=== PATIENT | male | born 1975 | race African-American/Black ===

== ENCOUNTER 2017-09-09 05:53 | Emergency (ER) | payer OTHER | END 2017-09-09 06:45 | disposition home or self-care (01) | LOC: ERS 05:53 | DX: J11.1 Influenza due to unidentified influenza virus with other respiratory manifestations (principal); E11.9 Type 2 diabetes mellitus without complications; I11.0 Hypertensive heart disease with heart failure; I50.9 Heart failure, unspecified; J45.909 Unspecified asthma, uncomplicated; E66.9 Obesity, unspecified; E78.5 Hyperlipidemia, unspecified; J44.9 Chronic obstructive pulmonary disease, unspecified; F17.200 Nicotine dependence, unspecified, uncomplicated; Z79.84 Long term (current) use of oral hypoglycemic drugs; Z79.899 Other long term (current) drug therapy | CPT/HCPCS: 99284 ==

== ENCOUNTER 2017-12-18 06:33 | Inpatient (IN) | payer OTHER ==
[2017-12-18 07:10] LABS: pH, Arterial 7.34 (7.35-7.45)
[2017-12-18 07:11] LABS: Actual Bicarbonate (HCO3a) 28.9 mEq/L (22-26); CO2 Tension 54.6 mmHg (35.0-45.0); Hemoglobin (Hb) 14.7 g/dL (14.0-18.0); O2 Tension (PaO2) 84.6 mmHg (80.0-100.0)
[2017-12-18 07:12] LABS: Analyzer IN Cardio ER; Calcium, Ionized 1.3 mmol/L (1.12-1.30); Puncture Site LRA
[2017-12-18 07:14] LABS: #Eosinphils 0.1 thou/uL (0.0-0.7); #Lymphocytes 1.7 thou/uL (1.20-3.40); #Monocytes 0.5 thou/uL (0.11-0.59); #Neutrophils 5.1 thou/uL (1.40-6.50); %Basophils 0.5 % (0.0-1.0); %Eosinophils 0.8 % (0.0-10.0); %Lymphocytes 22.8 % (21.0-51.0); %Monocytes 7.1 % (0.0-10.0); %Neutrophils 68.9 % (42.0-75.0); Mean Corpuscular HGB CONC 32.9 g/dL (32.0-36.0); Mean Corpuscular Hemoglobin 28.2 pg (27.0-31.0); Mean Corpuscular Volume 85.5 fl (80.0-94.0); Mean Platelet Volume 7.3 fL (7.4-10.4); Platelet Count 279 thou/uL (130-400); RBC Distribution Width 13.2 % (11.5-14.5); Red Blood Cell (RBC) Count 5.33 mill/uL (4.70-6.10); White Blood Cell (WBC) Count 7.4 thou/uL (4.8-10.8)
[2017-12-18 07:28] LABS: Albumin 3.8 g/dL (3.5-5.0); Calcium 9.2 mg/dL (7.8-10.44); Chloride 103 mmol/L (98-107); Globulin 3.8 g/dL (2.4-3.5); Glucose 118 mg/dL (70-105); Potassium 4.5 mmol/L (3.5-5.1); Protein, Total 7.6 g/dL (6.0-8.3); Sodium 138 mmol/L (136-145)
[2017-12-18 07:29] LABS: Anion Gap 11 mmol/L (10-20); Bilirubin, Total 0.8 mg/dL (0.2-1.2); Carbon Dioxide 29 mmol/L (22-29)
[2017-12-18 07:30] LABS: Alkaline Phosphatase 64 U/L (40-150)
[2017-12-18 07:31] LABS: Calc. Creatinine Clearance 0 mL/min (70-130); Estimated GFR-MDRD Greater than 90
[2017-12-18 07:32] LABS: BUN (Urea Nitrogen) 14 mg/dL (8.9-20.6)
[2017-12-18 07:33] LABS: ALT (SGPT) 28 U/L (8-55); AST (SGOT) 29 U/L (5-34); PTT 30.8 SEC (22.9-36.1); Prothrombin Time 13.1 SEC (12.0-14.7)
[2017-12-18 07:38] LABS: CKMB 4.2 ng/mL (0-6.6); Troponin I 0.044 ng/mL (< 0.028)
[2017-12-18 07:41] LABS: Acetaminophen Less than 6.0 mcg/mL (10.0-30.0); Alcohol Less than 10 mg/dL (Less than 10); CK (CPK) 304 U/L (30-200); Lipase 12 U/L (8-78); Salicylate Less than 8.0 mg/dL (15.0-30.0)
[2017-12-18] MEDS ORDERED: Furosemide 100 MG/10 ML VIAL ONE (07:56)
--- NOTE | 2017-12-18 07:59 | RAD ---
PORTABLE CHEST: DATE: 12/18/17. PROVIDED CLINICAL HISTORY: Shortness of breath. FINDINGS: Comparison is made with the study dated 09/07/17. Evaluation is limited by patient body habitus. Car diac silhouette appears enlarged. The left subclavian cardiac pacing device is redemonstrated. Patc hy airspace disease is present throughout the right lung. The left lung appears grossly clear. Ther e is no pleural fluid or pneumothorax evident. IMPRESSION: Right-sided airspace disease compatible with pneumonia in the appropriate clinical context. Followup is recommended after treatment to document resolution. POS: EVAN
[2017-12-18 08:51] LABS: Amphetamine Detected (NotDetected); Barbiturates Screen Not Detected (NotDetected); Benzodiazepine Screen Not Detected (NotDetected); Cocaine Metabolite Screen Not Detected (NotDetected); Medtox Control Line Valid? VALID (VALID); Medtox Reader # READER 4; Methadone Not Detected (NotDetected); Methamphetamine Detected (NotDetected); Opiate Screen Not Detected (NotDetected); Oxycodone Screen Not Detected (NotDetected); Phencyclidine (PCP) Not Detected (NotDetected); THC/Cannabinoid Screen Detected (NotDetected); Tricyclic Screen Not Detected (NotDetected)
[2017-12-18] MEDS ORDERED: Naloxone HCl 2 mg/2 ml Syringe ONE (09:16)
[2017-12-18] MEDS ORDERED: Azithromycin 500 MG VIAL ONE (09:27)
[2017-12-18 09:59] LABS: Bilirubin Negative (Negative); Blood, Urine Negative (Negative); Clarity CLEAR (Clear); Glucose, Urine (Dipstick) Negative (Negative); Leukocyte Negative (Negative); Nitrite Negative (Negative); Protein, Urine (Dipstick) Negative (Neg-Trace); Specific Gravity, Urine 1.019 (1.002-1.036); pH, Urine 5.5 (5.0-9.0)
[2017-12-18] MEDS ORDERED: Albuterol Sulfate 2.5 mg/3 ml Neb ONE (11:34)
[2017-12-18 13:42] LABS: Troponin I 0.036 ng/mL (< 0.028)
[2017-12-18] MEDS ORDERED: cefTRIAXone\\ROCEPHIN 1 GM in Sodium Chloride 0.9% 100 ML IVPB SCH (14:00)
[2017-12-18] MEDS ORDERED: Azithromycin 500 MG in Sodium Chloride 0.9% 250 ML 250 ML IVPB SCH (14:00)
[2017-12-18] MEDS ORDERED: Labetalol HCl 100 MG/20 ML VIAL SLOW IVP PRN (14:06)
--- NOTE | 2017-12-18 14:06 | PDOC.EVN ---
Event Note - Event Note Event Note: H&P dictated #[id number]
[2017-12-18] MEDS ORDERED: HumaLOG 300 UNITS/3 ML VIAL SC PRN (14:12)
[2017-12-18] MEDS ORDERED: Dextrose 5% in Water 1,000 ML IV PRN (14:12)
[2017-12-18] MEDS ORDERED: Dextrose 50% Abboject 50 ML SYRINGE SLOW IVP PRN (14:12)
[2017-12-18 14:39] VITALS: BMI 39.6
[2017-12-18 15:18] LABS: Hemoglobin A1c 5.8 % (4.0-6.0)
[2017-12-18] MEDS ORDERED: predniSONE 20 MG TAB PO SCH (17:00)
[2017-12-18 19:00] LABS: Troponin I 0.035 ng/mL (< 0.028)
[2017-12-18] MEDS ORDERED: Carvedilol 25 MG TAB PO SCH (21:00)
[2017-12-18] MEDS: Amoxicillin/Potassium Clav 875 MG TAB PO SCH (21:35)
[2017-12-18] MEDS: Lisinopril 20 MG TAB PO SCH (21:36)
[2017-12-19 04:59] LABS: Hemoglobin 14.4 g/dL (14.0-18.0); Lymphocytes 14 % (21-51); MDiff Complete? YES; Mean Corpuscular Hemoglobin 28.3 pg (27.0-31.0); Mean Corpuscular Volume 85.8 fl (80.0-94.0); Mean Platelet Volume 8.2 fL (7.4-10.4); Monocytes 5 % (0-10); Neutrophil 81 % (42-75); Platelet Count 295 thou/uL (130-400); RBC Distribution Width 13.2 % (11.5-14.5); Red Blood Cell (RBC) Count 5.08 mill/uL (4.70-6.10); White Blood Cell (WBC) Count 13.8 thou/uL (4.8-10.8)
[2017-12-19 05:06] LABS: Troponin I 0.044 ng/mL (< 0.028)
[2017-12-19 05:22] LABS: Anion Gap 13 mmol/L (10-20); BUN (Urea Nitrogen) 17 mg/dL (8.9-20.6); Calc. Creatinine Clearance 206 mL/min (70-130); Calcium 9.6 mg/dL (7.8-10.44); Carbon Dioxide 28 mmol/L (22-29); Chloride 99 mmol/L (98-107); Estimated GFR-MDRD Greater than 90; Glucose 136 mg/dL (70-105); Potassium 3.9 mmol/L (3.5-5.1); Sodium 136 mmol/L (136-145)
[2017-12-19] MEDS ORDERED: Furosemide 40 MG TAB PO SCH (07:30)
[2017-12-19] MEDS: Lisinopril 20 MG TAB PO SCH ×2 (08:27→21:13)
[2017-12-19] MEDS: Allopurinol 100 MG TAB PO SCH (08:28)
[2017-12-19] MEDS: predniSONE 20 MG TAB PO SCH (08:28)
[2017-12-19] MEDS: hydrALAZINE 25 MG TAB PO SCH (08:30)
[2017-12-19] MEDS: Amoxicillin/Potassium Clav 875 MG TAB PO SCH ×2 (08:31→21:13)
[2017-12-19] MEDS ORDERED: Furosemide 40 MG/4 ML VIAL SLOW IVP SCH (08:45)
[2017-12-19] MEDS ORDERED: Potassium Chloride 20 MEQ TAB PO SCH (08:45)
[2017-12-19] MEDS: Enoxaparin Sodium 40 MG/0.4 ML SYRINGE SC SCH (09:18)
[2017-12-19] MEDS: Spironolactone 25 MG TAB PO SCH (09:19)
--- NOTE | 2017-12-19 09:53 | CON ---
DATE OF CONSULTATION: 12/19/2017. REASON FOR CONSULTATION: Congestive heart failure, systolic, acute on chronic. PRIMARY TECHNICAL MGR: Dr. Carlos Pascual. HISTORY OF PRESENT ILLNESS: Mr. Schmidt is a 42-year-old gentleman. He came to the emergency room c [facility] of increasing difficulty breathing and has a history of a nonischemic cardiomyopathy. He was placed on BiPAP, continues to be short of breath. PAST MEDICAL HISTORY: He has a history of presenting with congestive heart failure in 2011. Cardiac catheterization revealed normal coronary arteries. In view of the left ventricular dysfunction, he underwent single chamber defibrillator implantation. He has not seen a mental tester for several year s. He presented to the emergency room last night with increasing difficulty breathing. MEDICATIONS: At home included, 1. Glipizide. 2. Hydralazine. 3. Carvedilol 12.5 mg twice a day. 4. Lisinopril 40 mg a day. 5. Furosemide 40 mg twice a day. 6. Allopurinol. PAST MEDICAL HISTORY: 1. Idiopathic dilated cardiomyopathy. 2. Some reactive airway disease. 3. He is on medicines for diabetes. REVIEW OF SYSTEMS: Constitutional: No significant weight gain or loss. Vision: No changes. Heari ng: No changes. Pulmonary: Positive for shortness of breath. Cardiac: Positive for shortness of breath, no chest pain. Gastrointestinal: No nausea, vomiting, diarrhea. Skin: No rashes. Neurolo gic: No unilateral weakness or numbness. Psychiatric: No unusual depression or anxiety. Hematolog ic: No unusual bruising. Genitourinary: No burning with urination. SOCIAL HISTORY: Positive for marijuana, positive for tobacco, no alcohol. ALLERGIES: None known. Yesterday, blood pressure on arrival was 150/104. PHYSICAL EXAMINATION: GENERAL: He is a pleasant gentleman. He is resting comfortably, in no distress. HEENT: Eyes, sclerae nonicteric. Mouth, mucous membranes moist. VITAL SIGNS: Blood pressure 120/79, pulse 96, it is regular. NECK: Neck veins are normal. Carotid normal upstrokes. LUNGS: There is diffuse expiratory wheezing. CARDIOVASCULAR: Normal S1, normal S2. I do not hear a murmur, rub or gallop. ABDOMEN: Obese, nontender, no hepatosplenomegaly. EXTREMITIES: Warm, dry, no clubbing or cyanosis. There is mild edema. Peripheral pulses are presen t. PERTINENT LABORATORY DATA AND IMAGING: BNP 1679. Chest x-ray shows cardiomegaly with pulmonary vasc ular congestion and heart failure. Troponin 0.044. Potassium 3.9, BUN 17, creatinine 0.9. EKG show s sinus rhythm, nonspecific ST and T-wave changes. ASSESSMENT: 1. Idiopathic dilated cardiomyopathy. 2. Congestive heart failure, systolic, acute on chronic. 3. Previous defibrillator implantation. PLAN: 1. Continue diuretic. He did receive 1 dose of intravenous Lasix last night. We will need to marija nue intravenous diuretics. 2. Add spironolactone. 3. Resume carvedilol. We will reduce dose until he is compensated. Further care dictated by hospit al course. We will ask the [employer] rep to interrogate the device.
[2017-12-19] MEDS: Furosemide 40 MG/4 ML VIAL SLOW IVP SCH (14:03)
[2017-12-19] MEDS ORDERED: Diabetic Tussin 200 MG/10 ML UDCUP PO PRN (14:51)
[2017-12-19] MEDS ORDERED: Cepastat Lozenges 1 LOZ PO PRN (14:51)
--- NOTE | 2017-12-19 14:51 | PRG ---
DATE OF SERVICE: 12/19/2017 SERVICE: Pulmonary Medicine. INTERVAL HISTORY: The patient is doing great from a respiratory standpoint. He denies any chest rhea n or shortness of breath. He is on a BiPAP break this morning. He is on room air. He slept very we ll last night. No specific complaints of fevers, chills, nausea, vomiting or diarrhea. Otherwise, chava bruner seems to have returned to his usual state of health. PHYSICAL EXAMINATION: VITAL SIGNS: Afebrile, pulse 96, blood pressure 120/79, respirations 20, saturation 97% on room air. GENERAL: The patient is awake, alert, no apparent distress. LUNGS: Decent air entry bilaterally. Dependent crackles are minimal. That being said, there is sammy e minimal prolongation of expiratory phase, rhonchi and wheezing present. HEART: Normal rate, regular. ABDOMEN: Soft, nontender, nondistended. Bowel sounds are positive. MUSCULOSKELETAL: No cyanosis or clubbing. Trace pitting in the bilateral lower extremities. NEUROLOGIC: Grossly nonfocal. LABORATORY DATA: WBC 13.8, hemoglobin 43.6, platelets 295,000. Basic metabolic profile is unremarka ble. Troponin 0.044. Urinalysis is unremarkable. Urine drug screen is positive for multiple substa nces. Blood cultures and urine culture are unremarkable. ASSESSMENT: 1. Acute hypoxic and hypercapnic respiratory failure, resolved. 2. Acute on chronic systolic heart failure. 3. Asthma with acute exacerbation. PLAN: We will continue our steroids, antibiotics, and nebulized medication. We will diurese the pat ient until he returns to euvolemia. From my perspective, he is stable for transition out of the hosp ital to the telemetry unit. The patient needs a followup [facility] to look into setting up a polysomnogram. I have asked the patient to make certain thi s occurs as he did arrive, significant benefit from this device and continue use that may prevent add itional injury to the heart in the future. He has been counseled to stay away from any type of signi ficant illicit stimulants. He is stable for transition to the telemetry unit. Pulmonary will contin ue to follow for the time being.
[2017-12-19] MEDS ORDERED: guaiFENesin ER 600 MG TAB PO SCH (15:00)
[2017-12-19] MEDS: Carvedilol 6.25 MG TAB PO SCH (16:03)
[2017-12-19] MEDS: guaiFENesin ER 600 MG TAB PO SCH (21:13)
--- NOTE | 2017-12-19 22:33 | PDOC.PN ---
- Subjective Encounter Start Date: 12/19/17 Encounter Start Time: 14:00 Patient seen and examined for CHF/possible pneumonia. SOB improving. No new complaints. No overnight events - Objective MAR Reviewed: Yes Vital Signs & Weight: Vital Signs (12 hours) Temp Pulse Resp BP BP Pulse Ox 12/19/17 21:13 113/72 12/19/17 20:00 97.9 F 101 H 18 113/72 90 L 12/19/17 16:03 123/84 12/19/17 16:00 98.4 F 88 18 123/84 94 L 12/19/17 13:05 101 H 18 95 12/19/17 10:53 98.8 F 107 H 20 129/71 97 Weight Weight 297 lb 11.2 oz I&O: 12/18/17 12/19/17 12/20/17 06:59 06:59 06:59 Intake Total 1010 1220 Output Total 900 4400 Balance 110 -3180 Result Diagrams: 12/19/17 03:21 12/20/17 04:20 Additional Labs: Accuchecks 12/19/17 12/19/17 12/19/17 21:14 15:53 10:30 POC Glucose 128 H 136 H 147 H 12/19/17 05:32 POC Glucose 166 H EKG Reviewed by me: Yes (Tele SR) Phys Exam - Physical Examination Constitutional: NAD Neck: supple JVD + Respiratory: wheezing present Bibasilar rales/rhonchi, Symmetrical Cardiovascular: RRR, no rub Gastrointestinal: soft, non-tender, no distention, positive bowel sounds Musculoskeletal: pulses present, edema present Neurological: non-focal, normal sensation, moves all 4 limbs Psychiatric: normal affect, A&O x 3 Dx/Plan - Plan continue antibiotics, respiratory therapy, DVT proph w/lovenox, DVT proph w/SCDs IMPRESSION: 1. Acute hypoxic resp failure due to Acute on chronic systolic heart failure exacerbation 2. Suspected CA Pneumonia ?Pneumococcal 3. Polysubstance abuse 4. Obesity BMI 38.9 5. HTN / DM2 PLAN: * Cont diuresis * Cont steroids/Atbx * Counselled on drug cessation * Transfer to Tele * cont sliding scale Review of Systems - Review of Systems Respiratory: negative: Cough, Dry, Shortness of Breath, Hemoptysis, SOB with Excertion, Pleuritic Pain, Sputum, Wheezing Cardiovascular: negative: chest pain, palpitations, orthopnea, paroxysmal nocturnal dyspnea, edema, light headedness, other - Medications/Allergies Allergies/Adverse Reactions: Allergies Allergy/AdvReac Type Severity Reaction Status Date / Time No Known Drug Allergies Allergy Verified 12/18/17 14:36 Medications: Current Medications Albuterol/Ipratropium (Duoneb) 3 ml NEB [id number] [facility] Last Admin: 12/19/17 13:05 Dose: 3 ml Albuterol/Ipratropium (Duoneb) 3 ml NEB [id number] PRN PRN Reason: SOB &/or Wheezing Allopurinol (Zyloprim) 100 mg PO DAILY [facility] Last Admin: 12/19/17 08:28 Dose: 100 mg Amoxicillin/Clavulanate Potassium (Augmentin) 875 mg PO Q12HR [facility] Stop: 12/23/17 21:01 Last Admin: 12/19/17 21:13 Dose: 875 mg Carvedilol (Coreg) 6.25 mg PO BID-[facility] Last Admin: 12/19/17 16:03 Dose: 6.25 mg Dextrose/Water (Dextrose 50%) 25 gm SLOW IVP PRN PRN PRN Reason: Hypoglycemia Enoxaparin Sodium (Lovenox) 40 mg SC 0900 [facility] Last Admin: 12/19/17 09:18 Dose: 40 mg Furosemide (Lasix) 40 mg SLOW IVP 0600,1400 [facility] Last Admin: 12/19/17 14:03 Dose: 40 mg Glucagon (Glucagon) 1 mg IM PRN PRN PRN Reason: Hypoglycemia Guaifenesin (Robitussin Sf) 200 mg PO Q4H PRN PRN Reason: Cough Guaifenesin (Mucinex) 600 mg PO Q12HR [facility] Last Admin: 12/19/17 21:13 Dose: 600 mg Hydralazine HCl (Apresoline) 25 mg PO DAILY [facility] Last Admin: 12/19/17 08:30 Dose: Not Given Dextrose/Water (D5w) 1,000 mls @ 0 mls/hr IV .Q0M PRN; As Directed PRN Reason: Hypoglycemia Labetalol HCl (Normodyne) 10 mg SLOW IVP Q4H PRN PRN Reason: Sbp Greater Than 170mmHg Lisinopril (Zestril) 20 mg PO BID [facility] Last Admin: 12/19/17 21:13 Dose: Not Given Prednisone (Prednisone) 40 mg PO QAM-[facility] Stop: 12/22/17 08:01 Last Admin: 12/19/17 08:28 Dose: 40 mg Sodium Chloride (Flush - Normal Saline) 10 ml IVF Q12HR [facility] Last Admin: 12/19/17 21:14 Dose: 10 ml Sodium Chloride (Flush - Normal Saline) 10 ml IVF PRN PRN PRN Reason: Saline Flush Last Admin: 12/19/17 14:03 Dose: 10 ml Spironolactone (Aldactone) 25 mg PO QA-[facility] Last Admin: 12/19/17 09:19 Dose: 25 mg Throat Lozenges (Cepastat Lozenges) 1 kandice PO Q2H PRN PRN Reason: Sore Throat
[2017-12-20 05:04] LABS: Anion Gap 11 mmol/L (10-20); BUN (Urea Nitrogen) 24 mg/dL (8.9-20.6); Calc. Creatinine Clearance 184 mL/min (70-130); Calcium 9.4 mg/dL (7.8-10.44); Carbon Dioxide 31 mmol/L (22-29); Chloride 99 mmol/L (98-107); Estimated GFR-MDRD Greater than 90; Glucose 92 mg/dL (70-105); Magnesium 2.1 mg/dL (1.6-2.6); Potassium 4.4 mmol/L (3.5-5.1); Sodium 137 mmol/L (136-145)
[2017-12-20] MEDS: Furosemide 40 MG/4 ML VIAL SLOW IVP SCH (05:08)
--- NOTE | 2017-12-20 05:16 | CON ---
DATE OF CONSULTATION: 12/18/2017 SERVICE: Pulmonary Medicine. REASON FOR CONSULT: IMCU patient. HISTORY OF PRESENT ILLNESS: The patient is a 42-year-old male with past medical history significant for asthma and polysubstance drug abuse. He was in his usual state of health when he was brought to the emergency department because of respiratory distress. He was a touch hypoxemic. He was put on some oxygen. He became more somnolent en route to the Emergency Department and was subsequently ____. He was placed on BiPAP. He is currently somnolent. With stimulation, he will wake up and act like he is sleeping and stretching. That being said, he is preferring not to interact with me at this time. He specifically denies any shortness of breath or chest discomfort currently. PAST MEDICAL HISTORY: 1. Asthma. 2. Chronic systolic heart failure with an ejection fraction of 15%. 3. Type 2 diabetes mellitus. 4. Morbid obesity. 5. Dyslipidemia. 6. Hypertension. PAST SURGICAL HISTORY: 1. Pacemaker placement in 2013. 2. Cardiac catheterization. SOCIAL HISTORY: He uses multiple substances including marijuana. He smokes tobacco on a daily basis. He has a 48-mltu-lpcs history of smoking but quit over 10 years ago. He denies any excessive alcohol use. He has no exposure to chemicals, dust, asbestos, or tuberculosis. ALLERGIES: No known drug allergies. MEDICATIONS: List of his inpatient medications were reviewed. No specific updates were made at this time. REVIEW OF SYSTEMS: General, head, ears, eyes, nose, throat, cardiovascular, respiratory, GI, , musculoskeletal, neurologic, and skin is negative except as mentioned in the HPI. PHYSICAL EXAMINATION: VITAL SIGNS: Afebrile, pulse 109, blood pressure 139/95, respirations 26, saturation 94% on BiPAP at 14/5 with 21% FiO2. GENERAL: Patient is awake, alert, in no apparent distress. LUNGS: Decent air entry. There is not much prolonged expiratory phase. Dependent crackles are minimal. HEART: Normal rate. Tachycardic. Regular. ABDOMEN: Soft, nontender, nondistended. Bowel sounds are positive. MUSCULOSKELETAL: No cyanosis or clubbing. There is no pitting or tenting throughout. GENITOURINARY: Prince catheter in place. NEUROLOGIC: Grossly nonfocal. LABORATORY DATA: WBC 7.4. CBC is otherwise unremarkable. INR 1.0. A pH 7.34 , pCO2 54, PO2 84. Basic metabolic profile and liver function studies are essentially unremarkable. BNP 1600, which is well below his baseline. Troponin is down trending to 0.036. Lactate 1.3, hemoglobin A1c 5.8. Urinalysis is unremarkable. Urine drug screen is positive for methamphetamine, amphetamine, and cannabinoids. IMAGING: Chest x-ray demonstrates a parenchymal infiltrate in the right lung. Heart is enlarged. Defibrillator is in place. Pulmonary vascular congestion is otherwise identified. ASSESSMENT: 1. Chronic hypercapnic respiratory failure. 2. Acute hypoxic respiratory failure. 3. Community-acquired pneumonia, possible. 4. Acute on chronic systolic heart failure. 5. Mitral regurgitant regurgitation, moderate in 2015. 6. Asthma without acute exacerbation. 7. Metabolic encephalopathy. PLAN: I will diurese the patient to euvolemia. We will continue to watch for signs of sepsis, currently none exist. I will deescalate prednisone to 40 mg on a daily basis and limit him to five-day course. I will start him on Augmentin 875 p.o. twice daily for the next 5 days, treating the community- acquired pneumonia. The chest x-ray could be consistent with preferential pulmonary edema on the right side, particularly in light of his mitral regurgitation. He will be on and off of noninvasive ventilation over the next 24 hours. Hopefully, by tomorrow morning, some of these substances will be out of his system and he will be more alert for us. 70 minutes have been devoted to this patient in various activities. I personally reviewed all imaging studies and laboratory data noted within this document. For fifty percent of this time, I was interacting with the patient at the bedside or coordinating care with the care team. For the remainder of the time I was immediately available to the patient in the hospital unit. SHAMIR
--- NOTE | 2017-12-20 07:24 | HP ---
DATE OF ADMISSION: 12/18/2017 ADMITTING DIAGNOSES: Shortness of breath and chest discomfort. HISTORY OF PRESENT ILLNESS: This is a 42-year-old male who states that he woke up this morning with severe significant shortness of breath and decided to present to the ER. States that he has positive medical history of COPD, congestive heart failure, diabetes mellitus, as well as hypertension and obesity. The patient states that he has had several episodes of COPD before and usually presents this way. The patient states that he was also out with some friends last night and did take some illicit drugs. The patient's urine drug screen, of note was positive for amphetamines as well as positive for methamphetamines and amphetamines and cannabinoids. The patient currently is on a BiPAP states he feels better than prior to coming in. Denies any other complaints or issues. No nausea vomiting, diarrhea, constipation, chest pain, fevers or chills but does admit to shortness of breath. The patient seen and examined in the ER and all questions answered. ALLERGIES: No known drug allergies. MEDICATIONS: See MAR. PAST MEDICAL HISTORY: Positive for diabetes mellitus, hypertension, COPD, obesity congestive heart failure, diastolic and systolic. FAMILY HISTORY: Positive for hypertension, diabetes, and renal failure on both sides of the family. SOCIAL HISTORY: The patient states that he does not smoke currently quit a few months ago; however, smoked more than 30 years for a pack-a-day of smoking. Does partake in illicit drug use as noted by his urine drug screen. Social drinker. REVIEW OF SYSTEMS: All systems reviewed, pertinent positives in HPI otherwise negative. PHYSICAL EXAMINATION: VITAL SIGNS: Blood pressure is 141/89, temperature is 98, respiratory rate of 18, and pulse of 98. GENERAL: The patient appears in mild respiratory distress, lying in bed in the ER. Physical appearance is that of a very morbidly obese individual. HEENT: Pupils equal, round, react to light and accommodation. BiPAP mask in place. Oral cavity appears little bit dry from the BiPAP. Nontender, mobile, supple thyroid. No lymphadenopathy in cervical chains noted. PULMONARY: Clear to auscultation bilaterally. Increased AP diameter. Significant chest fat noted. Mild respiratory distress. CARDIOVASCULAR: Distant heart sounds. Regular rate and rhythm. S1 and S2. No murmurs, rubs, or gallops appreciated. ABDOMEN: Positive bowel sounds. Soft, nontender, rotund. EXTREMITIES: 2+ peripheral pulses. Trace edema in bilateral lower extremities. LABORATORY DATA: CBC is within normal limits. ABG shows pH of 7.34, pCO2 of 55 , pO2 of 85 on room air. Basic metabolic panel is normal except for creatine kinase is 304. Troponins 2 sets first 1.044 and the other one 0.036. Urine drug screen again positive for amphetamines, methamphetamines, and cannabinoids and urinalysis negative for any indication of UTI. Chest x-ray shows right- sided airspace disease compatible with pneumonia. ASSESSMENT: 1. Recreational drug use. 2. Chronic obstructive pulmonary disease exacerbation. 3. Obesity. 4. Hypertension. 5. Diabetes mellitus type 2. 6. Diastolic/systolic congestive heart failure decompensation. 7. Questionable pneumonia. PLAN: At this point in time, we admit the patient to IMCU. Consult Pulmonary as patient states he would like to see a washhouse hand, he sees a washhouse hand as outpatient. Start the patient on Solu-Medrol. Hold all blood pressure medications at this point in time as interactions are concerned. Target blood pressure 121/40. GI and DVT prophylaxis. We will hold off on antibiotics at this point in time as the patient has no signs or symptoms of infection nor a high white count or fevers. We will admit the patient for COPD exacerbation likely due to illicit drug use. The patient states he wishes to remain a FULL CODE. Case and plan discussed with the patient at length. He understands and agrees with this plan. SHAMIR
[2017-12-20] MEDS: Lisinopril 20 MG TAB PO SCH (09:30)
[2017-12-20] MEDS: Allopurinol 100 MG TAB PO SCH (09:30)
[2017-12-20] MEDS: Spironolactone 25 MG TAB PO SCH (09:30)
[2017-12-20] MEDS: guaiFENesin ER 600 MG TAB PO SCH (09:30)
[2017-12-20] MEDS: Carvedilol 6.25 MG TAB PO SCH (09:30)
[2017-12-20] MEDS: Amoxicillin/Potassium Clav 875 MG TAB PO SCH (09:31)
[2017-12-20] MEDS: hydrALAZINE 25 MG TAB PO SCH (09:31)
[2017-12-20] MEDS: predniSONE 20 MG TAB PO SCH (09:31)
[2017-12-20] MEDS: Enoxaparin Sodium 40 MG/0.4 ML SYRINGE SC SCH (09:31)
--- NOTE | 2017-12-20 09:56 | PRG ---
DATE OF SERVICE: 12/20/2017 SERVICE: Pulmonary Medicine INTERVAL HISTORY: The patient is doing fine from a cardiovascular and respiratory standpoint. He de nies any current chest pain, nausea, vomiting, fevers or chills. He did not use his BiPAP last night because it was taken out of his room. PHYSICAL EXAMINATION: VITAL SIGNS: Afebrile, pulse 100, blood pressure 132/93, respirations 12, saturation 92% on room air . GENERAL: The patient is awake, alert, in no apparent distress. LUNGS: Decent air entry without prolonged expiratory phase, wheezing, rhonchi or crackles. HEART: Normal rate, regular. ABDOMEN: Soft, nontender, nondistended. Bowel sounds are positive. MUSCULOSKELETAL: No cyanosis or clubbing. There is no pitting in the bilateral lower extremities. NEUROLOGIC: Grossly nonfocal. LABORATORY DATA: Basic metabolic profile and magnesium are unremarkable. Bicarbonate has bumped sli ghtly to 31. Creatinine 1.0 and gently up trending. ASSESSMENT: 1. Acute hypoxic and hypercapnic respiratory failure, resolved. 2. Acute on chronic systolic heart failure. 3. Asthma with acute exacerbation. 4. Obstructive sleep apnea, suspected. PLAN: The patient is stable for transition out of the hospital, or transition to the telemetry from a purely respiratory perspective. Pulmonary Critical Care will continue to follow along if he remain s in this location, but when he goes to the floor I will sign off. A Prince catheter will be removed today. He needs to follow up with his primary care physician to get set up with a polysomnogram in t outpatient setting. I have recommended to him that he set that appointment up.
[2017-12-20 11:10] VITALS: BP 113/75; TEMP 97
[2017-12-21] MEDS ORDERED: Furosemide 40 MG/4 ML VIAL SLOW IVP SCH (09:00)
--- NOTE | 2017-12-21 10:26 | DIS ---
DATE OF DISCHARGE: 12/20/2017 Patient left against medical advice. BRIEF HOSPITAL COURSE: Patient is a 42-year-old male with chronic systolic heart failure; hypertensi on; diabetes mellitus, type 2; and polysubstance abuse, who presented to the emergency room on 2017 with shortness of breath and chest discomfort. His workup in the emergency room was consistent with elevated BNP of 1679 with indeterminate troponins. Urine drug screen was positive for amphetami chelle, methamphetamines, and cannabinoid. Please refer to the history and physical for further details . The patient was admitted to the intermediate care unit with a diagnosis of acute hypoxic respiratory failure. He showed good improvement with diuretics. The patient [facility] Echocardiogram was repeated that showed ejection fraction 15%-20%. His weight on the day of discharge was 295 pounds compared to 300 pounds on admission. The patient left against medica l advice on 12/20/2017 without notifying the nurses. FINAL DIAGNOSES: 1. Acute hypoxic respiratory failure secondary to acute on chronic systolic heart failure exacerbati on. 2. Suspected community-acquired pneumonia, questionable pneumococcal. 3. Polysubstance abuse. 4. Obesity with a BMI 38.9. 5. Hypertension. 6. Diabetes mellitus, type 2.
== END 2017-12-20 11:49 | disposition left against medical advice (07) | DRG 190 ==
LOC: ERS 06:33 → IMCU/EMU 14:11
PROVIDERS: ADMIT Internal Medicine; ATTEND Internal Medicine
DX: J44.1 Chronic obstructive pulmonary disease with (acute) exacerbation (principal); J13 Pneumonia due to Streptococcus pneumoniae; J96.21 Acute and chronic respiratory failure with hypoxia; I50.23 Acute on chronic systolic (congestive) heart failure; G93.41 Metabolic encephalopathy; I11.0 Hypertensive heart disease with heart failure; E11.9 Type 2 diabetes mellitus without complications; Z87.891 Personal history of nicotine dependence; Z68.38 Body mass index [BMI] 38.0-38.9, adult; F19.10 Other psychoactive substance abuse, uncomplicated; J44.0 Chronic obstructive pulmonary disease with (acute) lower respiratory infection; Z95.0 Presence of cardiac pacemaker; E66.01 Morbid (severe) obesity due to excess calories; Z79.84 Long term (current) use of oral hypoglycemic drugs
CPT/HCPCS: 36415; 36416; 51702; 71045; 80048; 80053; 80306; 80307; 81003; 82553; 82805; 83036; 83605; 83690; 83735; 83880; 84484; 85007; 85025; 85027; 85610; 85730; 87040; 87086; 93005; 93306; 94640; 94644; 94660; 96365; 96375; 99406; J0456; J0696; J1940; J2310; J2920; J7611; J7620

== ENCOUNTER 2018-04-03 01:25 | Inpatient (IN) | payer OTHER ==
[2018-04-03] MEDS ORDERED: cefTRIAXone\\ROCEPHIN 1 GM VIAL ONE (01:54)
[2018-04-03] MEDS ORDERED: Azithromycin 250 MG TAB ONE (01:54)
[2018-04-03 02:01] LABS: #Eosinphils 0.1 thou/uL (0.0-0.7); #Lymphocytes 0.9 thou/uL (1.20-3.40); #Monocytes 0.4 thou/uL (0.11-0.59); #Neutrophils 4.5 thou/uL (1.40-6.50); %Basophils 0.1 % (0.0-1.0); %Eosinophils 1.5 % (0.0-10.0); %Lymphocytes 15.6 % (21.0-51.0); %Monocytes 6.7 % (0.0-10.0); Hemoglobin 13.3 g/dL (14.0-18.0); Mean Corpuscular HGB CONC 32.7 g/dL (32.0-36.0); Mean Corpuscular Hemoglobin 27.9 pg (27.0-31.0); Mean Corpuscular Volume 85.5 fL (78.0-98.0); Mean Platelet Volume 7.5 fL (7.4-10.4); Platelet Count 256 thou/uL (130-400); RBC Distribution Width 13.5 % (11.5-14.5); Red Blood Cell (RBC) Count 4.77 mill/uL (4.70-6.10); White Blood Cell (WBC) Count 5.9 thou/uL (4.8-10.8)
[2018-04-03] MEDS ORDERED: Dexamethasone 10 MG/ML VIAL SLOW IVP SCH (02:15)
[2018-04-03 02:17] LABS: ALT (SGPT) 31 U/L (8-55); AST (SGOT) 19 U/L (5-34); Albumin 3.6 g/dL (3.5-5.0); Alkaline Phosphatase 57 U/L (40-150); Anion Gap 14 mmol/L (10-20); BUN (Urea Nitrogen) 15 mg/dL (8.9-20.6); Bilirubin, Total 0.9 mg/dL (0.2-1.2); Calc. Creatinine Clearance 0 mL/min (70-130); Calcium 8.9 mg/dL (7.8-10.44); Carbon Dioxide 22 mmol/L (22-29); Chloride 103 mmol/L (98-107); Estimated GFR-MDRD 84; Globulin 3.1 g/dL (2.4-3.5); Glucose 141 mg/dL (70-105); Potassium 3.9 mmol/L (3.5-5.1); Protein, Total 6.7 g/dL (6.0-8.3); Sodium 135 mmol/L (136-145)
[2018-04-03 02:34] LABS: CKMB 1.6 ng/mL (0-6.6); Troponin I 0.018 ng/mL (< 0.028)
[2018-04-03] MEDS ORDERED: Furosemide 20 MG/2 ML VIAL ONE (03:45)
[2018-04-03 04:00] LABS: Bilirubin Negative (Negative); Blood, Urine Negative (Negative); Clarity CLEAR (Clear); Glucose, Urine (Dipstick) Negative (Negative); Leukocyte Negative (Negative); Nitrite Negative (Negative); Protein, Urine (Dipstick) 30 mg/dL (Neg-Trace); Specific Gravity, Urine 1.029 (1.002-1.036)
[2018-04-03 04:02] LABS: Bacteria/HPF None Seen HPF (None Seen); Hyaline Casts/LPF 0-3 HYALINE CAST LPF (0-3 Hyaline); RBC/HPF 0-3 HPF (0-3); Squamous Epithelial None Seen HPF (0-3); WBC/HPF 0-3 HPF (0-3)
[2018-04-03] MEDS ORDERED: Ondansetron HCl/PF 4 MG/2 ML Vial IVP PRN ×2 (05:23→07:15)
[2018-04-03] MEDS ORDERED: Acetaminophen 325 MG TAB PO PRN ×2 (05:23→07:15)
[2018-04-03] MEDS ORDERED: Ondansetron ODT 4 MG TAB SL PRN (05:23)
[2018-04-03] MEDS ORDERED: Mag-Al 1200 mg/1200 mg/30 ML UDCUP PO PRN (07:15)
[2018-04-03] MEDS ORDERED: Chloraseptic Spray 180 ml Bottle PO PRN (07:15)
[2018-04-03] MEDS ORDERED: Loperamide HCl 2 MG CAP PO PRN (07:15)
[2018-04-03] MEDS ORDERED: Ondansetron ODT 4 MG TAB PO PRN (07:15)
[2018-04-03] MEDS ORDERED: Milk Of Magnesia 30 ML UDCUP PO PRN (07:15)
[2018-04-03] MEDS ORDERED: hydrALAZINE 20 MG/ML VIAL SLOW IVP PRN (07:15)
[2018-04-03] MEDS ORDERED: Artificial Tears 18 DROP/0.9 ML EA EYE PRN (07:15)
[2018-04-03] MEDS ORDERED: Senokot 8.6 MG TAB PO PRN (07:15)
[2018-04-03] MEDS ORDERED: Eucerin (Mineral Oil/Petrolatum,White) 30 gm Jar TOP PRN (07:15)
[2018-04-03] MEDS ORDERED: Sodium Chloride 0.65% Nasal 44 ML BOT EA NARE PRN (07:15)
[2018-04-03] MEDS ORDERED: Nitroglycerin 0.4 MG TAB (25 Tab Bottle) SL PRN (07:15)
[2018-04-03] MEDS ORDERED: Loratadine 10 MG TAB PO PRN (07:15)
[2018-04-03] MEDS ORDERED: Diabetic Tussin 200 MG/10 ML UDCUP PO PRN (07:15)
--- NOTE | 2018-04-03 07:47 | CT ---
PRELIMINARY REPORT/[facility]/EMERGENTY AFTER-HOURS PROCEDURE CT Angiography Chest With Intravenous Contrast CLINICAL HISTORY: 43 years old, male; Signs and symptoms; Dyspnea and shortness of breath; Patient HX: Er 3; M42 presen ts to ed by ems for SOB. Pt reports he has been SOB and had chest pain for the past couple of days. E ms reports pt did not feel feverish at home and pt is unsure if he has had a fever or not. Pt is unsure if his legs are swollen. Pt reports it has been "awhile" since he has been hospitalized for fluid retention or copd. Hx- afib, pacemaker, chf, hbp, copd, asthma. ; Additional info: *iv leak af ter first 30 ml of injection, once janet was fixed additional 80ml of contrast was used to complete exa m TECHNIQUE: Axial computed tomographic angiography images of the chest with intravenous contrast using pulmonary embolism protocol. MIP reconstructed images were created and reviewed. COMPARISON: No relevant prior studies available. FINDINGS: Pulmonary arteries: No acute findings. No evidence of pulmonary embolism. Aorta: No acute findings. No thoracic aortic aneurysm or dissection. Lungs: Bilateral, lower lobe predominant, groundglass airspace opacities, septal and peribronchial th ickening. Patchy linear atelectasis. Few scattered punctate nonspecific nodules. Pleural space: No acute findings. No significant effusion. No pneumothorax. Heart: Marked cardiomegaly. Left subclavian ICD. No pericardial effusion. Bones/joints: No acute fracture. No dislocation. Soft tissues: No acute findings. Lymph nodes: Bilateral hilar and mediastinal adenopathy. IMPRESSION: No evidence of pulmonary embolism. Marked cardiomegaly. Bilateral groundglass opacities and septal thickening could relate to pulmonary edema; infection/inflammation not completely excluded. Bilateral hilar and mediastinal adenopathy could be reactive and can be followed. Thank you for allowing us to participate in the care of your patient. Dictated and Authenticated by: Mark Donovan MD 04/03/2018 3:59 AM Central Time ([place] & [place]) FINAL REPORT CT PULMONARY ANGIOGRAM WITH IV CONTRAST AND 3D POSTPROCESSING: I agree with the preliminary report given by Dr. Donovan of [employer]. POS: [facility]
--- NOTE | 2018-04-03 08:25 | RAD ---
RADIOGRAPH CHEST 1 VIEW: Date: 04/03/2018 Time: 12:50 a.m. HISTORY: A 43-year-old male with chest pain. COMPARISON: 12/18/2017 FINDINGS: Cardiomegaly. A single lead left subclavian AICD. Pulmonary venous engorgement. Diffusely increase d interstitial markings throughout the right lung, with confluence into mild early air space densitie s at the right lower lung zone. These changes in the right lung have improved, compared to 8. No pneumothorax. IMPRESSION: 1. Cardiomegaly. 2. Pulmonary venous congestion is suggestive of at least mild congestive heart failure. 3. Interstitial densities throughout most of the right lung, plus early alveolar density at the righ t lower lung zone. Uncertain etiology. BANDAR [] POS: [facility]
[2018-04-03] MEDS: Potassium Chloride 20 MEQ TAB PO SCH ×2 (09:27→18:23)
[2018-04-03] MEDS: Metolazone 5 MG TAB PO SCH (09:27)
[2018-04-03] MEDS: Spironolactone 25 MG TAB PO SCH (09:27)
[2018-04-03] MEDS: Enoxaparin Sodium 40 MG/0.4 ML SYRINGE SC SCH (09:28)
[2018-04-03] MEDS: Carvedilol 3.125 MG TAB PO SCH ×2 (09:28→21:33)
[2018-04-03] MEDS: Famotidine 20 MG TAB PO SCH ×2 (09:28→21:33)
[2018-04-03] MEDS: Lisinopril 5 MG TAB PO SCH (09:28)
[2018-04-03] MEDS ORDERED: ISOVUE-370 76%-LOCM 1 ML ONE (10:44)
--- NOTE | 2018-04-03 12:11 | HP ---
PRIMARY CARE PHYSICIAN: Dr. Tucker Koehler. REASON FOR ADMISSION: Acute on chronic systolic and diastolic congestive heart failure exacerbation, chronic obstructive pulmonary disease exacerbation. HISTORY OF PRESENT ILLNESS: A 43-year-old -[place] male who has underlying history of systol ic and diastolic heart failure. His EF is 15%-20% based on most recent echocardiography. He also josé s ongoing tobacco abuse disorder. He presented to emergency room with increasing shortness of breath for last 2 days. He was also having vague chest discomfort. He was having cough productive of scan t amount of sputum. He was not feeling better with his own medication. Last night, condition was mo re severe. He was in respiratory distress. He was tachycardic. He was having fever and chills and that is why he decided to come to the emergency room today. In the emergency room, this patient had CT angiography which showed bilateral ground glass opacities with septal thickening, which was suspec esdras for pulmonary edema, bilateral hilar and mediastinal lymphadenopathy and cardiomegaly. His chest x-ray showed pulmonary vascular congestion. Routine blood test was unremarkable, but his BNP was si gnificantly elevated. The patient also has increasing bilateral lower extremity pitting edema. Last night, the patient was admitted to telemetry floor for both COPD and CHF exacerbation. Initially, h e was wheezing all over his lung field, but after respiratory therapy, he had some improvement. PAST MEDICAL HISTORY: Diabetes mellitus, chronic systolic and diastolic heart failure, asthma/COPD, cardiomyopathy, obesity, hypertension, and dyslipidemia. PAST SURGICAL HISTORY: Pacemaker/defibrillator placement in 2014. Cardiac catheterization in 2014. PAST PSYCHIATRIC HISTORY: Reviewed and negative. SOCIAL HISTORY: Patient abuses marijuana. He smokes 1 pack lasting for 1 week. He drinks alcohol o ccasionally. He denies any other illicit drug abuse. FAMILY HISTORY: No strong family history of premature coronary artery disease, stroke or cancer. Di abetes, hypertension runs among several family members. REVIEW OF SYSTEMS: The following complete review of systems was negative, unless otherwise mentioned in the HPI or below: Constitutional: Weight loss or gain, ability to conduct usual activities. Skin: Rash, itching. Eyes: Double vision, pain. ENT/Mouth: Nose bleeding, neck stiffness, pain, tenderness. Cardiovascular: Palpitations, dyspnea on exertion, orthopnea. Respiratory: Shortness of breath, wheezing, cough, hemoptysis, fever or night sweats. Gastrointestinal: Poor appetite, abdominal pain, heartburn, nausea, vomiting, constipation, or diarr hea. Genitourinary: Urgency, frequency, dysuria, nocturia. Musculoskeletal: Pain, swelling. Neurologic/Psychiatric: Anxiety, depression. Allergy/Immunologic: Skin rash, bleeding tendency. Please see my HPI for pertinent positive and negative. All other review of systems reviewed and nega tive except as mentioned in the HPI. ALLERGIES: No known drug allergy. CURRENT HOME MEDICATIONS: The patient did not bring his home medication, but based on our hospital r ecord, the patient is on following medications: Proventil inhaler 1 puff q.6 hourly p.r.n., Lasix 40 mg p.o. b.i.d., lisinopril 40 mg p.o. daily, potassium chloride 80 mEq p.o. daily, Coreg 12.5 mg p.o . b.i.d. EMERGENCY ROOM COURSE: Patient is given Decadron 10 mg, Rocephin 1 gram, azithromycin 500 mg, Lasix 20 mg, DuoNeb 1 time. PHYSICAL EXAMINATION: VITAL SIGNS: On arrival, blood pressure 142/100, pulse 107, respiratory rate 34, temperature 101.5 r ectally, saturation 94% on 2 liter oxygen, weight 145.2 kilograms. GENERAL: Patient is currently alert, awake, febrile, tachycardic, hypertensive, no obvious acute dis tress. HEENT: Head: Normocephalic, atraumatic. Eyes: Pupils round, reactive to light. Extraocular muscl e intact. ENT: Oropharynx within normal limits. Moist mucous membranes. No oral lesion, no pharyn geal erythema, no exudate. NECK: Supple, no JVD, no thyromegaly, no carotid bruit. LUNGS: Bilateral wheezing heard, bibasilar rales noted. Air entry reduced. CARDIAC: S1, S2 regular, tachycardia, no murmur elicited, no gallop, no rub. ABDOMEN: Obesity present. Bowel sounds present, nontender, nondistended. No organomegaly, no mass, no suprapubic tenderness. BACK: Unremarkable, no CVA tenderness. EXTREMITIES: Upper extremity, passive movement of all joints are normal. Lower extremity, bilateral lower extremity edema noted. Good distal pulsation, no calf tenderness. SKIN: No skin rash. HEMATOLOGICAL: No lymphadenopathy. PSYCHIATRIC: Normal affect. NEUROLOGIC: Nonfocal examination. He moves all 4 limbs. His speech is normal. SIGNIFICANT LABORATORY DATA AND IMAGING: EKG showing atrial tachycardia, nonspecific ST-T changes, l eft ventricular hypertrophy. Chest x-ray showing cardiomegaly, pulmonary vascular congestion, inters titial density throughout the right lung. CT angiography showing cardiomegaly, bilateral ground glas s opacities with septal thickening, bilateral hilar and mediastinal lymphadenopathy. Echocardiograph y most recently done in November showed EF 15%-20%. CBC: WBC 5.9, hemoglobin 13.3, platelet 256,000. D-dimer 1.10. BMP: Sodium 135, potassium 3.9, chloride 103, carbon dioxide 22, anion gap 14, BUN 15 , creatinine 1.15, glucose 141, calcium 8.9. Lactic acid 1.3. LFT: AST is 19, ALT 31, alkaline fili sphatase 57, albumin 3.6, CK-MB 1.6, troponin I 0.018. BNP 3549.5. Urinalysis unremarkable. ASSESSMENT AND PLAN: 1. Acute on chronic systolic and diastolic congestive heart failure with stage C. The patient will require Lasix 40 mg IV b.i.d. We will start Coreg 3.125 mg p.o. b.i.d., lisinopril 5 mg p.o. daily, Aldactone 12.5 mg p.o. daily. Fluid restriction 1200 mL per day. We will monitor daily labs includi ng BMP, magnesium and monitor electrolytes accordingly. We will monitor daily input/output chart. W e will monitor daily weight. Heart failure education is given. The patient has significantly elevat ed BNP, edema and pulmonary vascular congestion on x-ray as well as basal rales on examination, all s upportive of a congestive heart failure exacerbation. His EF is 15%-20% and he already has AICD in p lace. 2. Chronic obstructive pulmonary disease exacerbation. This patient has history of underlying chron ic obstructive pulmonary disease/asthma. He has bilateral wheezing. He has ongoing tobacco abuse di sorder. He has underlying fever and cough with bronchitis. The patient will be given antibiotic the rapy with Rocephin 1 gram q.24 hours and Levaquin 500 mg IV daily, DuoNeb therapy q.6 hourly on an as needed basis. Smoking cessation counseling given. We will also give him Solu-Medrol 20 mg IV q.8 h ourly. 3. Tobacco abuse disorder. Smoking cessation counseling given. We will offer nicotine patch if nee ded. 4. Hypertension. Currently, we are giving him low dose of Coreg as well as lisinopril and then we w ill titrate up based on his hemodynamics. Currently, we are giving him diuretics, which he needs mor e and then once blood pressure is going up, then we will increase those medication as per his home do lurdes. 5. Deep venous thrombosis prophylaxis. Lovenox 40 mg subcu daily. 6. Gastrointestinal prophylaxis. Pepcid 20 mg p.o. b.i.d. 7. Code status: The patient is FULL CODE. Patient does not have any surrogate decision maker. Disposition plan based on clinical course. We are expecting patient's stay in hospital more than 2 m idnights based on his level of presentation.
[2018-04-03] MEDS: Furosemide 40 MG/4 ML VIAL SLOW IVP SCH (14:58)
[2018-04-03] MEDS: Zolpidem Tartrate 5 MG TAB PO PRN (21:38)
[2018-04-04] MEDS: cefTRIAXone\\ROCEPHIN 1 GM in Sodium Chloride 0.9% 100 ML IVPB SCH (00:44)
[2018-04-04 05:09] LABS: #Lymphocytes 0.7 thou/uL (1.20-3.40); #Neutrophils 10.4 thou/uL (1.40-6.50); %Basophils 0.1 % (0.0-1.0); %Eosinophils 0.1 % (0.0-10.0); %Lymphocytes 5.9 % (21.0-51.0); %Monocytes 7.9 % (0.0-10.0); Hemoglobin 13.1 g/dL (14.0-18.0); Mean Corpuscular HGB CONC 33.9 g/dL (32.0-36.0); Mean Corpuscular Hemoglobin 28.8 pg (27.0-31.0); Mean Corpuscular Volume 84.8 fL (78.0-98.0); Mean Platelet Volume 7.3 fL (7.4-10.4); Platelet Count 259 thou/uL (130-400); RBC Distribution Width 13.3 % (11.5-14.5); Red Blood Cell (RBC) Count 4.54 mill/uL (4.70-6.10)
[2018-04-04 05:22] LABS: Anion Gap 11 mmol/L (10-20); BUN (Urea Nitrogen) 22 mg/dL (8.9-20.6); Calc. Creatinine Clearance 0 mL/min (70-130); Calcium 9.3 mg/dL (7.8-10.44); Carbon Dioxide 30 mmol/L (22-29); Chloride 97 mmol/L (98-107); Estimated GFR-MDRD 87; Glucose 173 mg/dL (70-105); Potassium 4.3 mmol/L (3.5-5.1); Sodium 134 mmol/L (136-145); Uric Acid 11.8 mg/dL (3.5-7.2)
[2018-04-04] MEDS: Furosemide 40 MG/4 ML VIAL SLOW IVP SCH ×2 (06:03→13:55)
[2018-04-04] MEDS: Spironolactone 25 MG TAB PO SCH (08:48)
[2018-04-04] MEDS: Potassium Chloride 20 MEQ TAB PO SCH ×2 (08:48→18:07)
[2018-04-04] MEDS: Allopurinol 100 MG TAB PO SCH (08:49)
[2018-04-04] MEDS: Enoxaparin Sodium 40 MG/0.4 ML SYRINGE SC SCH (08:49)
[2018-04-04] MEDS: Famotidine 20 MG TAB PO SCH ×2 (08:49→20:56)
[2018-04-04] MEDS: Carvedilol 3.125 MG TAB PO SCH ×2 (08:49→20:56)
[2018-04-04] MEDS: Metolazone 5 MG TAB PO SCH (08:49)
[2018-04-04] MEDS: Lisinopril 5 MG TAB PO SCH (08:49)
[2018-04-04] MEDS ORDERED: Prevnar 13-Val Conj/PF 0.5 ML SYRINGE IM ONE (09:00)
--- NOTE | 2018-04-04 10:42 | PDOC.PN ---
- Subjective Encounter Start Date: 04/04/18 Encounter Start Time: 08:30 -: old records requested/rev Patient seen and examined. No overnight events pt feels dyspnea still after walking, still requires oxygen edema is better - Objective Resuscitation Status: Resuscitation Status FULL:Full Resuscitation MAR Reviewed: Yes Vital Signs & Weight: Vital Signs (12 hours) Temp Pulse Resp BP Pulse Ox 04/04/18 08:49 89 04/04/18 08:15 98 F 89 16 95 04/04/18 08:10 98.0 F 89 16 145/93 H 95 04/04/18 07:46 82 16 93 L 04/03/18 23:15 91 20 Weight Weight 299 lb 6.4 oz I&O: 04/03/18 04/04/18 04/05/18 06:59 06:59 06:59 Intake Total 1715 Output Total 5175 Balance -3460 Result Diagrams: 04/04/18 04:30 04/04/18 04:30 EKG Reviewed by me: Yes (nsr) Phys Exam - Physical Examination Constitutional: NAD HEENT: PERRLA, moist MMs, sclera anicteric Neck: no JVD, supple Respiratory: no wheezing, no rhonchi few basal rales Cardiovascular: RRR, no significant murmur, no rub Gastrointestinal: soft, non-tender, no distention, positive bowel sounds Musculoskeletal: pulses present, edema present edema reduced Neurological: non-focal, normal sensation, moves all 4 limbs Psychiatric: normal affect, A&O x 3 Skin: no rash, normal turgor Dx/Plan (1) Acute 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 heart failure Code(s): I50.43 - ACUTE ON CHRONIC COMBINED SYSTOLIC AND DIASTOLIC HRT FAIL Status: Acute (2) Chronic obstructive asthma with exacerbation Code(s): J44.1 - CHRONIC OBSTRUCTIVE PULMONARY DISEASE W (ACUTE) EXACERBATION; J45.901 - UNSPECIFIED ASTHMA WITH (ACUTE) EXACERBATION Status: Acute (3) Hyperuricemia Code(s): E79.0 - HYPERURICEMIA W/O SIGNS OF INFLAM ARTHRIT AND TOPHACEOUS DIS Status: Acute (4) AICD (automatic cardioverter/defibrillator) present Code(s): Z95.810 - PRESENCE OF AUTOMATIC (IMPLANTABLE) CARDIAC DEFIBRILLATOR Status: Chronic (5) Hypertension Code(s): I10 - ESSENTIAL (PRIMARY) HYPERTENSION Status: Chronic (6) Nonischemic cardiomyopathy Code(s): I42.9 - CARDIOMYOPATHY, UNSPECIFIED Status: Chronic (7) Tobacco abuse Code(s): Z72.0 - TOBACCO USE Status: Chronic (8) Hepatitis C Code(s): B19.20 - UNSPECIFIED VIRAL HEPATITIS C WITHOUT HEPATIC COMA Status: Chronic - Plan cont current plan of care, continue antibiotics, respiratory therapy * pt requesting cardiology consult for pre-operative clearance for his elective surgery for hip * continue lasix and current medical therapy as below for CHF * continue respiratory therapy with empiric antibiotics for copd * will repeat chest xray tomorrow * today will check his oxygen level after walking on room air * medication reviewed as below * symptomatic treatment. * start allopurinol for hyperuricemia Review of Systems - Review of Systems Eyes: negative: Pain, Vision Change, Conjunctivae Inflammation, Eyelid Inflammation, Redness, Other ENT: negative: Ear Pain, Ear Discharge, Nose Pain, Nose Discharge, Nose Congestion, Mouth Pain, Mouth Swelling, Throat Pain, Throat Swelling, Other Respiratory: Shortness of Breath, SOB with Excertion. negative: Cough, Dry, Hemoptysis, Pleuritic Pain, Sputum, Wheezing Cardiovascular: negative: chest pain, palpitations, orthopnea, paroxysmal nocturnal dyspnea, edema, light headedness, other Gastrointestinal: negative: Nausea, Vomiting, Abdominal Pain, Diarrhea, Constipation, Melena, Hematochezia, Other Genitourinary: negative: Dysuria, Frequency, Incontinence, Hematuria, Retention , Other Musculoskeletal: negative: Neck Pain, Shoulder Pain, Arm Pain, Back Pain, Hand Pain, Leg Pain, Foot Pain, Other Skin: negative: Rash, Lesions, Rene, Bruising, Other - Medications/Allergies Allergies/Adverse Reactions: Allergies Allergy/AdvReac Type Severity Reaction Status Date / Time No Known Drug Allergies Allergy Verified 12/18/17 14:36 Medications: Current Medications Acetaminophen (Tylenol) 650 mg PO Q4H PRN PRN Reason: Headache/Fever or Pain Hydrocodone Bitart/Acetaminophen (Victor 5/325) 1 tab PO Q4H PRN PRN Reason: Moderate Pain (4-6) Al Hydroxide/Mg Hydroxide (Maalox) 30 ml PO Q6H PRN PRN Reason: Heartburn or Indigestion Albuterol/Ipratropium (Duoneb) 3 ml NEB [id number] [facility] Last Admin: 04/04/18 07:46 Dose: 3 ml Allopurinol (Zyloprim) 100 mg PO DAILY [facility] Last Admin: 04/04/18 08:49 Dose: 100 mg Artificial Tears (Tears Naturale) 0 drop EA EYE PRN PRN PRN Reason: Dry Eyes Aspirin (Aspirin Chewable) 81 mg PO DAILY [facility] Last Admin: 04/04/18 08:49 Dose: 81 mg Carvedilol (Coreg) 3.125 mg PO BID [facility] Last Admin: 04/04/18 08:49 Dose: 3.125 mg Enoxaparin Sodium (Lovenox) 40 mg SC 0900 [facility] Last Admin: 04/04/18 08:49 Dose: 40 mg Famotidine (Pepcid) 20 mg PO BID [facility] Last Admin: 04/04/18 08:49 Dose: 20 mg Furosemide (Lasix) 40 mg SLOW IVP 0600,1400 [facility] Last Admin: 04/04/18 06:03 Dose: 40 mg Guaifenesin (Robitussin Sf) 200 mg PO Q4H PRN PRN Reason: Cough Hydralazine HCl (Apresoline) 10 mg SLOW IVP Q4H PRN PRN Reason: Systolic BP > 180 Ceftriaxone Sodium 1 gm/ (Sodium Chloride) 100 mls @ 200 mls/hr IVPB 0100 [facility] Last Admin: 04/04/18 00:44 Dose: 100 mls Levofloxacin 500 mg/ Device 100 mls @ 100 mls/hr IVPB 1300 [facility] Last Admin: 04/03/18 14:57 Dose: 100 mls Lisinopril (Zestril) 5 mg PO DAILY [facility] Last Admin: 04/04/18 08:49 Dose: 5 mg Loperamide HCl (Imodium) 2 mg PO PRN PRN PRN Reason: Diarrhea/Loose Stools Loratadine (Claritin) 10 mg PO DAILYPRN PRN PRN Reason: Sinus Symptoms Magnesium Hydroxide (Milk Of Magnesium) 30 ml PO DAILYPRN PRN PRN Reason: Constipation Methylprednisolone Sodium Succinate (Solu-Medrol) 20 mg IVP Q8HR [facility] Last Admin: 04/04/18 06:03 Dose: 20 mg Metolazone (Zaroxolyn) 5 mg PO 0830 [facility] Last Admin: 04/04/18 08:49 Dose: 5 mg Mineral Oil/White Petrolatum (Eucerin Cream) 0 gm TOP BIDPRN PRN PRN Reason: Dry Skin Nitroglycerin (Nitrostat) 0.4 mg SL Q5MIN PRN PRN Reason: Chest Pain Ondansetron HCl (Zofran Odt) 4 mg PO Q6H PRN PRN Reason: Nausea/Vomiting Ondansetron HCl (Zofran) 4 mg IVP Q6H PRN PRN Reason: Nausea/Vomiting Phenol (Chloraseptic [place] 180 Ml Bot) 0 ml PO PRN PRN PRN Reason: Sore Throat Potassium Chloride (K-Dur) 20 meq PO BID-[facility] Last Admin: 04/04/18 08:48 Dose: 20 meq Senna (Senokot) 2 tab PO HSPRN PRN PRN Reason: Constipation Sodium Chloride ([place] Nasal [place] 0.65%) 0 ml EA NARE QIDPRN PRN PRN Reason: Nasal Congestion Sodium Chloride (Flush - Normal Saline) 10 ml IVF Q12HR [facility] Last Admin: 04/03/18 21:35 Dose: 10 ml Sodium Chloride (Flush - Normal Saline) 10 ml IVF PRN PRN PRN Reason: Saline Flush Spironolactone (Aldactone) 12.5 mg PO [facility] Last Admin: 04/04/18 08:48 Dose: 12.5 mg Zolpidem Tartrate (Ambien) 5 mg PO HSPRN PRN PRN Reason: Insomnia Last Admin: 04/03/18 21:38 Dose: 5 mg
[2018-04-04 10:45] LABS: Amphetamine Not Detected (NotDetected); Barbiturates Screen Not Detected (NotDetected); Benzodiazepine Screen Not Detected (NotDetected); Cocaine Metabolite Screen Not Detected (NotDetected); Medtox Control Line Valid? VALID (VALID); Medtox Reader # READER 1; Methadone Not Detected (NotDetected); Methamphetamine Not Detected (NotDetected); Opiate Screen Detected (NotDetected); Oxycodone Screen Not Detected (NotDetected); Phencyclidine (PCP) Not Detected (NotDetected); THC/Cannabinoid Screen Detected (NotDetected); Tricyclic Screen Not Detected (NotDetected)
--- NOTE | 2018-04-04 14:36 | CON ---
DATE OF CONSULTATION: 04/04/2018 REASON FOR CONSULTATION: Acute on chronic systolic heart failure. HISTORY OF PRESENT ILLNESS: Mr. Schmidt is a 44-year-old gentleman who is a patient of Dr. Carlos garcia. He has a history of nonischemic cardiomyopathy. His LVEF on most recent echo was estimated at 20%. He does have an ICD placed. He states he has had PND in addition to lower extremity edema. No significant weight changes present . He also is having hip pain and is in need of preop clearance for surgery. PAST MEDICAL HISTORY: Diabetes mellitus, hypertension, hyperlipidemia, asthma, systolic heart failur e, status post ICD placement. SOCIAL HISTORY: Positive tobacco, positive marijuana use. Occasional alcohol use. FAMILY HISTORY: Negative for CAD. REVIEW OF SYSTEMS: Ten-point review of systems were reviewed and as above, otherwise negative. PHYSICAL EXAMINATION: GENERAL: Patient is a pleasant male who is in no acute distress. The patient appears his stated age . VITAL SIGNS: Blood pressure 155/87, pulse 92, temperature 97.5. NEUROLOGIC: The patient is alert and oriented times 3 with no focal neurologic deficits. HEENT: Sclerae without icterus. Mouth has moist mucous membranes with normal pallor. NECK: No JVD. Carotid upstroke brisk. No bruits bilaterally. LUNGS: Crackles noted bilaterally. BACK: No scoliosis or kyphosis. CARDIAC: Regular rate and rhythm with normal S1 and S2. No S3 or S4 noted. No significant rubs, mu rmurs, thrills, or gallops noted throughout the precordium. PMI is not displaced. There is no janis ternal heave. ABDOMEN: Soft, nontender, nondistended. No peritoneal signs present. No hepatosplenomegaly. No ab normal striae. EXTREMITIES: 2+ femoral and 2+ dorsalis pedis pulses. 1+ pitting edema. SKIN: No gross abnormalities. PERTINENT LABORATORY DATA: Hemoglobin 13.1, BNP of 3549, creatinine 1.12. IMPRESSION: 1. Acute on chronic systolic heart failure. 2. Tobacco abuse. 3. ICD placement. RECOMMENDATIONS: Continue Coreg at 3.125 mg 1 p.o. b.i.d. in addition to IV Lasix at 40 mg b.i.d. H e has also needed ALEKSANDR inhibitor therapy. May consider increasing ALEKSANDR inhibitor therapy and/or increa sing carvedilol. At this point, he appears volume overloaded. Further recommendations per Dr. Chris Pascual in a.m.
[2018-04-04] MEDS: HYDROcodone/Acetaminophen 5/325 mg Tablet PO PRN (20:55)
[2018-04-04] MEDS: Zolpidem Tartrate 5 MG TAB PO PRN (20:55)
[2018-04-05] MEDS: cefTRIAXone\\ROCEPHIN 1 GM in Sodium Chloride 0.9% 100 ML IVPB SCH (00:20)
[2018-04-05] MEDS: Furosemide 40 MG/4 ML VIAL SLOW IVP SCH ×2 (05:21→13:03)
[2018-04-05 05:42] LABS: Anion Gap 13 mmol/L (10-20); BUN (Urea Nitrogen) 23 mg/dL (8.9-20.6); Calc. Creatinine Clearance 165 mL/min (70-130); Calcium 9.6 mg/dL (7.8-10.44); Carbon Dioxide 29 mmol/L (22-29); Chloride 95 mmol/L (98-107); Estimated GFR-MDRD 87; Glucose 123 mg/dL (70-105); Potassium 4.4 mmol/L (3.5-5.1); Sodium 133 mmol/L (136-145)
[2018-04-05] MEDS: Potassium Chloride 20 MEQ TAB PO SCH ×2 (08:44→16:41)
[2018-04-05] MEDS: Carvedilol 3.125 MG TAB PO SCH (08:44)
[2018-04-05] MEDS: Famotidine 20 MG TAB PO SCH ×2 (08:44→21:00)
[2018-04-05] MEDS: Allopurinol 100 MG TAB PO SCH (08:44)
[2018-04-05] MEDS: Spironolactone 25 MG TAB PO SCH (08:44)
[2018-04-05] MEDS: Metolazone 5 MG TAB PO SCH (08:45)
[2018-04-05] MEDS: Lisinopril 5 MG TAB PO SCH (08:45)
[2018-04-05] MEDS: Enoxaparin Sodium 40 MG/0.4 ML SYRINGE SC SCH (08:46)
[2018-04-05] MEDS ORDERED: Carvedilol 3.125 MG TAB PO SCH (09:15)
--- NOTE | 2018-04-05 10:23 | RAD ---
FRONTAL AND LATERAL IMAGING OF THE CHEST: 04/05/2018 HISTORY: Congestive heart failure. COMPARISON: 09/07/2017 FINDINGS: There is a single lead AICD inserted via a left subclavian approach. The cardiac silhouette is prominent. There is no pneumothorax. There is mild increased linear inter stitial density in the perihilar regions in both lung bases, nonspecific. No lobar consolidation or alveolar edema. IMPRESSION: Mild perihilar and bibasilar interstitial prominence, age indeterminate. This could be chronic in na ture. Mild interstitial edema cannot be excluded. There is no lobar consolidation or alveolar edema noted. POS: [facility]
--- NOTE | 2018-04-05 10:23 | DIS ---
DATE OF ADMISSION: 04/03/2018 DATE OF DISCHARGE: 04/05/2018 PRIMARY CARE PHYSICIAN: Dr. Rodo Ceballos. DISCHARGE DISPOSITION: Home. PRIMARY DISCHARGE DIAGNOSES: Acute on chronic combined systolic and diastolic heart failure, stage C ; chronic obstructive pulmonary disease exacerbation; hyperuricemia. SECONDARY DISCHARGE DIAGNOSES: Chronic hepatitis C, tobacco abuse disorder, nonischemic cardiomyopat hy, hypertension, AICD in place, chronic obstructive pulmonary disease, chronic systolic and diastoli c heart failure. PRIMARY PROCEDURE AND OPERATION: None. RADIOLOGICAL INVESTIGATION: Chest x-ray showed pulmonary edema type of picture. CT angiography show ed also pulmonary edema type of picture, no PE. Repeat chest x-ray showed significant improvement in his pulmonary edema. SIGNIFICANT LABORATORY DATA: WBC 12.0, hemoglobin 13.1, platelet 259. D-dimer 1.10. Sodium 133, po tassium 4.4, BUN 23, creatinine 1.12, calcium 9.6, uric acid 11.8. BNP 3549. LFT normal. Cardiac e nzymes negative. Urinalysis normal. Urine drug screen positive for cannabinoids. Blood culture neg ative. Urine culture negative. DISCHARGE MEDICATIONS: [place] 5 one tablet q.6 hourly p.r.n., Proventil HFA 1 puff q.6 hourly p.r.n., Lasix 40 mg p.o. b.i.d., lisinopril 40 mg p.o. daily, potassium chloride 20 mEq p.o. daily, Coreg 12 .5 mg p.o. b.i.d., Levaquin 500 mg p.o. daily for 5 days, prednisone 20 mg p.o. daily for 5 days, Ald actone 25 mg p.o. daily, Ambien 10 mg p.o. at bedtime p.r.n. CONTRAINDICATIONS: None. CODE STATUS: FULL CODE. INPATIENT CONSULTANTS: Cardiology team. TEST RESULTS PENDING ON DISCHARGE: None. ALLERGIES: No known drug allergy. DISCHARGE PLAN: Post hospital, the patient is instructed to follow up with Cardiology, Dr. Tucker nguyen as well as Heart Failure Clinic. HOSPITAL COURSE: A 43-year-old male who was admitted by me on 04/03/2018. Please see my HPI for fur ther details. On admission, the patient presented with a complaint of increasing shortness of breath . He was also having cough. He was also having low grade fever. His chest x-ray predominantly cons istent with pulmonary vascular congestion. CT angiography showed ground glass opacity with septal th ickening. Patient was admitted to the telemetry floor. During this admission, he was having both systolic and diastolic congestive heart failure exacerbation as well as COPD with asthma exacerbation. Both condi tion was treated while in hospital with empiric antibiotic therapy with Rocephin, Levaquin, DuoNeb, a nd Solu-Medrol as well as with IV Lasix. Within next 24-48 hours, the patient's condition significan tly improved. Initially, he was requiring oxygen, but subsequently by the time of discharge, he was no longer requiring oxygen. We repeated chest x-ray, which also showed improvement. We provided cou nseling to avoid smoking. We provided the patient education about heart failure, fluid restriction a nd salt restriction. The patient will follow up with the primary care physician in [facility] [place] as well as Cardiology. While in hospital, the patient requested cardiology evaluation because he is planned for hip surgery with Dr. Mckeon after outpatient basis and that is why we consulted Card iologhieu for preoperative evaluation. During this admission, we continued his home medication. We are continuing similar home medication upon discharge, we only adding Aldactone daily, Levaquin and pred nisone also given for 5 days. Patient was requiring Ambien for his insomnia that was also prescribed . PHYSICAL EXAMINATION: The patient is seen and examined at bedside today. VITAL SIGNS: Currently, temperature 98.4, pulse 81, respiratory rate 16, saturation 95% on room air, blood pressure 146/91, weight 288 pounds. GENERAL: The patient is currently alert, awake, no obvious acute distress. HEAD: Normocephalic, atraumatic. EYES: Pupils round, reactive to light. Extraocular muscle intact. ENT: Oropharynx within normal limits. Moist mucous membranes. No oral lesion, no pharyngeal erythe ma, no exudate. NECK: Supple, no JVD, no thyromegaly, no carotid bruit. LUNGS: Clear to auscultation without any rhonchi or rales. CARDIAC: S1, S2 appears regular without any murmur. ABDOMEN: Soft and benign. Obesity present. EXTREMITIES: No edema. NEUROLOGIC: Nonfocal examination. All new medication prescription given. We will consider discharge if Cardiology clears him for disch arge.
--- NOTE | 2018-04-05 10:55 | PDOC.PN ---
- Subjective Encounter Start Date: 04/05/18 Encounter Start Time: 07:30 Patient seen and examined. No new complaints. No overnight events - Objective Resuscitation Status: Resuscitation Status FULL:Full Resuscitation MAR Reviewed: Yes Vital Signs & Weight: Vital Signs (12 hours) Temp Pulse Resp BP BP Pulse Ox 04/05/18 10:01 146/91 H 04/05/18 08:45 81 144/100 H 04/05/18 08:33 98.4 F 81 16 144/100 H 95 04/05/18 06:46 90 14 04/05/18 03:32 97.5 F L 87 20 130/90 94 L 04/05/18 02:45 92 L 04/05/18 00:08 86 18 92 L Weight Weight 288 lb 8 oz I&O: 04/04/18 04/05/18 04/06/18 06:59 06:59 06:59 Intake Total 1715 1570 Output Total 5175 3500 Balance -3460 -1930 Result Diagrams: 04/04/18 04:30 04/05/18 05:07 Radiology Reviewed by me: Yes (chest xray) EKG Reviewed by me: Yes Phys Exam - Physical Examination Constitutional: NAD HEENT: PERRLA, moist MMs, sclera anicteric Neck: no JVD, supple Respiratory: no wheezing, no rales, no rhonchi Cardiovascular: RRR, no significant murmur, no rub Gastrointestinal: soft, non-tender, no distention, positive bowel sounds Musculoskeletal: no edema, pulses present Neurological: non-focal, normal sensation, moves all 4 limbs Lymphatic: no nodes Psychiatric: normal affect, A&O x 3 Skin: no rash, normal turgor Dx/Plan (1) Acute 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 heart failure Code(s): I50.43 - ACUTE ON CHRONIC COMBINED SYSTOLIC AND DIASTOLIC HRT FAIL Status: Acute (2) Chronic obstructive asthma with exacerbation Code(s): J44.1 - CHRONIC OBSTRUCTIVE PULMONARY DISEASE W (ACUTE) EXACERBATION; J45.901 - UNSPECIFIED ASTHMA WITH (ACUTE) EXACERBATION Status: Acute (3) Hyperuricemia Code(s): E79.0 - HYPERURICEMIA W/O SIGNS OF INFLAM ARTHRIT AND TOPHACEOUS DIS Status: Acute (4) AICD (automatic cardioverter/defibrillator) present Code(s): Z95.810 - PRESENCE OF AUTOMATIC (IMPLANTABLE) CARDIAC DEFIBRILLATOR Status: Chronic (5) Hypertension Code(s): I10 - ESSENTIAL (PRIMARY) HYPERTENSION Status: Chronic (6) Nonischemic cardiomyopathy Code(s): I42.9 - CARDIOMYOPATHY, UNSPECIFIED Status: Chronic (7) Tobacco abuse Code(s): Z72.0 - TOBACCO USE Status: Chronic (8) Hepatitis C Code(s): B19.20 - UNSPECIFIED VIRAL HEPATITIS C WITHOUT HEPATIC COMA Status: Chronic - Plan cont current plan of care, continue antibiotics, respiratory therapy * medication reviewed as below * symptomatic treatment * if cardiology ok, will consider discharge. Review of Systems - Review of Systems ENT: negative: Ear Pain, Ear Discharge, Nose Pain, Nose Discharge, Nose Congestion, Mouth Pain, Mouth Swelling, Throat Pain, Throat Swelling, Other Respiratory: negative: Cough, Dry, Shortness of Breath, Hemoptysis, SOB with Excertion, Pleuritic Pain, Sputum, Wheezing Cardiovascular: negative: chest pain, palpitations, orthopnea, paroxysmal nocturnal dyspnea, edema, light headedness, other Gastrointestinal: negative: Nausea, Vomiting, Abdominal Pain, Diarrhea, Constipation, Melena, Hematochezia, Other Genitourinary: negative: Dysuria, Frequency, Incontinence, Hematuria, Retention , Other Musculoskeletal: negative: Neck Pain, Shoulder Pain, Arm Pain, Back Pain, Hand Pain, Leg Pain, Foot Pain, Other - Medications/Allergies Allergies/Adverse Reactions: Allergies Allergy/AdvReac Type Severity Reaction Status Date / Time No Known Drug Allergies Allergy Verified 12/18/17 14:36 Medications: Current Medications Acetaminophen (Tylenol) 650 mg PO Q4H PRN PRN Reason: Headache/Fever or Pain Hydrocodone Bitart/Acetaminophen ([place] 5/325) 1 tab PO Q4H PRN PRN Reason: Moderate Pain (4-6) Last Admin: 04/04/18 20:55 Dose: 1 tab Al Hydroxide/Mg Hydroxide (Maalox) 30 ml PO Q6H PRN PRN Reason: Heartburn or Indigestion Albuterol/Ipratropium (Duoneb) 3 ml NEB [id number] TRE[facility] Last Admin: 04/05/18 06:46 Dose: 3 ml Allopurinol (Zyloprim) 100 mg PO DAILY [facility] Last Admin: 04/05/18 08:44 Dose: 100 mg Artificial Tears (Tears Naturale) 0 drop EA EYE PRN PRN PRN Reason: Dry Eyes Aspirin (Aspirin Chewable) 81 mg PO DAILY [facility] Last Admin: 04/05/18 08:44 Dose: 81 mg Carvedilol (Coreg) 6.25 mg PO TID [facility] Carvedilol (Coreg) 3.125 mg PO NOW [facility] Stop: 04/05/18 11:00 Last Admin: 04/05/18 10:02 Dose: 3.125 mg Enoxaparin Sodium (Lovenox) 40 mg SC 0900 [facility] Last Admin: 04/05/18 08:46 Dose: 40 mg Famotidine (Pepcid) 20 mg PO BID [facility] Last Admin: 04/05/18 08:44 Dose: 20 mg Furosemide (Lasix) 40 mg SLOW IVP 0600,1400 [facility] Last Admin: 04/05/18 05:21 Dose: 40 mg Guaifenesin (Robitussin Sf) 200 mg PO Q4H PRN PRN Reason: Cough Hydralazine HCl (Apresoline) 10 mg SLOW IVP Q4H PRN PRN Reason: Systolic BP > 180 Ceftriaxone Sodium 1 gm/ (Sodium Chloride) 100 mls @ 200 mls/hr IVPB 0100 [facility] Last Admin: 04/05/18 00:20 Dose: 100 mls Levofloxacin 500 mg/ Device 100 mls @ 100 mls/hr IVPB 1300 [facility] Last Admin: 04/04/18 13:55 Dose: 100 mls Lisinopril (Zestril) 10 mg PO BID [facility] Loperamide HCl (Imodium) 2 mg PO PRN PRN PRN Reason: Diarrhea/Loose Stools Loratadine (Claritin) 10 mg PO DAILYPRN PRN PRN Reason: Sinus Symptoms Magnesium Hydroxide (Milk Of Magnesium) 30 ml PO DAILYPRN PRN PRN Reason: Constipation Methylprednisolone Sodium Succinate (Solu-Medrol) 20 mg IVP Q8HR [facility] Last Admin: 04/05/18 05:19 Dose: 20 mg Metolazone (Zaroxolyn) 5 mg PO 0830 [facility] Last Admin: 04/05/18 08:45 Dose: 5 mg Mineral Oil/White Petrolatum (Eucerin Cream) 0 gm TOP BIDPRN PRN PRN Reason: Dry Skin Nitroglycerin (Nitrostat) 0.4 mg SL Q5MIN PRN PRN Reason: Chest Pain Ondansetron HCl (Zofran Odt) 4 mg PO Q6H PRN PRN Reason: Nausea/Vomiting Ondansetron HCl (Zofran) 4 mg IVP Q6H PRN PRN Reason: Nausea/Vomiting Phenol (Chloraseptic [place] 180 Ml Bot) 0 ml PO PRN PRN PRN Reason: Sore Throat Potassium Chloride (K-Dur) 20 meq PO BID-[facility] Last Admin: 04/05/18 08:44 Dose: 20 meq Senna (Senokot) 2 tab PO HSPRN PRN PRN Reason: Constipation Sodium Chloride ([place] Nasal [place] 0.65%) 0 ml EA NARE QIDPRN PRN PRN Reason: Nasal Congestion Sodium Chloride (Flush - Normal Saline) 10 ml IVF Q12HR [facility] Last Admin: 04/05/18 08:46 Dose: 10 ml Sodium Chloride (Flush - Normal Saline) 10 ml IVF PRN PRN PRN Reason: Saline Flush Spironolactone (Aldactone) 12.5 mg PO [facility] Last Admin: 04/05/18 08:44 Dose: 12.5 mg Zolpidem Tartrate (Ambien) 5 mg PO HSPRN PRN PRN Reason: Insomnia Last Admin: 04/04/18 20:55 Dose: 5 mg
[2018-04-05] MEDS: Carvedilol 6.25 MG TAB PO SCH ×2 (16:41→21:00)
[2018-04-05] MEDS: HYDROcodone/Acetaminophen 5/325 mg Tablet PO PRN (16:41)
[2018-04-05] MEDS: Zolpidem Tartrate 5 MG TAB PO PRN (20:59)
[2018-04-05] MEDS: Lisinopril 10 MG TAB PO SCH (20:59)
[2018-04-06] MEDS: cefTRIAXone\\ROCEPHIN 1 GM in Sodium Chloride 0.9% 100 ML IVPB SCH (01:14)
[2018-04-06 05:36] LABS: Anion Gap 14 mmol/L (10-20); BUN (Urea Nitrogen) 28 mg/dL (8.9-20.6); Calc. Creatinine Clearance 134 mL/min (70-130); Carbon Dioxide 31 mmol/L (22-29); Cardiac Risk 5.1 (Less than 4.5); Chloride 92 mmol/L (98-107); Cholesterol 219 mg/dl (< 200 Desired); Estimated GFR-MDRD 71; Glucose 156 mg/dL (70-105); HDL Cholesterol 43 mg/dL (>60 Neg Risk); LDL Cholesterol, Calculated 162 mg/dL; Potassium 4.3 mmol/L (3.5-5.1); Sodium 133 mmol/L (136-145); Triglycerides 72 mg/dL (Less than 150)
[2018-04-06] MEDS: Furosemide 40 MG/4 ML VIAL SLOW IVP SCH (06:00)
[2018-04-06 06:05] VITALS: BMI 35.8
[2018-04-06] MEDS ORDERED: predniSONE 20 MG TAB PO SCH (08:00)
[2018-04-06] MEDS: HYDROcodone/Acetaminophen 5/325 mg Tablet PO PRN ×2 (08:16→12:16)
[2018-04-06] MEDS: Metolazone 5 MG TAB PO SCH (08:17)
[2018-04-06] MEDS: Potassium Chloride 20 MEQ TAB PO SCH (08:17)
[2018-04-06] MEDS: Spironolactone 25 MG TAB PO SCH (08:17)
[2018-04-06] MEDS: Furosemide 40 MG TAB PO SCH ×2 (08:18→12:17)
[2018-04-06] MEDS: Allopurinol 100 MG TAB PO SCH (08:18)
[2018-04-06] MEDS: Lisinopril 10 MG TAB PO SCH (08:18)
[2018-04-06] MEDS: Famotidine 20 MG TAB PO SCH (08:19)
[2018-04-06] MEDS: Carvedilol 6.25 MG TAB PO SCH (08:19)
[2018-04-06] MEDS: Enoxaparin Sodium 40 MG/0.4 ML SYRINGE SC SCH (08:20)
[2018-04-06 10:06] VITALS: TEMP 97.5
--- NOTE | 2018-04-06 10:20 | PDOC.PN ---
- Subjective Encounter Start Date: 04/06/18 Encounter Start Time: 09:50 Patient seen and examined. No new complaints. No overnight events - Objective Resuscitation Status: Resuscitation Status FULL:Full Resuscitation MAR Reviewed: Yes Vital Signs & Weight: Vital Signs (12 hours) Temp Pulse Resp BP BP Pulse Ox 04/06/18 08:19 143/115 H 04/06/18 08:18 143/115 H 04/06/18 08:10 97.5 F L 86 16 143/115 H 93 L 04/06/18 07:00 87 16 95 04/06/18 04:00 97.7 F 69 20 138/87 92 L 04/05/18 23:46 80 16 92 L Weight Weight 279 lb I&O: 04/05/18 04/06/18 04/07/18 06:59 06:59 06:59 Intake Total 1570 1075 240 Output Total 3500 4160 Balance -1930 -3085 240 Result Diagrams: 04/04/18 04:30 04/06/18 04:57 EKG Reviewed by me: Yes Phys Exam - Physical Examination Constitutional: NAD HEENT: PERRLA, moist MMs, sclera anicteric Neck: no JVD, supple Respiratory: no wheezing, no rales, no rhonchi Cardiovascular: RRR, no significant murmur, no rub Gastrointestinal: soft, non-tender, no distention, positive bowel sounds Musculoskeletal: no edema, pulses present Neurological: non-focal, normal sensation, moves all 4 limbs Psychiatric: normal affect, A&O x 3 Skin: no rash, normal turgor Dx/Plan (1) Acute 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 heart failure Code(s): I50.43 - ACUTE ON CHRONIC COMBINED SYSTOLIC AND DIASTOLIC HRT FAIL Status: Acute (2) Chronic obstructive asthma with exacerbation Code(s): J44.1 - CHRONIC OBSTRUCTIVE PULMONARY DISEASE W (ACUTE) EXACERBATION; J45.901 - UNSPECIFIED ASTHMA WITH (ACUTE) EXACERBATION Status: Acute (3) Hyperuricemia Code(s): E79.0 - HYPERURICEMIA W/O SIGNS OF INFLAM ARTHRIT AND TOPHACEOUS DIS Status: Acute (4) AICD (automatic cardioverter/defibrillator) present Code(s): Z95.810 - PRESENCE OF AUTOMATIC (IMPLANTABLE) CARDIAC DEFIBRILLATOR Status: Chronic (5) Hypertension Code(s): I10 - ESSENTIAL (PRIMARY) HYPERTENSION Status: Chronic (6) Nonischemic cardiomyopathy Code(s): I42.9 - CARDIOMYOPATHY, UNSPECIFIED Status: Chronic (7) Tobacco abuse Code(s): Z72.0 - TOBACCO USE Status: Chronic (8) Hepatitis C Code(s): B19.20 - UNSPECIFIED VIRAL HEPATITIS C WITHOUT HEPATIC COMA Status: Chronic - Plan cont current plan of care, continue antibiotics, respiratory therapy * change po levaquin * change steroid to po prednisone * resume coreg and lisinopril as per home dose * medication reviewed as below * symptomatic treatment * stable for discharge later today when cardiology ok, * cardiology planning to check his aicd battery today. Review of Systems - Review of Systems Eyes: negative: Pain, Vision Change, Conjunctivae Inflammation, Eyelid Inflammation, Redness, Other ENT: negative: Ear Pain, Ear Discharge, Nose Pain, Nose Discharge, Nose Congestion, Mouth Pain, Mouth Swelling, Throat Pain, Throat Swelling, Other Respiratory: negative: Cough, Dry, Shortness of Breath, Hemoptysis, SOB with Excertion, Pleuritic Pain, Sputum, Wheezing Cardiovascular: negative: chest pain, palpitations, orthopnea, paroxysmal nocturnal dyspnea, edema, light headedness, other Gastrointestinal: negative: Nausea, Vomiting, Abdominal Pain, Diarrhea, Constipation, Melena, Hematochezia, Other Genitourinary: negative: Dysuria, Frequency, Incontinence, Hematuria, Retention , Other Musculoskeletal: negative: Neck Pain, Shoulder Pain, Arm Pain, Back Pain, Hand Pain, Leg Pain, Foot Pain, Other Skin: negative: Rash, Lesions, Rene, Bruising, Other - Medications/Allergies Allergies/Adverse Reactions: Allergies Allergy/AdvReac Type Severity Reaction Status Date / Time No Known Drug Allergies Allergy Verified 12/18/17 14:36 Medications: Current Medications Acetaminophen (Tylenol) 650 mg PO Q4H PRN PRN Reason: Headache/Fever or Pain Hydrocodone Bitart/Acetaminophen ([place] 5/325) 1 tab PO Q4H PRN PRN Reason: Moderate Pain (4-6) Last Admin: 04/06/18 08:16 Dose: 1 tab Al Hydroxide/Mg Hydroxide (Maalox) 30 ml PO Q6H PRN PRN Reason: Heartburn or Indigestion Albuterol/Ipratropium (Duoneb) 3 ml NEB [id number] Last Admin: 04/06/18 07:00 Dose: 3 ml Allopurinol (Zyloprim) 100 mg PO DAILY [facility] Last Admin: 04/06/18 08:18 Dose: 100 mg Artificial Tears (Tears Naturale) 0 drop EA EYE PRN PRN PRN Reason: Dry Eyes Aspirin (Aspirin Chewable) 81 mg PO DAILY [facility] Last Admin: 04/06/18 08:19 Dose: 81 mg Atorvastatin Calcium (Lipitor) 10 mg PO HS [facility] Carvedilol (Coreg) 6.25 mg PO TID [facility] Last Admin: 04/06/18 08:19 Dose: 6.25 mg Enoxaparin Sodium (Lovenox) 40 mg SC 0900 [facility] Last Admin: 04/06/18 08:20 Dose: 40 mg Famotidine (Pepcid) 20 mg PO BID [facility] Last Admin: 04/06/18 08:19 Dose: 20 mg Furosemide (Lasix) 40 mg PO 0900,1400 [facility] Last Admin: 04/06/18 08:18 Dose: Not Given Guaifenesin (Robitussin Sf) 200 mg PO Q4H PRN PRN Reason: Cough Hydralazine HCl (Apresoline) 10 mg SLOW IVP Q4H PRN PRN Reason: Systolic BP > 180 Levofloxacin (Levaquin) 500 mg PO 0900 [facility] Last Admin: 04/06/18 08:18 Dose: 500 mg Lisinopril (Zestril) 10 mg PO BID [facility] Last Admin: 04/06/18 08:18 Dose: 10 mg Loperamide HCl (Imodium) 2 mg PO PRN PRN PRN Reason: Diarrhea/Loose Stools Loratadine (Claritin) 10 mg PO DAILYPRN PRN PRN Reason: Sinus Symptoms Magnesium Hydroxide (Milk Of Magnesium) 30 ml PO DAILYPRN PRN PRN Reason: Constipation Metolazone (Zaroxolyn) 5 mg PO 0830 [facility] Last Admin: 04/06/18 08:17 Dose: 5 mg Mineral Oil/White Petrolatum (Eucerin Cream) 0 gm TOP BIDPRN PRN PRN Reason: Dry Skin Nitroglycerin (Nitrostat) 0.4 mg SL Q5MIN PRN PRN Reason: Chest Pain Ondansetron HCl (Zofran Odt) 4 mg PO Q6H PRN PRN Reason: Nausea/Vomiting Ondansetron HCl (Zofran) 4 mg IVP Q6H PRN PRN Reason: Nausea/Vomiting Phenol (Chloraseptic [place] 180 Ml Bot) 0 ml PO PRN PRN PRN Reason: Sore Throat Potassium Chloride (K-Dur) 20 meq PO BID-[facility] Last Admin: 04/06/18 08:17 Dose: 20 meq Prednisone (Prednisone) 20 mg PO [facility] Last Admin: 04/06/18 08:18 Dose: 20 mg Senna (Senokot) 2 tab PO HSPRN PRN PRN Reason: Constipation Sodium Chloride ([place] Nasal [place] 0.65%) 0 ml EA NARE QIDPRN PRN PRN Reason: Nasal Congestion Sodium Chloride (Flush - Normal Saline) 10 ml IVF Q12HR [facility] Last Admin: 04/06/18 08:20 Dose: 10 ml Sodium Chloride (Flush - Normal Saline) 10 ml IVF PRN PRN PRN Reason: Saline Flush Spironolactone (Aldactone) 12.5 mg PO [facility] Last Admin: 04/06/18 08:17 Dose: 12.5 mg Zolpidem Tartrate (Ambien) 5 mg PO HSPRN PRN PRN Reason: Insomnia Last Admin: 04/05/18 20:59 Dose: 5 mg
--- NOTE | 2018-04-06 11:46 | DIS ---
This patient was planned for discharge yesterday, but he had episode of nonsustained ventricular tach ycardia and Dr. Pascual recommended his AICD battery needs to be checked and that is why he stayed i n the hospital. Today, AICD battery needs to be checked and after what the patient will be discharge d home. He will resume all his previous discharge summary medication. Dr. Pascual also cleared him for hip surgery once he is completely euvolemic. At this point, patient is clinically euvolemic fro m heart failure point of few. His BNP is also reduced from 3549.5 to 2041.2. The patient is current ly asymptomatic and from medical perspective, he is stable for discharge later on today once Cardiolo gy cleared him. The patient is seen and examined at bedside today. Please see my progress note from today and for mo re detailed discharge summary from yesterday.
[2018-04-06 13:00] VITALS: BP 129/92
[2018-04-06] MEDS ORDERED: Atorvastatin Calcium 10 MG TAB PO SCH (21:00)
--- NOTE | 2018-04-08 13:26 | EKG ---
Test Reason : SOB Blood Pressure : / mmHG Vent. Rate : 107 BPM Atrial Rate : 107 BPM P-R Int : 136 ms QRS Dur : 112 ms QT Int : 358 ms P-R-T Axes : 063 -29 130 degrees QTc Int : 477 ms Sinus tachycardia Possible Left atrial enlargement Left ventricular hypertrophy Abnormal ECG Lateral ST depression Confirmed by BRINDA KING M.D. ([id number]), senior editor JASON MARSHALL ([id number]) on 04/08/2018 1:26:04 PM Referred By: Confirmed By:BRINDA KING M.D.
== END 2018-04-06 13:28 | disposition home or self-care (01) | DRG 190 ==
LOC: ERS 01:25 → 2NO 05:26
PROVIDERS: ADMIT Internal Medicine; ATTEND Internal Medicine
DX: J44.1 Chronic obstructive pulmonary disease with (acute) exacerbation (principal); I50.43 Acute on chronic combined systolic (congestive) and diastolic (congestive) heart failure; I42.9 Cardiomyopathy, unspecified; I11.0 Hypertensive heart disease with heart failure; E66.9 Obesity, unspecified; Z68.35 Body mass index [BMI] 35.0-35.9, adult; B19.20 Unspecified viral hepatitis C without hepatic coma; E78.5 Hyperlipidemia, unspecified; Z95.810 Presence of automatic (implantable) cardiac defibrillator
CPT/HCPCS: 36415; 71045; 71046; 71275; 80048; 80053; 80061; 80306; 81003; 81015; 82553; 83605; 83735; 83880; 84484; 84550; 85025; 85379; 87040; 87086; 93005; 93798; 94640; 96374; 96375; A4216; J0696; J1100; J1650; J1940; J1956; J2920; J7050; J7506; J7620

== ENCOUNTER 2018-07-20 15:15 | Inpatient (IN) | payer OTHER ==
[2018-08-01] MEDS ORDERED: Midazolam HCl 2 mg/2 ml Vial ONE ×3 (06:17→13:04)
[2018-08-01] MEDS ORDERED: Fentanyl 100 MCG/2 ML VIAL ONE ×4 (06:17→12:22)
[2018-08-01] MEDS ORDERED: Tranexamic Acid 1,000 MG/10 ML VIAL ONE ×2 (06:35→11:55)
[2018-08-01] MEDS ORDERED: Sodium Chloride 0.9% 100 ML ONE (06:35)
[2018-08-01] MEDS ORDERED: CEFAZOLIN 2 GM/50 ML BAG ONE (06:35)
[2018-08-01] MEDS ORDERED: KETAMINE 100 MG/ML (5ML VIAL) ONE (07:27)
[2018-08-01] MEDS ORDERED: Bupivacaine/Epinephrine 0.25% 30 ML VIAL ONE (07:44)
[2018-08-01] MEDS ORDERED: Promethazine HCl 25 MG SUPP PR PRN (08:00)
[2018-08-01] MEDS ORDERED: diphenhydrAMINE 25 MG CAP PO PRN (08:00)
[2018-08-01] MEDS ORDERED: Ondansetron PF 4 MG/2 ML Vial IVP PRN (08:00)
[2018-08-01] MEDS ORDERED: HYDROcodone/Acetaminophen 5/325 mg Tablet PO PRN ×2 (08:00)
[2018-08-01] MEDS ORDERED: Promethazine HCl 25 MG/ML VIAL IM PRN (08:00)
[2018-08-01] MEDS ORDERED: traMADol HCl 50 MG TAB PO PRN ×2 (08:00)
[2018-08-01] MEDS ORDERED: Naloxone HCl 0.4 mg/ml Vial IVP PRN (08:00)
[2018-08-01] MEDS ORDERED: diphenhydrAMINE 50 MG/ML VIAL IVP PRN (08:00)
[2018-08-01] MEDS ORDERED: Hydrocerin (Eucerin) Cream 120 gm Jar TOP PRN (08:00)
[2018-08-01] MEDS ORDERED: Bupivacaine 0.25% 10 ML VIAL EPIDURAL PRN (08:00)
[2018-08-01] MEDS ORDERED: fentaNYL Citrate/PF 1,250 MCG, Bupivacaine 25 ML in Sodium Chloride 0.9% 250 ML 200 ML EPIDURAL SCH (08:00)
[2018-08-01] MEDS ORDERED: Zolpidem Tartrate 5 MG TAB PO PRN (08:00)
[2018-08-01] MEDS ORDERED: diphenhydrAMINE 50 MG/ML VIAL IM PRN (08:00)
[2018-08-01] MEDS ORDERED: Naloxone HCl 0.4 mg/ml Vial IV PRN (08:00)
[2018-08-01] MEDS ORDERED: Fentanyl/Bupivacaine 100 ML EPIDURAL SCH (08:15)
[2018-08-01] MEDS ORDERED: PHENYLEPHRINE-NS 100 MCG/ML 10 ML SYRINGE ONE ×2 (08:46→17:11)
[2018-08-01] MEDS ORDERED: DOBUTamine 500 mg/250 ml 250 ML ONE (09:04)
[2018-08-01] MEDS ORDERED: SUGAMMADEX SODIUM 200 MG/2 ML VIAL ONE (10:11)
[2018-08-01] MEDS ORDERED: Tranexamic Acid 1,000 MG in Sodium Chloride 0.9% 100 ML IVPB SCH (10:30)
[2018-08-01] MEDS ORDERED: Furosemide 40 MG/4 ML VIAL ONE ×2 (10:31→16:17)
[2018-08-01 10:57] LABS: Actual Bicarbonate (HCO3a) 28.6 mEq/L (22-28); Base Excess (BEa) 0.5 mEq/L (-2.0 to +3.0); Calcium, Ionized 1.23 mmol/L (1.12-1.30); Hemoglobin (Hb) 15.5 g/dL (14.0-18.0); O2 Tension (PaO2) 63.4 mmHg (80.0-100.0); Potassium - ABG Lab 4.79 mmol/L (3.70-5.30); pH, Arterial 7.29 (7.35-7.45)
[2018-08-01 11:05] LABS: ALV-art Gradient 574.225 (0-20); CO2 Tension 60.3 mmHg (35.0-45.0); Puncture Site L.B.
[2018-08-01] MEDS ORDERED: Tranexamic Acid 1,000 MG/10 ML VIAL IVP SCH (11:15)
--- NOTE | 2018-08-01 11:46 | RAD ---
SINGLE VIEW OF THE CHEST: Comparison: 07-27-18 History: Status post anesthesia with poor oxygen saturation. FINDINGS: Single view of the chest shows an enlarged but stable cardiomediastinal silhouette. The pacemaker is unchanged in position. The patient has a left upper extremity central venous catheter with its tip in the superior vena cava. Multifocal airspace opacities project over the right thorax. No significant infiltrates are seen on the left. IMPRESSION: Multiple right sided infiltrates. This could represent aspiration or pneumonia. POS: [facility]
--- NOTE | 2018-08-01 12:02 | RAD ---
RADIOGRAPH LEFT HIP TWO VIEWS: History: 43-year-old male status post left hip surgery. FINDINGS: Metallic acetabular cup is in place, articulating with femoral head and neck prosthesis which reaches the junction between the proximal and middle thirds of the femoral diaphysis. IMPRESSION: Status post total left hip replacement arthroplasty. POS: [facility]
[2018-08-01 12:20] LABS: Actual Bicarbonate (HCO3a) 32.3 mEq/L (22-28); Base Excess (BEa) 2.4 mEq/L (-2.0 to +3.0); Calcium, Ionized 1.18 mmol/L (1.12-1.30); Carboxyhemoglobin (COHb) 1.4 gm% (0.0-3.0); Hemoglobin (Hb) 15.1 g/dL (14.0-18.0); O2 Tension (PaO2) 86.8 mmHg (80.0-100.0); Potassium - ABG Lab 4.59 mmol/L (3.70-5.30)
[2018-08-01] MEDS ORDERED: Morphine 4 MG/ML VIAL ONE (12:27)
[2018-08-01] MEDS ORDERED: Succinylcholine Chloride 20 MG/ML 10 ml SYRINGE FS ONE ×2 (12:31→17:11)
[2018-08-01] MEDS ORDERED: Propofol 500 MG/50 ML VIAL ONE (12:44)
[2018-08-01] MEDS ORDERED: Propofol 1,000 MG/100 ML VIAL IV ONE ×2 (13:15→16:26)
[2018-08-01 13:39] LABS: CO2 Tension 75.8 mmHg (35.0-45.0); pH, Arterial 7.25 (7.35-7.45)
[2018-08-01 13:40] LABS: Puncture Site L.B.
--- NOTE | 2018-08-01 14:01 | RAD ---
RADIOGRAPH CHEST 1 VIEW: Date: 08/01/18 Time: 1303 hours HISTORY: 43-year-old male in respiratory failure. COMPARISON: 08/01/18 at 1029 hours. FINDINGS: Endotracheal tube has been placed into the mid trachea, with distal tip approximately 2.5 cm superior to the meg. Single lead left subclavian AICD is again noted. Cardiomegaly again noted. Diffuse, s evere alveolar opacities throughout almost the entire right lung has worsened, especially at the righ t apex. Interval development of new milder interstitial densities throughout much of the left upper l obe, including perihilar region. This is a supine image which would be insensitive for pneumothorax d etection. IMPRESSION: 1. Status post intubation. 2. Severe diffuse consolidation throughout almost the entire right lung, is now slightly worse. 3. Interval development of new left parahilar pulmonary interstitial densities, probably pulmonary e marifer. ABNDAR [] POS: [facility]
[2018-08-01] MEDS: Ketorolac Tromethamine 30 MG/ML VIAL IVP SCH ×3 (14:57→23:34)
[2018-08-01 14:59] LABS: ALV-art Gradient 584.025 (0-20); Actual Bicarbonate (HCO3a) 26.7 mEq/L (22-28); Base Excess (BEa) 1.2 mEq/L (-2.0 to +3.0); CO2 Tension 45.5 mmHg (35.0-45.0); Calcium, Ionized 1.16 mmol/L (1.12-1.30); Carboxyhemoglobin (COHb) 1.3 gm% (0.0-3.0); Hemoglobin (Hb) 14.5 g/dL (14.0-18.0); O2 Tension (PaO2) 72.1 mmHg (80.0-100.0); Potassium - ABG Lab 4.56 mmol/L (3.70-5.30); Puncture Site RRA; pH, Arterial 7.39 (7.35-7.45)
[2018-08-01] MEDS ORDERED: DISCONTINUE PREVIOUS NARCOTIC PAIN MEDICATIONS AND BENZODIAZEPINES FS SCH (16:32)
[2018-08-01] MEDS ORDERED: Propofol BOLUS 1,000 MG/100 ML VIAL IV PRN (16:32)
[2018-08-01] MEDS ORDERED: Morphine 2 MG/ML SYRINGE SLOW IVP PRN (16:32)
[2018-08-01] MEDS ORDERED: Fentanyl BOLUS 250 ML IVPB PRN (16:32)
[2018-08-01] MEDS ORDERED: Glycopyrrolate 0.2 MG/ML 5 ML SYRINGE ONE (17:11)
[2018-08-01] MEDS ORDERED: Ondansetron PF 4 MG/2 ML Vial ONE (17:11)
[2018-08-01] MEDS ORDERED: ePHEDrine/0.9% NaCl/PF SYRINGE 50 mg/10 ml ONE (17:11)
[2018-08-01] MEDS ORDERED: Dexamethasone 20 MG/5 ML VIAL ONE (17:11)
[2018-08-01] MEDS ORDERED: Calcium Chloride 1 GM/10 ML Abboject SYRINGE ONE (17:11)
[2018-08-01] MEDS: Lorazepam 2 MG/ML VIAL SLOW IVP PRN ×3 (17:24→22:43)
[2018-08-01 18:54] LABS: #Basophils 0.1 thou/uL (0.0-0.2); #Lymphocytes 0.7 thou/uL (1.20-3.40); #Monocytes 0.4 thou/uL (0.11-0.59); %Basophils 0.4 % (0.0-1.0); %Eosinophils 0.1 % (0.0-10.0); %Lymphocytes 5.6 % (21.0-51.0); %Monocytes 3.2 % (0.0-10.0); %Neutrophils 90.7 % (42.0-75.0); Hemoglobin 14.4 g/dL (14.0-18.0); Mean Corpuscular HGB CONC 32.6 g/dL (32.0-36.0); Mean Corpuscular Hemoglobin 27.7 pg (27.0-31.0); Mean Corpuscular Volume 84.8 fL (78.0-98.0); Mean Platelet Volume 8.1 fL (7.4-10.4); Platelet Count 233 thou/uL (130-400); Red Blood Cell (RBC) Count 5.22 mill/uL (4.70-6.10); White Blood Cell (WBC) Count 12.1 thou/uL (4.8-10.8)
[2018-08-01 19:15] LABS: Anion Gap 13 mmol/L (10-20); BUN (Urea Nitrogen) 18 mg/dL (8.9-20.6); Calc. Creatinine Clearance 181 mL/min (70-130); Calcium 9.1 mg/dL (7.8-10.44); Carbon Dioxide 22 mmol/L (22-29); Chloride 105 mmol/L (98-107); Estimated GFR-MDRD 86; Glucose 142 mg/dL (70-105); Potassium 4.4 mmol/L (3.5-5.1); Sodium 136 mmol/L (136-145)
[2018-08-01 19:37] LABS: CKMB 4.1 ng/mL (0-6.6)
[2018-08-01] MEDS: Famotidine/PF 20 mg/2ml Vial SLOW IVP SCH (20:51)
[2018-08-01] MEDS: cefTRIAXone\\ROCEPHIN 2 GM in Sodium Chloride 0.9% 100 ML IVPB SCH (20:55)
[2018-08-01] MEDS: Propofol 1,000 MG/100 ML VIAL IV PRN (20:56)
--- NOTE | 2018-08-01 22:09 | CON ---
DATE OF CONSULTATION: 08/01/2018 HISTORY OF PRESENT ILLNESS: Mr. Schmidt is a 43-year-old male, who underwent a total elective hip replacement. He was in postop respiratory distress. Subsequently he was reintubated. I was consulted for critical care and ventilator management. PAST MEDICAL HISTORY: 1. Remarkable for cardiomyopathy, I believe he is followed by Dr. Nascimento. 2. History of diabetes. 3. History of hypertension. 4. History of asthma. 5. History of ICD placement in the past. SOCIAL HISTORY: He has a history of smoking cigarettes and marijuana. Drinks occasionally. FAMILY HISTORY: Positive for vascular disease in early age. REVIEW OF SYSTEMS: A 10-point review of systems unobtainable as he is intubated. PHYSICAL EXAMINATION: VITAL SIGNS: Respiratory rate is per mechanical ventilation. Blood pressure 115/85, heart rate is 92, oximetry is 100%. HEENT: Pupils are reactive. Sclerae anicteric. NECK: Supple. LUNGS: Show rhonchi bilaterally, mostly in the right. HEART: Regular rhythm. S1, S2 normal. ABDOMEN: Soft and nontender. EXTREMITIES: Without clubbing, cyanosis or edema. LABORATORY DATA: White count 12.1, hemoglobin 14.4, platelets 233. Sodium 136, potassium 4.4, chloride 105, bicarb 22, BUN 18, creatinine 1.13. PH 7.39, pCO2 of 45, PO2 of 72. IMPRESSION AND PLAN: Respiratory failure. He was operated right side down and has a right-sided infiltrate on the chest radiograph. I would wonder if this is any asymmetric pulmonary edema. He will remain intubated and we will repeat the radiograph in the morning. I doubt he had an aspiration event, but we will go ahead and cover with antibiotics for now. Critical care time, 30 minutes. Job ID: [id number] MTDD
[2018-08-01] MEDS ORDERED: Dextrose 50% Abboject 50 ML SYRINGE SLOW IVP PRN (23:52)
[2018-08-01] MEDS ORDERED: Dextrose 5% in Water 1,000 ML IV PRN (23:52)
[2018-08-01] MEDS ORDERED: HumaLOG 300 UNITS/3 ML VIAL SC PRN (23:52)
[2018-08-02] MEDS: Lorazepam 2 MG/ML VIAL SLOW IVP PRN ×5 (01:15→21:49)
[2018-08-02] MEDS: Propofol 1,000 MG/100 ML VIAL IV PRN ×4 (01:49→23:32)
[2018-08-02 02:54] LABS: Anion Gap 13 mmol/L (10-20); BUN (Urea Nitrogen) 24 mg/dL (8.9-20.6); Calc. Creatinine Clearance 165 mL/min (70-130); Carbon Dioxide 26 mmol/L (22-29); Chloride 103 mmol/L (98-107); Estimated GFR-MDRD 77; Glucose 144 mg/dL (70-105); Potassium 4.3 mmol/L (3.5-5.1); Sodium 138 mmol/L (136-145)
[2018-08-02 03:52] LABS: Band 3 % (5-11); Hemoglobin 13.9 g/dL (14.0-18.0); Lymphocytes 6 % (21-51); MDiff Complete? YES; Mean Corpuscular HGB CONC 33.5 g/dL (32.0-36.0); Mean Corpuscular Hemoglobin 28.1 pg (27.0-31.0); Mean Corpuscular Volume 83.8 fL (78.0-98.0); Mean Platelet Volume 8.5 fL (7.4-10.4); Monocytes 4 % (0-10); Neutrophil 87 % (42-75); Platelet Count 231 thou/uL (130-400); Red Blood Cell (RBC) Count 4.94 mill/uL (4.70-6.10); White Blood Cell (WBC) Count 11.4 thou/uL (4.8-10.8)
--- NOTE | 2018-08-02 04:37 | HP ---
CONSULTING PHYSICIAN: Álvaro Mckeon MD HISTORY: This patient is a 43-year-old male with a significant history of cardiomyopathy and congestive heart failure, as well as diabetes and a history of recreational drug use. The patient presented to the hospital for elective hip replacement. The patient successfully underwent this surgery after he was cleared as an outpatient by Cardiology for the procedure. He was extubated postoperatively; however, he had persistent respiratory failure and required re-intubation. He is now transferred to the ICU for further evaluation. Cardiology and Pulmonary Critical Care have also been consulted. The patient is still intubated and unable to give any additional history. PAST MEDICAL HISTORY: Based on prior records, the patient's past medical history includes diabetes, chronic systolic and diastolic congestive heart failure with an ejection fraction of about 15%. He has COPD, cardiomyopathy, obesity, hypertension, and dyslipidemia. PAST SURGICAL HISTORY: Pacemaker defibrillator placement in 2013. SOCIAL HISTORY: History of recreational drug use and cigarette smoking. Occasional alcohol use. FAMILY HISTORY: Notable for hypertension and diabetes. REVIEW OF SYSTEMS: Unobtainable due to patient's intubated and sedated status. ALLERGIES: NONE. HOME MEDICATIONS: 1. Nexium 40 mg daily. 2. Prednisone 20 mg daily. 3. Potassium 20 mEq daily. 4. Hydrocodone 5/325 one p.o. t.i.d. 5. Albuterol HFA two puffs p.r.n. 6. Ambien 10 mg at bedtime. 7. Lisinopril one p.o. daily. 8. Atorvastatin one at bedtime. 9. Lasix one p.o. b.i.d. 10. Allopurinol 300 daily. 11. Coreg 25 b.i.d. 12. Symbicort one puff daily. PHYSICAL EXAMINATION: VITAL SIGNS: Temperature is 99.1, pulse is 76, respirations 20, BP is 114/91. GENERAL APPEARANCE: Age-appropriate male. He is intubated and sedated. He appears to be in no distress. HEENT: Pupils are mid point, sluggish, but responsive. HEART: Regular without murmurs. LUNGS: Diffuse rhonchi throughout. ABDOMEN: Soft, nontender, and nondistended. Positive bowel sounds. No masses. No organomegaly. EXTREMITIES: Left hip bandage in place. No significant edema. CURRENT LABS: ABG, most recent pH 7.39, pCO2 of 45.5, pO2 of 72.1. Chest x-ray: Diffuse consolidation throughout the entire right lung and left perihilar pulmonary interstitial densities, likely pulmonary edema. IMPRESSION AND PLAN: 1. Acute respiratory failure following surgery. The patient has significant right-sided infiltrate, which could represent pneumonia or dependent pulmonary edema. The patient was given an additional dose of Lasix. Apparently, he received one in the PACU as well. He has been covered with antibiotics with possibility of pneumonia or aspiration. Will likely need a followup echocardiogram. 2. History of diabetes mellitus. Will start sliding scale insulin and Accu-Cheks. 3. History of chronic systolic and diastolic heart failure as above. Cardiology consulted. The patient was given an additional dose of diuresis. 4. Hypertension. Will resume his usual home medications as tolerated once he is extubated. 5. Hyperlipidemia. Continue home medications once extubated. Job ID: [id number]
[2018-08-02] MEDS: Ketorolac Tromethamine 30 MG/ML VIAL IVP SCH ×4 (05:49→23:32)
[2018-08-02 07:16] LABS: Actual Bicarbonate (HCO3a) 24.8 mEq/L (22-28); Base Excess (BEa) 0.3 mEq/L (-2.0 to +3.0); CO2 Tension 39.4 mmHg (35.0-45.0); Calcium, Ionized 1.13 mmol/L (1.12-1.30); Carboxyhemoglobin (COHb) 1.1 gm% (0.0-3.0); Hemoglobin (Hb) 13.6 g/dL (14.0-18.0); Potassium - ABG Lab 4.09 mmol/L (3.70-5.30); pH, Arterial 7.42 (7.35-7.45)
[2018-08-02 07:17] LABS: O2 Tension (PaO2) 59.4 mmHg (80.0-100.0); Puncture Site LRA
[2018-08-02] MEDS: fentaNYL Citrate/PF 2,000 MCG in Sodium Chloride 0.9% 60 ML IV SCH ×2 (09:11→21:18)
--- NOTE | 2018-08-02 09:15 | RAD ---
FRONTAL RADIOGRAPH CHEST PORTABLE: Date: 08-02-18 Comparison: 04-03-18, 08-01-18 History: Ventilated patient. FINDINGS: Endotracheal tube, nasogastric tube, left sided AICD all in stable position. There is interstitial an d alveolar opacity within the medial aspect of the right lung, with significant interval improvement in diffuse right pulmonary parenchymal airspace disease when compared to 08-01-18. Cardiac silhouette is prominent. There is increased density in the left base which could represent left basilar volume loss, infiltrate, pleural fluid or attenuation from cardiac prominence. IMPRESSION: Interval improvement in right lung aeration. POS: [facility]
[2018-08-02] MEDS: Famotidine/PF 20 mg/2ml Vial SLOW IVP SCH ×2 (09:20→21:47)
--- NOTE | 2018-08-02 10:33 | OP ---
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 PROCEDURE PERFORMED: Left total hip arthroplasty. LINE OPERATOR: Vasiliy Ca PA-C. ANESTHESIOLOGIST: Dr. Paez. ANESTHESIA: The patient received a general endotracheal intubation with an epidural. TRACY: 200 mL. FLUIDS GIVEN: The patient received no blood products. ESTIMATED BLOOD LOSS: 250 mL. IMPLANTS: Ad hemispherical 54 mm Tritanium cluster shell, a Trident X3 10-degree 36 mm poly, and a Biolox ceramic 40 delta 36+0 mm head, Accolade TMFZ size 3.5. ANTIBIOTICS: Ancef 2 g, vancomycin 2 g, TXA 1 g. COMPLICATIONS: None. HISTORY OF PRESENT ILLNESS: Mr. Schmidt is a 43-year-old male with a presentation of left hip pain. The patient has a history of smoking. The patient has a history of COPD, congestive heart failure, multiple medical problems, and dysplastic left hip. I discussed with the patient the risks and benefits of left total hip arthroplasty that include pain, scar, bleeding, infection, damage to vital structures, decreased range of motion and strength, continued pain despite surgical intervention, footdrop, loss of life or limb, blood clot. I discussed the risks given his cardiac history and difficulty with positioning with his obesity. He understood these risks and benefits. The patient elected to proceed. DESCRIPTION OF PROCEDURE: Time-out was performed designating the patient's left lower extremity as the operative site, based on site, consent, and markings. After time-out, the patient was placed, was intubated, and had his Tracy placed at his final preop. The patient was placed into the Innomed positioners. Upon placement of the abdominal positioner, the patient was desaturating. He could not keep his tidal volumes up past 300 because of the abdominal wall pressing his lungs; therefore , we had to switch beds. Given the patient's size, it took time. We positioned him back onto a beanbag, which we positioned and did not have same tidal volume issues. His blood pressures and heart rate were maintained by Anesthesia throughout the case. After placing in the lateral position, I performed a time-out. The patient's lateral incision made to the skin and down to the IT bands, split the IT bands, came up the gluteusmedius and minimus, took down the gluteus medius and minimus, exposing capsule, T'd the capsule, excised, exposed the head. Dislocated the head _ covering the ligament of the femoral head. We cut the head off. It was retroverted posteriorly, which made neck angle slightly different. After exposing the acetabulum, I removed the acetabulum and labrum. We placed retractors anteriorly and posteriorly removing the osteophytes inferiorly. We then placed and started to sequentially reaming up from a 44 up to a 53. We felt we had overall good position. We had ensured that the patient was retroverted. In situ, reason of this reaming we felt we had stable construct, 54 mm hemispherical cluster shell. A titanium shell was placed in position and had good overall stability. We used the osteotome to knock the osteophytes anteriorly and a little bit posteriorly to ensure he did not have any impingement of the hip. We then placed the poly into position to help with posterior dislocation. After we moved back to the femur, we did a femoral cut. We broached up and went to trial and finally went with a size 3.5, which we felt had good reduction and no instability and did not dislocate. The patient had overall good alignment on the table as well as good overall positioning. Like the alignment, the patient had near equal lengths. We then took final 3.5 and placed the ceramic head and given the patient's age. We reduced into position, we washed and closed the gluteus minimus with #2 Vicryl. We then closed the IT band with #2 Vicryl and then #2 quill vicryp simple stitches in the fat to close in layers O-to 2.- O and skin with glue. The patient will be weightbearing as tolerated. The patient will be monitored postop and I will determine the patient's disposition based on how he does in the PACU. Job ID: [id number] [facility]
[2018-08-02 12:25] VITALS: BMI 43.7
--- NOTE | 2018-08-02 16:05 | CON ---
DATE OF CONSULTATION: HISTORY OF PRESENT ILLNESS: The patient is an unfortunate 43-year-old gentleman , who presented with acute respiratory failure. The patient has a long history of cardiomyopathy. In August 2003, he presented with congestive heart failure. He underwent a cardiac catheterization and found to have a severely decreased left ventricular systolic function with normal coronary arteries. The patient has subsequently been on medical therapy. He has been admitted on several occasions with congestive heart failure. He also had placement of an automatic implantable cardioverter-defibrillator. The patient underwent hip surgery. He developed increasing dyspnea and had to be emergently intubated. The patient was intubated and sedated. He is not able to give a coherent history. PAST MEDICAL HISTORY: 1. Cardiomyopathy. 2. Hypertension. 3. Diabetes mellitus. 4. Asthma. PAST SURGICAL HISTORY: SOCIAL HISTORY: He has a past history of tobacco abuse. FAMILY HISTORY: Not obtainable. REVIEW OF SYSTEMS: Not obtainable. PHYSICAL EXAMINATION: GENERAL: Obese gentleman, who is sedated. VITAL SIGNS: Blood pressure 114/91. NECK: Full. LUNGS: Crackles throughout the right lung field. HEART: Regular rate and rhythm. Normal S1 and S2. No murmurs. ABDOMEN: Distended. EXTREMITIES: Showed trace edema. LABORATORY DATA: Laboratory results are pending. EKG revealed normal sinus rhythm, left ventricular hypertrophy, ST-T-wave abnormalities suggestive of ischemia. IMPRESSION: 1. Congestive heart failure, asymmetric, pulmonary edema. 2. History of severe cardiomyopathy. 3. Status post hip surgery. 4. History of automatic implantable cardioverter-defibrillator placement. This gentleman presents with asymmetric pulmonary edema. He also has marked ST- T-wave changes on his electrocardiogram. At this time, the patient is intubated and sedated. We will obtain cardiac enzymes. We will treat the patient with IV Lasix. We will check an echocardiogram to make sure he did not develop acute mitral regurgitation as the cause of asymmetric pulmonary edema. The patient's prognosis is guarded. We will follow this patient with you through his hospitalization. Critical care note time 1 hour. Job ID: [id number] MTDD
--- NOTE | 2018-08-02 17:57 | PRG ---
DATE OF SERVICE: 08/02/2018 SUBJECTIVE: Brayan wakes up. He is sedated for ventilations. OBJECTIVE: VITAL SIGNS: Heart rates in the 80s, respiratory rate is 15, blood pressure is 89/51, oximetry is 100%. LUNGS: Remarkable for mild rhonchi on the right with wheezes. HEART: Regular rhythm. ABDOMEN: Soft, nontender. EXTREMITIES: Warm. LABORATORY DATA: White count 11.4, hemoglobin 13.9, platelets 231. Sodium 138, potassium 4.3, chloride 103, bicarb 26, BUN 24, creatinine 1.24. IMPRESSION: ?asymmetric pulmonary edema. Chest radiograph still shows an alveolar infiltrate on the right. He may have alveolar hemorrhage into the right lung and that may have been a large factors. He was also slow to wake up after his surgery. We may be able to consider spontaneous breathing trial so far since his lung compliance is actually not bad. Blood gas today shows a pH of 7.2, pCO2 39, pO2 of 59. We will re-evaluate him in the morning. Hopefully in 24 to 48 hours, we will have him extubated. Critical care time, 30 minutes. Job ID: [id number] MTDD
[2018-08-02] MEDS: Enoxaparin Sodium 40 MG/0.4 ML SYRINGE SC SCH (21:47)
[2018-08-02] MEDS: cefTRIAXone\\ROCEPHIN 2 GM in Sodium Chloride 0.9% 100 ML IVPB SCH (21:47)
--- NOTE | 2018-08-02 23:07 | PDOC.PN ---
- Subjective Encounter Start Date: 08/02/18 Encounter Start Time: 13:30 -: non-verbal Patient seen and examined for med mngt. On Vent. No overnight events - Objective MAR Reviewed: Yes Vital Signs & Weight: Vital Signs (12 hours) Temp Pulse Resp BP Pulse Ox 08/02/18 19:10 100 17 100 08/02/18 18:00 15 18 16:00 15 08/02/18 15:00 98.5 F 08/02/18 14:19 107 H 130/79 08/02/18 14:00 15 08/02/18 13:00 98.9 F 08/02/18 12:25 91 96/53 L 08/02/18 12:24 90 15 98 08/02/18 12:00 15 Weight Admit Weight 331 lb Weight 331 lb 9.204 oz Most Recent Monitor Data Heart Rate from ECG 85 NIBP 87/52 NIBP BP-Mean 63 Respiration from ECG 15 SpO2 100 I&O: 08/01/18 08/02/18 08/03/18 06:59 06:59 06:59 Intake Total 445.1 326.2 Output Total 1685 520 Balance -1239.9 -193.8 Result Diagrams: 08/02/18 02:08 08/02/18 02:08 Additional Labs: Accuchecks 08/02/18 08/02/18 08/02/18 21:59 18:23 13:36 POC Glucose 85 95 100 08/02/18 08/02/18 05:47 00:23 POC Glucose 135 H 132 H Radiology Reviewed by me: Yes (CXR - ? Right basilar infiltrate) EKG Reviewed by me: Yes (Tele SR) Phys Exam - Physical Examination Constitutional: NAD (on Vent) Respiratory: no wheezing, no rhonchi few rales at bases Cardiovascular: RRR, no rub Gastrointestinal: soft, positive bowel sounds Dx/Plan - Plan DVT proph w/lovenox, DVT proph w/SCDs 1. Acute hypoxic/hypercapneic resp failure due to Acute on chronic systolic heart failure exacerbation. ACC stage C 2. DM2 3. Morbid obesity BMI 43.7 4. Elevated troponin due to demand ischemia 5. HTN PLAN: * Cont Nebs/Atbx * Cont current meds as below * Cont supportive care * cont sliding scale Review of Systems - Review of Systems Other: Cannot obtain due to current mentation. - Medications/Allergies Allergies/Adverse Reactions: Allergies Allergy/AdvReac Type Severity Reaction Status Date / Time No Known Drug Allergies Allergy Verified 07/27/18 11:46 Medications: Current Medications Albuterol/Ipratropium (Duoneb) 3 ml NEB [id number] [facility] Last Admin: 08/02/18 19:10 Dose: 3 ml Dextrose/Water (Dextrose 50%) 25 gm SLOW IVP PRN PRN PRN Reason: Hypoglycemia Diphenhydramine HCl (Benadryl) 25 mg PO Q3H PRN PRN Reason: Itching Diphenhydramine HCl (Benadryl) 25 mg IM Q3H PRN PRN Reason: Itching Diphenhydramine HCl (Benadryl) 25 mg IVP Q3H PRN PRN Reason: Itching Emollient Cream (Hydrocerin Cream) 0 gm TOP PRN PRN PRN Reason: Itching Enoxaparin Sodium (Lovenox) 40 mg SC 2100 [facility] Last Admin: 08/02/18 21:47 Dose: 40 mg Famotidine (Pepcid) 20 mg SLOW IVP BID [facility] Last Admin: 08/02/18 21:47 Dose: 20 mg Glucagon (Glucagon) 1 mg IM PRN PRN PRN Reason: Hypoglycemia Fentanyl Citrate (Fentanyl/Bupivacaine) 100 mls @ 1 mls/hr EPIDURAL INF [facility] Last Admin: 08/02/18 01:43 Dose: 100 mls Fentanyl Citrate 2,000 mcg/ (Sodium Chloride) 100 mls @ 0 mls/hr IV INF [facility]; Protocol Stop: 08/31/18 16:32 Last Admin: 08/02/18 21:18 Dose: 100 mls Fentanyl Citrate (Fentanyl Bolus) 250 mls @ 0 mls/hr IVPB PRN PRN PRN Reason: Breakthrough pain/agitation Stop: 08/31/18 16:32 Ceftriaxone Sodium 2 gm/ (Sodium Chloride) 100 mls @ 200 mls/hr IVPB Q24HR [facility] Last Admin: 08/02/18 21:47 Dose: 100 mls Dextrose/Water (D5w) 1,000 mls @ 0 mls/hr IV .Q0M PRN PRN Reason: Hypoglycemia Insulin Human Lispro (Humalog) 0 units SC .MILD SLIDING SCALE PRN PRN Reason: Mild Correctional Scale Ketorolac Tromethamine (Toradol) 30 mg IVP Q6HR [facility] Stop: 08/03/18 06:01 Last Admin: 08/02/18 17:38 Dose: 30 mg Lorazepam (Ativan) 2 mg SLOW IVP Q1H PRN PRN Reason: Breakthrough agitation Stop: 08/31/18 16:32 Last Admin: 08/02/18 21:49 Dose: 2 mg Miscellaneous Information (Communication Order-Pharmacy) 1 each FS ASDIR [facility] Morphine Sulfate (Morphine) 2 mg SLOW IVP Q1H PRN PRN Reason: BREAKTHROUGH PAIN/Agitation Stop: 08/31/18 16:32 Naloxone HCl (Narcan) 0.2 mg IV Q5MIN PRN PRN Reason: RR <=8 OR OBTUNDED/UNAROUSABLE Naloxone HCl (Narcan) 0.1 mg IVP Q15MIN PRN PRN Reason: URINARY RETENTION Ondansetron HCl (Zofran) 4 mg IVP Q6H PRN PRN Reason: Nausea/Vomiting Promethazine HCl (Phenergan) 12.5 mg IM Q4H PRN PRN Reason: Nausea Promethazine HCl (Phenergan Suppository) 25 mg ID Q4H PRN PRN Reason: Nausea/Vomiting Propofol (Diprivan) 1,000 mg IV INF PRN; Protocol PRN Reason: TO ACHIEVE GOAL RASS Stop: 08/31/18 16:32 Last Admin: 08/02/18 14:30 Dose: 1,000 mg Propofol (Diprivan Bolus) 20 mg IV Q5MIN PRN PRN Reason: BREAKTHROUGH AGITATION Stop: 08/31/18 16:32 Sodium Chloride (Flush - Normal Saline) 10 ml IVF Q12HR [facility] Last Admin: 08/02/18 21:48 Dose: 10 ml Sodium Chloride (Flush - Normal Saline) 10 ml IVF PRN PRN PRN Reason: Saline Flush Zolpidem Tartrate (Ambien) 5 mg PO HSPRN PRN PRN Reason: Insomnia
[2018-08-03] MEDS: Lorazepam 2 MG/ML VIAL SLOW IVP PRN (02:22)
[2018-08-03 06:14] LABS: Anion Gap 13 mmol/L (10-20); BUN (Urea Nitrogen) 42 mg/dL (8.9-20.6); Calc. Creatinine Clearance 128 mL/min (70-130); Calcium 8.9 mg/dL (7.8-10.44); Carbon Dioxide 27 mmol/L (22-29); Chloride 102 mmol/L (98-107); Estimated GFR-MDRD 58; Glucose 75 mg/dL (70-105); Magnesium 1.8 mg/dL (1.6-2.6); Potassium 4.1 mmol/L (3.5-5.1); Sodium 138 mmol/L (136-145)
[2018-08-03 06:17] LABS: Hemoglobin 12.8 g/dL (14.0-18.0); Hypochromia SLIGHT = 6-15 cells (100X) (0-5/hpf); Lymphocytes 22 % (21-51); MDiff Complete? YES; Mean Corpuscular HGB CONC 33.2 g/dL (32.0-36.0); Mean Corpuscular Hemoglobin 27.9 pg (27.0-31.0); Mean Corpuscular Volume 84.3 fL (78.0-98.0); Mean Platelet Volume 9.1 fL (7.4-10.4); Monocytes 1 % (0-10); Neutrophil 77 % (42-75); PLT Morphology Comment Appears Adequate; Platelet Count 199 thou/uL (130-400); RBC Distribution Width 14.1 % (11.5-14.5); Red Blood Cell (RBC) Count 4.58 mill/uL (4.70-6.10); White Blood Cell (WBC) Count 11.5 thou/uL (4.8-10.8)
[2018-08-03] MEDS: Ketorolac Tromethamine 30 MG/ML VIAL IVP SCH (06:56)
--- NOTE | 2018-08-03 09:19 | RAD ---
PORTABLE UPRIGHT FRONTAL CHEST RADIOGRAPH: DATE: 08/03/2018. COMPARISON: 08/02/2018. HISTORY: Ventilated patient. FINDINGS: Stable endotracheal tube, nasogastric tube, and transvenous pacing device. Prominence of the cardiac silhouette noted. Aeration in the left base and right hemithorax has improved. No lobar consolidat ion or alveolar edema. IMPRESSION: Lines and tubes as detailed above. POS: EVAN
[2018-08-03] MEDS: Famotidine/PF 20 mg/2ml Vial SLOW IVP SCH (09:50)
[2018-08-03] MEDS ORDERED: Carvedilol 25 MG TAB PO SCH (11:30)
--- NOTE | 2018-08-03 12:35 | PRG ---
DATE OF SERVICE: 08/03/2018 SUBJECTIVE: Mendoza Schmidt was awake and alert. He is moving all extremities. OBJECTIVE: VITAL SIGNS: Heart rate 110, respiratory rate 30, oximetry is 97%, and blood pressure 142/79. LUNGS: Clear. HEART: Regular rhythm. S1 and S2 normal. ABDOMEN: Soft and nontender. EXTREMITIES: No clubbing, cyanosis, or edema. LABORATORY DATA: White counts 11.5, hemoglobin 12.8, and platelets 199. Sodium 138, potassium 4.1, chloride 102, bicarb 27, BUN 42, and creatinine 1.6. Chest radiographs improved dramatically. IMPRESSION: 1. Asymmetric pulmonary edema given the rapid improvement. I doubt this is alveolar hemorrhage given that his radiographs almost normalized in the last 24 hours. 2. Underlying cardiomyopathy. 3. Mild bump in his creatinine secondary to his negative fluid balance. Probably at this point, his Lasix should not be continued. 4. I felt he is a candidate for extubation. This has been done successfully. 5. The sedation protocol will be discontinued. 6. Will remain in the Critical Care Unit for another day and then hopefully be transferred to the Surgical, Orthopedic Floor or to the Telemetry Floor depending with the ventilation worker and orthopedic surgeon's desire. 7. Will stop his IV antibiotics since it is clear that he does not have pneumonia. Critical care time, 30 minutes. Job ID: [id number] MTDD
--- NOTE | 2018-08-03 16:10 | PDOC.PN ---
- Subjective Encounter Start Date: 08/03/18 Encounter Start Time: 13:00 Patient seen and examined for med mgnt. Extubated. No new complaints. No overnight events - Objective MAR Reviewed: Yes Vital Signs & Weight: Vital Signs (12 hours) Pulse Pulse Pulse Resp BP BP BP 08/03/18 15:10 115 H 115 H 164/120 H 172/114 H 08/03/18 12:20 114 H 21 H 08/03/18 10:04 110 H 30 H 08/03/18 06:39 96 143/56 H 08/03/18 06:36 93 15 08/03/18 06:00 15 Pulse Ox 08/03/18 15:10 08/03/18 12:20 99 08/03/18 10:04 97 08/03/18 06:39 08/03/18 06:36 99 08/03/18 06:00 Weight Admit Weight 331 lb Weight 331 lb 9.204 oz Most Recent Monitor Data Heart Rate from ECG 92 NIBP 142/79 NIBP BP-Mean 100 Respiration from ECG 15 SpO2 99 I&O: 08/02/18 08/03/18 08/04/18 06:59 06:59 06:59 Intake Total 445.1 716.2 120.6 Output Total 1685 1250 140 Balance -1239.9 -533.8 -19.4 Result Diagrams: 08/03/18 03:56 08/03/18 03:56 Additional Labs: Accuchecks 08/02/18 08/02/18 21:59 18:23 POC Glucose 85 95 EKG Reviewed by me: Yes (Tele SR) Phys Exam - Physical Examination Constitutional: NAD Respiratory: no wheezing, no rhonchi Cardiovascular: RRR, no rub Gastrointestinal: soft, non-tender, positive bowel sounds Neurological: moves all 4 limbs Dx/Plan - Plan DVT proph w/lovenox, DVT proph w/SCDs 1. Acute hypoxic/hypercapneic resp failure due to Acute on chronic systolic heart failure exacerbation/Pulm Edema. ACC stage C - extubated 2. DM2 - on sliding scale 3. Morbid obesity BMI 43.7 4. Elevated troponin due to demand ischemia 5. HTN PLAN: Cont Coreg Atbx dced Cont current meds as below AM labs Review of Systems - Review of Systems Respiratory: negative: Cough, Dry, Shortness of Breath, Hemoptysis, SOB with Excertion, Pleuritic Pain, Sputum, Wheezing Cardiovascular: negative: chest pain, palpitations, orthopnea, paroxysmal nocturnal dyspnea, edema, light headedness, other - Medications/Allergies Allergies/Adverse Reactions: Allergies Allergy/AdvReac Type Severity Reaction Status Date / Time No Known Drug Allergies Allergy Verified 07/27/18 11:46 Medications: Current Medications Albuterol/Ipratropium (Duoneb) 3 ml NEB [id number] [facility] Last Admin: 08/03/18 12:20 Dose: 3 ml Carvedilol (Coreg) 12.5 mg PO BID-WM [facility] Dextrose/Water (Dextrose 50%) 25 gm SLOW IVP PRN PRN PRN Reason: Hypoglycemia Diphenhydramine HCl (Benadryl) 25 mg PO Q3H PRN PRN Reason: Itching Diphenhydramine HCl (Benadryl) 25 mg IM Q3H PRN PRN Reason: Itching Diphenhydramine HCl (Benadryl) 25 mg IVP Q3H PRN PRN Reason: Itching Emollient Cream (Hydrocerin Cream) 0 gm TOP PRN PRN PRN Reason: Itching Enoxaparin Sodium (Lovenox) 40 mg SC 2100 [facility] Last Admin: 08/02/18 21:47 Dose: 40 mg Famotidine (Pepcid) 20 mg SLOW IVP BID [facility] Last Admin: 08/03/18 09:50 Dose: 20 mg Glucagon (Glucagon) 1 mg IM PRN PRN PRN Reason: Hypoglycemia Fentanyl Citrate (Fentanyl/Bupivacaine) 100 mls @ 1 mls/hr EPIDURAL INF [facility] Last Admin: 08/02/18 01:43 Dose: 100 mls Fentanyl Citrate 2,000 mcg/ (Sodium Chloride) 100 mls @ 0 mls/hr IV INF [facility]; Protocol Stop: 08/31/18 16:32 Last Admin: 08/02/18 21:18 Dose: 100 mls Dextrose/Water (D5w) 1,000 mls @ 0 mls/hr IV .Q0M PRN PRN Reason: Hypoglycemia Insulin Human Lispro (Humalog) 0 units SC .MILD SLIDING SCALE PRN PRN Reason: Mild Correctional Scale Miscellaneous Information (Communication Order-Pharmacy) 1 each FS ASDIR [facility] Morphine Sulfate (Morphine) 2 mg SLOW IVP Q1H PRN PRN Reason: BREAKTHROUGH PAIN/Agitation Stop: 08/31/18 16:32 Naloxone HCl (Narcan) 0.2 mg IV Q5MIN PRN PRN Reason: RR <=8 OR OBTUNDED/UNAROUSABLE Naloxone HCl (Narcan) 0.1 mg IVP Q15MIN PRN PRN Reason: URINARY RETENTION Ondansetron HCl (Zofran) 4 mg IVP Q6H PRN PRN Reason: Nausea/Vomiting Promethazine HCl (Phenergan) 12.5 mg IM Q4H PRN PRN Reason: Nausea Promethazine HCl (Phenergan Suppository) 25 mg ID Q4H PRN PRN Reason: Nausea/Vomiting Propofol (Diprivan) 1,000 mg IV INF PRN; Protocol PRN Reason: TO ACHIEVE GOAL RASS Stop: 08/31/18 16:32 Last Admin: 08/02/18 23:32 Dose: 1,000 mg Sodium Chloride (Flush - Normal Saline) 10 ml IVF Q12HR [facility] Last Admin: 08/03/18 09:50 Dose: 10 ml Sodium Chloride (Flush - Normal Saline) 10 ml IVF PRN PRN PRN Reason: Saline Flush Zolpidem Tartrate (Ambien) 5 mg PO HSPRN PRN PRN Reason: Insomnia
[2018-08-03] MEDS ORDERED: Carvedilol 6.25 MG TAB PO SCH (17:00)
[2018-08-03] MEDS ORDERED: HYDROcodone/Acetaminophen 10/325 mg Tablet PO PRN (18:08)
[2018-08-03] MEDS: HYDROcodone/Acetaminophen 10/325 mg Tablet PO PRN ×2 (18:30→21:45)
[2018-08-03] MEDS: Enoxaparin Sodium 40 MG/0.4 ML SYRINGE SC SCH (20:42)
[2018-08-03] MEDS: Famotidine 20 MG TAB PO SCH (20:43)
[2018-08-03] MEDS ORDERED: Lisinopril 20 MG TAB PO SCH (21:00)
[2018-08-04 04:14] LABS: Band 2 % (5-11); Hemoglobin 13.8 g/dL (14.0-18.0); Lymphocytes 27 % (21-51); MDiff Complete? YES; Mean Corpuscular HGB CONC 32.8 g/dL (32.0-36.0); Mean Corpuscular Hemoglobin 27.6 pg (27.0-31.0); Mean Corpuscular Volume 84.1 fL (78.0-98.0); Mean Platelet Volume 8.9 fL (7.4-10.4); Monocytes 12 % (0-10); Neutrophil 58 % (42-75); PLT Morphology Comment Appears Adequate; Platelet Count 177 thou/uL (130-400); RBC Distribution Width 13.6 % (11.5-14.5); White Blood Cell (WBC) Count 12.9 thou/uL (4.8-10.8)
[2018-08-04 04:23] LABS: Anion Gap 11 mmol/L (10-20); BUN (Urea Nitrogen) 24 mg/dL (8.9-20.6); Calc. Creatinine Clearance 199 mL/min (70-130); Carbon Dioxide 28 mmol/L (22-29); Chloride 103 mmol/L (98-107); Estimated GFR-MDRD Greater than 90; Glucose 77 mg/dL (70-105); Potassium 4.1 mmol/L (3.5-5.1); Sodium 138 mmol/L (136-145)
[2018-08-04] MEDS: HYDROcodone/Acetaminophen 10/325 mg Tablet PO PRN ×4 (05:56→20:49)
--- NOTE | 2018-08-04 08:14 | RAD ---
PORTABLE CHEST: Date: 08-04-18 Provided Clinical History: None. Comparison: 08-03-18 FINDINGS: Interval extubation and removal of enteric catheter. Cardiac pacing device is again demonstrated. Car diac silhouette is again noted to be in enlarged. Prominence of the pulmonary vasculature and pulmona ry interstitium are noted. No focal consolidation, pleural fluid or pneumothorax apparent. IMPRESSION: Cardiomegaly and findings suggesting congestive failure. POS: OFF
[2018-08-04] MEDS: Famotidine 20 MG TAB PO SCH ×2 (09:57→20:49)
[2018-08-04] MEDS: Carvedilol 25 MG TAB PO SCH ×2 (09:57→16:40)
[2018-08-04] MEDS: Lisinopril 20 MG TAB PO SCH (09:57)
[2018-08-04] MEDS: Furosemide 40 MG TAB PO SCH ×2 (09:57→16:04)
--- NOTE | 2018-08-04 12:59 | PDOC.PN ---
- Subjective Encounter Start Date: 08/04/18 Encounter Start Time: 08:30 Patient seen and examined for med mngt. No new complaints. No overnight events - Objective MAR Reviewed: Yes Vital Signs & Weight: Vital Signs (12 hours) Temp Pulse Resp BP Pulse Ox 08/04/18 09:57 144/121 H 08/04/18 06:28 94 L 08/04/18 06:27 109 H 24 H 93 L 08/04/18 04:00 98.6 F Weight Admit Weight 331 lb Weight 331 lb 9.204 oz Most Recent Monitor Data Heart Rate from ECG 113 NIBP 159/100 NIBP BP-Mean 119 Respiration from ECG 28 SpO2 94 I&O: 08/03/18 08/04/18 08/05/18 06:59 06:59 06:59 Intake Total 716.2 1466.4 Output Total 1250 2705 Balance -533.8 -1238.6 Result Diagrams: 08/04/18 03:28 08/04/18 03:28 Additional Labs: Accuchecks 08/04/18 08/03/18 08/03/18 11:42 20:52 17:03 POC Glucose 118 H 91 69 L EKG Reviewed by me: Yes (Tele SR) Phys Exam - Physical Examination Constitutional: NAD Respiratory: no wheezing, no rhonchi few rales at bases Cardiovascular: RRR, no rub Gastrointestinal: soft, non-tender, positive bowel sounds Musculoskeletal: no edema Neurological: moves all 4 limbs Dx/Plan - Plan DVT proph w/lovenox, DVT proph w/SCDs 1. Acute hypoxic/hypercapneic resp failure due to Acute on chronic systolic heart failure exacerbation/Pulm Edema. ACC stage C - extubated 08/03 2. DM2 - on sliding scale 3. Morbid obesity BMI 43.7 4. Elevated troponin due to demand ischemia 5. HTN 6. HLD PLAN: Cont Coreg/Lisinopril and PO Lasix Cont current meds as below AM labs Cont Nebs Cont Statins Review of Systems - Review of Systems Respiratory: negative: Cough, Dry, Shortness of Breath, Hemoptysis, SOB with Excertion, Pleuritic Pain, Sputum, Wheezing Cardiovascular: negative: chest pain, palpitations, orthopnea, paroxysmal nocturnal dyspnea, edema, light headedness, other - Medications/Allergies Allergies/Adverse Reactions: Allergies Allergy/AdvReac Type Severity Reaction Status Date / Time No Known Drug Allergies Allergy Verified 07/27/18 11:46 Medications: Current Medications Hydrocodone Bitart/Acetaminophen ([place] 10/325) 1 tab PO Q4H PRN PRN Reason: PAIN 4-6 Hydrocodone Bitart/Acetaminophen ([place] 10/325) 2 tab PO Q4H PRN PRN Reason: PAIN 7-10 Last Admin: 08/04/18 09:58 Dose: 2 tab Albuterol/Ipratropium (Duoneb) 3 ml NEB [id number] [facility] Last Admin: 08/04/18 06:27 Dose: 3 ml Atorvastatin Calcium (Lipitor) 40 mg PO HS [facility] Carvedilol (Coreg) 25 mg PO BID-WM [facility] Last Admin: 08/04/18 09:57 Dose: 25 mg Dextrose/Water (Dextrose 50%) 25 gm SLOW IVP PRN PRN PRN Reason: Hypoglycemia Diphenhydramine HCl (Benadryl) 25 mg PO Q3H PRN PRN Reason: Itching Diphenhydramine HCl (Benadryl) 25 mg IM Q3H PRN PRN Reason: Itching Diphenhydramine HCl (Benadryl) 25 mg IVP Q3H PRN PRN Reason: Itching Emollient Cream (Hydrocerin Cream) 0 gm TOP PRN PRN PRN Reason: Itching Enoxaparin Sodium (Lovenox) 40 mg SC 2100 [facility] Last Admin: 08/03/18 20:42 Dose: 40 mg Famotidine (Pepcid) 20 mg PO BID [facility] Last Admin: 08/04/18 09:57 Dose: 20 mg Furosemide (Lasix) 40 mg PO 0900,1400 [facility] Last Admin: 08/04/18 09:57 Dose: 40 mg Glucagon (Glucagon) 1 mg IM PRN PRN PRN Reason: Hypoglycemia Fentanyl Citrate (Fentanyl/Bupivacaine) 100 mls @ 1 mls/hr EPIDURAL INF [facility] Last Admin: 08/02/18 01:43 Dose: 100 mls Dextrose/Water (D5w) 1,000 mls @ 0 mls/hr IV .Q0M PRN PRN Reason: Hypoglycemia Insulin Human Lispro (Humalog) 0 units SC .MILD SLIDING SCALE PRN PRN Reason: Mild Correctional Scale Lisinopril (Zestril) 40 mg PO DAILY [facility] Last Admin: 08/04/18 09:57 Dose: 40 mg Miscellaneous Information (Communication Order-Pharmacy) 1 each FS ASDIR [facility] Morphine Sulfate (Morphine) 2 mg SLOW IVP Q1H PRN PRN Reason: BREAKTHROUGH PAIN/Agitation Stop: 08/31/18 16:32 Naloxone HCl (Narcan) 0.2 mg IV Q5MIN PRN PRN Reason: RR <=8 OR OBTUNDED/UNAROUSABLE Naloxone HCl (Narcan) 0.1 mg IVP Q15MIN PRN PRN Reason: URINARY RETENTION Ondansetron HCl (Zofran) 4 mg IVP Q6H PRN PRN Reason: Nausea/Vomiting Promethazine HCl (Phenergan) 12.5 mg IM Q4H PRN PRN Reason: Nausea Promethazine HCl (Phenergan Suppository) 25 mg ND Q4H PRN PRN Reason: Nausea/Vomiting Propofol (Diprivan) 1,000 mg IV INF PRN; Protocol PRN Reason: TO ACHIEVE GOAL RASS Stop: 08/31/18 16:32 Last Admin: 08/02/18 23:32 Dose: 1,000 mg Sodium Chloride (Flush - Normal Saline) 10 ml IVF Q12HR [facility] Last Admin: 08/04/18 09:59 Dose: 10 ml Sodium Chloride (Flush - Normal Saline) 10 ml IVF PRN PRN PRN Reason: Saline Flush Zolpidem Tartrate (Ambien) 5 mg PO HSPRN PRN PRN Reason: Insomnia
[2018-08-04] MEDS: Atorvastatin Calcium 40 MG TAB PO SCH (20:49)
[2018-08-04] MEDS: Enoxaparin Sodium 40 MG/0.4 ML SYRINGE SC SCH (20:50)
[2018-08-05 05:14] LABS: Anion Gap 10 mmol/L (10-20); BUN (Urea Nitrogen) 14 mg/dL (8.9-20.6); Calc. Creatinine Clearance 244 mL/min (70-130); Calcium 8.8 mg/dL (7.8-10.44); Carbon Dioxide 30 mmol/L (22-29); Chloride 99 mmol/L (98-107); Estimated GFR-MDRD Greater than 90; Glucose 140 mg/dL (70-105); Potassium 3.7 mmol/L (3.5-5.1); Sodium 135 mmol/L (136-145)
[2018-08-05 05:30] LABS: Band 4 % (5-11); Eosinophils 1 % (0-10); Hemoglobin 14.2 g/dL (14.0-18.0); Lymphocytes 15 % (21-51); MDiff Complete? YES; Mean Corpuscular HGB CONC 33.1 g/dL (32.0-36.0); Mean Corpuscular Hemoglobin 27.7 pg (27.0-31.0); Mean Corpuscular Volume 83.5 fL (78.0-98.0); Mean Platelet Volume 8.7 fL (7.4-10.4); Monocytes 11 % (0-10); Neutrophil 69 % (42-75); PLT Morphology Comment Appears Adequate; Platelet Count 185 thou/uL (130-400); RBC Distribution Width 13.5 % (11.5-14.5); RBC Morphology Normal; Red Blood Cell (RBC) Count 5.13 mill/uL (4.70-6.10); White Blood Cell (WBC) Count 12.3 thou/uL (4.8-10.8)
[2018-08-05] MEDS: HYDROcodone/Acetaminophen 10/325 mg Tablet PO PRN ×3 (07:08→22:10)
[2018-08-05] MEDS: Carvedilol 25 MG TAB PO SCH ×2 (07:58→16:22)
[2018-08-05] MEDS: Famotidine 20 MG TAB PO SCH ×2 (08:03→22:05)
[2018-08-05] MEDS: Furosemide 40 MG TAB PO SCH ×2 (08:03→13:19)
[2018-08-05] MEDS: Lisinopril 20 MG TAB PO SCH (08:03)
[2018-08-05] MEDS ORDERED: Diabetic Tussin 200 MG/10 ML UDCUP PO PRN (08:23)
[2018-08-05] MEDS: guaiFENesin ER 600 MG TAB PO SCH ×2 (09:26→22:05)
--- NOTE | 2018-08-05 12:45 | PDOC.PN ---
- Subjective Encounter Start Date: 08/05/18 Encounter Start Time: 08:45 Patient seen and examined for med mngt. No new CP or SOB. No new complaints. No overnight events - Objective MAR Reviewed: Yes Vital Signs & Weight: Vital Signs (12 hours) Temp Pulse Pulse Pulse Resp BP BP 08/05/18 11:18 98 136/72 08/05/18 08:50 103 H 90 127/88 124/76 08/05/18 08:39 08/05/18 08:36 92 12 08/05/18 07:35 08/05/18 04:00 97.4 F L 92 18 BP Pulse Ox Pulse Ox Pulse Ox 08/05/18 11:18 99 08/05/18 08:50 96 96 08/05/18 08:39 95 08/05/18 08:36 08/05/18 07:35 95 08/05/18 04:00 121/87 95 Weight Admit Weight 331 lb Weight 321 lb 9.6 oz Most Recent Monitor Data Heart Rate from ECG 101 NIBP 142/107 NIBP BP-Mean 118 Respiration from ECG 14 SpO2 90 I&O: 08/04/18 08/05/18 08/06/18 06:59 06:59 06:59 Intake Total 1466.4 1147 720 Output Total 2705 2300 1250 Balance -1238.6 -1153 -530 Result Diagrams: 08/05/18 04:22 08/05/18 04:22 Additional Labs: Accuchecks 08/05/18 08/05/18 08/04/18 11:35 05:57 20:36 POC Glucose 133 H 186 H 110 08/04/18 16:33 POC Glucose 169 H Radiology Reviewed by me: Yes (CXR 08/04 - CHF) EKG Reviewed by me: Yes (Tele SR) Phys Exam - Physical Examination Constitutional: NAD Respiratory: no wheezing, no rhonchi Cardiovascular: RRR, no rub Gastrointestinal: soft, non-tender, positive bowel sounds Musculoskeletal: edema present Neurological: moves all 4 limbs Dx/Plan - Plan DVT proph w/lovenox, DVT proph w/SCDs 1. Acute hypoxic/hypercapneic resp failure due to Acute on chronic systolic heart failure exacerbation/Pulm Edema. ACC stage C - extubated 08/03 2. DM2 3. Morbid obesity BMI 43.7 4. Elevated troponin due to demand ischemia 5. HTN 6. HLD PLAN: DC [place] Cont Coreg/Lisinopril Cont oral Lasix Cont other meds as below AM labs Cont sliding scale Review of Systems - Review of Systems Respiratory: negative: Cough, Dry, Shortness of Breath, Hemoptysis, SOB with Excertion, Pleuritic Pain, Sputum, Wheezing Cardiovascular: negative: chest pain, palpitations, orthopnea, paroxysmal nocturnal dyspnea, edema, light headedness, other - Medications/Allergies Allergies/Adverse Reactions: Allergies Allergy/AdvReac Type Severity Reaction Status Date / Time No Known Drug Allergies Allergy Verified 07/27/18 11:46 Medications: Current Medications Hydrocodone Bitart/Acetaminophen ([place] 10/325) 1 tab PO Q4H PRN PRN Reason: PAIN 4-6 Hydrocodone Bitart/Acetaminophen ([place] 10/325) 2 tab PO Q4H PRN PRN Reason: PAIN 7-10 Last Admin: 08/05/18 07:08 Dose: 2 tab Albuterol/Ipratropium (Duoneb) 3 ml NEB [id number] [facility] Last Admin: 08/05/18 08:36 Dose: 3 ml Atorvastatin Calcium (Lipitor) 40 mg PO HS [facility] Last Admin: 08/04/18 20:49 Dose: 40 mg Carvedilol (Coreg) 25 mg PO BID-WM [facility] Last Admin: 08/05/18 07:58 Dose: 25 mg Dextrose/Water (Dextrose 50%) 25 gm SLOW IVP PRN PRN PRN Reason: Hypoglycemia Diphenhydramine HCl (Benadryl) 25 mg PO Q3H PRN PRN Reason: Itching Diphenhydramine HCl (Benadryl) 25 mg IM Q3H PRN PRN Reason: Itching Diphenhydramine HCl (Benadryl) 25 mg IVP Q3H PRN PRN Reason: Itching Emollient Cream (Hydrocerin Cream) 0 gm TOP PRN PRN PRN Reason: Itching Enoxaparin Sodium (Lovenox) 40 mg SC 2100 [facility] Last Admin: 08/04/18 20:50 Dose: 40 mg Famotidine (Pepcid) 20 mg PO BID [facility] Last Admin: 08/05/18 08:03 Dose: 20 mg Furosemide (Lasix) 40 mg PO 0900,1400 [facility] Last Admin: 08/05/18 08:03 Dose: 40 mg Glucagon (Glucagon) 1 mg IM PRN PRN PRN Reason: Hypoglycemia Guaifenesin (Mucinex) 600 mg PO Q12HR [facility] Last Admin: 08/05/18 09:26 Dose: Not Given Guaifenesin (Robitussin Sf) 200 mg PO Q4H PRN PRN Reason: Cough Last Admin: 08/05/18 09:24 Dose: 200 mg Fentanyl Citrate (Fentanyl/Bupivacaine) 100 mls @ 1 mls/hr EPIDURAL INF [facility] Last Admin: 08/02/18 01:43 Dose: 100 mls Dextrose/Water (D5w) 1,000 mls @ 0 mls/hr IV .Q0M PRN PRN Reason: Hypoglycemia Insulin Human Lispro (Humalog) 0 units SC .MILD SLIDING SCALE PRN PRN Reason: Mild Correctional Scale Last Admin: 08/04/18 16:39 Dose: 2 unit Lisinopril (Zestril) 40 mg PO DAILY [facility] Last Admin: 08/05/18 08:03 Dose: 40 mg Miscellaneous Information (Communication Order-Pharmacy) 1 each FS ASDIR [facility] Naloxone HCl (Narcan) 0.2 mg IV Q5MIN PRN PRN Reason: RR <=8 OR OBTUNDED/UNAROUSABLE Naloxone HCl (Narcan) 0.1 mg IVP Q15MIN PRN PRN Reason: URINARY RETENTION Ondansetron HCl (Zofran) 4 mg IVP Q6H PRN PRN Reason: Nausea/Vomiting Promethazine HCl (Phenergan) 12.5 mg IM Q4H PRN PRN Reason: Nausea Promethazine HCl (Phenergan Suppository) 25 mg [place] Q4H PRN PRN Reason: Nausea/Vomiting Sodium Chloride (Flush - Normal Saline) 10 ml IVF Q12HR [facility] Last Admin: 08/05/18 08:04 Dose: 10 ml Sodium Chloride (Flush - Normal Saline) 10 ml IVF PRN PRN PRN Reason: Saline Flush Zolpidem Tartrate (Ambien) 5 mg PO HSPRN PRN PRN Reason: Insomnia
--- NOTE | 2018-08-05 17:15 | PRG ---
DATE OF SERVICE: 08/05/2018 SUBJECTIVE: Mr. Schmidt refused to have conversation today. When I inquired as to how he was feeling, he would not break eye contact with the television and I repeated his name. He looked at me and said "whatever man." At that point, I elected to exit the room because he was not interested in participating in his own care. OBJECTIVE: VITAL SIGNS: His heart rate is 87, respiratory rate is 18, oximetry is 95% on 2 L, blood pressure 127/88. He was not examined. IMPRESSION: 1. Congestive heart failure, clinically stable. 2. Recent surgery requiring postop mechanical ventilation with stable post extubation. He is having no respiratory distress. No stridor. No hoarseness. We will sign off. Job ID: [id number]
[2018-08-05] MEDS: Atorvastatin Calcium 40 MG TAB PO SCH (22:05)
[2018-08-05] MEDS: Enoxaparin Sodium 40 MG/0.4 ML SYRINGE SC SCH (22:05)
[2018-08-06] MEDS: Calcium Carbonate 500 MG ChewTAB PO PRN ×3 (00:48→06:50)
[2018-08-06] MEDS ORDERED: Nitroglycerin 2% Ointment 1 INCH/1 GM Packet TOP SCH (05:00)
[2018-08-06] MEDS ORDERED: Aspirin 325 mg Enteric Coated Tablet PO SCH (05:15)
[2018-08-06 05:41] LABS: Anion Gap 10 mmol/L (10-20); BUN (Urea Nitrogen) 13 mg/dL (8.9-20.6); Calc. Creatinine Clearance 218 mL/min (70-130); Calcium 8.9 mg/dL (7.8-10.44); Carbon Dioxide 31 mmol/L (22-29); Chloride 96 mmol/L (98-107); Estimated GFR-MDRD Greater than 90; Glucose 114 mg/dL (70-105); Potassium 3.7 mmol/L (3.5-5.1); Sodium 133 mmol/L (136-145)
[2018-08-06 06:19] LABS: Eosinophils 2 % (0-10); Hemoglobin 13.6 g/dL (14.0-18.0); Lymphocytes 23 % (21-51); MDiff Complete? YES; Mean Corpuscular HGB CONC 32.6 g/dL (32.0-36.0); Mean Corpuscular Hemoglobin 27.6 pg (27.0-31.0); Mean Corpuscular Volume 84.7 fL (78.0-98.0); Mean Platelet Volume 8.8 fL (7.4-10.4); Monocytes 11 % (0-10); Neutrophil 62 % (42-75); PLT Morphology Comment Appears Adequate; Platelet Count 203 thou/uL (130-400); RBC Distribution Width 13.5 % (11.5-14.5); RBC Morphology Normal; Reactive Lymphocytes 1 % (0-10); Red Blood Cell (RBC) Count 4.93 mill/uL (4.70-6.10); White Blood Cell (WBC) Count 12.3 thou/uL (4.8-10.8)
[2018-08-06] MEDS: Lisinopril 20 MG TAB PO SCH (09:00)
[2018-08-06] MEDS: Famotidine 20 MG TAB PO SCH ×2 (09:00→20:14)
[2018-08-06] MEDS: Furosemide 40 MG TAB PO SCH ×2 (09:00→14:39)
[2018-08-06] MEDS: Carvedilol 25 MG TAB PO SCH ×2 (09:01→16:27)
[2018-08-06] MEDS: guaiFENesin ER 600 MG TAB PO SCH ×2 (09:01→20:16)
[2018-08-06] MEDS: HYDROcodone/Acetaminophen 10/325 mg Tablet PO PRN ×2 (09:05→20:15)
[2018-08-06] MEDS ORDERED: Cyclobenzaprine 10 MG TAB PO SCH (09:30)
[2018-08-06] MEDS ORDERED: Polyethylene Glycol 3350 17 GM Packet PO SCH (09:30)
--- NOTE | 2018-08-06 10:18 | PDOC.PN ---
- Subjective Encounter Start Date: 08/06/18 Encounter Start Time: 06:45 Patient seen and examined for med mngt. Reproducible left lower chest discomfort - no nausea/vomiting/diaphoresis or palpitations. No new complaints. No overnight events - Objective MAR Reviewed: Yes Vital Signs & Weight: Vital Signs (12 hours) Temp Pulse Resp BP Pulse Ox 08/06/18 08:45 95 08/06/18 07:30 97.8 F 92 16 116/55 L 95 08/06/18 07:20 92 L 08/06/18 07:15 92 16 08/06/18 04:00 98.0 F 87 18 111/64 94 L 08/06/18 02:12 95 08/06/18 00:00 93 L Weight Admit Weight 331 lb Weight 312 lb Most Recent Monitor Data Heart Rate from ECG 101 NIBP 142/107 NIBP BP-Mean 118 Respiration from ECG 14 SpO2 90 I&O: 08/05/18 08/06/18 08/07/18 06:59 06:59 06:59 Intake Total 1147 2480 Output Total 2300 1750 Balance -1153 730 Result Diagrams: 08/06/18 04:55 08/06/18 04:55 Additional Labs: Accuchecks 08/06/18 08/05/18 08/05/18 05:50 20:41 17:08 POC Glucose 109 131 H 153 H 08/05/18 11:35 POC Glucose 133 H EKG Reviewed by me: Yes (Tele SR) Phys Exam - Physical Examination Constitutional: NAD Respiratory: no wheezing, no rhonchi Cardiovascular: RRR, no rub reproducible tenderness over left lower ant chest Gastrointestinal: soft, non-tender, positive bowel sounds Neurological: moves all 4 limbs Dx/Plan - Plan DVT proph w/lovenox, DVT proph w/SCDs 1. Acute hypoxic/hypercapneic resp failure due to Acute on chronic systolic heart failure exacerbation/Pulm Edema. ACC stage C - extubated 08/03 2. Atypical reprodicible CP 3. DM2 - on sliding scale 4. Elevated troponin due to demand ischemia 5. HTN 6. HLD 7. Morbid obesity BMI 43.7 PLAN: One dose of Flexeril Try Maalox Cont Coreg/Lisinopril/Lasix Cont other meds as below AM labs Review of Systems - Review of Systems Respiratory: negative: Cough, Dry, Shortness of Breath, Hemoptysis, SOB with Excertion, Pleuritic Pain, Sputum, Wheezing Gastrointestinal: negative: Nausea, Vomiting, Abdominal Pain, Diarrhea, Constipation, Melena, Hematochezia, Other - Medications/Allergies Allergies/Adverse Reactions: Allergies Allergy/AdvReac Type Severity Reaction Status Date / Time No Known Drug Allergies Allergy Verified 07/27/18 11:46 Medications: Current Medications Hydrocodone Bitart/Acetaminophen ([place] 10/325) 1 tab PO Q4H PRN PRN Reason: PAIN 4-6 Hydrocodone Bitart/Acetaminophen ([place] 10/325) 2 tab PO Q4H PRN PRN Reason: PAIN 7-10 Last Admin: 08/06/18 09:05 Dose: 2 tab Albuterol/Ipratropium (Duoneb) 3 ml NEB [id number] [facility] Last Admin: 08/06/18 07:15 Dose: 3 ml Atorvastatin Calcium (Lipitor) 40 mg PO HS [facility] Last Admin: 08/05/18 22:05 Dose: 40 mg Calcium Carbonate (Tums) 1,000 mg PO Q4H PRN PRN Reason: Heartburn or Indigestion Last Admin: 08/06/18 06:50 Dose: 1,000 mg Carvedilol (Coreg) 25 mg PO BID-WM [facility] Last Admin: 08/06/18 09:01 Dose: 25 mg Cyclobenzaprine HCl (Flexeril) 5 mg PO ONE [facility] Stop: 08/08/18 09:31 Dextrose/Water (Dextrose 50%) 25 gm SLOW IVP PRN PRN PRN Reason: Hypoglycemia Diphenhydramine HCl (Benadryl) 25 mg PO Q3H PRN PRN Reason: Itching Diphenhydramine HCl (Benadryl) 25 mg IM Q3H PRN PRN Reason: Itching Diphenhydramine HCl (Benadryl) 25 mg IVP Q3H PRN PRN Reason: Itching Emollient Cream (Hydrocerin Cream) 0 gm TOP PRN PRN PRN Reason: Itching Enoxaparin Sodium (Lovenox) 40 mg SC 2100 [facility] Last Admin: 08/05/18 22:05 Dose: 40 mg Famotidine (Pepcid) 20 mg PO BID [facility] Last Admin: 08/06/18 09:00 Dose: 20 mg Furosemide (Lasix) 40 mg PO 0900,1400 [facility] Last Admin: 08/06/18 09:00 Dose: 40 mg Glucagon (Glucagon) 1 mg IM PRN PRN PRN Reason: Hypoglycemia Guaifenesin (Mucinex) 600 mg PO Q12HR [facility] Last Admin: 08/06/18 09:01 Dose: 600 mg Guaifenesin (Robitussin Sf) 200 mg PO Q4H PRN PRN Reason: Cough Last Admin: 08/05/18 09:24 Dose: 200 mg Fentanyl Citrate (Fentanyl/Bupivacaine) 100 mls @ 1 mls/hr EPIDURAL INF [facility] Last Admin: 08/02/18 01:43 Dose: 100 mls Dextrose/Water (D5w) 1,000 mls @ 0 mls/hr IV .Q0M PRN PRN Reason: Hypoglycemia Insulin Human Lispro (Humalog) 0 units SC .MILD SLIDING SCALE PRN PRN Reason: Mild Correctional Scale Last Admin: 08/04/18 16:39 Dose: 2 unit Lisinopril (Zestril) 40 mg PO DAILY [facility] Last Admin: 08/06/18 09:00 Dose: 40 mg Miscellaneous Information (Communication Order-Pharmacy) 1 each FS ASDIR [facility] Naloxone HCl (Narcan) 0.2 mg IV Q5MIN PRN PRN Reason: RR <=8 OR OBTUNDED/UNAROUSABLE Naloxone HCl (Narcan) 0.1 mg IVP Q15MIN PRN PRN Reason: URINARY RETENTION Nitroglycerin (Nitro-Bid 2% Ointment) 0.5 inch TOP NOW [facility] Stop: 08/06/18 17:00 Last Admin: 08/06/18 05:20 Dose: 0.5 inch Ondansetron HCl (Zofran) 4 mg IVP Q6H PRN PRN Reason: Nausea/Vomiting Polyethylene Glycol (Miralax) 17 gm PO DAILY [facility] Polyethylene Glycol (Miralax) 17 gm PO ONE [facility] Stop: 08/06/18 12:00 Promethazine HCl (Phenergan) 12.5 mg IM Q4H PRN PRN Reason: Nausea Promethazine HCl (Phenergan Suppository) 25 mg [place] Q4H PRN PRN Reason: Nausea/Vomiting Sodium Chloride (Flush - Normal Saline) 10 ml IVF Q12HR [facility] Last Admin: 08/06/18 09:01 Dose: 10 ml Sodium Chloride (Flush - Normal Saline) 10 ml IVF PRN PRN PRN Reason: Saline Flush Zolpidem Tartrate (Ambien) 5 mg PO HSPRN PRN PRN Reason: Insomnia
[2018-08-06] MEDS: Polyethylene Glycol 3350 17 GM Packet PO SCH (10:35)
[2018-08-06] MEDS: Enoxaparin Sodium 40 MG/0.4 ML SYRINGE SC SCH (20:14)
[2018-08-06] MEDS: Atorvastatin Calcium 40 MG TAB PO SCH (20:14)
[2018-08-07 06:40] LABS: Anion Gap 11 mmol/L (10-20); BUN (Urea Nitrogen) 18 mg/dL (8.9-20.6); Calc. Creatinine Clearance 187 mL/min (70-130); Calcium 9.2 mg/dL (7.8-10.44); Carbon Dioxide 32 mmol/L (22-29); Chloride 96 mmol/L (98-107); Estimated GFR-MDRD Greater than 90; Glucose 107 mg/dL (70-105); Magnesium 1.7 mg/dL (1.6-2.6); Potassium 3.9 mmol/L (3.5-5.1); Sodium 135 mmol/L (136-145)
[2018-08-07 06:49] LABS: Band 1 % (5-11); Eosinophils 1 % (0-10); Hemoglobin 12.8 g/dL (14.0-18.0); Hypochromia SLIGHT = 6-15 cells (100X) (0-5/hpf); Lymphocytes 12 % (21-51); MDiff Complete? YES; Mean Corpuscular HGB CONC 32.9 g/dL (32.0-36.0); Mean Corpuscular Hemoglobin 27.9 pg (27.0-31.0); Mean Corpuscular Volume 84.7 fL (78.0-98.0); Mean Platelet Volume 8.8 fL (7.4-10.4); Monocytes 5 % (0-10); Neutrophil 81 % (42-75); PLT Morphology Comment Appears Adequate; Platelet Count 221 thou/uL (130-400); RBC Distribution Width 13.3 % (11.5-14.5); White Blood Cell (WBC) Count 9.4 thou/uL (4.8-10.8)
[2018-08-07] MEDS: Furosemide 40 MG TAB PO SCH ×2 (08:47→14:43)
[2018-08-07] MEDS: guaiFENesin ER 600 MG TAB PO SCH ×2 (08:47→20:10)
[2018-08-07] MEDS: HYDROcodone/Acetaminophen 10/325 mg Tablet PO PRN ×4 (08:47→23:32)
[2018-08-07] MEDS: Lisinopril 20 MG TAB PO SCH (08:47)
[2018-08-07] MEDS: Famotidine 20 MG TAB PO SCH ×2 (08:47→20:10)
[2018-08-07] MEDS: Polyethylene Glycol 3350 17 GM Packet PO SCH (08:48)
[2018-08-07] MEDS: Carvedilol 25 MG TAB PO SCH ×2 (08:48→17:33)
[2018-08-07] MEDS ORDERED: Nitroglycerin 2% Ointment 1 INCH/1 GM Packet TOP SCH (09:00)
[2018-08-07] MEDS: Ketorolac Tromethamine 30 MG/ML VIAL IVP SCH ×3 (11:16→23:29)
[2018-08-07] MEDS: Enoxaparin Sodium 40 MG/0.4 ML SYRINGE SC SCH (20:10)
[2018-08-07] MEDS: Atorvastatin Calcium 40 MG TAB PO SCH (20:10)
--- NOTE | 2018-08-07 21:29 | PDOC.PN ---
- Subjective Encounter Start Date: 08/07/18 Encounter Start Time: 09:00 Patient seen and examined for medical mgnt. No new complaints. No overnight events. Refusing tele monitors - Objective Vital Signs & Weight: Vital Signs (12 hours) Temp Pulse Resp BP BP BP Pulse Ox 08/07/18 20:00 98.2 F 90 12 96/65 86 L 08/07/18 18:10 81 16 93 L 08/07/18 15:34 97.4 F L 87 18 112/72 93 L 08/07/18 13:30 85 16 91 L 08/07/18 11:40 97 08/07/18 11:36 97.8 F 87 18 92/65 91 L 08/07/18 11:21 97.9 F 84 16 100/54 L 93 L Weight Admit Weight 331 lb Weight 312 lb Most Recent Monitor Data Heart Rate from ECG 101 NIBP 142/107 NIBP BP-Mean 118 Respiration from ECG 14 SpO2 90 I&O: 08/06/18 08/07/18 08/08/18 06:59 06:59 06:59 Intake Total 2480 510 Output Total 1750 Balance 730 510 Result Diagrams: 08/07/18 05:26 08/07/18 05:26 Additional Labs: Accuchecks 08/07/18 08/07/18 08/07/18 19:35 15:38 11:08 POC Glucose 126 H 107 131 H 08/07/18 05:30 POC Glucose 117 H Phys Exam - Physical Examination Constitutional: NAD Respiratory: no wheezing, no rhonchi Cardiovascular: RRR, no rub Gastrointestinal: soft, non-tender, positive bowel sounds Musculoskeletal: no edema Dx/Plan - Plan DVT proph w/lovenox, DVT proph w/SCDs 1. Acute hypoxic/hypercapneic resp failure due to Acute on chronic systolic heart failure exacerbation/Pulm Edema. ACC stage C - extubated 08/03 2. Atypical reprodicible CP - improved 3. DM2 - on sliding scale 4. Elevated troponin due to demand ischemia 5. HTN 6. HLD 7. Morbid obesity BMI 43.7 PLAN: Cont Coreg/Lisinopril/Lasix Cont other meds as below AM labs Review of Systems - Review of Systems Cardiovascular: negative: chest pain, palpitations, orthopnea, paroxysmal nocturnal dyspnea, edema, light headedness, other Gastrointestinal: negative: Nausea, Vomiting, Abdominal Pain, Diarrhea, Constipation, Melena, Hematochezia, Other - Medications/Allergies Allergies/Adverse Reactions: Allergies Allergy/AdvReac Type Severity Reaction Status Date / Time No Known Drug Allergies Allergy Verified 07/27/18 11:46 Medications: Current Medications Hydrocodone Bitart/Acetaminophen ([place] 10/325) 1 tab PO Q4H PRN PRN Reason: PAIN 4-6 Hydrocodone Bitart/Acetaminophen ([place] 10/325) 2 tab PO Q4H PRN PRN Reason: PAIN 7-10 Last Admin: 08/07/18 17:40 Dose: 2 tab Albuterol/Ipratropium (Duoneb) 3 ml NEB [id number] [facility] Last Admin: 08/07/18 18:10 Dose: 3 ml Allopurinol (Zyloprim) 300 mg PO DAILY [facility] Atorvastatin Calcium (Lipitor) 40 mg PO HS [facility] Last Admin: 08/07/18 20:10 Dose: 40 mg Calcium Carbonate (Tums) 1,000 mg PO Q4H PRN PRN Reason: Heartburn or Indigestion Last Admin: 08/06/18 06:50 Dose: 1,000 mg Carvedilol (Coreg) 25 mg PO BID-[facility] Last Admin: 08/07/18 17:33 Dose: 25 mg Cyclobenzaprine HCl (Flexeril) 5 mg PO ONE [facility] Stop: 08/08/18 09:31 Last Admin: 08/06/18 11:23 Dose: 5 mg Dextrose/Water (Dextrose 50%) 25 gm SLOW IVP PRN PRN PRN Reason: Hypoglycemia Diphenhydramine HCl (Benadryl) 25 mg PO Q3H PRN PRN Reason: Itching Diphenhydramine HCl (Benadryl) 25 mg IM Q3H PRN PRN Reason: Itching Diphenhydramine HCl (Benadryl) 25 mg IVP Q3H PRN PRN Reason: Itching Emollient Cream (Hydrocerin Cream) 0 gm TOP PRN PRN PRN Reason: Itching Enoxaparin Sodium (Lovenox) 40 mg SC 2100 [facility] Last Admin: 08/07/18 20:10 Dose: 40 mg Famotidine (Pepcid) 20 mg PO BID [facility] Last Admin: 08/07/18 20:10 Dose: 20 mg Furosemide (Lasix) 40 mg PO 0900,1400 [facility] Last Admin: 08/07/18 14:43 Dose: 40 mg Glucagon (Glucagon) 1 mg IM PRN PRN PRN Reason: Hypoglycemia Guaifenesin (Mucinex) 600 mg PO Q12HR [facility] Last Admin: 08/07/18 20:10 Dose: 600 mg Guaifenesin (Robitussin Sf) 200 mg PO Q4H PRN PRN Reason: Cough Last Admin: 08/05/18 09:24 Dose: 200 mg Fentanyl Citrate (Fentanyl/Bupivacaine) 100 mls @ 1 mls/hr EPIDURAL INF ON [facility] Last Admin: 08/02/18 01:43 Dose: 100 mls Dextrose/Water (D5w) 1,000 mls @ 0 mls/hr IV .Q0M PRN PRN Reason: Hypoglycemia Insulin Human Lispro (Humalog) 0 units SC .MILD SLIDING SCALE PRN PRN Reason: Mild Correctional Scale Last Admin: 08/04/18 16:39 Dose: 2 unit Ketorolac Tromethamine (Toradol) 15 mg IVP Q6HR [facility] Stop: 08/12/18 12:01 Last Admin: 08/07/18 17:32 Dose: 15 mg Lisinopril (Zestril) 40 mg PO DAILY [facility] Last Admin: 08/07/18 08:47 Dose: 40 mg Miscellaneous Information (Communication Order-Pharmacy) 1 each FS ASDIR ON [facility] Naloxone HCl (Narcan) 0.2 mg IV Q5MIN PRN PRN Reason: RR <=8 OR OBTUNDED/UNAROUSABLE Naloxone HCl (Narcan) 0.1 mg IVP Q15MIN PRN PRN Reason: URINARY RETENTION Ondansetron HCl (Zofran) 4 mg IVP Q6H PRN PRN Reason: Nausea/Vomiting Polyethylene Glycol (Miralax) 17 gm PO DAILY [facility] Last Admin: 08/07/18 08:48 Dose: 17 gm Potassium Chloride (K-Dur) 20 meq PO QAM-[facility] Promethazine HCl (Phenergan) 12.5 mg IM Q4H PRN PRN Reason: Nausea Promethazine HCl (Phenergan Suppository) 25 mg [place] Q4H PRN PRN Reason: Nausea/Vomiting Sodium Chloride (Flush - Normal Saline) 10 ml IVF Q12HR [facility] Last Admin: 08/07/18 20:12 Dose: 10 ml Sodium Chloride (Flush - Normal Saline) 10 ml IVF PRN PRN PRN Reason: Saline Flush Zolpidem Tartrate (Ambien) 5 mg PO HSPRN PRN PRN Reason: Insomnia
[2018-08-08] MEDS: HYDROcodone/Acetaminophen 10/325 mg Tablet PO PRN (05:25)
[2018-08-08] MEDS: Ketorolac Tromethamine 30 MG/ML VIAL IVP SCH ×2 (05:26→12:55)
[2018-08-08 06:42] LABS: Mean Corpuscular HGB CONC 32.9 g/dL (32.0-36.0); Mean Corpuscular Hemoglobin 27.8 pg (27.0-31.0); Mean Corpuscular Volume 84.3 fL (78.0-98.0); Mean Platelet Volume 8.3 fL (7.4-10.4); Platelet Count 212 thou/uL (130-400); RBC Distribution Width 13.1 % (11.5-14.5); Red Blood Cell (RBC) Count 4.33 mill/uL (4.70-6.10); White Blood Cell (WBC) Count 6.3 thou/uL (4.8-10.8)
[2018-08-08 06:47] LABS: Eosinophils 1 % (0-10); Lymphocytes 37 % (21-51); MDiff Complete? YES; Monocytes 18 % (0-10); Neutrophil 43 % (42-75); PLT Morphology Comment Appears Adequate
[2018-08-08 06:54] LABS: Anion Gap 10 mmol/L (10-20); BUN (Urea Nitrogen) 21 mg/dL (8.9-20.6); Calc. Creatinine Clearance 189 mL/min (70-130); Calcium 9.1 mg/dL (7.8-10.44); Carbon Dioxide 34 mmol/L (22-29); Chloride 98 mmol/L (98-107); Estimated GFR-MDRD Greater than 90; Glucose 93 mg/dL (70-105); Potassium 3.9 mmol/L (3.5-5.1); Sodium 138 mmol/L (136-145)
[2018-08-08] MEDS ORDERED: Potassium Chloride 20 MEQ TAB PO SCH (08:00)
[2018-08-08] MEDS: Famotidine 20 MG TAB PO SCH (08:38)
[2018-08-08] MEDS: guaiFENesin ER 600 MG TAB PO SCH (08:38)
[2018-08-08] MEDS: Furosemide 40 MG TAB PO SCH ×2 (08:38→12:55)
[2018-08-08] MEDS: Carvedilol 25 MG TAB PO SCH (08:39)
[2018-08-08] MEDS: Lisinopril 20 MG TAB PO SCH (08:40)
[2018-08-08] MEDS: Polyethylene Glycol 3350 17 GM Packet PO SCH (08:40)
[2018-08-08] MEDS ORDERED: Allopurinol 300 MG TAB PO SCH (09:00)
[2018-08-08 12:13] VITALS: TEMP 98
[2018-08-08 12:14] VITALS: BP 92/63
== END 2018-08-08 16:50 | DRG 469 ==
LOC: SJJU 08-01 05:47 → CCU 08-01 12:59 → EDSTATUS 08-01 15:15 → 2NO 08-04 20:30 → SURG A 08-07 11:29
PROVIDERS: ADMIT Orthopaedic Surgery; ATTEND Orthopaedic Surgery
PROC: 0SRB02Z Replacement of Left Hip Joint with Metal on Polyethylene Synthetic Substitute, Open Approach (ICD-10-PCS; principal; 2018-08-01)
DX: M16.12 Unilateral primary osteoarthritis, left hip (principal); J96.02 Acute respiratory failure with hypercapnia; J96.01 Acute respiratory failure with hypoxia; I50.43 Acute on chronic combined systolic (congestive) and diastolic (congestive) heart failure; I42.9 Cardiomyopathy, unspecified; Z68.41 Body mass index [BMI] 40.0-44.9, adult; I24.8 Other forms of acute ischemic heart disease; M87.052 Idiopathic aseptic necrosis of left femur; E66.01 Morbid (severe) obesity due to excess calories; E11.9 Type 2 diabetes mellitus without complications; J44.9 Chronic obstructive pulmonary disease, unspecified; E78.5 Hyperlipidemia, unspecified; F17.210 Nicotine dependence, cigarettes, uncomplicated; Z95.810 Presence of automatic (implantable) cardiac defibrillator; Z82.49 Family history of ischemic heart disease and other diseases of the circulatory system; Z83.3 Family history of diabetes mellitus
CPT/HCPCS: 36415; 36416; 71045; 80048; 82553; 82805; 83735; 84484; 85007; 85025; 85027; 93005; 93010; 93306; 94002; 94003; 94640; 94660; 94760; 96374; G8978-GP-CL; G8979-GP-CI; G8987-GO-CK; G8988-GO-CI; J0696; J1100; J1200; J1250; J1650; J1885; J1940; J2060; J2250; J2270; J2405; J2704; J3010; J3370; J3490; J7050; J7620; S0028

== ENCOUNTER 2018-07-27 12:16 | Outpatient (CLI) | payer OTHER ==
[2018-07-27 10:57] LABS: Prothrombin Time 12.9 SEC (12.0-14.7)
[2018-07-27 11:01] LABS: Hemoglobin 15.9 g/dL (14.0-18.0); Mean Corpuscular HGB CONC 32.3 g/dL (32.0-36.0); Mean Corpuscular Hemoglobin 26.9 pg (27.0-31.0); Mean Corpuscular Volume 83.2 fL (78.0-98.0); Mean Platelet Volume 8.1 fL (7.4-10.4); Platelet Count 285 thou/uL (130-400); RBC Distribution Width 13.7 % (11.5-14.5); Red Blood Cell (RBC) Count 5.93 mill/uL (4.70-6.10); White Blood Cell (WBC) Count 7.7 thou/uL (4.8-10.8)
[2018-07-27 11:05] LABS: Anion Gap 12 mmol/L (10-20); BUN (Urea Nitrogen) 15 mg/dL (8.9-20.6); Bilirubin Negative (Negative); Blood, Urine Negative (Negative); Calc. Creatinine Clearance 0 mL/min (70-130); Calcium 9.6 mg/dL (7.8-10.44); Carbon Dioxide 29 mmol/L (22-29); Chloride 103 mmol/L (98-107); Clarity CLEAR (Clear); Estimated GFR-MDRD 71; Glucose 111 mg/dL (70-105); Glucose, Urine (Dipstick) Negative (Negative); Leukocyte Negative (Negative); Nitrite Negative (Negative); Potassium 3.9 mmol/L (3.5-5.1); Protein, Urine (Dipstick) Negative (Neg-Trace); Sodium 140 mmol/L (136-145); Specific Gravity, Urine 1.007 (1.002-1.036)
[2018-07-27 11:07] LABS: Bacteria/HPF None Seen HPF (None Seen); Hyaline Casts/LPF 0-3 HYALINE CAST LPF (0-3 Hyaline); RBC/HPF 0-3 HPF (0-3); Squamous Epithelial None Seen HPF (0-3); WBC/HPF None Seen HPF (0-3)
--- NOTE | 2018-07-27 14:12 | RAD ---
2 VIEWS CHEST: Date: 07/27/18 PROVIDED CLINICAL HISTORY: Preop. FINDINGS: Comparison made with the study dated 04/05/18. The cardiac silhouette is unchanged in appearance. Left subclavian cardiac pacing device is redemonst rated in similar position. Prominence of the pulmonary vasculature is again seen. Linear parenchymal opacity at the right lung base persists, likely reflecting scarring. No definite air space disease, p leural fluid, or pneumothorax. IMPRESSION: Cardiomegaly and prominence of the pulmonary vasculature. POS: [facility]
--- NOTE | 2018-07-28 18:50 | EKG ---
Test Reason : [id number] Blood Pressure : / mmHG Vent. Rate : 083 BPM Atrial Rate : 083 BPM P-R Int : 140 ms QRS Dur : 114 ms QT Int : 404 ms P-R-T Axes : 062 -14 266 degrees QTc Int : 474 ms Normal sinus rhythm Biatrial enlargement Left ventricular hypertrophy Prolonged QT Abnormal ECG Confirmed by Mirna DAVIES ([id number]) on 07/28/2018 6:50:29 PM Referred By: LEELA Confirmed By:Mirna DAVIES
== END 2018-07-27 12:17 | disposition home or self-care (01) ==
LOC: LABBT 12:16
PROVIDERS: ATTEND Orthopaedic Surgery
DX: Z01.818 Encounter for other preprocedural examination (principal); M87.052 Idiopathic aseptic necrosis of left femur
CPT/HCPCS: 71046; 80048; 81001; 85027; 85610; 87081; 93005; 93010

== ENCOUNTER 2018-12-12 12:09 | Inpatient (IN) | payer OTHER ==
[2018-12-12 13:01] LABS: #Basophils 0.1 thou/uL (0.0-0.2); #Eosinphils 0.1 thou/uL (0.0-0.7); #Lymphocytes 1.6 thou/uL (1.20-3.40); #Monocytes 0.5 thou/uL (0.11-0.59); #Neutrophils 4.7 thou/uL (1.40-6.50); %Eosinophils 1.8 % (0.0-10.0); %Lymphocytes 22.9 % (21.0-51.0); %Monocytes 6.6 % (0.0-10.0); %Neutrophils 67.8 % (42.0-75.0); Hemoglobin 13.9 g/dL (14.0-18.0); Mean Corpuscular HGB CONC 31.3 g/dL (32.0-36.0); Mean Corpuscular Hemoglobin 26.1 pg (27.0-31.0); Mean Corpuscular Volume 83.3 fL (78.0-98.0); Mean Platelet Volume 8.3 fL (7.4-10.4); Platelet Count 273 thou/uL (130-400); RBC Distribution Width 14.3 % (11.5-14.5); Red Blood Cell (RBC) Count 5.34 mill/uL (4.70-6.10); White Blood Cell (WBC) Count 6.9 thou/uL (4.8-10.8)
[2018-12-12 13:26] LABS: ALT (SGPT) 25 U/L (8-55); AST (SGOT) 21 U/L (5-34); Albumin 3.5 g/dL (3.5-5.0); Alkaline Phosphatase 65 U/L (40-150); Anion Gap 13 mmol/L (10-20); BUN (Urea Nitrogen) 25 mg/dL (8.9-20.6); Bilirubin, Total 0.8 mg/dL (0.2-1.2); Calc. Creatinine Clearance 0 mL/min (70-130); Calcium 8.9 mg/dL (7.8-10.44); Carbon Dioxide 27 mmol/L (22-29); Chloride 102 mmol/L (98-107); Estimated GFR-MDRD 64; Glucose 128 mg/dL (70-105); Protein, Total 6.5 g/dL (6.0-8.3); Sodium 138 mmol/L (136-145)
[2018-12-12] MEDS ORDERED: Furosemide 100 MG/10 ML VIAL ONE (13:26)
[2018-12-12] MEDS ORDERED: Furosemide 40 MG/4 ML VIAL ONE (13:27)
--- NOTE | 2018-12-12 13:38 | RAD ---
PORTABLE CHEST 1 VIEW: Date: 12/12/18 Time: 1258 hours HISTORY: Dyspnea. FINDINGS/IMPRESSION: Comparison made with exam of 08/04/18. Left-sided cardiac pacing device is again seen. The heart is enlarged. No lobar consolidation, pneumo thoraces, [place] pulmonary edema, or large effusions are seen. There is mild pulmonary vascular conges tion. POS: T[facility]
[2018-12-12 13:46] LABS: CKMB 2.5 ng/mL (0-6.6)
[2018-12-12 16:23] VITALS: BMI 44.4
[2018-12-12 17:14] LABS: Troponin I 0.034 ng/mL (< 0.028)
[2018-12-12] MEDS ORDERED: Insulin Regular 300 UNITS/3 ML VIAL SC PRN ×2 (18:49)
[2018-12-12] MEDS ORDERED: Dextrose 5% in Water 1,000 ML IV PRN (18:49)
[2018-12-12] MEDS ORDERED: Dextrose 50% Abboject 50 ML SYRINGE SLOW IVP PRN (18:49)
[2018-12-12 20:10] LABS: Troponin I 0.018 ng/mL (< 0.028)
[2018-12-12] MEDS ORDERED: Carvedilol 25 MG TAB PO SCH (21:45)
[2018-12-12] MEDS ORDERED: Furosemide 40 MG TAB PO SCH (21:45)
[2018-12-12] MEDS ORDERED: Aspirin 81 mg Enteric Coated Tablet PO SCH (21:45)
--- NOTE | 2018-12-12 23:41 | HP ---
CHIEF COMPLAINT: Shortness of breath and chest tightness. HISTORY OF PRESENT ILLNESS: Mr. Schmidt is a pleasant 43-year-old man with a history of CHF, who states he has had increasing shortness of breath since Tuesday and has noted tightness across his chest. He notices symptoms are worse when he is lying flat. He reports having similar symptoms in the past, when he has been admitted for exacerbation of CHF. The patient denies having any chest pain at present. Denies having any productive cough or hemoptysis. He does report cough and feels like his chest is congested, but unable to bring any sputum up. He is otherwise in his usual state of health and without complaints. He underwent an echo in 07/2018 that showed a severely increased left ventricle size with overall left ventricular function severely depressed and an EF of 15% to 20%. He had a moderately enlarged right ventricle and moderately dilated left atrium. He was noted to have severe mitral regurgitation and moderate aortic regurgitation with [id number] tricuspid regurgitation as well as sclerosis of the aortic valve. The patient have a previous AICD placement. REVIEW OF SYSTEMS: All other review of systems apart from those mentioned above in HPI are negative. PAST MEDICAL HISTORY: 1. Cardiomyopathy. 2. CHF, EF 15% to 20%. 3. Asthma. 4. Obesity. 5. Hyperlipidemia. 6. Hypertension. 7. COPD. 8. Anxiety. PAST SURGICAL HISTORY: 1. Previous AICD placement in 12/2013. 2. Cardiac catheterization in 01/2014. 3. Left hip replacement. SOCIAL HISTORY: The patient lives with family. He is fully independent. He currently smokes cigarettes occasionally. Denies any alcohol consumption. He does use marijuana occasionally. ALLERGIES: NO KNOWN DRUG ALLERGIES. CURRENT MEDICATIONS: 1. Furosemide. 2. Carvedilol. 3. Atorvastatin. 4. Aspirin. 5. Allopurinol. 6. Albuterol sulfate. 7. Hydrocodone. 8. Esomeprazole. 9. Zolpidem tartrate. 10. Symbicort. 11. Potassium chloride. 12. Lisinopril. 13. Hydrocodone. PHYSICAL EXAMINATION: GENERAL: The patient appears well developed and obese, in no acute distress. VITAL SIGNS: Temperature 97.5, pulse 90, respirations 12, O2 saturation 93% on room air, and blood pressure 124/85. HEENT: Normocephalic and atraumatic. Pupils are equal, round, and reactive to light. Sclerae without icterus. Oropharynx is clear. NECK: Supple without lymphadenopathy. LUNGS: Notable for vesicular breath sounds. No wheezes. Coughing exacerbated with deep inspiration. No chest wall pain or tenderness. CARDIAC: Regular rate and rhythm. ABDOMEN: Soft, obese, no marked bowel sounds present. No guarding or rigidity. EXTREMITIES: Without lower limb edema. NEUROLOGIC: Alert and oriented x3. SKIN: Without rash or jaundice. LABORATORY DATA: White blood count 6.9, hemoglobin 13.5, hematocrit 44.5, and platelets 273. Sodium 138, potassium 4.0, chloride 102, carbon dioxide 27, anion gap 13, BUN 25, creatinine 1.47, GFR 64, glucose 128, calcium 8.9, total bilirubin 0.8, AST 21, ALT 25, alkaline phosphatase 65, CK-MB 2.5, troponin 0.035, 0.018, BNP 3456.8. Serum total protein 6.5. IMAGING DATA: Chest x-ray, left-sided cardiac pacing device seen. Heart is enlarged. No lumbar consolidation, pneumothoraces, [place] pulmonary edema, or large effusion seen. There is mild pulmonary congestion. IMPRESSION AND PLAN: Mr. Schmidt is a 43-year-old man, being admitted for management of the followin. Acute on chronic congestive heart failure exacerbation. The patient has been admitted with similar symptoms in the past. He is due for 40 mg of Lasix with pain medications. He is not taking this at home. We will give a one time dose now and continue with 40 mg twice daily. The patient with no evidence of pneumonia or other abnormalities or pleural effusion on his chest x-ray. BNP elevated at 3456.8. He is being admitted to telemetry observation. 2. Hypertension. We will resume home medications and monitor blood pressure. 3. Acute kidney injury. Last GFR in 07/2018 was greater than 90 and today it is 64. We will give gentle IV hydration. 4. Diabetes mellitus. We will initiate insulin sliding scale and monitor glucose. 5. Gastrointestinal prophylaxis. 6. Deep venous thrombosis prophylaxis. 7. Full code status. His surrogate decision maker is his mother Vesta Schmidt. The patient's case was discussed with Dr. Paredes, who agrees with plan of care as described above. Job ID: [id number]
--- NOTE | 2018-12-13 07:59 | CT ---
CT ANGIOGRAM OF CHEST: DATE: 12/13/2018. COMPARISON: 04/03/2018. HISTORY: Possible pulmonary embolism, shortness of breath, and elevated D-dimer. TECHNIQUE: Axial CT imaging is obtained t 2.5 mm intervals from the thoracic inlet through the upper abdomen wit h IV contrast using a CT angiogram protocol. Coronal and sagittal 3D reformatted imaging obtained. FINDINGS: Transvenous pacing device present, incompletely assessed on this exam. The heart appears enlarged. Limited assessment of the upper abdomen appears unremarkable. There is a small hiatal hernia present . No pleural, pericardial, or mediastinal fluid is present. No pneumothorax is seen on either side. There is mild bilateral lower lobe ground-glass opacity. No evidence for acute pulmonary arterial em bolism. There is mild stable bilateral hilar lymphadenopathy and mild subcarinal adenopathy, stable as well. No acute osseous abnormality. IMPRESSION: The heart appears enlarged and there is bilateral lower lobe ground-glass opacity. Findings are susp icious for pulmonary edema. No evidence for acute pulmonary arterial embolism. POS: DANIELA
[2018-12-13] MEDS ORDERED: Furosemide 40 MG TAB PO SCH ×2 (08:00→09:00)
[2018-12-13] MEDS: Allopurinol 300 MG TAB PO SCH (09:42)
[2018-12-13] MEDS: Atorvastatin Calcium 40 MG TAB PO SCH (09:43)
[2018-12-13] MEDS: Lisinopril 20 MG TAB PO SCH (09:43)
[2018-12-13] MEDS: Carvedilol 25 MG TAB PO SCH ×2 (09:44→20:13)
[2018-12-13] MEDS: Aspirin 81 mg Enteric Coated Tablet PO SCH ×2 (09:44→20:12)
[2018-12-13] MEDS ORDERED: ISOVUE-370 76%-LOCM 1 ML ONE (10:52)
[2018-12-13 12:23] LABS: Anion Gap 12 mmol/L (10-20); BUN (Urea Nitrogen) 22 mg/dL (8.9-20.6); Calc. Creatinine Clearance 178 mL/min (70-130); Calcium 8.8 mg/dL (7.8-10.44); Carbon Dioxide 30 mmol/L (22-29); Chloride 98 mmol/L (98-107); Estimated GFR-MDRD 85; Glucose 190 mg/dL (70-105); Potassium 3.8 mmol/L (3.5-5.1); Sodium 136 mmol/L (136-145)
[2018-12-13] MEDS: Furosemide 40 MG/4 ML VIAL SLOW IVP SCH (13:46)
--- NOTE | 2018-12-13 16:17 | PDOC.PN ---
- Subjective Encounter Start Date: 12/13/18 Encounter Start Time: 16:15 Subjective: feels better but still feels has "fluid on me" -: compliant w meds -: multiple junctional rythms & PVC and SVT noted(non sustained) - Objective MAR Reviewed: Yes Vital Signs & Weight: Vital Signs (12 hours) Temp Pulse Resp BP BP Pulse Ox 12/13/18 15:09 97.4 F L 79 22 H 111/59 L 93 L 12/13/18 13:56 74 16 88 L 12/13/18 12:00 97.6 F 77 18 114/68 93 L 12/13/18 10:35 86 16 87 L 12/13/18 09:43 126/81 12/13/18 07:35 97.5 F L 66 16 131/74 99 12/13/18 06:56 81 18 90 L 12/13/18 04:39 97.9 F 82 20 126/81 94 L Weight Weight 332 lb I&O: 12/12/18 12/13/18 12/14/18 06:59 06:59 06:59 Intake Total 720 Output Total 800 Balance -80 Result Diagrams: 12/12/18 12:39 12/13/18 11:48 Additional Labs: Accuchecks 12/13/18 12/13/18 12/12/18 10:38 04:38 20:47 POC Glucose 191 H 153 H 201 H 12/12/18 17:08 POC Glucose 226 H Laboratory Tests 12/12/18 12/12/18 12/12/18 12:39 12:39 16:39 Troponin I 0.035 H 0.034 H B-Natriuretic Peptide 3456.8 H 12/12/18 12/13/18 19:35 11:48 Troponin I 0.018 B-Natriuretic Peptide 2946.3 H Phys Exam - Physical Examination Constitutional: NAD HEENT: PERRLA, moist MMs, sclera anicteric, oral pharynx no lesions Neck: no nodes, no JVD, supple, full ROM Respiratory: no wheezing, no rales, no rhonchi, clear to auscultation bilateral Cardiovascular: RRR, no significant murmur, no rub Gastrointestinal: soft, non-tender, no distention, positive bowel sounds Musculoskeletal: pulses present, edema present (mild in ankles) Neurological: non-focal, normal sensation, moves all 4 limbs Psychiatric: normal affect, A&O x 3 Skin: no rash, normal turgor, cap refill <2 seconds Dx/Plan (1) Acute 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 heart failure Code(s): I50.43 - ACUTE ON CHRONIC COMBINED SYSTOLIC AND DIASTOLIC HRT FAIL Status: Acute Comment: Cont IV diuresis. Not optimized (2) NSVT (nonsustained ventricular tachycardia) Code(s): I47.2 - VENTRICULAR TACHYCARDIA Status: Acute Comment: AICD interrogated and shows multiple runs MECHANIC CHIEF as wel. will get EP consult (3) AICD (automatic cardioverter/defibrillator) present Code(s): Z95.810 - PRESENCE OF AUTOMATIC (IMPLANTABLE) CARDIAC DEFIBRILLATOR Status: Chronic (4) Hepatitis C Code(s): B19.20 - UNSPECIFIED VIRAL HEPATITIS C WITHOUT HEPATIC COMA Status: Chronic (5) Hypertension Code(s): I10 - ESSENTIAL (PRIMARY) HYPERTENSION Status: Chronic (6) Nonischemic cardiomyopathy Code(s): I42.9 - CARDIOMYOPATHY, UNSPECIFIED Status: Chronic Comment: cont ASA, statin,BB,ALEKSANDR-I,Nitrates. Decompensated for now w Ac CHF. cont IV Diuresis (7) Tobacco abuse Code(s): Z72.0 - TOBACCO USE Status: Chronic - Plan DVT proph w/SCDs not stable fo rDC w continued need for IV diuresis -: EP consulted for SVT. -: high risk of decompensation & from arrythmia if Dced home today -: wi;ll keep & monitor -: am labs * . Review of Systems - Review of Systems Constitutional: malaise. negative: fever, chills, sweats, weakness, other Respiratory: SOB with Excertion Cardiovascular: edema. negative: chest pain, palpitations, orthopnea, paroxysmal nocturnal dyspnea, light headedness, other Gastrointestinal: negative: Nausea, Vomiting, Abdominal Pain, Diarrhea, Constipation, Melena, Hematochezia, Other Genitourinary: negative: Dysuria, Frequency, Incontinence, Hematuria, Retention , Other Musculoskeletal: negative: Neck Pain, Shoulder Pain, Arm Pain, Back Pain, Hand Pain, Leg Pain, Foot Pain, Other Skin: negative: Rash, Lesions, Rene, Bruising, Other Neurological: negative: Weakness, Numbness, Incoordination, Change in Speech, Confusion, Seizures, Other - Medications/Allergies Allergies/Adverse Reactions: Allergies Allergy/AdvReac Type Severity Reaction Status Date / Time No Known Drug Allergies Allergy Verified 07/27/18 11:46 Medications: Current Medications Albuterol/Ipratropium (Duoneb) 3 ml NEB [id number] [facility] Last Admin: 12/13/18 13:56 Dose: 3 ml Allopurinol (Zyloprim) 300 mg PO DAILY [facility] Last Admin: 12/13/18 09:42 Dose: 300 mg Aspirin (Ecotrin) 81 mg PO BID [facility] Last Admin: 12/13/18 09:44 Dose: 81 mg Atorvastatin Calcium (Lipitor) 40 mg PO DAILY [facility] Last Admin: 12/13/18 09:43 Dose: 40 mg Carvedilol (Coreg) 25 mg PO BID [facility] Last Admin: 12/13/18 09:44 Dose: 25 mg Dextrose/Water (Dextrose 50%) 25 gm SLOW IVP PRN PRN PRN Reason: Hypoglycemia Furosemide (Lasix) 40 mg SLOW IVP 0600,1400 [facility] Last Admin: 12/13/18 13:46 Dose: 40 mg Glucagon (Glucagon) 1 mg IM PRN PRN PRN Reason: Hypoglycemia Dextrose/Water (D5w) 1,000 mls @ 0 mls/hr IV .Q0M PRN PRN Reason: Hypoglycemia Insulin Human Regular (Humulin R) 0 units SC .MILD SLIDING SCALE PRN PRN Reason: Mild Correctional Scale Insulin Human Regular (Humulin R) 0 units SC .BEDTIME SLIDING SC PRN PRN Reason: Bedtime Correctional Scale Lisinopril (Zestril) 40 mg PO DAILY [facility] Last Admin: 12/13/18 09:43 Dose: 40 mg Pantoprazole Sodium (Protonix) 40 mg PO DAILY [facility] Last Admin: 12/13/18 09:44 Dose: 40 mg Sodium Chloride (Flush - Normal Saline) 10 ml IVF Q12HR [facility] Sodium Chloride (Flush - Normal Saline) 10 ml IVF PRN PRN PRN Reason: Saline Flush Last Admin: 12/13/18 13:51 Dose: 10 ml Zolpidem Tartrate (Ambien) 10 mg PO HS [facility]
[2018-12-13] MEDS: Zolpidem Tartrate 5 MG TAB PO SCH (20:13)
--- NOTE | 2018-12-13 23:15 | CON ---
DATE OF CONSULTATION: 12/13/2018 HISTORY OF PRESENT ILLNESS: I am seeing Mr. Schmidt at our [facility] telemetry floor as an electrophysiology parts consultant regarding his ICD use and heart failure exacerbation. His problems are; 1. Acute on chronic systolic congestive heart failure. a. History of severely reduced LVEF of 10% to 15% chronically. b. Left heart catheterization on September 06, 2013 shows normal coronary arteries. c. Echo from 08/04/2018 reveals LVEF of 15% to 20%. 2. Status post single-chamber ICD implant on 01/04/2014 with a Medtronic device 5A. Adequate device function noted. 3. Nonsustained atrial and ventricular arrhythmias. No recent ICD shocks documented. 4. Left bundle branch block. 5. History of COPD and asthma. 6. History of hypertension and hyperlipidemia. 7. History of morbid obesity. 8. Anxiety. ALLERGIES: NONE NOTED. MEDICATIONS: At home included; 1. Lisinopril 40 mg daily. 2. Furosemide 40 mg twice a day. 3. Albuterol inhalers. 4. Potassium chloride. 5. Lipitor. 6. Allopurinol. 7. Carvedilol 25 mg twice a day. 8. Symbicort. 9. Esomeprazole. 10. Zolpidem. 11. Hydrocodone. 12. Aspirin. SUBJECTIVE: Mr. Schmidt is here with worsening dyspnea. He felt abdominal bloating and exertional and resting shortness of breath. He had some degree of orthopnea, requiring him to sit up. He had similar symptoms in the past and that he had subsequent negative CHF exacerbation admissions. No chest pains. No palpitation. Does not pass out. No stroke-like symptoms. No neurological deficits. No fever, chills, or cough. No burning urination. Rest of 12-point systems otherwise unremarkable. PAST MEDICAL HISTORY: As above. The patient has a history of moderately enlarged right ventricle, moderately dilated left atrium, severe mitral regurgitation, moderate aortic regurgitation noted in the past, [id number] tricuspid regurgitation as well. The patient had a left hip replacement 6 months ago. He had some difficulty with anesthesia at that time. SOCIAL HISTORY: The patient denies smoking, EtOH, or drug abuse, but he does smoke cigarettes on occasion. Denies drug use. FAMILY HISTORY: Not contributory. OBJECTIVE DATA: VITAL SIGNS: Blood pressure is 111/59, heart 79, respirations 22, temperature 97.4 degrees Fahrenheit. GENERAL: Alert and oriented, morbidly obese man, in no apparent distress. NECK: Supple. Jugular veins not distended. CHEST: Coarse with some wheezing. HEART: Heart sounds are regular rate and rhythm. Distant heart sounds are noted. I could not hear a murmur or gallop. ABDOMEN: Benign. Bowel sounds positive. Patient's abdomen noted with obesity. No hepatosplenomegaly. EXTREMITIES: 2+ lower extremity edema. NEUROLOGIC: The patient is nonfocal. MUSCULOSKELETAL: No joint swelling or deformity. SKIN: Without rash. DATABASE: EKGs reviewed revealing left bundle branch block pattern. EKG, sinus rhythm. QRS duration is 125 to 130 milliseconds. Estimated QTc is 491 milliseconds. The telemetry strips do reveal occasional nonsustained wide-complex tachyarrhythmias. Interrogation of the ICD reveals a single-chamber Medtronic Secura VR ICD, but longevity is adequate. No treated ventricular tachyarrhythmia, but nonsustained wide-complex short runs are seen by the assistant community director. OptiVol measurements are indicating fluid overload. LABORATORY DATA: White cell count is 6.9, hemoglobin 13.9, platelet count is 273. Sodium 136, potassium 3.8, BUN is 22, creatinine 1.15. The AST and ALT are 21 and 25. The troponin I is 0.035 and 0.034. The BNP is 3456. ASSESSMENT AND PLAN: 1. Mr. Schmidt is a pleasant 43-year-old gentleman with prior history of morbid obesity, nonischemic dilated cardiomyopathy with severely reduced LVEF despite of adequate medical therapy. He also has worsening left bundle pattern EKG, which likely represents significant LV dyssynchrony. We discussed the concept of this as well as potential benefits of resynchronization device upgrade. I detailed the pros and cons, infection, bleeding, pneumothorax, tamponade, device malfunction recall, lead dislodgement were all discussed. He understands and willing to proceed after medical stabilization. For now, continue diuresis. 2. Nonsustained ventricular arrhythmias. For now, monitor, likely improve with heart failure stabilization. Continue medical management for this, beta rita and ALEKSANDR inhibitor therapy. Device implant will be hopefully scheduled by Tuesday at latest next week depending on clinical progress. Job ID: [id number]
[2018-12-14 05:20] LABS: Anion Gap 10 mmol/L (10-20); BUN (Urea Nitrogen) 24 mg/dL (8.9-20.6); Calc. Creatinine Clearance 157 mL/min (70-130); Calcium 8.6 mg/dL (7.8-10.44); Carbon Dioxide 32 mmol/L (22-29); Chloride 99 mmol/L (98-107); Estimated GFR-MDRD 72; Glucose 129 mg/dL (70-105); Potassium 3.7 mmol/L (3.5-5.1); Sodium 137 mmol/L (136-145)
[2018-12-14] MEDS ORDERED: Albuterol Sulfate 2.5 mg/3 ml Neb NEB PRN (06:40)
[2018-12-14] MEDS ORDERED: Benzonatate 100 MG CAP PO PRN (06:40)
[2018-12-14] MEDS: Furosemide 40 MG/4 ML VIAL SLOW IVP SCH ×2 (06:41→14:53)
[2018-12-14] MEDS: Carvedilol 25 MG TAB PO SCH ×3 (08:28→20:58)
[2018-12-14] MEDS: Aspirin 81 mg Enteric Coated Tablet PO SCH ×2 (08:28→20:58)
[2018-12-14] MEDS: Lisinopril 20 MG TAB PO SCH (08:28)
[2018-12-14] MEDS: Allopurinol 300 MG TAB PO SCH (08:28)
[2018-12-14] MEDS: Atorvastatin Calcium 40 MG TAB PO SCH (08:28)
[2018-12-14] MEDS ORDERED: Metolazone 5 MG TAB PO SCH ×2 (10:00→11:30)
--- NOTE | 2018-12-14 10:57 | PDOC.CTH ---
Cardiology Progress Note - Subjective EP PROGRESS NOTE: 12/14/18 Seen as follow up for ICD management. Continues to feel + SOB and mild orthopnea this AM. Otherwise he is feeling well. - Objective Vital Signs Temp Pulse Resp BP BP Pulse Ox 12/14/18 10:32 115/68 12/14/18 08:28 126/81 12/14/18 07:18 97.7 F 72 24 H 102/69 93 L 12/14/18 06:35 83 16 12/14/18 03:53 98.7 F 70 20 100/67 92 L Weight 336 lb 4.8 oz 12/13/18 12/14/18 12/15/18 06:59 06:59 06:59 Intake Total 720 804 Output Total 800 550 Balance -80 254 - Physical Examination General/Neuro: alert & oriented x3, NAD Neck: carotid US brisk, no JVD present Lungs: CTA, unlabored respirations Heart: PMI normal, RRR Abdomen: NT/ND, soft - Telemetry Telemetry Rhythm: SR LBBB - Labs Result Diagrams: 12/12/18 12:39 12/14/18 04:32 Troponin/CKMB CK-MB (CK-2) 2.5 ng/mL (0-6.6) 12/12/18 12:39 Troponin I 0.018 ng/mL (< 0.028) 12/12/18 19:35 - Assessment/Plan 1. A/C systolic CHF - better compensated but requires further diureses. 2. S-ICD, in situ 3. NSVT 4. Left bundle branch block 5. Morbid obesity Plans in place for upgrade to BiV ICD tomorrow (with anesthesia) if better compensated from HF perspective. Extensive crackles and BL wheezing remain today. he may require general anesthesia. Will re-evaluate in AM to see if he is ready for procedure.
--- NOTE | 2018-12-14 14:26 | PDOC.PN ---
- Subjective Encounter Start Date: 12/14/18 Encounter Start Time: 14:24 Subjective: feels btter but still some SOB ,specially w exertion - Objective MAR Reviewed: Yes Vital Signs & Weight: Vital Signs (12 hours) Temp Pulse Resp BP BP Pulse Ox 12/14/18 14:22 80 20 12/14/18 11:17 74 16 12/14/18 10:37 97.7 F 82 20 115/68 91 L 12/14/18 10:32 115/68 12/14/18 08:28 126/81 12/14/18 07:18 97.7 F 72 24 H 102/69 93 L 12/14/18 06:35 83 16 12/14/18 03:53 98.7 F 70 20 100/67 92 L Weight Weight 336 lb 4.8 oz I&O: 12/13/18 12/14/18 12/15/18 06:59 06:59 06:59 Intake Total 720 804 Output Total 800 550 Balance -80 254 Result Diagrams: 12/12/18 12:39 12/14/18 04:32 Additional Labs: Accuchecks 12/14/18 12/13/18 12/13/18 10:42 20:45 16:40 POC Glucose 164 H 151 H 106 Selected Entries 12/12/18 12/13/18 12/14/18 15:40 06:41 03:51 Weight 327 lb 7 oz 332 lb 336 lb 4.8 oz Laboratory Tests 12/12/18 12/12/18 12/13/18 12:39 12:39 11:48 Creatinine 1.47 H 1.15 B-Natriuretic Peptide 3456.8 H 12/13/18 12/14/18 12/14/18 11:48 04:32 04:32 Creatinine 1.32 H B-Natriuretic Peptide 2946.3 H 1465.7 H Phys Exam - Physical Examination Constitutional: NAD HEENT: PERRLA, moist MMs, sclera anicteric, oral pharynx no lesions Neck: no nodes, no JVD, supple, full ROM Respiratory: no rales, no rhonchi, wheezing present, clear to auscultation bilateral Cardiovascular: RRR, no significant murmur Gastrointestinal: soft, non-tender, no distention, positive bowel sounds Musculoskeletal: no edema, pulses present Neurological: non-focal, normal sensation, moves all 4 limbs Psychiatric: normal affect, A&O x 3 Skin: no rash Dx/Plan (1) Acute 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 heart failure Code(s): I50.43 - ACUTE ON CHRONIC COMBINED SYSTOLIC AND DIASTOLIC HRT FAIL Status: Acute Comment: Cont IV diuresis. Not optimized will give 1 dose zaroxolyn (2) NSVT (nonsustained ventricular tachycardia) Code(s): I47.2 - VENTRICULAR TACHYCARDIA Status: Acute Comment: AICD interrogated and shows multiple runs STRATEGY SPECIALIST as wel. Plans for AICD upgrade to BiV tomorrow (3) AICD (automatic cardioverter/defibrillator) present Code(s): Z95.810 - PRESENCE OF AUTOMATIC (IMPLANTABLE) CARDIAC DEFIBRILLATOR Status: Chronic (4) Hepatitis C Code(s): B19.20 - UNSPECIFIED VIRAL HEPATITIS C WITHOUT HEPATIC COMA Status: Chronic (5) Hypertension Code(s): I10 - ESSENTIAL (PRIMARY) HYPERTENSION Status: Chronic (6) Nonischemic cardiomyopathy Code(s): I42.9 - CARDIOMYOPATHY, UNSPECIFIED Status: Chronic Comment: cont ASA, statin,BB,ALEKSANDR-I,Nitrates. Decompensated for now w Ac CHF. cont IV Diuresis (7) Tobacco abuse Code(s): Z72.0 - TOBACCO USE Status: Chronic - Plan PT/OT, respiratory therapy, incentive spirometry, out of bed/ambulate, DVT proph w/SCDs cont diuresis.monitor I/Os. Daily weights -: AICD upgrade tomorrow -: cont nebs for wheezing -: am labs * . Review of Systems - Review of Systems Constitutional: negative: fever, chills, sweats, weakness, malaise, other ENT: negative: Ear Pain, Ear Discharge, Nose Pain, Nose Discharge, Nose Congestion, Mouth Pain, Mouth Swelling, Throat Pain, Throat Swelling, Other Respiratory: SOB with Excertion. negative: Cough, Dry, Shortness of Breath, Hemoptysis, Pleuritic Pain, Sputum, Wheezing Cardiovascular: negative: chest pain, palpitations, orthopnea, paroxysmal nocturnal dyspnea, edema, light headedness, other Gastrointestinal: negative: Nausea, Vomiting, Abdominal Pain, Diarrhea, Constipation, Melena, Hematochezia, Other Genitourinary: negative: Dysuria, Frequency, Incontinence, Hematuria, Retention , Other Musculoskeletal: negative: Neck Pain, Shoulder Pain, Arm Pain, Back Pain, Hand Pain, Leg Pain, Foot Pain, Other Neurological: negative: Weakness, Numbness, Incoordination, Change in Speech, Confusion, Seizures, Other - Medications/Allergies Allergies/Adverse Reactions: Allergies Allergy/AdvReac Type Severity Reaction Status Date / Time No Known Drug Allergies Allergy Verified 07/27/18 11:46 Medications: Current Medications Albuterol Sulfate (Ventolin) 2.5 mg NEB Q4H PRN PRN Reason: SOB Albuterol/Ipratropium (Duoneb) 3 ml NEB [id number] [facility] Last Admin: 12/14/18 14:22 Dose: 3 ml Allopurinol (Zyloprim) 300 mg PO DAILY [facility] Last Admin: 12/14/18 08:28 Dose: 300 mg Aspirin (Ecotrin) 81 mg PO BID [facility] Last Admin: 12/14/18 08:28 Dose: 81 mg Atorvastatin Calcium (Lipitor) 40 mg PO DAILY [facility] Last Admin: 12/14/18 08:28 Dose: 40 mg Benzonatate (Tessalon) 100 mg PO Q6H PRN PRN Reason: Cough Last Admin: 12/14/18 08:28 Dose: 100 mg Carvedilol (Coreg) 25 mg PO BID [facility] Last Admin: 12/14/18 10:02 Dose: Not Given Dextrose/Water (Dextrose 50%) 25 gm SLOW IVP PRN PRN PRN Reason: Hypoglycemia Furosemide (Lasix) 40 mg SLOW IVP 0600,1400 [facility] Last Admin: 12/14/18 06:41 Dose: 40 mg Glucagon (Glucagon) 1 mg IM PRN PRN PRN Reason: Hypoglycemia Dextrose/Water (D5w) 1,000 mls @ 0 mls/hr IV .Q0M PRN PRN Reason: Hypoglycemia Insulin Human Regular (Humulin R) 0 units SC .MILD SLIDING SCALE PRN PRN Reason: Mild Correctional Scale Insulin Human Regular (Humulin R) 0 units SC .BEDTIME SLIDING SC PRN PRN Reason: Bedtime Correctional Scale Lisinopril (Zestril) 40 mg PO DAILY [facility] Last Admin: 12/14/18 08:28 Dose: 40 mg Metolazone (Zaroxolyn) 5 mg PO 1000 [facility] Last Admin: 12/14/18 10:33 Dose: 5 mg Pantoprazole Sodium (Protonix) 40 mg PO DAILY [facility] Last Admin: 12/14/18 08:28 Dose: 40 mg Sodium Chloride (Flush - Normal Saline) 10 ml IVF Q12HR [facility] Last Admin: 12/14/18 08:29 Dose: 10 ml Sodium Chloride (Flush - Normal Saline) 10 ml IVF PRN PRN PRN Reason: Saline Flush Last Admin: 12/13/18 13:51 Dose: 10 ml Zolpidem Tartrate (Ambien) 10 mg PO HS [facility] Last Admin: 12/13/18 20:13 Dose: 10 mg
[2018-12-14] MEDS: Zolpidem Tartrate 5 MG TAB PO SCH (20:58)
[2018-12-15] MEDS: Carvedilol 25 MG TAB PO SCH ×2 (05:14→21:30)
[2018-12-15 05:43] LABS: #Basophils 0.1 thou/uL (0.0-0.2); #Eosinphils 0.1 thou/uL (0.0-0.7); #Lymphocytes 2.8 thou/uL (1.20-3.40); %Basophils 1.4 % (0.0-1.0); %Eosinophils 1.4 % (0.0-10.0); %Lymphocytes 30.9 % (21.0-51.0); %Monocytes 10.8 % (0.0-10.0); %Neutrophils 55.5 % (42.0-75.0); Hemoglobin 13.6 g/dL (14.0-18.0); Mean Corpuscular HGB CONC 30.8 g/dL (32.0-36.0); Mean Corpuscular Hemoglobin 26.2 pg (27.0-31.0); Mean Corpuscular Volume 85.1 fL (78.0-98.0); Mean Platelet Volume 8.2 fL (7.4-10.4); Platelet Count 258 thou/uL (130-400); RBC Distribution Width 14.3 % (11.5-14.5); Red Blood Cell (RBC) Count 5.18 mill/uL (4.70-6.10); White Blood Cell (WBC) Count 9.1 thou/uL (4.8-10.8)
[2018-12-15 06:00] LABS: Hemoglobin A1c 5.9 % (4.0-6.0)
[2018-12-15 06:19] LABS: Anion Gap 11 mmol/L (10-20); BUN (Urea Nitrogen) 24 mg/dL (8.9-20.6); Calc. Creatinine Clearance 140 mL/min (70-130); Calcium 8.9 mg/dL (7.8-10.44); Carbon Dioxide 33 mmol/L (22-29); Chloride 97 mmol/L (98-107); Estimated GFR-MDRD 66; Glucose 100 mg/dL (70-105); Potassium 3.9 mmol/L (3.5-5.1); Sodium 137 mmol/L (136-145)
[2018-12-15] MEDS: Aspirin 81 mg Enteric Coated Tablet PO SCH ×2 (09:11→21:30)
[2018-12-15] MEDS: Atorvastatin Calcium 40 MG TAB PO SCH (09:11)
[2018-12-15] MEDS: Allopurinol 300 MG TAB PO SCH (09:11)
[2018-12-15] MEDS: Furosemide 40 MG/4 ML VIAL SLOW IVP SCH (09:15)
[2018-12-15] MEDS ORDERED: Iopamidol 370 76% 50 ML VIAL FS ONE (11:13)
[2018-12-15] MEDS ORDERED: Lidocaine 1% (PF) 30 ML VIAL ONE (12:24)
[2018-12-15] MEDS ORDERED: Fentanyl 100 MCG/2 ML VIAL ONE (13:34)
[2018-12-15] MEDS ORDERED: Midazolam HCl 2 mg/2 ml Vial ONE (13:34)
[2018-12-15] MEDS ORDERED: Furosemide 20 MG TAB PO SCH (14:00)
[2018-12-15] MEDS: Furosemide 40 MG TAB PO SCH (14:28)
[2018-12-15] MEDS ORDERED: ALPRAZolam 0.25 MG TAB PO SCH (16:30)
--- NOTE | 2018-12-15 17:09 | PRG ---
DATE OF SERVICE: 12/15/2018 SUBJECTIVE: The patient denies any new complaints. No chest pain, shortness of breath, or palpitations. He is n.p.o. for ICD upgrade. Shortness of breath has significantly improved. REVIEW OF SYSTEMS: The patient denies any nausea, vomiting, diarrhea, or focal neurologic deficit. All other review of systems were reviewed and were found negative. OBJECTIVE: VITAL SIGNS: Temperature 98.6, pulse rate of 72, respiration of 24, and blood pressure 109/77 with O2 saturation 94% on room air. Weight is 324 pounds from 336 pounds yesterday. GENERAL: A 43-year-old male, in no apparent distress. LUNGS: Showed diminished air entry at bilateral bases with scattered rhonchi. HEART: S1 and S2 present. Regular rate and rhythm. ABDOMEN: Soft. Bowel sounds present. Obese. EXTREMITIES: 1+ edema in bilateral lower extremity. LABORATORY FINDINGS: 1. Creatinine 1.43 with BUN 24, bicarbonate of 33. BNP 1665. 2. CBC showed WBC 9.1 with hemoglobin 13.6, hematocrit 44, and platelet of 258. 3. Telemetry monitoring by my review showed sinus rhythm. 4. CT angiogram of the chest on December 13 showed findings consistent with pulmonary edema. 5. Chest x-ray by my review on admission showed pulmonary vascular congestion. IMPRESSION: 1. Acute on chronic systolic heart failure exacerbation, ejection fraction 15% to 20%. 2. Nonsustained ventricular tachycardia. 3. Left bundle-branch block. 4. Morbid obesity with a BMI of 43.9. 5. Mild intermittent asthma. 6. Hypertension. 7. Hyperlipidemia. 8. Anxiety. 9. Chronic kidney disease, stage 2. 10. Type 2 myocardial infarction. 11. Chronic anemia. PLAN: The patient will continue telemetry monitoring. We will change the Lasix to oral. Continue ALEKSANDR inhibitor and beta-blockers. He is scheduled for biventricular ICD today. We will recheck basic metabolic profile in a.m. Lifestyle modification emphasized. The patient was extensively counseled on heart failure. Fluid restriction was emphasized. Job ID: [id number]
[2018-12-15] MEDS: Zolpidem Tartrate 5 MG TAB PO SCH (21:30)
[2018-12-15] MEDS ORDERED: HYDROcodone/Acetaminophen 5/325 mg Tablet PO PRN ×2 (21:52)
[2018-12-15] MEDS ORDERED: Acetaminophen 650 MG Suppository PR PRN (21:52)
[2018-12-16 06:04] LABS: BUN (Urea Nitrogen) 24 mg/dL (8.9-20.6); Calc. Creatinine Clearance 131 mL/min (70-130); Calcium 8.7 mg/dL (7.8-10.44); Carbon Dioxide 33 mmol/L (22-29); Chloride 94 mmol/L (98-107); Estimated GFR-MDRD 61; Glucose 178 mg/dL (70-105); Magnesium 1.9 mg/dL (1.6-2.6); Sodium 137 mmol/L (136-145)
[2018-12-16 06:12] LABS: Anion Gap 14 mmol/L (10-20)
[2018-12-16] MEDS: Carvedilol 25 MG TAB PO SCH (08:22)
[2018-12-16] MEDS: Lisinopril 20 MG TAB PO SCH (08:23)
[2018-12-16] MEDS: Furosemide 40 MG TAB PO SCH (08:26)
[2018-12-16] MEDS: Allopurinol 300 MG TAB PO SCH (08:26)
[2018-12-16] MEDS: Aspirin 81 mg Enteric Coated Tablet PO SCH (08:26)
[2018-12-16] MEDS: Atorvastatin Calcium 40 MG TAB PO SCH (08:26)
--- NOTE | 2018-12-16 11:49 | DIS ---
DATE OF ADMISSION: 12/12/2018 DATE OF DISCHARGE: 12/16/2018 DISPOSITION: Home. FOLLOWUP: 1. Follow up with primary care physician, Dr. Ceballos on December 22, 2018, at 11 a.m. 2. Follow up with Electrophysiology, Dr. Hernandez and Cardiology Dr. Pascual as scheduled. 3. Outpatient cardiac rehab. 4. Heart Failure Clinic followup. ALLERGIES: NO KNOWN DRUG ALLERGIES. THE PATIENT WAS SEEN AND EXAMINED ON THE DAY OF DISCHARGE. DENIES ANY NEW COMPLAINTS. NO CHEST PAIN, SHORTNESS OF BREATH OR PALPITATIONS. DISCHARGE MEDICATIONS: Same as admission medications. 1. Allopurinol 300 mg daily. 2. Lipitor 40 mg daily. 3. Carvedilol 25 mg b.i.d. 4. Nexium 40 mg daily. 5. Lasix 40 mg b.i.d. 6. [place] as needed. 7. Lisinopril 40 mg daily. 8. Potassium chloride 20 mEq daily. 9. Albuterol inhaler as needed. 10. Aspirin as directed. 11. Symbicort 160/4.5 b.i.d. 12. Ambien 10 mg at bedtime. BRIEF HOSPITAL COURSE: The patient is a 43-year-old male with congestive heart failure, ejection fraction 15% to 20%. Morbid obesity with a BMI of 45, hypertension, hyperlipidemia, presented to the emergency room with shortness of breath and chest discomfort. Please refer to the history and physical for further details. The patient was admitted to the hospital with a diagnosis of acute on chronic congestive heart failure exacerbation. He improved with IV diuretics. He was found to have significant arrhythmias including nonsustained ventricular tachycardia on the tele monitor. He was evaluated by Cardiology and Electrophysiology. He underwent AICD upgrade to biventricular AICD due to chronic left bundle-branch block and significant arrhythmias. He has been cleared by consultants for discharge. He was extensively counseled on congestive heart failure. FINAL DIAGNOSES: 1. Acute on chronic systolic heart failure exacerbation, ejection fraction 15% to 20%. The patient will continue ALEKSANDR inhibitor and beta blockers. 2. Nonsustained ventricular tachycardia. 3. Left bundle-branch block. 4. Status post AICD upgrade to biventricular AICD this admission. 5. Morbid obesity with a BMI of 44. 6. Mild intermittent asthma. 7. Hypertension. 8. Hyperlipidemia. 9. Anxiety. 10. Chronic kidney disease, stage 2. 11. Type 2 myocardial infarction. 12. Chronic anemia. Please note that a prescription for next 2 to 3 weeks has been sent to the pharmacy since the patient is out of all of his medications. He was advised to contact his PCP for refills on his other medications. Job ID: [id number]
[2018-12-16 12:11] VITALS: BP 117/68; TEMP 98
== END 2018-12-16 12:28 | disposition home or self-care (01) | DRG 226 ==
LOC: ERS 12:09 → 2SW 16:22 → OBSVTOIN 16:22
PROVIDERS: ADMIT Internal Medicine; ATTEND Internal Medicine
PROC: 0JH609Z Insertion of Cardiac Resynchronization Defibrillator Pulse Generator into Chest Subcutaneous Tissue and Fascia, Open Approach (ICD-10-PCS; principal; 2018-12-15)
PROC: 02HK3KZ Insertion of Defibrillator Lead into Right Ventricle, Percutaneous Approach (ICD-10-PCS; 2018-12-15)
PROC: 02HL3KZ Insertion of Defibrillator Lead into Left Ventricle, Percutaneous Approach (ICD-10-PCS; 2018-12-15)
PROC: 02H63KZ Insertion of Defibrillator Lead into Right Atrium, Percutaneous Approach (ICD-10-PCS; 2018-12-15)
DX: I13.0 Hypertensive heart and chronic kidney disease with heart failure and stage 1 through stage 4 chronic kidney disease, or unspecified chronic kidney disease (principal); I50.43 Acute on chronic combined systolic (congestive) and diastolic (congestive) heart failure; I21.A1 Myocardial infarction type 2; N17.9 Acute kidney failure, unspecified; Z68.41 Body mass index [BMI] 40.0-44.9, adult; I47.2 Ventricular tachycardia; E11.22 Type 2 diabetes mellitus with diabetic chronic kidney disease; E78.00 Pure hypercholesterolemia, unspecified; J44.9 Chronic obstructive pulmonary disease, unspecified; F41.9 Anxiety disorder, unspecified; F17.210 Nicotine dependence, cigarettes, uncomplicated; I08.3 Combined rheumatic disorders of mitral, aortic and tricuspid valves; B18.2 Chronic viral hepatitis C; I44.7 Left bundle-branch block, unspecified; I42.0 Dilated cardiomyopathy; J45.20 Mild intermittent asthma, uncomplicated; N18.2 Chronic kidney disease, stage 2 (mild); D63.1 Anemia in chronic kidney disease; Z88.6 Allergy status to analgesic agent; Z79.82 Long term (current) use of aspirin; Z79.51 Long term (current) use of inhaled steroids; Z79.899 Other long term (current) drug therapy
CPT/HCPCS: 33214; 33225; 36005; 36415; 36416; 71045; 71275; 75820; 80048; 80053; 82553; 83036; 83735; 83880; 84484; 85025; 85379; 93005; 93798; 94640; 94760; 96374; C1882; C1898; C1900; J0690; J1644; J1815; J1940; J2001; J2250; J3010; J3490; J7620; Q9966

== ENCOUNTER 2018-12-26 01:02 | Inpatient (IN) | payer OTHER ==
[2018-12-26] MEDS ORDERED: Lorazepam 2 MG/ML VIAL ONE (01:20)
[2018-12-26] MEDS ORDERED: Midazolam HCl 5 mg/ml Vial ONE ×2 (01:29→04:20)
[2018-12-26] MEDS ORDERED: Rocuronium Bromide 10 MG/ML (10ML VIAL) ONE ×2 (01:34→01:37)
[2018-12-26] MEDS ORDERED: fentaNYL Citrate/PF 2,000 MCG in Sodium Chloride 0.9% 60 ML IV SCH (01:48)
[2018-12-26] MEDS ORDERED: Norepinephrine 8 MG/0.9% NS 250 ML ONE (01:49)
[2018-12-26] MEDS ORDERED: Propofol 1,000 MG/100 ML VIAL IV ONE (01:49)
[2018-12-26 02:04] LABS: #Basophils 0.1 thou/uL (0.0-0.2); #Eosinphils 0.1 thou/uL (0.0-0.7); #Lymphocytes 2.4 thou/uL (1.20-3.40); #Monocytes 1.1 thou/uL (0.11-0.59); #Neutrophils 6.7 thou/uL (1.40-6.50); %Basophils 0.9 % (0.0-1.0); %Eosinophils 1.1 % (0.0-10.0); %Lymphocytes 22.6 % (21.0-51.0); %Neutrophils 64.5 % (42.0-75.0); Hemoglobin 14.8 g/dL (14.0-18.0); Mean Corpuscular Hemoglobin 26.4 pg (27.0-31.0); Mean Platelet Volume 9.1 fL (7.4-10.4); Platelet Count 236 thou/uL (130-400); RBC Distribution Width 14.8 % (11.5-14.5); Red Blood Cell (RBC) Count 5.61 mill/uL (4.70-6.10); White Blood Cell (WBC) Count 10.4 thou/uL (4.8-10.8)
[2018-12-26 02:22] LABS: ALT (SGPT) 39 U/L (8-55); AST (SGOT) 45 U/L (5-34); Acetaminophen Less than 6.0 mcg/mL (10.0-30.0); Albumin 3.9 g/dL (3.5-5.0); Alcohol Less than 10 mg/dL (Less than 10); Alkaline Phosphatase 135 U/L (40-150); Anion Gap 24 mmol/L (10-20); BUN (Urea Nitrogen) 9 mg/dL (8.9-20.6); Bilirubin, Total 0.9 mg/dL (0.2-1.2); Calc. Creatinine Clearance 0 mL/min (70-130); Calcium 9.4 mg/dL (7.8-10.44); Carbon Dioxide 25 mmol/L (22-29); Chloride 94 mmol/L (98-107); Estimated GFR-MDRD 58; Globulin 4.1 g/dL (2.4-3.5); Glucose 216 mg/dL (70-105); Potassium 4.6 mmol/L (3.5-5.1); Salicylate Less than 8.0 mg/dL (15.0-30.0); Sodium 138 mmol/L (136-145)
[2018-12-26 02:41] LABS: CKMB 2.2 ng/mL (0-6.6)
[2018-12-26 03:11] LABS: Actual Bicarbonate (HCO3a) 25.2 mEq/L (22-28); Analyzer IN Cardio ER; Base Excess (BEa) -0.6 mEq/L (-2.0 to +3.0); Carboxyhemoglobin (COHb) 1.5 gm% (0.0-3.0); Hemoglobin (Hb) 14.5 g/dL (14.0-18.0); Potassium - ABG Lab 3.95 mmol/L (3.70-5.30); pH, Arterial 7.36 (7.35-7.45)
[2018-12-26 03:12] LABS: Puncture Site LRA
[2018-12-26] MEDS ORDERED: Furosemide 40 MG/4 ML VIAL ONE (03:32)
[2018-12-26] MEDS ORDERED: Piperacillin/Tazobactam 3.375 GM VIAL ONE (03:32)
[2018-12-26 03:35] LABS: Amphetamine Not Detected (NotDetected); Barbiturates Screen Not Detected (NotDetected); Benzodiazepine Screen Detected (NotDetected); Cocaine Metabolite Screen Not Detected (NotDetected); Medtox Control Line Valid? VALID (VALID); Medtox Reader # READER 4; Methadone Not Detected (NotDetected); Methamphetamine Not Detected (NotDetected); Opiate Screen Not Detected (NotDetected); Oxycodone Screen Not Detected (NotDetected); Phencyclidine (PCP) Not Detected (NotDetected); THC/Cannabinoid Screen Detected (NotDetected); Tricyclic Screen Not Detected (NotDetected)
[2018-12-26 03:37] LABS: Bilirubin Negative (Negative); Blood, Urine Moderate (Negative); Clarity CLOUDY (Clear); Glucose, Urine (Dipstick) 100 mg/dL (Negative); Leukocyte Negative (Negative); Nitrite Negative (Negative); Protein, Urine (Dipstick) 300 mg/dL (Neg-Trace); Specific Gravity, Urine 1.011 (1.002-1.036)
[2018-12-26 03:39] LABS: Bacteria/HPF Rare-Few HPF (None Seen); Pathc Cast-AUWi Flag 1.63 (0-2.49); Squamous Epithelial 0-3 HPF (0-3); WBC/HPF 21-50 HPF (0-3)
[2018-12-26 03:41] LABS: Hyaline Casts/LPF 0-3 HYALINE CAST LPF (0-3 Hyaline)
[2018-12-26] MEDS ORDERED: Oseltamivir 6 MG/ML ORAL SUSP PO SCH (04:00)
[2018-12-26] MEDS ORDERED: Sodium Chloride 0.45% 1,000 ML IV SCH (04:58)
[2018-12-26] MEDS ORDERED: Ondansetron PF 4 MG/2 ML Vial IVP PRN (04:58)
[2018-12-26] MEDS ORDERED: Ondansetron ODT 4 MG TAB SL PRN (04:58)
[2018-12-26] MEDS ORDERED: Vancomycin HCl 1 GM in Premix Bag 1 BAG IVPB SCH ×2 (05:45→06:15)
[2018-12-26] MEDS ORDERED: Acetaminophen 650 MG Suppository PR PRN (05:48)
[2018-12-26] MEDS ORDERED: Norepinephrine 8 MG/0.9% NS 250 ML IVPB PRN (05:48)
--- NOTE | 2018-12-26 06:17 | HP ---
PRIMARY CARE PROVIDER: Rodo Ceballos MD CHIEF COMPLAINT: Chest pain. HISTORY OF PRESENT ILLNESS: Mr. Schmidt is a 43-year-old gentleman, who was seen at [facility] on December 26, 2018. Patient is currently intubated and unable to provide any history. Collateral history was obtained from discussion with emergency room physician as well as review of medical records. Brayan was hospitalized at [facility] from December 12 to of this year for acute on chronic systolic heart failure exacerbation and nonsustained ventricular tachycardia. He had an upgrade of his AICD to biventricular AICD during that hospitalization. Patient presented to the emergency room today morning complaining of chest pain. He was reportedly yelling at the emergency room staff. He also complained of being thirsty and needing something to drink. He was belligerent and refusing to keep monitoring equipment on. He eventually had to be intubated for airway protection. REVIEW OF SYSTEMS: Could not be completed secondary to patient's intubated status. PAST MEDICAL HISTORY: Cardiomyopathy, congestive heart failure with ejection fraction of 15% to 20%, asthma, obesity, dyslipidemia, hypertension, COPD, and anxiety. SURGICAL HISTORY: AICD placement, subsequent upgrade; cardiac catheterization in January 2014; and left hip replacement. SOCIAL HISTORY: Patient reportedly uses tobacco and marijuana occasionally. No history of alcohol use. FAMILY HISTORY: Could not be obtained. ALLERGIES: NO KNOWN DRUG ALLERGIES. CURRENT MEDICATIONS: Unable to obtain. Please refer to Dr. Coello's discharge summary dated December 16, 2018, for the list of medications he was supposed to be taking at home. PHYSICAL EXAMINATION: GENERAL: On examination, Mr. Schmidt is intubated and mechanically ventilated. He is morbidly obese, with a BMI of 44.3. VITAL SIGNS: Blood pressure is 103/68, pulse 107, oxygen saturation is in the 90s on ventilator. In the emergency room, he was febrile with T-max of 104.4 degrees Fahrenheit. EYES: No scleral icterus, no conjunctival pallor. ENT: Patient has endotracheal tube in place. Moist mucosa. RESPIRATORY: Accessory muscles of breathing are not active. Chest wall movements are symmetric bilaterally. He has bilateral crackles. CARDIOVASCULAR: S1 and S2 are heard, tachycardic and regular. Peripheral pulses palpable. ABDOMEN: Distended, nontender, bowel sounds heard. NEUROLOGIC: Full neurologic examination was not possible secondary to patient's noncooperation. Pupils equal bilaterally and reactive to light. No facial droop. Plantars downgoing bilaterally. MUSCULOSKELETAL: Patient is currently on propofol drip, no spontaneous limb movements. SKIN: No rashes or subcutaneous nodules. LYMPHATIC: No cervical lymphadenopathy. PSYCHIATRIC: Unable to assess mood, affect, or orientation to person, place, or time. LABORATORY DATA: Mr. Schmidt's labs and investigations were reviewed. I reviewed his electrocardiogram, which shows sinus tachycardia, no ST changes to suggest an acute coronary syndrome. I also reviewed his chest x-ray, which shows pulmonary edema. I cannot rule out an infiltrate in the right lung. He has normal white count, normal hemoglobin, normal platelet count, elevated D-dimer of 3.54, elevated lactic acid level of 9.3, normal TSH, elevated BNP of 4251, normal sodium, normal potassium, elevated creatinine of 1.59, last known creatinine 1.53 on December 16, 2018, normal magnesium, elevated AST of 45, otherwise unremarkable liver profile and indeterminate troponin I of 0.134. Urinalysis is negative for nitrite and leukocyte esterase. Urine toxicology screen is positive for benzodiazepines and cannabinoids. Arterial blood gases show pH 7.36, pCO2 of 46, and PO2 of 86. He also had CT dissection protocol, report is pending. He also had noncontrast CT scan of the brain, report is pending. He has a positive influenza B test. ASSESSMENT AND PLAN: Mr. Schmidt is a 43-year-old gentleman, who was seen at [facility] on December 26, 2018. His problem list includes: 1. Shock: Etiology is unclear at this time, most likely infectious given positive influenza screen. Patient is currently on Levophed drip to maintain blood pressure, infusing through a central line. Patient was also given empiric antibiotics in the form of vancomycin and Zosyn, which I will continue. Cultures have been drawn, we will follow blood cultures. 2. Influenza B infection: Patient has been started on Tamiflu, we will continue. 3. Congestive heart failure exacerbation: Patient is presenting with exacerbation of congestive heart failure. At this point in time, his blood pressure is tenuous and he may not be able to tolerate diuretics well. We will consult Cardiology Service for opinion and help with management. As the 2D echocardiogram appears to have been done in July 2018, I will order 2D echocardiogram at this time. 4. Dyslipidemia: Patient was supposed to be taking Lipitor 40 mg daily at home , it is unclear whether he is compliant with his medications. 5. Marijuana use: Patient will be counseled regarding marijuana cessation after extubation. 6. Acute respiratory failure: Patient is currently intubated and mechanically ventilated. He will be admitted to critical care unit for further management. Many thanks for allowing me to participate in your patient's care. Please feel free to contact me with any questions or concerns. LEVEL OF RISK: High. LEVEL OF COMPLEXITY: High. Job ID: [id number] MTDD
[2018-12-26] MEDS ORDERED: Propofol BOLUS 1,000 MG/100 ML VIAL IV PRN (06:25)
[2018-12-26] MEDS ORDERED: Morphine 2 MG/ML SYRINGE SLOW IVP PRN (06:25)
[2018-12-26] MEDS ORDERED: DISCONTINUE PREVIOUS NARCOTIC PAIN MEDICATIONS AND BENZODIAZEPINES FS SCH (06:25)
[2018-12-26] MEDS ORDERED: Fentanyl BOLUS 250 ML IVPB PRN (06:25)
[2018-12-26 06:36] LABS: Lactic Acid 1.5 mmol/L (0.5-2.2)
--- NOTE | 2018-12-26 07:53 | CT ---
CT BRAIN WITHOUT CONTRAST: Date: 12/26/18 HISTORY: Altered mental status. COMPARISON: None. FINDINGS: No acute hemorrhage or infarct. No midline shift or mass effect. Ventricular size and extra-axial CSF spaces are normal. Mild mucosal thickening at the turbinates. IMPRESSION: No acute intracranial abnormality. POS: HOME
--- NOTE | 2018-12-26 08:03 | CT ---
CT ANGIOGRAM CHEST CT ANGIOGRAM ABDOMEN: Date: 12/26/18 HISTORY: Chest pain. COMPARISON: CT angiogram chest dated 12/13/18. FINDINGS: CT angiogram of chest and abdomen performed after the intravenous administration of contrast. 3D rend ering provided. New multilead AICD/pacer is present. Heart size is enlarged. No significant pericardial fluid. Multifocal air space opacities in both lower lobes, right middle lobe, left upper lobe, concerning fo r multifocal infection. Patient intubated with endotracheal tube tip just below the level of the lorraine na. The appendix is visualized and is normal. Mild diverticular disease of sigmoid colon. No dilated loop s of large or small bowel. Kidneys unremarkable. Celiac trunk and superior mesenteric arteries are patent. No acute osseous abnormality. No acute displaced rib fracture. No aneurysmal dilatation of the aorta. No dissection. IMPRESSION: 1. No aortic dissection nor aneurysm formation. 2. Multifocal pneumonia. 3. Moderate cardiomegaly. 4. Mild pulmonary edema. 5. New multilead AICD/pacer. POS: HOME
[2018-12-26] MEDS: Oseltamivir 6 MG/ML ORAL SUSP PO SCH ×2 (08:04→21:12)
[2018-12-26] MEDS: Lorazepam 2 MG/ML VIAL SLOW IVP PRN ×2 (08:07→15:26)
--- NOTE | 2018-12-26 08:23 | RAD ---
PORTABLE SUPINE CHEST: History: Inadvertent pacemaker firing. Comparison: 12-12-18 FINDINGS: Respiratory motion is present on this film. Heart size is enlarged. Pulmonary vessels are prominent c entrally. This is probably baseline for this patient. A pacing device is seen. The endotracheal tube is satisfactory position. IMPRESSION: 1. Marked cardiomegaly. Pacemaker device is in place. Lead position is difficult to assess due to the motion. 2. Endotracheal tube in satisfactory position. POS: [facility]
--- NOTE | 2018-12-26 08:26 | RAD ---
PORTABLE CHEST: History: Central line placement. Comparison: Prior day's exam. FINDINGS/IMPRESSION: There has been interval placement of the right jugular line. The catheter tip overlies the proximal s uperior vena cava. No signs of pneumothorax. Heart size again noted to be enlarged. Endotracheal tube is satisfactorily position. It is now better appreciated. There is some bibasilar parenchymal lung c hanges. I am no certain how much of this is chronic in nature related to some bibasilar atelectasis o r developing infiltrate. POS: [facility]
[2018-12-26] MEDS: Enoxaparin Sodium 40 MG/0.4 ML SYRINGE SC SCH (08:31)
[2018-12-26] MEDS: Piperacillin/Tazobactam 3.375 GM in Sodium Chloride 0.9% 100 ML IVPB SCH ×3 (09:30→21:13)
[2018-12-26] MEDS: Propofol 1,000 MG/100 ML VIAL IV PRN ×4 (10:09→21:14)
--- NOTE | 2018-12-26 10:20 | ULT ---
EXAM: Bilateral lower extremity venous duplex: Deep veins evaluated with color Doppler, spectral analysis, and compression. INDICATIONS: Bilateral lower extremity pain and edema. FINDINGS: Deep veins interrogated include common femoral vein, femoral vein, popliteal vein, and post erior tibial vein. These veins show normal compression and blood flow. No evidence of DVT. IMPRESSION: Negative Bilateral venous duplex exam.
[2018-12-26] MEDS: Acetaminophen 325 MG TAB PO PRN ×3 (10:40→21:13)
[2018-12-26] MEDS ORDERED: Famotidine/PF 20 mg/2ml Vial SLOW IVP SCH (10:45)
[2018-12-26] MEDS ORDERED: Vecuronium 10 MG VIAL ONE (10:47)
[2018-12-26] MEDS ORDERED: Bacteriostatic Normal Saline 30 ML VIAL ONE (11:19)
[2018-12-26] MEDS: Vecuronium 10 MG VIAL IV PRN ×6 (11:21→20:34)
[2018-12-26] MEDS ORDERED: Dextrose 50% Abboject 50 ML SYRINGE ONE (11:39)
[2018-12-26] MEDS ORDERED: ISOVUE-370 76%-LOCM 1 ML ONE (12:58)
[2018-12-26] MEDS: fentaNYL Citrate/PF 2,000 MCG in Sodium Chloride 0.9% 60 ML IV SCH ×2 (13:12→23:43)
[2018-12-26] MEDS ORDERED: Furosemide 40 MG/4 ML VIAL SLOW IVP SCH (14:00)
--- NOTE | 2018-12-26 14:11 | CON ---
DATE OF CONSULTATION: 12/26/2018 CONSULTING PHYSICIAN: Steffen Alvarez MD. REASON FOR CONSULTATION: Acute respiratory failure. The following encompassed 45 minutes of critical care time. HISTORY OF PRESENT ILLNESS: The patient is a 43-year-old male, who came to the emergency room with acute delirium and high fever of 104. He was intubated secondary to combativeness and placed on mechanical ventilation. He has been started on broad-spectrum IV antibiotics. He has been extremely hypoxic. PAST MEDICAL HISTORY: 1. Cardiomyopathy with baseline EF anywhere from 10% to 20%. 2. Chronic persistent asthma. 3. Obesity. 4. Hyperlipidemia. 5. Hypertension. 6. COPD. PAST SURGICAL HISTORY: 1. AICD placement. 2. Cardiac catheterization. 3. Left hip replacement. SOCIAL HISTORY: The patient smokes both tobacco and marijuana. Does not consume alcohol. FAMILY MEDICAL HISTORY: Unknown. REVIEW OF SYSTEMS: Cannot be obtained secondary to the patient being on mechanical ventilation. MEDICATIONS PRIOR TO ADMISSION: 1. Ambien 10 mg at bedtime. 2. Symbicort two puffs twice daily. 3. daily. 4. Lisinopril unknown dose daily. 5. [place] 10/325 one tablet every 4 hours as needed. 6. Furosemide 40 mg b.i.d. 7. Nexium 40 mg daily. 8. Coreg 25 mg b.i.d. 9. Atorvastatin one tablet daily. 10. Aspirin 81 mg daily. 11. Allopurinol 300 mg daily. 12. Albuterol sulfate 1 puff. ALLERGIES: NONE. PHYSICAL EXAMINATION: VITAL SIGNS: Temperature 100.1, pulse 95, blood pressure 112/83, O2 saturation now 92% on 50% oxygen. He is intubated and sedated on propofol. HEENT: He has slight proptosis of his eyes. Oropharynx has endotracheal tube in place. There is orogastric tube in place. NECK: Right IJ line. No JVD. LUNGS: Coarse rhonchi bilaterally. CARDIOVASCULAR: S1 and S2 regular audible murmur. He has a pacemaker palpable in left upper quadrant of his chest. ABDOMEN: Soft, nontender. No hepatomegaly. EXTREMITIES: No clubbing, cyanosis, or edema. LABORATORY DATA: PH of 7.36, pCO2 of 46, pO2 of 86 on SIMV rate 18, tidal volume 550, PEEP 5, pressure support 10, FiO2 100%. White blood cell count 10.4, hematocrit 47.7, and platelet count 236 with no left shift. BNP 4251. Lactate initially 9.3, repeated at 1.5. Sodium 138, potassium 4.6, chloride 94, CO2 of 25, BUN 9, creatinine 1.6, glucose 216. AST 45, ALT 39. IMAGING STUDIES: His chest x-ray shows cardiomegaly. He had a CT aortic dissection protocol, which shows dependent edema bilaterally. ASSESSMENT: 1. Acute respiratory failure requiring mechanical ventilation. Etiology likely heart failure. 2. Congestive heart failure-acute systolic-likely exacerbated by high fever related to influenza B. 3. Rule out septic shock. 4. Severe cardiomyopathy. 5. Substance abuse. PLAN: 1. The patient received some diuretics last night and has responded well to that. At the current time, we are trying to wean off the Levophed. 2. Continue broad-spectrum IV antibiotics and continue Tamiflu. 3. Try to wean FiO2 as tolerated. 4. Consider additional diuresis this afternoon depending on how he is doing. 5. DVT prophylaxis with enoxaparin. 6. GI prophylaxis with Pepcid. 7. Ultrasound of lower extremities, rule out DVT. Job ID: [id number]
[2018-12-26] MEDS: Vancomycin HCl 1.5 GM in Sodium Chloride 0.9% 250 ML 300 ML IVPB SCH (16:43)
[2018-12-26] MEDS ORDERED: Sterile Water 30 ML ONE (16:50)
[2018-12-26] MEDS ORDERED: Sodium Bicarb 50 MEQ/50 ML VIAL ONE (17:22)
[2018-12-26] MEDS ORDERED: EPINEPHrine 1 MG/10 ML Abboject SYRINGE ONE (17:22)
--- NOTE | 2018-12-26 18:00 | CON ---
DATE OF CONSULTATION: 12/26/2018 REASON FOR CONSULTATION: Congestive heart failure. HISTORY OF PRESENT ILLNESS: Mr. Schmidt is an unfortunate 43-year-old gentleman, who is a patient of Dr. Carlos Pascual. He has a history of nonischemic cardiomyopathy. He recently presented with shortness of breath in addition to high fever with delirium. He became combative while in the emergency room and required intubation for airway control. His temp has been up to 105 and is requiring cooling blanket. PAST MEDICAL HISTORY: Cardiomyopathy, hyperlipidemia, hypertension, COPD, obesity, asthma, AICD placement, hip surgery. SOCIAL HISTORY: Positive tobacco and marijuana use. Difficult to obtain. He is currently intubated, sedated. PHYSICAL EXAMINATION: GENERAL: Patient is a pleasant male who is in no acute distress. The patient appears their stated age. He is currently intubated and sedated. The patient is now off pressors. VITAL SIGNS: Blood pressure 117/84, pulse 107, current temperature afebrile. NEUROLOGIC: The patient is alert and oriented x3 with no focal neurologic deficits. HEENT: Sclerae without icterus. Mouth has moist mucous membranes with normal pallor. NECK: No JVD. Carotid upstroke brisk. No bruits bilaterally. LUNGS: Clear to auscultation with unlabored respirations. BACK: No scoliosis or kyphosis. CARDIAC: Regular rate and rhythm with normal S1 and S2. No S3 or S4 noted. No significant rubs, murmurs, thrills, or gallops noted throughout the precordium. PMI is not displaced. There is no parasternal heave. ABDOMEN: Soft, nontender, nondistended. No peritoneal signs present. No hepatosplenomegaly. No abnormal striae. EXTREMITIES: 2+ femoral and 2+ dorsalis pedis pulses. No cyanosis, clubbing, or edema. SKIN: No gross abnormalities. PERTINENT LABORATORY DATA: Hemoglobin 14.8, hematocrit 47.7. Lactic acid level 9.3. BNP of 4251. IMPRESSION: 1. Sepsis. 2. Respiratory failure. 3. Nonischemic cardiomyopathy. RECOMMENDATIONS: From a CV standpoint, we will continue close observation. He is currently on antibiotic therapy and respiratory management per Dr. Hardy Beasley. He is off all pressors. No further recommendation from a CV standpoint. Job ID: [id number]
[2018-12-26] MEDS: Famotidine/PF 20 mg/2ml Vial SLOW IVP SCH (21:12)
[2018-12-27] MEDS ORDERED: Dextrose 50% Abboject 50 ML SYRINGE ONE (00:24)
[2018-12-27] MEDS ORDERED: Dextrose 5% in Water 1,000 ML IV PRN (00:41)
[2018-12-27] MEDS: Dextrose 50% Abboject 50 ML SYRINGE IVP PRN ×2 (00:49→06:05)
[2018-12-27] MEDS: Vecuronium 10 MG VIAL IV PRN ×4 (01:17→10:24)
[2018-12-27] MEDS: Propofol 1,000 MG/100 ML VIAL IV PRN ×5 (01:27→19:40)
[2018-12-27] MEDS: Piperacillin/Tazobactam 3.375 GM in Sodium Chloride 0.9% 100 ML IVPB SCH ×4 (04:19→21:51)
[2018-12-27 04:22] LABS: #Basophils 0.1 thou/uL (0.0-0.2); #Eosinphils 0.1 thou/uL (0.0-0.7); #Lymphocytes 1.3 thou/uL (1.20-3.40); #Monocytes 0.7 thou/uL (0.11-0.59); #Neutrophils 11.4 thou/uL (1.40-6.50); %Basophils 0.9 % (0.0-1.0); %Eosinophils 0.4 % (0.0-10.0); %Lymphocytes 9.3 % (21.0-51.0); %Monocytes 5.1 % (0.0-10.0); %Neutrophils 84.3 % (42.0-75.0); Hemoglobin 14.4 g/dL (14.0-18.0); Mean Corpuscular HGB CONC 32.1 g/dL (32.0-36.0); Mean Corpuscular Hemoglobin 26.4 pg (27.0-31.0); Mean Corpuscular Volume 82.1 fL (78.0-98.0); Mean Platelet Volume 9.2 fL (7.4-10.4); Platelet Count 172 thou/uL (130-400); RBC Distribution Width 14.7 % (11.5-14.5); Red Blood Cell (RBC) Count 5.46 mill/uL (4.70-6.10); White Blood Cell (WBC) Count 13.5 thou/uL (4.8-10.8)
[2018-12-27 04:39] LABS: Anion Gap 14 mmol/L (10-20); BUN (Urea Nitrogen) 20 mg/dL (8.9-20.6); Calc. Creatinine Clearance 100 mL/min (70-130); Calcium 8.9 mg/dL (7.8-10.44); Carbon Dioxide 29 mmol/L (22-29); Chloride 102 mmol/L (98-107); Estimated GFR-MDRD 44; Glucose 93 mg/dL (70-105); Potassium 3.5 mmol/L (3.5-5.1); Sodium 141 mmol/L (136-145)
--- NOTE | 2018-12-27 05:01 | RAD ---
XR Chest 1 View Portable HISTORY: Respiratory distress. COMPARISON: Prior day's exam. FINDINGS: Heart size is enlarged. Endotracheal and NG tubes remain in place. Right central line is un changed in position. The parenchymal lung changes are stable. IMPRESSION: Stable exam.
[2018-12-27] MEDS: Vancomycin HCl 1.5 GM in Sodium Chloride 0.9% 250 ML 300 ML IVPB SCH ×2 (05:26→16:55)
[2018-12-27] MEDS: Acetaminophen 325 MG TAB PO PRN ×2 (05:56→10:12)
[2018-12-27 07:04] LABS: Actual Bicarbonate (HCO3a) 23.6 mEq/L (22-28); CO2 Tension 35.6 mmHg (35.0-45.0); Carboxyhemoglobin (COHb) 1.2 gm% (0.0-3.0); Hemoglobin (Hb) 14.4 g/dL (14.0-18.0); O2 Tension (PaO2) 84.1 mmHg (80.0-100.0); Potassium - ABG Lab 3.16 mmol/L (3.70-5.30); pH, Arterial 7.44 (7.35-7.45)
[2018-12-27 07:35] LABS: Peep/CPAP 7.5 cmH2O; Puncture Site LRA
[2018-12-27] MEDS: Enoxaparin Sodium 40 MG/0.4 ML SYRINGE SC SCH (09:20)
[2018-12-27] MEDS: Famotidine/PF 20 mg/2ml Vial SLOW IVP SCH ×2 (09:21→20:37)
[2018-12-27] MEDS: fentaNYL Citrate/PF 2,000 MCG in Sodium Chloride 0.9% 60 ML IV SCH ×2 (09:30→19:17)
[2018-12-27] MEDS: Oseltamivir 6 MG/ML ORAL SUSP PO SCH ×2 (10:12→20:37)
--- NOTE | 2018-12-27 10:57 | PRG ---
DATE OF SERVICE: 12/27/2018 SERVICE: Pulmonary Medicine. INTERVAL HISTORY: The patient is doing poorly from respiratory standpoint. He has a prolonged expiratory phase. Peak pressures are high, though the plateaus are within goal. He cannot provide any additional elements of the history. He is requiring heavy sedation yesterday. We are going to start lightening that up to see how he does. He cannot provide any additional elements of the history and his RASS is -3. PHYSICAL EXAMINATION: VITAL SIGNS: Afebrile, pulse 121, blood pressure 142/100, respirations 13, and saturation 93% on 40% FiO2 and 7.5 of PEEP. GENERAL: The patient is intubated and sedated. HEENT: Normocephalic, atraumatic. Sclerae are white. Conjunctivae are pink. Oral mucosa moist without lesions. LUNGS: Prolonged expiratory phase. Rhonchi, wheezing, and crackles are all present. There is a prolonged expiratory phase. HEART: Tachycardic. Regular. ABDOMEN: Soft, nontender, and nondistended. Bowel sounds are positive. MUSCULOSKELETAL: No cyanosis or clubbing. No pitting in bilateral lower extremities. NEUROLOGIC: Grossly nonfocal. LABORATORY DATA: WBC 13.5, hemoglobin 14.4, and platelets 172,000. PH of 7.44, pCO2 of 35, pO2 of 84. Blood sugar ranges from 78 to 59. Creatinine 2.02, which is well above baseline. Potassium 3.5. Urine drug screen is positive for benzodiazepine and cannabinoids. Otherwise, salicylates, acetaminophen, and alcohol are negative. Blood culture is growing coag-negative Staph in 1/2. Urine culture is negative to date. Influenza A is negative. Influenza B is positive. IMAGING DATA: 1. Echocardiogram shows an ejection fraction of 15% to 20%, moderate aortic regurgitation, and severe tricuspid regurgitation are also noted. 2. Ultrasound of bilateral lower extremities demonstrates negative exam for DVTs. 3. CT dissection protocol shows endotracheal tube. There is bilateral dependent infiltrate present with air bronchograms in overt consolidating changes. Interstitial fullness and ground-glass opacifications are present. Excessive cardiomegaly is noted. Abnormal contour to the liver is present. No aneurysm. ASSESSMENT: 1. Acute hypoxic and hypercapnic respiratory failure. 2. Asthma with acute exacerbation. 3. Influenza B. 4. Community-acquired pneumonia. 5. Acute on chronic systolic heart failure. DISCUSSION AND PLAN: I will replace the potassium. We will support his kidneys for the time being. We will avoid aggressive diuretics, or IV fluids at this point and allow him to auto-diurese through time. We will try to avoid any nephrotoxic agents, or hypotension. Steroids will be initiated as we will schedule nebulized medications. We will continue our empiric antibiotic coverage. Pulmonary/ Critical Care will continue to follow along, but at this point, his obstructive airflow limitation prevents liberation from mechanical ventilation. Critical care time, 30 minutes. Job ID: [id number] SHAMIR
[2018-12-27] MEDS: Bacteriostatic Water 30 ML VIAL FS PRN ×2 (11:44→18:00)
[2018-12-27] MEDS: methylPREDNISolone Sod Succ 40 MG VIAL IVP SCH ×3 (11:44→23:49)
--- NOTE | 2018-12-27 12:30 | PDOC.PN ---
- Subjective Encounter Start Date: 12/27/18 Encounter Start Time: 13:20 Subjective: Patient sedated on vent. Fever as high as 105, controlled with cooling -: blanket. - Objective MAR Reviewed: Yes Vital Signs & Weight: Vital Signs (12 hours) Pulse Resp BP Pulse Ox 12/27/18 12:00 15 12/27/18 10:19 121 H 142/100 H 12/27/18 10:00 13 12/27/18 08:00 18 94 L 12/27/18 06:38 105 H 116/84 12/27/18 06:00 18 12/27/18 04:00 18 12/27/18 02:00 18 Weight Admit Weight 326 lb 15.128 oz Weight 328 lb 11.347 oz Most Recent Monitor Data Heart Rate from ECG 110 NIBP 118/90 NIBP BP-Mean 99 Respiration from ECG 0 SpO2 97 I&O: 12/26/18 12/27/18 12/28/18 06:59 06:59 06:59 Intake Total 200 2267 100 Output Total 550 5260 500 Balance -350 -5841 -400 Result Diagrams: 12/27/18 03:45 12/27/18 03:45 Additional Labs: Accuchecks 12/27/18 12/27/18 12/27/18 06:28 06:05 03:45 POC Glucose 79 59 L* 99 12/27/18 12/27/18 12/27/18 02:02 01:07 00:47 POC Glucose 95 78 54 L* 12/27/18 12/26/18 12/26/18 00:24 16:56 11:38 POC Glucose 37 L* 77 62 L 12/26/18 06:05 POC Glucose 153 H Phys Exam - Physical Examination sedated on vent HEENT: moist MMs Respiratory: no wheezing, no rales, no rhonchi, clear to auscultation bilateral Cardiovascular: RRR, no significant murmur Gastrointestinal: soft, positive bowel sounds Musculoskeletal: no edema Neurological: non-focal Deviation from normal: sedated on vent Dx/Plan (1) Community acquired pneumonia, bilateral Code(s): J18.9 - PNEUMONIA, UNSPECIFIED ORGANISM Status: Acute Comment: on Zosyn and Vancomycin since 12/26/18 (2) Influenza B Code(s): J10.1 - FLU DUE TO OTH IDENT INFLUENZA VIRUS W OTH RESP MANIFEST Status: Acute Comment: on Tamiflu (3) Acute respiratory failure with hypoxia and hypercapnia Code(s): J96.01 - ACUTE RESPIRATORY FAILURE WITH HYPOXIA; J96.02 - ACUTE RESPIRATORY FAILURE WITH HYPERCAPNIA Status: Acute Comment: intubated (4) Sepsis Code(s): A41.9 - SEPSIS, UNSPECIFIED ORGANISM Status: Acute (5) Acute 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 heart failure Code(s): I50.43 - ACUTE ON CHRONIC COMBINED SYSTOLIC AND DIASTOLIC HRT FAIL Status: Acute Comment: EF 15-20% (6) Chronic obstructive asthma with exacerbation Code(s): J44.1 - CHRONIC OBSTRUCTIVE PULMONARY DISEASE W (ACUTE) EXACERBATION; J45.901 - UNSPECIFIED ASTHMA WITH (ACUTE) EXACERBATION Status: Acute (7) Hypertension Code(s): I10 - ESSENTIAL (PRIMARY) HYPERTENSION Status: Chronic Qualifiers: Hypertension type: essential hypertension Qualified Code(s): I10 - Essential (primary) hypertension (8) Dyslipidemia Code(s): E78.5 - HYPERLIPIDEMIA, UNSPECIFIED Status: Chronic (9) Tobacco abuse Code(s): Z72.0 - TOBACCO USE Status: Chronic - Plan cont current plan of care, continue antibiotics, respiratory therapy * . - Discharge Day Encounter end time: 13:30
[2018-12-27 16:53] LABS: Vancomycin, Trough 33.8 ug/mL
[2018-12-27] MEDS ORDERED: Norepinephrine 8 MG/0.9% NS 250 ML ONE (21:46)
[2018-12-27] MEDS: Norepinephrine 8 MG/250 ML BAG IVPB PRN (21:55)
[2018-12-28] MEDS: Propofol 1,000 MG/100 ML VIAL IV PRN ×3 (02:32→16:07)
[2018-12-28] MEDS: Piperacillin/Tazobactam 3.375 GM in Sodium Chloride 0.9% 100 ML IVPB SCH ×4 (04:18→21:22)
[2018-12-28 04:43] LABS: #Lymphocytes 0.9 thou/uL (1.20-3.40); #Monocytes 0.3 thou/uL (0.11-0.59); #Neutrophils 12.4 thou/uL (1.40-6.50); %Basophils 0.2 % (0.0-1.0); %Eosinophils 0.1 % (0.0-10.0); %Lymphocytes 6.5 % (21.0-51.0); %Monocytes 2.3 % (0.0-10.0); Hemoglobin 14.5 g/dL (14.0-18.0); Mean Corpuscular HGB CONC 30.7 g/dL (32.0-36.0); Mean Corpuscular Hemoglobin 26.2 pg (27.0-31.0); Mean Corpuscular Volume 85.2 fL (78.0-98.0); Mean Platelet Volume 9.3 fL (7.4-10.4); Platelet Count 225 thou/uL (130-400); RBC Distribution Width 14.9 % (11.5-14.5); Red Blood Cell (RBC) Count 5.55 mill/uL (4.70-6.10); White Blood Cell (WBC) Count 13.6 thou/uL (4.8-10.8)
[2018-12-28] MEDS ORDERED: Vancomycin HCl 1.5 GM in Sodium Chloride 0.9% 250 ML 300 ML IVPB SCH (05:00)
[2018-12-28 05:02] LABS: Vancomycin, Random 27.1 ug/mL (See Comment)
[2018-12-28] MEDS: methylPREDNISolone Sod Succ 40 MG VIAL IVP SCH ×3 (05:02→17:32)
[2018-12-28 05:09] LABS: Anion Gap 18 mmol/L (10-20); BUN (Urea Nitrogen) 33 mg/dL (8.9-20.6); Calc. Creatinine Clearance 66 mL/min (70-130); Calcium 9.5 mg/dL (7.8-10.44); Carbon Dioxide 27 mmol/L (22-29); Chloride 101 mmol/L (98-107); Estimated GFR-MDRD 28; Glucose 174 mg/dL (70-105); Potassium 4.7 mmol/L (3.5-5.1); Sodium 141 mmol/L (136-145)
--- NOTE | 2018-12-28 08:00 | RAD ---
Portable chest: HISTORY: CCU follow-up. Pneumonia. COMPARISON: 12/27/2018 FINDINGS:Cardiomegaly. Mild vascular congestion. Hazy infiltrates seen in both mid and lower lungs. B ilateral effusions. ET tube and NG tube remain in place. AICD leads unchanged. Central line unchanged. IMPRESSION:Stable chest findings from yesterday
[2018-12-28] MEDS: Norepinephrine 8 MG/250 ML BAG IVPB PRN ×2 (08:02→16:53)
[2018-12-28] MEDS: Enoxaparin Sodium 40 MG/0.4 ML SYRINGE SC SCH (08:36)
[2018-12-28] MEDS: Oseltamivir 6 MG/ML ORAL SUSP PO SCH ×2 (08:36→21:22)
[2018-12-28] MEDS: Famotidine/PF 20 mg/2ml Vial SLOW IVP SCH ×2 (08:36→21:22)
[2018-12-28] MEDS: Acetaminophen 325 MG TAB PO PRN (08:41)
--- NOTE | 2018-12-28 08:50 | PRG ---
DATE OF SERVICE: 12/28/2018 SERVICE: Pulmonary Medicine. INTERVAL HISTORY: The patient is doing much better from a respiratory standpoint. Overnight, he had some marginal blood pressures and was put back on Levophed. His urine output is marginal. We have decreased the sedation very significantly and he is starting to be more appropriate. His obstructive airflow limitation on the ventilator has improved dramatically. Otherwise, there has been no interval change to his condition. PHYSICAL EXAMINATION: VITAL SIGNS: Afebrile currently. Overnight, T-max was 103 degrees. Pulse 103, blood pressure 101/57, respirations 13, saturation 97% on 31% FiO2 and a PEEP of 5 now. HEENT: Normocephalic and atraumatic. Sclerae are white. Conjunctivae are pink. Oral mucosa is moist without lesions. LUNGS: Decent air entry. There is rhonchi present. Polyphonic wheezing is noted. No dependent crackles are appreciated. HEART: Tachycardic. Regular. ABDOMEN: Soft, nontender, and nondistended. Bowel sounds are positive. MUSCULOSKELETAL: No cyanosis or clubbing. There is trace to 1+ pitting in the bilateral lower extremities. NEUROLOGIC: Grossly nonfocal. LABORATORY DATA: WBC 13.6, hemoglobin 14.5, and platelets 225,000. Neutrophil count is 91% on top of 6% lymphocytes. D-dimer 3.5. Creatinine 3.04 and up trending, BUN 33. Blood sugar ranges from 59 to 79. Urinalysis is unremarkable. Toxicology is positive for vancomycin trough of 27. Influenza B is positive. Coag-negative staph is growing in 1/2 blood cultures, and urine cultures are negative to date. IMAGING DATA: Chest x-ray demonstrates enteric catheter coursing midline below the level of the diaphragm and out of the field to view. AICD is in place. Endotracheal tube terminates roughly 4 cm above the level of the meg. Right IJ is in good position. Cardiomegaly is noted. There are likely bilateral pleural effusions. Possible right lower lobe consolidation is present. ASSESSMENT: 1. Acute hypoxic and hypercapnic respiratory failure. 2. Asthma with acute exacerbation. 3. Community-acquired pneumonia, likely secondary to influenza B. 4. Influenza B. 5. Ghuro-hp-evlokzh systolic heart failure. DISCUSSION AND PLAN: We will continue antibiotics, nebulized medications, and steroids. We will wean ventilator support through time as well as the oxygen. At this point, his obstructive airflow limitation is still too great to safely extubate. He will need to stay on mechanical ventilation for at least an additional 24 hours. I will initiate tube feeds once recommendations from dietitian present. CRITICAL CARE TIME: 30 minutes. Job ID: [id number]
--- NOTE | 2018-12-28 08:58 | PDOC.PN ---
- Subjective Encounter Start Date: 12/28/18 Encounter Start Time: 12:10 Subjective: Patient now requiring high dose levophed again to keep -: BP up. Fevers resolved. Remains intubated and sedated. - Objective MAR Reviewed: Yes Vital Signs & Weight: Vital Signs (12 hours) Temp Pulse Resp BP Pulse Ox 12/28/18 08:00 14 12/28/18 07:04 103 H 101/57 L 96 12/28/18 07:02 97 13 97 12/28/18 07:00 99.1 F 12/28/18 06:00 13 12/28/18 04:00 13 12/28/18 02:00 13 12/28/18 00:00 15 12/27/18 23:32 95 13 97 12/27/18 22:00 13 Weight Admit Weight 326 lb 15.128 oz Weight 324 lb 8.327 oz Most Recent Monitor Data Heart Rate from ECG 105 NIBP 102/69 NIBP BP-Mean 80 Respiration from ECG 13 SpO2 93 I&O: 12/27/18 12/28/18 12/29/18 06:59 06:59 06:59 Intake Total 2267 1864 0 Output Total 5260 1338 50 Balance -2993 526 -50 Result Diagrams: 12/28/18 04:20 12/28/18 04:20 Additional Labs: Accuchecks 12/27/18 12/27/18 12/27/18 20:19 17:45 12:24 POC Glucose 79 60 L 61 L Phys Exam - Physical Examination Constitutional: NAD HEENT: moist MMs coarse breath sounds bilaterally Cardiovascular: RRR, no significant murmur Gastrointestinal: soft, positive bowel sounds Neurological: non-focal Deviation from normal: sedated on vent Dx/Plan (1) Community acquired pneumonia, bilateral Code(s): J18.9 - PNEUMONIA, UNSPECIFIED ORGANISM Status: Acute Comment: on Zosyn and Vancomycin since 12/26/18 (2) Influenza B Code(s): J10.1 - FLU DUE TO OTH IDENT INFLUENZA VIRUS W OTH RESP MANIFEST Status: Acute Comment: on Tamiflu (3) Acute respiratory failure with hypoxia and hypercapnia Code(s): J96.01 - ACUTE RESPIRATORY FAILURE WITH HYPOXIA; J96.02 - ACUTE RESPIRATORY FAILURE WITH HYPERCAPNIA Status: Acute Comment: intubated (4) Sepsis Code(s): A41.9 - SEPSIS, UNSPECIFIED ORGANISM Status: Acute Comment: on high dose levophed now (5) Acute 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 heart failure Code(s): I50.43 - ACUTE ON CHRONIC COMBINED SYSTOLIC AND DIASTOLIC HRT FAIL Status: Acute Comment: EF 15-20% (6) Chronic obstructive asthma with exacerbation Code(s): J44.1 - CHRONIC OBSTRUCTIVE PULMONARY DISEASE W (ACUTE) EXACERBATION; J45.901 - UNSPECIFIED ASTHMA WITH (ACUTE) EXACERBATION Status: Acute (7) Hypertension Code(s): I10 - ESSENTIAL (PRIMARY) HYPERTENSION Status: Chronic Qualifiers: Hypertension type: essential hypertension Qualified Code(s): I10 - Essential (primary) hypertension (8) Dyslipidemia Code(s): E78.5 - HYPERLIPIDEMIA, UNSPECIFIED Status: Chronic (9) Tobacco abuse Code(s): Z72.0 - TOBACCO USE Status: Chronic (10) Acute renal failure (ARF) Status: Acute Qualifiers: Acute renal failure type: unspecified Qualified Code(s): N17.9 - Acute kidney failure, unspecified Comment: Dr. Chacko consulted for nephrology - Plan cont current plan of care, continue antibiotics, respiratory therapy, DVT proph w/lovenox, DVT proph w/SCDs Patient is critically ill, prognosis guarded * . - Discharge Day Encounter end time: 12:25
[2018-12-28] MEDS ORDERED: Pancrelipase DR 12000 1 CAP PER TUBE PRN (10:43)
[2018-12-28] MEDS ORDERED: Sodium Bicarbonate Tab 325 MG TAB PER TUBE PRN (10:43)
[2018-12-28 11:36] LABS: Bilirubin Negative (Negative); Blood, Urine Small (Negative); Clarity TURBID (Clear); Glucose, Urine (Dipstick) 100 mg/dL (Negative); Leukocyte Small (Negative); Nitrite Negative (Negative); Protein, Urine (Dipstick) 100 mg/dL (Neg-Trace); Specific Gravity, Urine 1.019 (1.002-1.036)
[2018-12-28 11:53] LABS: Bacteria/HPF 1+ HPF (None Seen); Hyaline Casts/LPF 0-3 HYALINE CAST LPF (0-3 Hyaline); Manual Microscopic Reviewed? No Path Casts Seen; RBC/HPF 0-3 HPF (0-3); Renal Epithelial None Seen HPF (0-3); Transitional Epithelial NONE SEEN HPF (0-3); Yeast-All Forms None Seen HPF (None Seen)
[2018-12-28 12:10] LABS: Creatinine, Urine 97.06 mg/dL (63-166); Protein, Urine Random Quant 137 mg/dL (1-14); Sodium, Urine Less than 20 mmol/L (Not Available); Urea Nitrogen, Random Urine 261 mg/dl
--- NOTE | 2018-12-28 12:31 | CON ---
DATE OF CONSULTATION: 12/28/2018 CONSULTING PHYSICIAN: Dr. Igor Stanley. REASON FOR CONSULTATION: Acute kidney injury. HISTORY OF PRESENT ILLNESS: A 43-year-old male with past medical history significant for cardiomyopathy with ejection fraction of 15 to 20, status post biventricular pacer, which was recently upgraded to AICD due to arrhythmias including ventricular tachycardia, who was admitted to the ICU on December 26 due to acute onset of mental status change and shortness of breath followed by hypertension after intubation. The patient reportedly presented to the ER via EMS after AICD shocked in several times. In the ER, the patient was noted to be tachycardic with heart rate up to 170s and also febrile with T-max of 104. The patient also was found to be belligerent and uncooperative, and will not let allow for monitoring including tele and SpO2 monitors, hence was intubated to facilitate evaluation and treatment. The patient however developed hypotension with blood pressure dropping down to 50s, hence, was started on Levophed and was subsequently admitted to the ICU. Further evaluation revealed influenza B positivity. The patient was started on broad-spectrum antimicrobials including vancomycin, Zosyn, and Tamiflu. On presentation, creatinine was 1.59. The patient received diuretics initially with prompt diuresis associated with negative balance of 2900 on the first day. He however was noted to have progressively increasing creatinine to a peak of 3.04 today necessitating Nephrology consult. Review of medical records showed that the patient has had frequent episodes of acute kidney injury with baseline creatinine ranging from 0.8 to 1.1. Of note, however, on discharge on December 16 following hospitalization for acute CHF exacerbation, creatinine was 1.53. In the first 24 hours of hospitalization, the patient made about 5 L of urine with the add of diuretics, but in the next 24 hours, he made only 1300 mL of urine as diuretics was discontinued. Urine output has slowed down even further. Review of medical record also showed that the patient was on vancomycin with trough of 33.8 December 27 afternoon and random of 27.1 earlier this morning. The patient is currently intubated and the following history was gleaned from review of medical records. PAST MEDICAL HISTORY: 1. Cardiomyopathy with EF of 15 to 20. 2. Chronic congestive heart failure. 3. Asthma/COPD. 4. Dyslipidemia. 5. Hypertension. 6. Anxiety disorder. 7. Cardiac arrhythmias. 8. Morbid obesity with the BMI more than 45. PAST SURGICAL HISTORY: 1. Biventricular pacemaker placement. 2. Recent upgrade to AICD. 3. Cardiac catheterization in January 2014. 4. Left hip replacement. FAMILY HISTORY: Could not be obtained as the patient is intubated at this time. SOCIAL HISTORY: Medical report showed the patient uses tobacco and marijuana. There is no history of alcohol use. ALLERGIES: NO KNOWN DRUG ALLERGIES REPORTED. MEDICATIONS: Prior to hospital medications; 1. Albuterol HFA one puff p.r.n. for shortness of breath. 2. Allopurinol 300 mg p.o. daily. 3. Aspirin 81 mg p.o. b.i.d. 4. Lipitor 40 mg p.o. daily. 5. Carvedilol 25 mg p.o. b.i.d. 6. Nexium 40 mg p.o. daily. 7. Furosemide 40 mg p.o. b.i.d. 8. Hydrocodone/acetaminophen 10/325 mg tablets, 1 to 2 tablets q.4 p.r.n. 9. Lisinopril 40 mg p.o. daily. 10. Potassium chloride 20 mEq p.o. daily. 11. Symbicort one puff inhalation daily. 12. Ambien 10 mg p.o. daily at bedtime. Current hospital medications; 1. Vancomycin 1.5 g q.12 hours, discontinued on December 27, 2018. 2. Zosyn 3.375 g q.6 hours. 3. Methylprednisolone 40 mg IV q.6. 4. Lovenox 40 mg subcutaneously daily. 5. Pepcid 20 mg IV push b.i.d. 6. DuoNeb 3 mL nebulization q.6 hours by respiratory therapy. 7. Tamiflu 75 mg p.o. b.i.d. 8. Potassium chloride 40 mEq p.r.n. 9. Fentanyl infusion. 10. Propofol infusion. 11. Levophed titration. 12. Pancrelipase one capsule per tube. REVIEW OF SYSTEMS: Could not be obtained due to the patient's condition. PHYSICAL EXAMINATION: VITAL SIGNS: Temperature 99.1, pulse 107, BP 100/57, respiratory rate 18, SpO2 of 97 on ventilator. GENERAL: Sedated, morbidly obese male. HEENT: Head; normocephalic, atraumatic. OG and ET tubes are in place. NECK: Supple. No JVD or masses appreciated. CARDIOVASCULAR: Regular rhythm, but tachycardic. Normal heart sounds one and two appreciated. RESPIRATORY: Ventilator transmitted breath sounds noted with no obvious rhonchi. GI: Morbidly obese, soft with normal bowel sounds. UROGENITAL: Grossly normal looking with no edema. Prince catheter in place draining small clear urine. EXTREMITIES: Grossly normal looking atraumatic with no obvious edema, erythema , or cyanosis. Distal pulses are palpable. NEUROLOGIC: The patient is sedated. DIAGNOSTIC DATA: CBC today showed WBC count of 13.6, hemoglobin of 14.5, MCV of 85.2, platelet of 225. Of note, on presentation, WBC was 10.4 and hemoglobin was 14.8 with platelet of 236. BMP today December 28 showed sodium 141, potassium 4.7, chloride 101, CO2 of 27, anion gap 18, BUN 33, creatinine 3.04, glucose 174, calcium 9.5. Of note, creatinine was 2.02 December 27 and 1.59 on presentation. Arterial blood gas on December 27 at 6:30 a.m. showed pH of 7.44, pCO2 of 35.6, PO2 of 84.1, and base excess of 0.0. Urinalysis performed on presentation December 26 showed yellow cloudy urine with specific gravity of 1.011, urine protein 300, urine glucose 100, negative ketone , nitrite, bilirubin, and leukocyte esterase. Microscopy showed 11 to 20 red blood cells and 21 to 50 WBCs. Vancomycin trough on December 27 was 33.8. Random vancomycin performed today following discontinuation of vancomycin yesterday is 27.1. Urine drug screen performed on presentation was positive for benzodiazepine and cannabinoids. Plasma alcohol, acetaminophen and salicylates were unremarkable. Chest x-ray performed earlier today showed mild vascular congestion with hazy infiltrates seen in both middle and lower lungs as well as mild bilateral pleural effusion. Findings are said to be stable compared to yesterday's film. Echocardiogram performed on December 26 showed markedly decreased systolic function with EF of 15 to 20, moderately enlarged right atrium and left atrium. Moderate to severe tricuspid regurgitation as well as moderate mitral regurgitation were noted. ASSESSMENT: 1. Acute kidney injury: ATN vs vancomycin induced nephrotoxicity of both.T Patient had hypotension post intubation which may have caused ATN. Also supratherapeutic vanc level and concomitant use ose of zosyn increases risk of vancomycin induced. 2. Volume status: The patient is not overtly fluid overloaded, though chest x- ray showed mild congestion and effusion, which most likely is chronic given history of chronic systolic heart failure with EF in 15 to 20. Made good urine with diuretics initially but urine output has dropped with discontuation of diuretics 3. Electrolytes: Electrolytes at this time seems appropriate. 4. Acid-base balance: Seems compensated with no acute issues. 5. Shock: Multifactorial from cardiac as well as infective. PLAN: I agree with discontinuation of vancomycin. If MRSA coverage is needed down the line, alternatives would be preferred given high probability of vancomycin induced nephrotoxicity in this patient. Since the patient seems close to euvolemia, I will recommend holding diuretics at this time, but however, there is no contraindication to using diuretics to maintain adequate volume status. We will monitor urine output as well as daily weights, renal function, and electrolytes and address as appropriate. We will also get repeat urinalysis with urine electrolytes and eosinophils. We will also get renal ultrasound. There is no need for dialytic treatment at this time. We will monitor and follow patient along with you. Many thanks for involving us in the care of this patient. Job ID: [id number] [facility]ITAL[facility]ann
--- NOTE | 2018-12-28 12:54 | ULT ---
Exam: Bilateral renal ultrasound HISTORY: Acute kidney insufficiency COMPARISON: None FINDINGS: Evaluation limited by body habitus and bowel gas Right kidney: Normal cortical echotexture. No hydronephrosis. Right kidney measurements: 10.4 x 5.7 x 4.4 cm Left kidney: Normal cortical echotexture. No hydronephrosis Left kidney measurements 10.5 x 5.7 x 5.2 cm Urinary bladder: Decompressed due to Prince catheterization IMPRESSION: No hydronephrosis.
[2018-12-28] MEDS: fentaNYL Citrate/PF 2,000 MCG in Sodium Chloride 0.9% 60 ML IV SCH (14:21)
[2018-12-28] MEDS ORDERED: Insulin Regular 300 UNITS/3 ML VIAL ONE (17:40)
[2018-12-28] MEDS: Insulin Regular 300 UNITS/3 ML VIAL SC PRN (17:41)
[2018-12-29] MEDS: Insulin Regular 300 UNITS/3 ML VIAL SC PRN ×4 (00:17→16:37)
[2018-12-29] MEDS: methylPREDNISolone Sod Succ 40 MG VIAL IVP SCH ×4 (00:18→20:57)
[2018-12-29] MEDS: Propofol 1,000 MG/100 ML VIAL IV PRN ×4 (00:18→18:41)
[2018-12-29] MEDS: Piperacillin/Tazobactam 3.375 GM in Sodium Chloride 0.9% 100 ML IVPB SCH (03:43)
[2018-12-29 04:10] LABS: #Lymphocytes 0.8 thou/uL (1.20-3.40); #Monocytes 0.6 thou/uL (0.11-0.59); #Neutrophils 10.9 thou/uL (1.40-6.50); %Eosinophils 0.1 % (0.0-10.0); %Lymphocytes 6.1 % (21.0-51.0); %Monocytes 4.9 % (0.0-10.0); %Neutrophils 88.9 % (42.0-75.0); Hemoglobin 13.8 g/dL (14.0-18.0); Mean Corpuscular HGB CONC 30.8 g/dL (32.0-36.0); Mean Corpuscular Hemoglobin 26.2 pg (27.0-31.0); Mean Corpuscular Volume 85.1 fL (78.0-98.0); Mean Platelet Volume 9.1 fL (7.4-10.4); Platelet Count 229 thou/uL (130-400); RBC Distribution Width 14.7 % (11.5-14.5); Red Blood Cell (RBC) Count 5.28 mill/uL (4.70-6.10); White Blood Cell (WBC) Count 12.2 thou/uL (4.8-10.8)
[2018-12-29 04:41] LABS: Anion Gap 19 mmol/L (10-20); BUN (Urea Nitrogen) 64 mg/dL (8.9-20.6); Calc. Creatinine Clearance 41 mL/min (70-130); Calcium 9.1 mg/dL (7.8-10.44); Carbon Dioxide 26 mmol/L (22-29); Chloride 100 mmol/L (98-107); Estimated GFR-MDRD 16; Glucose 177 mg/dL (70-105); Sodium 140 mmol/L (136-145)
[2018-12-29] MEDS: Norepinephrine 8 MG/250 ML BAG IVPB PRN (05:44)
[2018-12-29] MEDS: Famotidine/PF 20 mg/2ml Vial SLOW IVP SCH ×2 (08:27→08:58)
[2018-12-29] MEDS: Enoxaparin Sodium 40 MG/0.4 ML SYRINGE SC SCH (08:27)
[2018-12-29] MEDS: Oseltamivir 6 MG/ML ORAL SUSP PO SCH ×2 (08:28→20:57)
[2018-12-29] MEDS ORDERED: Heparin 5,000 UNITS/ML VIAL SC SCH (09:00)
[2018-12-29] MEDS ORDERED: Polyethylene Glycol 3350 17 GM Packet PO SCH ×2 (09:00→09:45)
[2018-12-29] MEDS: Senokot S 8.6-50 MG TAB PO SCH ×2 (09:53→20:57)
[2018-12-29 10:09] LABS: Creatinine, Urine 83.9 mg/dL (63-166)
[2018-12-29] MEDS: Sodium Chloride 0.9% 1,000 ML IV SCH ×2 (10:19→21:45)
--- NOTE | 2018-12-29 10:35 | PRG ---
DATE OF SERVICE: 12/29/2018 SERVICE: Pulmonary Medicine. INTERVAL HISTORY: The patient is doing really well from respiratory standpoint. He is breathing comfortably. His expiratory airflow limitation persists. He continues to have significant amount of sputum production. He is tolerating our tube feeds. There has been no interval change to his condition otherwise. His fevers have broken. His white blood cell count is trending down. PHYSICAL EXAMINATION: VITAL SIGNS: Afebrile, pulse 87, blood pressure 117/87, respirations 13, and saturation 98% on 29% of FiO2 and a PEEP of 5. GENERAL: The patient is intubated and sedated. HEENT: Normocephalic and atraumatic. Sclerae are white. Conjunctivae are pink. Oral mucosa is moist without lesions. LUNGS: Decent air entry. Extensive rhonchi and wheezing are present. There is a prolonged expiratory phase. No crackles are appreciated. HEART: Normal rate and regular. ABDOMEN: Soft, nontender, and nondistended. Bowel sounds are positive. MUSCULOSKELETAL: No cyanosis or clubbing. No pitting in the bilateral lower extremities. NEUROLOGIC: Grossly nonfocal. LABORATORY DATA: WBC 12.2, hemoglobin 13.8, and platelets 229,000. Creatinine is trending upward to 5.0. Basic metabolic profile is otherwise unremarkable. Vancomycin trough is 33.8, but has improved to 27.1. Coag-negative staph is growing in 1/2 blood cultures. There are two separate species growing, likely contaminant. The urine culture is negative. Influenza B is positive. IMAGING STUDIES: Ultrasound of the kidneys demonstrates no hydronephrosis. Chest x-ray demonstrates stable findings including mild vascular congestion and bilateral effusions as well as an infiltrate. ASSESSMENT: 1. Acute hypoxic and hypercapnic respiratory failure. 2. Asthma with acute exacerbation. 3. Community-acquired pneumonia secondary to influenza B. 4. Influenza B. 5. Acute on chronic systolic heart failure. 6. Acute kidney injury. DISCUSSION AND PLAN: I am going to discontinue the Zosyn. At this point, I have a very low suspicion that we are dealing with an acute infectious bacterial process. Tamiflu will be continued for a total duration of 5 to 6 days. Pulmonary/ Critical Care will continue to follow along while the patient remains in this location. I have made some small adjustments to the ventilator in order to actually increase expiratory airflow. We will wean away Levophed as tolerated. CRITICAL CARE TIME: 30 minutes. Job ID: [id number] MTDD
--- NOTE | 2018-12-29 10:55 | PRG ---
DATE OF SERVICE: 12/29/2018 SUBJECTIVE: A 43-year-old morbidly obese male with known history of cardiomyopathy with ejection fraction of 15% to 20%, admitted due to acute encephalopathy and shortness of breath, whom we are following up for acute kidney injury. The patient is still intubated and mechanically ventilated, hence unable to provide any history. OBJECTIVE: VITAL SIGNS: Temperature 97.9, pulse 87, SpO2 of 98% on ventilator , and blood pressure is 117/87. GENERAL: Sedated, morbidly obese male. HEENT: Normocephalic and atraumatic. OG and ET tubes are in place. CARDIOVASCULAR: Regular rhythm and rate with normal heart sounds 1 and 2. RESPIRATORY: Ventilator transmitted breath sounds heard in all lung zones. GI: Morbidly obese, soft, nontender, and nondistended with normal bowel sounds. UROGENITAL: Prince catheter is in place draining clear urine. EXTREMITIES: Grossly normal, looking atraumatic with no obvious edema, erythema , or cyanosis. Distal pulses are palpable. NEUROLOGIC: The patient is sedated. DIAGNOSTIC DATA: CBC showed WBC count of 12.2, hemoglobin of 13.8, MCV of 85.2 , and platelet of 229. BMP showed sodium 140, potassium 5.0, chloride 100, CO2 of 26, BUN 64, creatinine 5.0, glucose 177, and calcium 9.1. Of note, creatinine was 3.04 and BUN 33 yesterday. Urinalysis of December 28, 2018, showed positive protein, glucose, small blood and leukocyte esterase. Microscopy showed 0 to 3 rbc's and greater than 50 to qly-eimdtbbv-si-count white blood cells and squamous cells. Random urine protein 137 mg/dL. Random urine creatinine 97.06, urine sodium less than 20, and random urine urea 261. Fractional excretion of sodium is 0.45. White fractional excretion of urea is 25%, all suggestive of prerenal etiology. Renal ultrasound showed normal size kidneys with normal echogenicity with right kidney measuring 10.4 x 5.7 x 4.4 and left 10.5 x 5.7 x 5.2. ASSESSMENT: 1. Acute kidney injury: Etiology remains unclear, but seems to be the acute tubular necrosis with or without vancomycin-induced nephrotoxicity. Prerenal etiology cannot be ruled out given fractional excretion of urea and sodium suggestive of prerenal causes. The patient is currently off vancomycin. We will start a therapeutic trial with normal saline running at 100 mL for 10 hours and recheck renal function. We will also get repeat urine electrolytes. 2. The patient is already on steroid for chronic obstructive pulmonary disease exacerbation and this could possibly take care of any interstitial nephritis. 3. Volume status: The patient is close to euvolemia. There is no overt edema of the extremities. Of note, the patient was on diuretics up until yesterday. 4. Hypotension: The patient's blood pressure has been running high, but since intubation, has been hypotensive, which improved, but was started on Levophed yesterday. We will optimize hemodynamics and monitor renal function. 5. Electrolytes are acceptable at this time. 6. Acid-base balance within normal limits. 7. Other treatment as per Pulmonology and Critical Care and primary attending. Job ID: [id number] MTDD
[2018-12-29] MEDS: fentaNYL Citrate/PF 2,000 MCG in Sodium Chloride 0.9% 60 ML IV SCH (10:59)
[2018-12-29] MEDS: Sodium Bicarbonate 150 MEQ in Dextrose 5% in Water 1,000 ML IV SCH (12:23)
[2018-12-29] MEDS ORDERED: Piperacillin/Tazobactam 2.25 GM in Sodium Chloride 0.9% 100 ML IVPB SCH (14:00)
[2018-12-29 22:56] LABS: Anion Gap 21 mmol/L (10-20); BUN (Urea Nitrogen) 90 mg/dL (8.9-20.6); BUN/Creatinine Ratio 13.12; Calc. Creatinine Clearance 30 mL/min (70-130); Calcium 8.7 mg/dL (7.8-10.44); Carbon Dioxide 26 mmol/L (22-29); Chloride 99 mmol/L (98-107); Estimated GFR-MDRD 11; Glucose 175 mg/dL (70-105); Potassium 5.5 mmol/L (3.5-5.1); Sodium 140 mmol/L (136-145)
[2018-12-30] MEDS: Insulin Regular 300 UNITS/3 ML VIAL SC PRN ×3 (00:24→09:24)
[2018-12-30] MEDS: Propofol 1,000 MG/100 ML VIAL IV PRN ×3 (01:24→23:01)
[2018-12-30 05:11] LABS: #Lymphocytes 0.7 thou/uL (1.20-3.40); #Monocytes 0.8 thou/uL (0.11-0.59); #Neutrophils 10.5 thou/uL (1.40-6.50); %Basophils 0.1 % (0.0-1.0); %Eosinophils 0.2 % (0.0-10.0); %Lymphocytes 5.6 % (21.0-51.0); %Monocytes 6.8 % (0.0-10.0); %Neutrophils 87.3 % (42.0-75.0); Mean Corpuscular HGB CONC 31.4 g/dL (32.0-36.0); Mean Corpuscular Hemoglobin 26.4 pg (27.0-31.0); Mean Platelet Volume 9.4 fL (7.4-10.4); Platelet Count 210 thou/uL (130-400); RBC Distribution Width 14.6 % (11.5-14.5); Red Blood Cell (RBC) Count 4.94 mill/uL (4.70-6.10)
[2018-12-30 05:18] LABS: Anion Gap 21 mmol/L (10-20); BUN (Urea Nitrogen) 98 mg/dL (8.9-20.6); Calc. Creatinine Clearance 28 mL/min (70-130); Calcium 8.8 mg/dL (7.8-10.44); Carbon Dioxide 25 mmol/L (22-29); Chloride 97 mmol/L (98-107); Estimated GFR-MDRD 10; Glucose 171 mg/dL (70-105); Potassium 5.4 mmol/L (3.5-5.1); Sodium 138 mmol/L (136-145)
[2018-12-30 06:46] LABS: Actual Bicarbonate (HCO3a) 23.1 mEq/L (22-28); CO2 Tension 55.7 mmHg (35.0-45.0); Calcium, Ionized 1.09 mmol/L (1.12-1.30); Carboxyhemoglobin (COHb) 1.6 gm% (0.0-3.0); Hemoglobin (Hb) 13.6 g/dL (14.0-18.0); O2 Tension (PaO2) 77.4 mmHg (80.0-100.0); Potassium - ABG Lab 5.35 mmol/L (3.70-5.30)
[2018-12-30] MEDS: fentaNYL Citrate/PF 2,000 MCG in Sodium Chloride 0.9% 60 ML IV SCH (07:20)
[2018-12-30 07:40] LABS: ALV-art Gradient 138.175 (0-20); Puncture Site LRA; pH, Arterial 7.24 (7.35-7.45)
--- NOTE | 2018-12-30 07:48 | RAD ---
CHEST 1 VIEW: Date: 12/30/18 INDICATION: Intubation. COMPARISON: Prior exam dated 12/28/18. FINDINGS: The patient remains intubated, epidural catheter placement. Multilead pacemaker overlying left chest wall. Right IJ central venous catheter, unchanged in position. Cardiomegaly, pulmonary vascular conge stion, and central edema pattern is stable. There are small bilateral pleural effusions which are sta ble. No pneumothorax is evident. IMPRESSION: Stable exam. POS: BH
--- NOTE | 2018-12-30 08:12 | PDOC.PN ---
- Subjective Encounter Start Date: 12/29/18 Encounter Start Time: 14:00 Subjective: pt intubated - Objective Vital Signs & Weight: Vital Signs (12 hours) Temp Pulse Resp BP Pulse Ox 12/30/18 06:39 91 13 110/67 99 12/30/18 04:00 98.5 F 12/30/18 02:18 97 12/30/18 02:00 14 12/30/18 00:16 93 14 99 12/30/18 00:00 98.4 F 12/29/18 22:04 93 Weight Admit Weight 326 lb 15.128 oz Weight 334 lb 7.06 oz Most Recent Monitor Data Heart Rate from ECG 102 NIBP 134/89 NIBP BP-Mean 104 Respiration from ECG 29 SpO2 99 I&O: 12/29/18 12/30/18 12/31/18 06:59 06:59 06:59 Intake Total 2099 4241.7 Output Total 462 282 Balance 1637 3959.7 Result Diagrams: 12/30/18 04:45 12/30/18 04:45 Phys Exam - Physical Examination Respiratory: no wheezing, no rales, no rhonchi, wheezing present, clear to auscultation bilateral Cardiovascular: RRR, no significant murmur, no rub, gallop, irregular Gastrointestinal: soft, non-tender, no distention, positive bowel sounds Musculoskeletal: no edema, pulses present, edema present Dx/Plan (1) Acute respiratory failure with hypoxia and hypercapnia Code(s): J96.01 - ACUTE RESPIRATORY FAILURE WITH HYPOXIA; J96.02 - ACUTE RESPIRATORY FAILURE WITH HYPERCAPNIA Status: Acute Comment: intubated (2) Community acquired pneumonia, bilateral Code(s): J18.9 - PNEUMONIA, UNSPECIFIED ORGANISM Status: Acute Comment: on Zosyn and Vancomycin since 12/26/18 (3) Influenza B Code(s): J10.1 - FLU DUE TO OTH IDENT INFLUENZA VIRUS W OTH RESP MANIFEST Status: Acute Comment: on Tamiflu (4) Sepsis Code(s): A41.9 - SEPSIS, UNSPECIFIED ORGANISM Status: Acute Comment: on high dose levophed now (5) Dyslipidemia Code(s): E78.5 - HYPERLIPIDEMIA, UNSPECIFIED Status: Chronic (6) Prerenal acute renal failure Code(s): N17.9 - ACUTE KIDNEY FAILURE, UNSPECIFIED Status: Acute - Plan pt's creatinine worsening, pt on iv hydration. -: pt off vanco, still intubated -: ef 15-20% -: pt off abx, on tube feeding * . Review of Systems - Review of Systems Other: intubated - Medications/Allergies Allergies/Adverse Reactions: Allergies Allergy/AdvReac Type Severity Reaction Status Date / Time No Known Drug Allergies Allergy Verified 12/26/18 05:16 Medications: Current Medications Acetaminophen (Tylenol) 650 mg PO Q4H PRN PRN Reason: Headache/Fever/Mild Pain (1-3) Last Admin: 12/28/18 08:41 Dose: 650 mg Acetaminophen (Tylenol) 650 mg NM Q4H PRN PRN Reason: Headache/Fever/Mild Pain (1-3) Albuterol/Ipratropium (Duoneb) 3 ml NEB [id number] TRENA Last Admin: 12/30/18 06:39 Dose: 3 ml Lipase/Protease/Amylase ([place] [id number]) 1 cap PER TUBE ASDIR PRN PRN Reason: TUBE OCCLUSION TX Dextrose/Water (Dextrose 50%) 25 gm IVP PRN PRN PRN Reason: HYPOGLYCEMIA PROTOCOL Last Admin: 12/27/18 06:05 Dose: 25 gm Famotidine (Pepcid) 20 mg SLOW IVP DAILY TRENA Last Admin: 12/29/18 08:58 Dose: Not Given Glucagon (Glucagon) 1 mg IM PRN PRN PRN Reason: HYPOGLYCEMIA PROTOCOL Heparin Sodium (Porcine) (Heparin) 5,000 units SC BID TRENA Fentanyl Citrate 2,000 mcg/ (Sodium Chloride) 100 mls @ 0 mls/hr IV INF TRENA; Protocol Stop: 01/25/19 06:25 Last Admin: 12/30/18 07:20 Dose: 100 mls Fentanyl Citrate (Fentanyl Bolus) 250 mls @ 0 mls/hr IVPB PRN PRN PRN Reason: Breakthrough pain/agitation Stop: 01/25/19 06:25 Dextrose/Water (D5w) 1,000 mls @ 0 mls/hr IV INF PRN PRN Reason: HYPOGLYCEMIA PROTOCOL Norepinephrine Bitartrate (Levophed) 250 mls @ 0 mls/hr IVPB INF PRN; Protocol PRN Reason: Blood Pressure Last Admin: 12/29/18 05:44 Dose: 250 mls Sodium Bicarbonate 150 meq/ (Dextrose/Water) 1,150 mls @ 25 mls/hr IV .Q24H [facility] Last Admin: 12/29/18 12:23 Dose: 1,150 mls Insulin Human Regular (Humulin R) 0 units SC .MILD SLIDING SCALE PRN PRN Reason: Mild Correctional Scale Last Admin: 12/30/18 06:14 Dose: 2 unit Methylprednisolone Sodium Succinate (Solu-Medrol) 40 mg IVP 0900,2100 [facility] Last Admin: 12/29/18 20:57 Dose: 40 mg Discontinue Previous Narcotic Pain Medications And Benzodiazepines 1 each FS .ONE [facility] Stop: 01/25/19 06:25 Oseltamivir Phosphate (Tamiflu) 30 mg PO HS [facility] Last Admin: 12/29/18 20:57 Dose: 30 mg Polyethylene Glycol (Miralax) 17 gm PO DAILY [facility] Propofol (Diprivan) 1,000 mg IV INF PRN; Protocol PRN Reason: TO ACHIEVE GOAL RASS Stop: 01/25/19 06:25 Last Admin: 12/30/18 01:24 Dose: 1,000 mg Propofol (Diprivan Bolus) 20 mg IV Q5MIN PRN PRN Reason: BREAKTHROUGH AGITATION Stop: 01/25/19 06:25 Senna/Docusate Sodium (Senokot S) 1 tab PO BID [facility] Last Admin: 12/29/18 20:57 Dose: 1 tab Sodium Bicarbonate (Bicarbonate, Sodium) 650 mg PER TUBE ASDIR PRN PRN Reason: TUBE OCCLUSION TX Sodium Chloride (Flush - Normal Saline) 10 ml IVF Q12HR [facility] Last Admin: 12/29/18 20:58 Dose: 10 ml Sodium Chloride (Flush - Normal Saline) 10 ml IVF PRN PRN PRN Reason: Saline Flush Sterile Water (Bacteriostatic Water) 1 ml FS PRN PRN PRN Reason: RECONSTITUTION Last Admin: 12/27/18 18:00 Dose: 1 ml
[2018-12-30] MEDS: methylPREDNISolone Sod Succ 40 MG VIAL IVP SCH ×2 (09:20→20:58)
[2018-12-30] MEDS: Polyethylene Glycol 3350 17 GM Packet PO SCH (09:20)
[2018-12-30] MEDS: Famotidine/PF 20 mg/2ml Vial SLOW IVP SCH (09:21)
[2018-12-30] MEDS: Heparin 5,000 UNITS/ML VIAL SC SCH ×2 (09:21→20:58)
[2018-12-30] MEDS: Senokot S 8.6-50 MG TAB PO SCH ×2 (09:21→20:59)
[2018-12-30] MEDS: Sodium Bicarbonate 150 MEQ in Dextrose 5% in Water 1,000 ML IV SCH (09:22)
[2018-12-30] MEDS ORDERED: Furosemide 40 MG/4 ML VIAL SLOW IVP SCH (10:15)
[2018-12-30] MEDS ORDERED: Furosemide 100 MG/10 ML VIAL SLOW IVP SCH (10:33)
[2018-12-30] MEDS ORDERED: Furosemide 40 MG/4 ML VIAL ONE (10:43)
[2018-12-30] MEDS: Furosemide 40 MG/4 ML VIAL ONE (10:45)
[2018-12-30 11:00] LABS: Phosphorus 10.8 mg/dL (2.3-4.7)
--- NOTE | 2018-12-30 11:24 | PRG ---
DATE OF SERVICE: 12/30/2018 SUBJECTIVE: A 43-year-old morbidly obese male with known history of cardiomyopathy, admitted due to acute encephalopathy and shortness of breath as well as hypertension. Nephrology is seeing the patient for elevated creatinine. Creatinine continues to trend upwards despite fluid trial for possible prerenal etiology. The patient is still intubated and mechanically ventilated. OBJECTIVE: VITAL SIGNS: Temperature 98.3, pulse 91, respiratory rate 15, SpO2 100% on room air, blood pressure is 130/91. GENERAL: Morbidly obese male, sedated, and mechanically ventilated. HEENT: Normocephalic, atraumatic. OG and ET tubes are in place. CARDIOVASCULAR: Regular rhythm, paced rhythm. Normal heart sounds 1 and 2. RESPIRATORY: Ventilator transmitted sounds heard in all lung zones. GI: Morbidly obese, soft, nondistended with normal bowel sounds. UROGENITAL: Prince catheter is in place draining some urine. EXTREMITIES: Mild feet edema. There is no erythema or cyanosis. Distal pulses are palpable. NEUROLOGIC: The patient is sedated. DIAGNOSTIC DATA: BMP today showed sodium 138, potassium 5.4, chloride 97, CO2 of 25, BUN 98, anion gap 21, creatinine 7.3, glucose 171, calcium 8.8. Phosphorus on December 29 was 11. CBC showed WBC count of 12, hemoglobin of 13, platelet of 210. I and O showed positive balance of almost 4000 with weight gain of 5 pounds in the last 24 hours. ASSESSMENT AND PLAN: 1. Acute kidney injury. This most likely is acute tubular necrosis from prior hypotension with possible contribution from vancomycin-induced nephrotoxicity. Creatinine continues to trend up. Creatinine today is 7.3 from admission level of 1.59. Worsening azotemia from 64 to 98 overnight, most likely is related to commencement of tube feeding. We will change tube feeding to Nepro. We will also start the patient on diuretics to prevent fluid overload and to transform oliguric acute tubular necrosis to polyuric acute tubular necrosis. Patient will need dialytic treatment in a day or 2 unless remarkable recovery of kidney function is seen. We will likely get dialysis cath tomorrow 2. Hyperkalemia, mild with potassium of 5.4. It is anticipated that with the commencement of diuretics and kayexalate with take of this for now. 3. Volume overload. The patient gained 5 pounds overnight and is about 4 L positive in fluid balance in the last 24 hours. CXR also showed significant pulmonary congestion. We will start diuretic (Lasix) to help manage volume. We will try to defer dialytic treatment as much as possible to allow the patient time to recover. 4. Hypertension: Improved. The patient was weaned off pressors earlier this morning. We will continue to monitor. Optimized hemodynamics recommended to facilitate renal recovery. 5. Anion gap metabolic acidosis: This most likely is related to sepsis and acute infection. We will get repeat lactic acid. 6. Hyperphosphatemia. Related to tube feeding and chronic kidney disease. We will change tube feeding to Nepro. Start renvela per tube. Job ID: [id number] Addendum Hyperkalemia persisted despite medical treatment with kayexalate and diuretic. Chest X ray showed worsening pulmonary congestion despite increase in urine output up to 50/hr. Azotemia also is worse with BUN of 112. We will initiate hemodialysis. Gen surg consulted for Temp HD access placement. We will dialyze patient for 2 hours with UF as tolerated. D/W with patients mother who verbalized understanding and gave consent for line placement and HD MTDD
--- NOTE | 2018-12-30 13:13 | PRG ---
DATE OF SERVICE: 12/30/2018 SUBJECTIVE: Mr. Schmidt is sedated for ventilation. OBJECTIVE: VITAL SIGNS: Respiratory rate 17, heart rates in the 80s, blood pressure 123/74. Intake and output, positive 3959. LUNGS: Clear anteriorly. HEART: Regular rhythm. ABDOMEN: Soft. EXTREMITIES: Without edema or asymmetry. DIAGNOSTIC DATA: Chest radiograph shows diffuse infiltrates. LABORATORY DATA: White count 12.0, hemoglobin 13.0, platelets 210,000. Sodium 138, potassium 5.4, chloride 97, bicarb 25, BUN 98, creatinine 7.33, glucose 171. PH 7.24, pCO2 of 55, pO2 of 77. IMPRESSION: 1. Respiratory failure. 2. Influenza. 3. Volume overload. 4. Acute renal failure. 5. History of cardiomyopathy, I am told that he did not take his medications for the week prior to his admission. 6. History of defibrillator placement in the past. 7. History of ventricular tachycardia. 8. History of obstructive lung disease reportedly. 9. History of tobacco, marijuana use up until this admission. PLAN: Continue mechanical ventilation. My opinion is that he needs to be dialyzed just for volume reasons. Nephrology is following. Critical care time is 35 minutes. Job ID: [id number] MTDD
[2018-12-30] MEDS: Sevelamer Carbonate 800 MG TAB PO SCH ×2 (13:43→20:59)
--- NOTE | 2018-12-30 14:30 | PDOC.PN ---
- Subjective Encounter Start Date: 12/30/18 Encounter Start Time: 10:30 Subjective: pt intubated - Objective Vital Signs & Weight: Vital Signs (12 hours) Temp Pulse Resp BP Pulse Ox 12/30/18 14:00 20 12/30/18 12:00 17 12/30/18 10:29 106 H 121/74 12/30/18 10:00 15 12/30/18 08:00 98.3 F 15 100 12/30/18 06:39 91 13 110/67 99 12/30/18 04:00 98.5 F Weight Admit Weight 326 lb 15.128 oz Weight 334 lb 7.06 oz Most Recent Monitor Data Heart Rate from ECG 88 NIBP 114/60 NIBP BP-Mean 78 Respiration from ECG 20 SpO2 99 I&O: 12/29/18 12/30/18 12/31/18 06:59 06:59 06:59 Intake Total 2099 4241.7 140 Output Total 462 282 213 Balance 1637 3959.7 -73 Result Diagrams: 12/30/18 04:45 12/30/18 04:45 Phys Exam - Physical Examination Respiratory: no wheezing, no rales, no rhonchi, wheezing present, clear to auscultation bilateral Cardiovascular: RRR, no significant murmur, no rub, gallop, irregular Gastrointestinal: soft, non-tender, no distention, positive bowel sounds Musculoskeletal: no edema, pulses present, edema present Dx/Plan (1) Acute respiratory failure with hypoxia and hypercapnia Code(s): J96.01 - ACUTE RESPIRATORY FAILURE WITH HYPOXIA; J96.02 - ACUTE RESPIRATORY FAILURE WITH HYPERCAPNIA Status: Acute Comment: intubated (2) Community acquired pneumonia, bilateral Code(s): J18.9 - PNEUMONIA, UNSPECIFIED ORGANISM Status: Acute Comment: on Zosyn and Vancomycin since 12/26/18 (3) Influenza B Code(s): J10.1 - FLU DUE TO OTH IDENT INFLUENZA VIRUS W OTH RESP MANIFEST Status: Acute Comment: on Tamiflu (4) Sepsis Code(s): A41.9 - SEPSIS, UNSPECIFIED ORGANISM Status: Acute Comment: on high dose levophed now (5) Dyslipidemia Code(s): E78.5 - HYPERLIPIDEMIA, UNSPECIFIED Status: Chronic (6) Prerenal acute renal failure Code(s): N17.9 - ACUTE KIDNEY FAILURE, UNSPECIFIED Status: Acute - Plan pt moving ext but not following commands, still on sedation -: off pressors this am. -: possible dialysis on tuesday if his renal function does not improve * . Review of Systems - Review of Systems Other: intubated - Medications/Allergies Allergies/Adverse Reactions: Allergies Allergy/AdvReac Type Severity Reaction Status Date / Time No Known Drug Allergies Allergy Verified 12/26/18 05:16 Medications: Current Medications Acetaminophen (Tylenol) 650 mg PO Q4H PRN PRN Reason: Headache/Fever/Mild Pain (1-3) Last Admin: 12/28/18 08:41 Dose: 650 mg Acetaminophen (Tylenol) 650 mg UT Q4H PRN PRN Reason: Headache/Fever/Mild Pain (1-3) Albuterol/Ipratropium (Duoneb) 3 ml NEB [id number] [facility]RE[facility] Lipase/Protease/Amylase ([place] [address]) 1 cap PER TUBE ASDIR PRN PRN Reason: TUBE OCCLUSION TX Dextrose/Water (Dextrose 50%) 25 gm IVP PRN PRN PRN Reason: HYPOGLYCEMIA PROTOCOL Last Admin: 12/27/18 06:05 Dose: 25 gm Famotidine (Pepcid) 20 mg SLOW IVP DAILY [facility] Last Admin: 12/30/18 09:21 Dose: 20 mg Glucagon (Glucagon) 1 mg IM PRN PRN PRN Reason: HYPOGLYCEMIA PROTOCOL Heparin Sodium (Porcine) (Heparin) 5,000 units SC BID [facility] Last Admin: 12/30/18 09:21 Dose: 5,000 units Fentanyl Citrate 2,000 mcg/ (Sodium Chloride) 100 mls @ 0 mls/hr IV INF TRENA; Protocol Stop: 01/25/19 06:25 Last Admin: 12/30/18 07:20 Dose: 100 mls Fentanyl Citrate (Fentanyl Bolus) 250 mls @ 0 mls/hr IVPB PRN PRN PRN Reason: Breakthrough pain/agitation Stop: 01/25/19 06:25 Dextrose/Water (D5w) 1,000 mls @ 0 mls/hr IV INF PRN PRN Reason: HYPOGLYCEMIA PROTOCOL Norepinephrine Bitartrate (Levophed) 250 mls @ 0 mls/hr IVPB INF PRN; Protocol PRN Reason: Blood Pressure Last Admin: 12/29/18 05:44 Dose: 250 mls Sodium Bicarbonate 150 meq/ (Dextrose/Water) 1,150 mls @ 25 mls/hr IV .Q24H [facility] Last Admin: 12/30/18 09:22 Dose: 1,150 mls Insulin Human Regular (Humulin R) 0 units SC .MILD SLIDING SCALE PRN PRN Reason: Mild Correctional Scale Last Admin: 12/30/18 09:24 Dose: 2 unit Methylprednisolone Sodium Succinate (Solu-Medrol) 40 mg IVP 0900,2100 [facility] Last Admin: 12/30/18 09:20 Dose: 40 mg Discontinue Previous Narcotic Pain Medications And Benzodiazepines 1 each FS .ONE [facility] Stop: 01/25/19 06:25 Oseltamivir Phosphate (Tamiflu) 30 mg PO HS [facility] Last Admin: 12/29/18 20:57 Dose: 30 mg Polyethylene Glycol (Miralax) 17 gm PO DAILY [facility] Last Admin: 12/30/18 09:20 Dose: 17 gm Propofol (Diprivan) 1,000 mg IV INF PRN; Protocol PRN Reason: TO ACHIEVE GOAL RASS Stop: 01/25/19 06:25 Last Admin: 12/30/18 09:22 Dose: 1,000 mg Propofol (Diprivan Bolus) 20 mg IV Q5MIN PRN PRN Reason: BREAKTHROUGH AGITATION Stop: 01/25/19 06:25 Senna/Docusate Sodium (Senokot S) 1 tab PO BID [facility] Last Admin: 12/30/18 09:21 Dose: 1 tab Sevelamer Carbonate (Renvela) 800 mg PO TID [facility] Last Admin: 12/30/18 13:43 Dose: 800 mg Sodium Bicarbonate (Bicarbonate, Sodium) 650 mg PER TUBE ASDIR PRN PRN Reason: TUBE OCCLUSION TX Sodium Chloride (Flush - Normal Saline) 10 ml IVF Q12HR [facility] Last Admin: 12/30/18 09:21 Dose: 10 ml Sodium Chloride (Flush - Normal Saline) 10 ml IVF PRN PRN PRN Reason: Saline Flush Sterile Water (Bacteriostatic Water) 1 ml FS PRN PRN PRN Reason: RECONSTITUTION Last Admin: 12/27/18 18:00 Dose: 1 ml
[2018-12-30 15:31] LABS: Albumin 2.8 g/dL (3.5-5.0); Anion Gap 25 mmol/L (10-20); BUN (Urea Nitrogen) 110 mg/dL (8.9-20.6); BUN/Creatinine Ratio 13.55; Calc. Creatinine Clearance 25 mL/min (70-130); Calcium 8.6 mg/dL (7.8-10.44); Carbon Dioxide 20 mmol/L (22-29); Chloride 99 mmol/L (98-107); Estimated GFR-MDRD 9; Glucose 151 mg/dL (70-105); Phosphorus 10.8 mg/dL (2.3-4.7); Potassium 5.5 mmol/L (3.5-5.1); Sodium 138 mmol/L (136-145)
[2018-12-30] MEDS: Oseltamivir 6 MG/ML ORAL SUSP PO SCH (21:07)
[2018-12-30] MEDS ORDERED: Vecuronium 10 MG VIAL IV SCH (21:15)
[2018-12-30 22:29] LABS: HBSAB Concentration 5.53 mIU/mL; Hep B Core Total Ab Non-Reactive (NonReactive); Hep B Core Total Index 0.12 S/CO (0-0.79); Hep B Surf AB Non-Reactive (NonReactive); Hep B Surf Ag Non-Reactive S/CO (NonReactive)
[2018-12-30 22:37] LABS: Hep C IgG Ab Reflex HepC Qnt (NonReactive)
[2018-12-31] MEDS: Mannitol 12.5 GM/50 ML SLOW IVP SCH ×2 (01:15→02:22)
--- NOTE | 2018-12-31 02:42 | OP ---
DATE OF PROCEDURE: 12/30/2018 PREOPERATIVE DIAGNOSIS: Acute renal failure. POSTOPERATIVE DIAGNOSIS: Acute renal failure. PROCEDURE PERFORMED: Placement of right femoral Trialysis hemodialysis catheter. DESCRIPTION OF PROCEDURE: Informed consent was obtained from the patient's family. The patient was placed in supine position. Right groin was sterilely prepped and draped in usual fashion. Right femoral artery was palpated at the groin and skin medial to this was anesthetized with 1% lidocaine. The right femoral vein was cannulated with an 18-gauge introducer needle returning dark venous blood. Guidewire was passed through the needle and advanced into the right femoral vein without resistance. Needle was withdrawn over the guidewire. A stab incision was made adjacent to the guidewire using 11 scalpel. Dilator was passed over the guidewire, dilating the subcutaneous tissues. Dilator was removed and a triple-lumen Trialysis catheter was advanced over the guidewire and placed in the right femoral vein without resistance down to the hub. Guidewire was removed. Dark venous blood was aspirated from all three ports, which were then individually flushed with saline followed by heparin. The catheter was secured to the right groin using 3-0 nylon suture at two points. Sterile dressings were applied. The patient tolerated the procedure without any apparent complication and remains hemodynamically stable following completion of the procedure. Job ID: [id number]
[2018-12-31] MEDS: Propofol 1,000 MG/100 ML VIAL IV PRN ×6 (03:39→21:19)
[2018-12-31] MEDS: fentaNYL Citrate/PF 2,000 MCG in Sodium Chloride 0.9% 60 ML IV SCH (03:49)
[2018-12-31 05:32] LABS: #Lymphocytes 0.6 thou/uL (1.20-3.40); #Neutrophils 9.9 thou/uL (1.40-6.50); %Basophils 0.4 % (0.0-1.0); %Eosinophils 0.3 % (0.0-10.0); %Lymphocytes 5.1 % (21.0-51.0); %Monocytes 8.3 % (0.0-10.0); %Neutrophils 85.9 % (42.0-75.0); Hemoglobin 13.1 g/dL (14.0-18.0); Mean Corpuscular Hemoglobin 26.4 pg (27.0-31.0); Mean Platelet Volume 9.7 fL (7.4-10.4); Platelet Count 197 thou/uL (130-400); RBC Distribution Width 14.8 % (11.5-14.5); Red Blood Cell (RBC) Count 4.96 mill/uL (4.70-6.10); White Blood Cell (WBC) Count 11.5 thou/uL (4.8-10.8)
[2018-12-31 05:47] LABS: Anion Gap 21 mmol/L (10-20); BUN (Urea Nitrogen) 95 mg/dL (8.9-20.6); Calc. Creatinine Clearance 27 mL/min (70-130); Calcium 9.3 mg/dL (7.8-10.44); Carbon Dioxide 26 mmol/L (22-29); Chloride 96 mmol/L (98-107); Estimated GFR-MDRD 10; Glucose 142 mg/dL (70-105); Potassium 4.4 mmol/L (3.5-5.1); Sodium 139 mmol/L (136-145)
[2018-12-31 06:55] LABS: Actual Bicarbonate (HCO3a) 26.3 mEq/L (22-28); Base Excess (BEa) -0.6 mEq/L (-2.0 to +3.0); CO2 Tension 52.8 mmHg (35.0-45.0); Calcium, Ionized 1.13 mmol/L (1.12-1.30); Carboxyhemoglobin (COHb) 1.7 gm% (0.0-3.0); Hemoglobin (Hb) 13.9 g/dL (14.0-18.0); O2 Tension (PaO2) 67.4 mmHg (80.0-100.0); Potassium - ABG Lab 4.21 mmol/L (3.70-5.30); pH, Arterial 7.32 (7.35-7.45)
[2018-12-31 06:57] LABS: Puncture Site LRA
[2018-12-31] MEDS: methylPREDNISolone Sod Succ 40 MG VIAL IVP SCH ×2 (09:00→20:44)
[2018-12-31] MEDS: Famotidine/PF 20 mg/2ml Vial SLOW IVP SCH (09:00)
[2018-12-31] MEDS: Sevelamer Carbonate 800 MG TAB PO SCH ×3 (09:01→20:44)
[2018-12-31] MEDS: Senokot S 8.6-50 MG TAB PO SCH ×2 (09:01→20:45)
[2018-12-31] MEDS: Polyethylene Glycol 3350 17 GM Packet PO SCH (09:01)
[2018-12-31] MEDS: Heparin 5,000 UNITS/ML VIAL SC SCH ×2 (09:01→20:44)
[2018-12-31] MEDS: Sodium Bicarbonate 150 MEQ in Dextrose 5% in Water 1,000 ML IV SCH (09:02)
[2018-12-31] MEDS ORDERED: Heparin 10,000 UNITS/ 10 ML VIAL ONE (15:00)
--- NOTE | 2018-12-31 15:22 | PDOC.PN ---
- Subjective Encounter Start Date: 12/31/18 Encounter Start Time: 11:15 Subjective: pt intubated - Objective Vital Signs & Weight: Vital Signs (12 hours) Temp Pulse Resp BP Pulse Ox 12/31/18 14:23 88 119/75 12/31/18 14:21 93 14 98 12/31/18 14:00 16 12/31/18 12:00 98.3 F 17 12/31/18 10:33 91 20 127/75 98 12/31/18 10:00 14 12/31/18 08:00 98.1 F 20 100 12/31/18 06:36 86 126/77 12/31/18 06:34 94 20 95 12/31/18 04:00 98.2 F Weight Admit Weight 326 lb 15.128 oz Weight 319 lb 7.197 oz Most Recent Monitor Data Heart Rate from ECG 88 NIBP 128/79 NIBP BP-Mean 95 Respiration from ECG 19 SpO2 98 I&O: 12/30/18 12/31/18 01/01/19 06:59 06:59 06:59 Intake Total 4280.7 1948.9 270 Output Total 282 743 200 Balance 3998.7 1205.9 70 Result Diagrams: 12/31/18 05:00 12/31/18 05:00 Additional Labs: Accuchecks 12/31/18 12/30/18 12/30/18 00:43 17:56 09:20 POC Glucose 138 H 153 H 169 H 12/30/18 12/30/18 12/29/18 06:13 00:24 16:36 POC Glucose 160 H 171 H 190 H 12/29/18 10:41 POC Glucose 184 H Phys Exam - Physical Examination Respiratory: no wheezing, no rales, no rhonchi, wheezing present, clear to auscultation bilateral Cardiovascular: RRR, no significant murmur, no rub, gallop, irregular Gastrointestinal: soft, non-tender, no distention, positive bowel sounds Musculoskeletal: no edema, pulses present, edema present does not follow Dx/Plan (1) Acute respiratory failure with hypoxia and hypercapnia Code(s): J96.01 - ACUTE RESPIRATORY FAILURE WITH HYPOXIA; J96.02 - ACUTE RESPIRATORY FAILURE WITH HYPERCAPNIA Status: Acute Comment: intubated (2) Community acquired pneumonia, bilateral Code(s): J18.9 - PNEUMONIA, UNSPECIFIED ORGANISM Status: Acute Comment: on Zosyn and Vancomycin since 12/26/18 (3) Influenza B Code(s): J10.1 - FLU DUE TO OTH IDENT INFLUENZA VIRUS W OTH RESP MANIFEST Status: Acute Comment: on Tamiflu (4) Sepsis Code(s): A41.9 - SEPSIS, UNSPECIFIED ORGANISM Status: Acute Comment: on high dose levophed now (5) Dyslipidemia Code(s): E78.5 - HYPERLIPIDEMIA, UNSPECIFIED Status: Chronic (6) Prerenal acute renal failure Code(s): N17.9 - ACUTE KIDNEY FAILURE, UNSPECIFIED Status: Acute - Plan pt awake but does not follow -: s/p dialysis. mild improvement in urine output * . Review of Systems - Review of Systems Respiratory: negative: Cough, Dry, Shortness of Breath, Hemoptysis, SOB with Excertion, Pleuritic Pain, Sputum, Wheezing Cardiovascular: negative: chest pain, palpitations, orthopnea, paroxysmal nocturnal dyspnea, edema, light headedness, other Gastrointestinal: negative: Nausea, Vomiting, Abdominal Pain, Diarrhea, Constipation, Melena, Hematochezia, Other - Medications/Allergies Allergies/Adverse Reactions: Allergies Allergy/AdvReac Type Severity Reaction Status Date / Time No Known Drug Allergies Allergy Verified 12/26/18 05:16 Medications: Current Medications Acetaminophen (Tylenol) 650 mg PO Q4H PRN PRN Reason: Headache/Fever/Mild Pain (1-3) Last Admin: 12/28/18 08:41 Dose: 650 mg Acetaminophen (Tylenol) [address] Q4H PRN PRN Reason: Headache/Fever/Mild Pain (1-3) Albuterol/Ipratropium (Duoneb) 3 ml NEB [id number] [facility] Last Admin: 12/31/18 14:21 Dose: 3 ml Lipase/Protease/Amylase ([place] [address]) 1 cap PER TUBE ASDIR PRN PRN Reason: TUBE OCCLUSION TX Carvedilol (Coreg) 1.5625 mg PER TUBE BID-[facility] Dextrose/Water (Dextrose 50%) 25 gm IVP PRN PRN PRN Reason: HYPOGLYCEMIA PROTOCOL Last Admin: 12/27/18 06:05 Dose: 25 gm Famotidine (Pepcid) [address] [facility] Last Admin: 12/31/18 09:00 Dose: 20 mg Glucagon (Glucagon) 1 mg IM PRN PRN PRN Reason: HYPOGLYCEMIA PROTOCOL Heparin Sodium (Porcine) (Heparin) 5,[address] [facility] Last Admin: 12/31/18 09:01 Dose: 5,000 units Dextrose/Water (D5w) 1,000 mls @ 0 mls/hr IV INF PRN PRN Reason: HYPOGLYCEMIA PROTOCOL Insulin Human Regular (Humulin R) 0 units SC .MILD SLIDING SCALE PRN PRN Reason: Mild Correctional Scale Last Admin: 12/30/18 09:24 Dose: 2 unit Methylprednisolone Sodium Succinate (Solu-Medrol) 40 mg IVP 0900,2100 [facility] Last Admin: 12/31/18 09:00 Dose: 40 mg Discontinue Previous Narcotic Pain Medications And Benzodiazepines [address] [facility] Stop: 01/25/19 06:25 Oseltamivir Phosphate (Tamiflu) [address] [facility] Last Admin: 12/30/18 21:07 Dose: 30 mg Polyethylene Glycol (Miralax) [address] [facility] Last Admin: 12/31/18 09:01 Dose: Not Given Propofol (Diprivan) 1,000 mg IV INF PRN; Protocol PRN Reason: TO ACHIEVE GOAL RASS Stop: 01/25/19 06:25 Last Admin: 12/31/18 15:04 Dose: 1,000 mg Propofol (Diprivan Bolus) 20 mg IV Q5MIN PRN PRN Reason: BREAKTHROUGH AGITATION Stop: 01/25/19 06:25 Senna/Docusate Sodium (Senokot S) [address] [facility] Last Admin: 12/31/18 09:01 Dose: 1 tab Sevelamer Carbonate (Renvela) [address] [facility] Last Admin: 12/31/18 09:01 Dose: 800 mg Sodium Bicarbonate (Bicarbonate, Sodium) 650 mg PER TUBE ASDIR PRN PRN Reason: TUBE OCCLUSION TX Sodium Chloride (Flush - Normal Saline) [address] [facility] Last Admin: 12/31/18 09:00 Dose: 10 ml Sodium Chloride (Flush - Normal Saline) 10 ml IVF PRN PRN PRN Reason: Saline Flush Sterile Water (Bacteriostatic Water) 1 ml FS PRN PRN PRN Reason: RECONSTITUTION Last Admin: 12/27/18 18:00 Dose: 1 ml
[2018-12-31] MEDS: Insulin Regular 300 UNITS/3 ML VIAL SC PRN (15:45)
[2018-12-31] MEDS: Carvedilol 3.125 MG TAB PER TUBE SCH (16:01)
--- NOTE | 2018-12-31 16:13 | PRG ---
DATE OF SERVICE: 12/31/2018 SUBJECTIVE: Mr. Schmidt was dialyzed last night. He awakens. OBJECTIVE: VITAL SIGNS: Heart rate is 88, blood pressure 119/75, respiratory rates in the teens. LUNGS: Clear anteriorly. HEART: Regular rhythm. ABDOMEN: Soft and nontender. EXTREMITIES: Without edema. LABORATORY DATA: White count 11.5, hemoglobin 13.1, and platelets 197. Sodium 139, potassium 4.4, chloride 96, bicarb 26, BUN 95, and creatinine 7.38. PH of 7.32, CO2 of 52, and pO2 of 67. IMPRESSION: 1. Respiratory failure. 2. Influenza. 3. Volume overload. 4. Acute renal failure. 5. Metabolic acidosis improved after dialysis. 6. Cardiomyopathy. 7. History of defibrillator. 8. History of ventricular tachycardia. 9. History of obstructive lung disease. 10. History of tobacco and marijuana use. 11. Obesity. PLAN: Continue ventilatory support. We will decrease ventilatory rate. We need to continue with attempts at removing volume. He actually had a positive fluid balance yesterday. I am assuming the dialysis is not recorded in his intake and output as there was 2000 removed in a separate note. We will continue to follow. CRITICAL CARE TIME: 30 minutes. Job ID: [id number]
--- NOTE | 2018-12-31 16:18 | PRG ---
DATE OF SERVICE: 12/31/2018 SUBJECTIVE: Morbidly obese male, admitted due to mental status change and respiratory distress. The patient is currently intubated. The patient is being seen for acute renal failure that required commencement of hemodialysis on December 30 due to worsening azotemia and hyperkalemia. The patient is currently off pressors. Tolerated hemodialysis well yesterday. OBJECTIVE: VITAL SIGNS: Temperature 98.3, pulse 88, respiratory rate 14, SpO2 of 98% on mechanical ventilator, and blood pressure is 119/75. GENERAL: Morbidly obese male, sedated and mechanically ventilated. Afebrile. Anicteric. Acyanotic. HEENT: Normocephalic, atraumatic. OG and ET tubes are in place. NECK: Right IJ triple-lumen catheter noted. RESPIRATORY: Ventilator transmitted sounds heard in all lung [place]. CARDIOVASCULAR: Regular rhythm with normal rate. No obvious murmur was appreciated. GI: Obese, soft, nontender, and nondistended with normal bowel sounds. EXTREMITIES: Mild bilateral feet and ankle edema. Distal pulses are palpable. NEUROLOGIC: The patient is sedated, but wakes up with stimulation and obeys commands. Cranial nerves are grossly intact. LABORATORY DATA: CBC showed WBC count of 11.5, hemoglobin of 13.1, MCV of 80.0, and platelets of 197. Arterial blood gas showed pH of 7.32, pCO2 of 52.8, PO2 of 67, and base excess of 0.6. Renal function panel today showed sodium 139, potassium 4.4, chloride 96, CO2 of 26, anion gap 21, BUN 95, creatinine 7.38, glucose 142, albumin 9.3, and calcium 9.3. IMPRESSION AND PLAN: 1. Acute renal failure: This was thought to be acute tubular necrosis from persistent hypotension with possible contribution from vancomycin induced nephrotoxicity. Hemodialysis was initiated on December 30, given hyperkalemia, fluid overload, and worsening azotemia. The patient had 2 hours of dialysis yesterday. We will dialyze the patient 3 hours today. 2. We will continue to monitor urine output and daily weights as well as chest x-ray. 3. Hyperkalemia: Resolved with hemodialysis. 4. Volume overload: We will do UF as tolerated. 5. Hypotension. Improved. The patient is currently off pressors. 6. Anion gap metabolic acidosis related to sepsis and acute infection. 7. Hyperphosphatemia. We will continue Renvela. Tube feed has been changed to Nepro. Job ID: [id number]
[2018-12-31] MEDS: Oseltamivir 6 MG/ML ORAL SUSP PO SCH (20:44)
[2019-01-01] MEDS: Propofol 1,000 MG/100 ML VIAL IV PRN ×7 (00:08→22:45)
[2019-01-01 04:44] LABS: #Basophils 0.1 thou/uL (0.0-0.2); #Eosinphils 0.1 thou/uL (0.0-0.7); #Lymphocytes 0.8 thou/uL (1.20-3.40); #Monocytes 1.2 thou/uL (0.11-0.59); #Neutrophils 8.5 thou/uL (1.40-6.50); %Basophils 0.7 % (0.0-1.0); %Eosinophils 0.5 % (0.0-10.0); %Lymphocytes 7.1 % (21.0-51.0); %Monocytes 11.7 % (0.0-10.0); Hemoglobin 13.3 g/dL (14.0-18.0); Mean Corpuscular HGB CONC 33.3 g/dL (32.0-36.0); Mean Corpuscular Hemoglobin 26.5 pg (27.0-31.0); Mean Corpuscular Volume 79.4 fL (78.0-98.0); Platelet Count 211 thou/uL (130-400); Red Blood Cell (RBC) Count 5.03 mill/uL (4.70-6.10); White Blood Cell (WBC) Count 10.7 thou/uL (4.8-10.8)
[2019-01-01] MEDS: Insulin Regular 300 UNITS/3 ML VIAL SC PRN (04:46)
[2019-01-01 04:56] LABS: Anion Gap 18 mmol/L (10-20); BUN (Urea Nitrogen) 89 mg/dL (8.9-20.6); Calc. Creatinine Clearance 28 mL/min (70-130); Calcium 9.3 mg/dL (7.8-10.44); Carbon Dioxide 28 mmol/L (22-29); Chloride 96 mmol/L (98-107); Estimated GFR-MDRD 10; Glucose 156 mg/dL (70-105); Potassium 4.8 mmol/L (3.5-5.1); Sodium 137 mmol/L (136-145)
--- NOTE | 2019-01-01 08:38 | RAD ---
CHEST ONE VIEW: HISTORY: Dyspnea. Followup. COMPARISON: 12/30/2018 FINDINGS: The cardiac silhouette is magnified and enlarged. The pulmonary vasculature is less engorged than on the prior study. Widespread reticulonodular interstitial prominence and bibasilar infiltrates have improved significantly. The mediastinum is midline. Lines and tubes appear unchanged in position. No evidence of pneumothorax. IMPRESSION: Significant interval improvement in pulmonary vascular congestion. No new abnormalities evident. POS: CET
[2019-01-01] MEDS ORDERED: Heparin 5,000 UNITS/ML VIAL ONE (09:13)
[2019-01-01] MEDS ORDERED: Famotidine/PF 20 mg/2ml Vial ONE (09:13)
[2019-01-01] MEDS ORDERED: Polyethylene Glycol 3350 17 GM Packet ONE (09:13)
[2019-01-01] MEDS ORDERED: methylPREDNISolone Sod Succ 40 MG VIAL ONE (09:14)
[2019-01-01] MEDS ORDERED: Sevelamer Carbonate 800 MG TAB ONE (09:14)
[2019-01-01] MEDS: Carvedilol 3.125 MG TAB PER TUBE SCH ×2 (09:31→16:06)
[2019-01-01] MEDS: Heparin 5,000 UNITS/ML VIAL SC SCH ×2 (09:31→20:58)
[2019-01-01] MEDS: Famotidine/PF 20 mg/2ml Vial SLOW IVP SCH (09:31)
[2019-01-01] MEDS: Polyethylene Glycol 3350 17 GM Packet PO SCH (09:32)
[2019-01-01] MEDS: methylPREDNISolone Sod Succ 40 MG VIAL IVP SCH ×2 (09:32→21:05)
[2019-01-01] MEDS: Sevelamer Carbonate 800 MG TAB PO SCH ×3 (09:32→20:58)
[2019-01-01] MEDS: Senokot S 8.6-50 MG TAB PO SCH ×2 (09:32→20:58)
--- NOTE | 2019-01-01 10:13 | PRG ---
DATE OF SERVICE: 01/01/2019 SUBJECTIVE: Morbidly obese male with nonischemic cardiomyopathy, status post AICD, who was admitted due to acute encephalopathy and hypotension, whom we are seeing for acute renal failure. The patient was initiated on hemodialysis on December 30 due to hyperkalemia, fluid overload and worsening azotemia. Last dialysis was yesterday for 3 hours. The patient is still intubated and mechanically ventilated. OBJECTIVE: VITAL SIGNS: Temperature 98.6, heart rate 94, respiratory rate 21, SpO2 of 93% on mechanical ventilator, and blood pressure is 134/69. GENERAL: Morbidly obese male, sedated and in no obvious distress. HEENT: Normocephalic and atraumatic. OG and ET tubes are in place. RESPIRATORY: Ventilator transmitted sounds noted. CARDIOVASCULAR: Regular rhythm and rate. Normal heart sounds 1 and 2. GI: Abdomen is obese, soft, nontender, and nondistended with normal bowel sounds. UROGENITAL: Prince catheter is in place. EXTREMITIES: Trace feet edema, otherwise grossly normal looking atraumatic with no erythema or cyanosis. NEUROLOGIC: The patient is sedated. DIAGNOSTIC DATA: CBC showed WBC count of 10.7, hemoglobin of 13.3, MCV of 79.4 BMP showed sodium 137, potassium 4.8, chloride 96, CO2 of 28, anion gap of 18, BUN 89, creatinine 7.06, glucose 156, and calcium 9.3. Chest x-ray showed interval improvement in pulmonary vascular congestion with no new acute abnormality noted. ASSESSMENT AND PLAN: 1. Acute renal failure. This is thought to be due to acute tubular necrosis with possible contribution from vancomycin-induced nephrotoxicity. The patient was initiated on hemodialysis on December 30 due to hyperkalemia, fluid overload, and worsening azotemia. We will dialyze the patient today for 4 hours 2. Hyperkalemia: Resolved with hemodialysis. 3. Volume overload: Chest x-ray showed improvement, though pulmonary congestion persisted. 4. Hypotension: Improved. The patient is currently off pressors. 5. High anion gap metabolic acidosis: Related to sepsis and infection as well as acute renal failure. Improved with hemodialysis. 6. Hyperphosphatemia: We continue Renvela. 7. Acute respiratory failure with hypoxia. Due to influenza pneumonitis and CHF exacerbation. Treatment as per Pulmonary and Critical Care. 8. Pulmonary congestion: Most likely due to acute on chronic heart failure. The patient had deployment of the AICD prior to presentation. 9. Influenza Pneumonitis Job ID: [id number] [facility]
--- NOTE | 2019-01-01 11:05 | PRG ---
DATE OF SERVICE: 01/01/2019 SERVICE: Pulmonary Medicine. INTERVAL HISTORY: The patient is doing really well from respiratory standpoint. Breathing comfortably. He is currently sedated on mechanical ventilation. His lungs have opened up significantly. His peak pressures have fallen off. He continues to have a prolonged expiratory phase, but it is much improved. PHYSICAL EXAMINATION: VITAL SIGNS: Afebrile. Pulse 103, blood pressure 121/70, respirations 26, and saturation 96% on 23% FiO2 and a PEEP of 5. GENERAL: The patient is intubated and sedated. HEENT: Normocephalic and atraumatic. Sclerae white. Conjunctivae pink. Oral mucosa is moist without lesions. LUNGS: Excellent air entry. There is a prolonged expiratory phase and extensive rhonchi present. HEART: Normal rate and regular. ABDOMEN: Soft, nontender, and nondistended. Bowel sounds are positive. MUSCULOSKELETAL: No cyanosis or clubbing. There is 1+ pitting in the bilateral lower extremities. NEUROLOGIC: Grossly nonfocal. LABORATORY DATA: WBC 10.7, hemoglobin 13.3, and platelets 211,000. Creatinine 7.06 and gently downtrending, BUN 89. Basic metabolic profile is otherwise unremarkable. Bicarb is improved to 28. Blood culture is growing 2 different coag-negative Staph species in 08/23. Influenza B is positive and urine culture is negative to date. IMAGING: Chest x-ray demonstrates interval improvement in the edema. Endotracheal tube is in good position. Enteric catheter courses below the level of the diaphragm. There is likely bilateral pleural effusions present. AICD is in place. ASSESSMENT: 1. Acute hypoxic and hypercapnic respiratory failure. 2. Asthma with acute exacerbation. 3. Community-acquired pneumonia secondary to influenza B. 4. Acute on chronic systolic heart failure. 5. Acute kidney injury. DISCUSSION AND PLAN: The patient's urine output is starting to potato picker a little bit. Hopefully, we can keep him roughly even over the next 24 hours. We will put him on a spontaneous breathing trial after a good long sedation holiday. If he meets criteria, extubation will be considered. We will continue our steroids, nebulized medications, and antibiotics. Pulmonary/Critical Care will continue to follow along. Critical care time: 30 minutes. Job ID: [id number] [facility]
[2019-01-01] MEDS ORDERED: Heparin 10,000 UNITS/ 10 ML VIAL ONE (15:00)
--- NOTE | 2019-01-01 15:57 | PDOC.PN ---
- Subjective Encounter Start Date: 01/01/19 Encounter Start Time: 10:00 Subjective: pt intubated - Objective Vital Signs & Weight: Vital Signs (12 hours) Temp Pulse Resp BP Pulse Ox 01/01/19 14:43 110 H 146/91 H 01/01/19 14:41 93 29 H 97 01/01/19 14:00 33 H 01/01/19 12:00 33 H 01/01/19 10:28 104 H 121/70 01/01/19 10:26 103 H 26 H 96 01/01/19 10:00 24 H 01/01/19 08:00 98.6 F 24 H 100 01/01/19 06:54 92 128/85 01/01/19 06:52 96 18 99 01/01/19 06:00 20 01/01/19 04:00 98.4 F 18 Weight Admit Weight 326 lb 15.128 oz Weight 323 lb 13.745 oz Most Recent Monitor Data Heart Rate from ECG 110 NIBP 112/75 NIBP BP-Mean 87 Respiration from ECG 22 SpO2 100 I&O: 12/31/18 01/01/19 01/02/19 06:59 06:59 06:59 Intake Total 1948.9 2042 Output Total 743 565 185 Balance 1205.9 1477 -185 Result Diagrams: 01/01/19 04:20 01/01/19 04:20 Phys Exam - Physical Examination Neck: no nodes, no JVD, supple, full ROM Respiratory: no wheezing, no rales, no rhonchi, wheezing present, clear to auscultation bilateral Cardiovascular: RRR, no significant murmur, no rub, gallop, irregular Gastrointestinal: soft, non-tender, no distention, positive bowel sounds Dx/Plan (1) Acute respiratory failure with hypoxia and hypercapnia Code(s): J96.01 - ACUTE RESPIRATORY FAILURE WITH HYPOXIA; J96.02 - ACUTE RESPIRATORY FAILURE WITH HYPERCAPNIA Status: Acute Comment: intubated (2) Community acquired pneumonia, bilateral Code(s): J18.9 - PNEUMONIA, UNSPECIFIED ORGANISM Status: Acute Comment: on Zosyn and Vancomycin since 12/26/18 (3) Influenza B Code(s): J10.1 - FLU DUE TO OTH IDENT INFLUENZA VIRUS W OTH RESP MANIFEST Status: Acute Comment: on Tamiflu (4) Sepsis Code(s): A41.9 - SEPSIS, UNSPECIFIED ORGANISM Status: Acute Comment: on high dose levophed now (5) Dyslipidemia Code(s): E78.5 - HYPERLIPIDEMIA, UNSPECIFIED Status: Chronic (6) Prerenal acute renal failure Code(s): N17.9 - ACUTE KIDNEY FAILURE, UNSPECIFIED Status: Acute - Plan pt is off abx, on dialysis. Urine output improving -: cpap trial on vent -: on steroids and duoneb * . Review of Systems - Review of Systems Other: pt intubated - Medications/Allergies Allergies/Adverse Reactions: Allergies Allergy/AdvReac Type Severity Reaction Status Date / Time No Known Drug Allergies Allergy Verified 12/26/18 05:16 Medications: Current Medications Acetaminophen (Tylenol) 650 mg PO Q4H PRN PRN Reason: Headache/Fever/Mild Pain (1-3) Last Admin: 12/28/18 08:41 Dose: 650 mg Acetaminophen (Tylenol) 650 mg ID Q4H PRN PRN Reason: Headache/Fever/Mild Pain (1-3) Albuterol/Ipratropium (Duoneb) 3 ml NEB [id number] [facility] Last Admin: 01/01/19 14:41 Dose: 3 ml Lipase/Protease/Amylase ([place] [id number]) 1 cap PER TUBE ASDIR PRN PRN Reason: TUBE OCCLUSION TX Carvedilol (Coreg) 1.5625 mg PER TUBE BID-WM [facility] Last Admin: 01/01/19 09:31 Dose: 1.5625 mg Dextrose/Water (Dextrose 50%) 25 gm IVP PRN PRN PRN Reason: HYPOGLYCEMIA PROTOCOL Last Admin: 12/27/18 06:05 Dose: 25 gm Famotidine (Pepcid) 20 mg SLOW IVP DAILY [facility] Last Admin: 01/01/19 09:31 Dose: 20 mg Glucagon (Glucagon) 1 mg IM PRN PRN PRN Reason: HYPOGLYCEMIA PROTOCOL Heparin Sodium (Porcine) (Heparin) 5,000 units SC BID [facility] Last Admin: 01/01/19 09:31 Dose: 5,000 units Dextrose/Water (D5w) 1,000 mls @ 0 mls/hr IV INF PRN PRN Reason: HYPOGLYCEMIA PROTOCOL Insulin Human Regular (Humulin R) 0 units SC .MILD SLIDING SCALE PRN PRN Reason: Mild Correctional Scale Last Admin: 01/01/19 04:46 Dose: 2 unit Methylprednisolone Sodium Succinate (Solu-Medrol) 40 mg IVP 0900,2100 [facility] Last Admin: 01/01/19 09:32 Dose: 40 mg Discontinue Previous Narcotic Pain Medications And Benzodiazepines 1 each FS .ONE [facility] Stop: 01/25/19 06:25 Polyethylene Glycol (Miralax) 17 gm PO DAILY [facility] Last Admin: 01/01/19 09:32 Dose: 17 gm Propofol (Diprivan) 1,000 mg IV INF PRN; Protocol PRN Reason: TO ACHIEVE GOAL RASS Stop: 01/25/19 06:25 Last Admin: 01/01/19 12:55 Dose: 1,000 mg Propofol (Diprivan Bolus) 20 mg IV Q5MIN PRN PRN Reason: BREAKTHROUGH AGITATION Stop: 01/25/19 06:25 Senna/Docusate Sodium (Senokot S) 1 tab PO BID [facility] Last Admin: 01/01/19 09:32 Dose: Not Given Sevelamer Carbonate (Renvela) 800 mg PO TID [facility] Last Admin: 01/01/19 15:36 Dose: 800 mg Sodium Bicarbonate (Bicarbonate, Sodium) 650 mg PER TUBE ASDIR PRN PRN Reason: TUBE OCCLUSION TX Sodium Chloride (Flush - Normal Saline) 10 ml IVF Q12HR [facility] Last Admin: 01/01/19 09:32 Dose: 10 ml Sodium Chloride (Flush - Normal Saline) 10 ml IVF PRN PRN PRN Reason: Saline Flush Sterile Water (Bacteriostatic Water) 1 ml FS PRN PRN PRN Reason: RECONSTITUTION Last Admin: 12/27/18 18:00 Dose: 1 ml
[2019-01-02] MEDS: Propofol 1,000 MG/100 ML VIAL IV PRN ×3 (02:00→21:26)
[2019-01-02 05:48] LABS: Albumin 3.2 g/dL (3.5-5.0); Anion Gap 19 mmol/L (10-20); BUN (Urea Nitrogen) 76 mg/dL (8.9-20.6); BUN/Creatinine Ratio 11.76; Calc. Creatinine Clearance 29 mL/min (70-130); Calcium 9.8 mg/dL (7.8-10.44); Carbon Dioxide 26 mmol/L (22-29); Chloride 97 mmol/L (98-107); Estimated GFR-MDRD 12; Glucose 134 mg/dL (70-105); Phosphorus 8.3 mg/dL (2.3-4.7); Potassium 4.8 mmol/L (3.5-5.1); Sodium 137 mmol/L (136-145)
[2019-01-02 06:44] LABS: Hemoglobin 14.3 g/dL (14.0-18.0); Mean Corpuscular Hemoglobin 27.1 pg (27.0-31.0); Mean Corpuscular Volume 79.7 fL (78.0-98.0); Mean Platelet Volume 9.6 fL (7.4-10.4); Platelet Count 224 thou/uL (130-400); RBC Distribution Width 15.7 % (11.5-14.5); Red Blood Cell (RBC) Count 5.29 mill/uL (4.70-6.10)
[2019-01-02] MEDS: Famotidine/PF 20 mg/2ml Vial SLOW IVP SCH (07:49)
[2019-01-02] MEDS: Senokot S 8.6-50 MG TAB PO SCH ×2 (07:50→21:27)
[2019-01-02] MEDS: Sevelamer Carbonate 800 MG TAB PO SCH ×3 (07:50→21:27)
[2019-01-02] MEDS: Carvedilol 3.125 MG TAB PER TUBE SCH ×2 (07:50→15:12)
[2019-01-02] MEDS: Heparin 5,000 UNITS/ML VIAL SC SCH ×2 (07:51→21:27)
[2019-01-02] MEDS: Polyethylene Glycol 3350 17 GM Packet PO SCH (07:51)
[2019-01-02] MEDS: methylPREDNISolone Sod Succ 40 MG VIAL IVP SCH ×2 (07:51→21:27)
[2019-01-02 08:10] LABS: Band 1 % (5-11); Eosinophils 1 % (0-10); Lymphocytes 7 % (21-51); MDiff Complete? YES; Monocytes 12 % (0-10); Neutrophil 78 % (42-75); RBC Morphology Normal; Reactive Lymphocytes 1 % (0-10)
[2019-01-02] MEDS ORDERED: Furosemide 100 MG/10 ML VIAL IVPB SCH (08:40)
--- NOTE | 2019-01-02 09:36 | RAD ---
EXAM: CHEST ONE VIEW: History: Respiratory insufficiency. Comparison: 01-01-19 FINDINGS: Left ICD. Life support tubes in place. Minimal cardiomegaly. Minimal diffuse increased markings in th e right chest consistent with some persistent asymmetric vascular congestion and interstitial edema w ith improvement in the left chest compared to the prior study. IMPRESSION: Improving left chest. Improving but some persistent interstitial and alveolar parenchymal changes thr oughout the right lung. Cardiomegaly. Continued short term follow up for clearing or stability. POS: [facility]
--- NOTE | 2019-01-02 10:03 | PRG ---
DATE OF SERVICE: 01/02/2019 SERVICE: Pulmonary Medicine. INTERVAL HISTORY: The patient is doing really well from respiratory standpoint. This morning, he is no longer having these coughing fits that are preventing him waking up from sedation. He has no complaints of chest pain, fevers, chills, nausea, or vomiting. Volumes are decent. He is little tachypneic, but he is not using much in the way of accessory muscles. PHYSICAL EXAMINATION: VITAL SIGNS: Afebrile, pulse 102, blood pressure 142/96, respirations 25, saturation 99% on 27% FiO2 and a PEEP of 5. GENERAL: The patient is intubated and sedated. HEENT: Normocephalic and atraumatic. Sclerae white. Conjunctivae pink. Oral mucosa is moist without lesions. LUNGS: Decent air entry. There is rhonchi present. There is a slightly prolonged expiratory phase, which is much improved. No wheezing is appreciated. HEART: Normal rate and regular. ABDOMEN: Soft, nontender, nondistended. Bowel sounds are positive. MUSCULOSKELETAL: No cyanosis or clubbing. There is no pitting in the bilateral lower extremities. NEUROLOGIC: Grossly nonfocal. LABORATORY DATA: WBC 14, hemoglobin 14.3, and platelets 224,000. Creatinine 6.46 and downtrending, BUN 76. Basic metabolic profile is otherwise unremarkable. Phosphorus 8.3, albumin 3.2. Blood culture is growing coag-negative Staph in 1/2. Urine culture is negative. Influenza B is positive. IMAGING: Chest x-ray demonstrates stable chest. Improvement in edema. Endotracheal tube remains in good position. No significant infiltrates or effusions are identified. Cardiac silhouette is quite impressive. ASSESSMENT: 1. Acute hypoxic and hypercapnic respiratory failure. 2. Asthma with acute exacerbation. 3. Community-acquired pneumonia secondary to influenza B. 4. Acute on chronic systolic heart failure. 5. Acute kidney injury. DISCUSSION AND PLAN: The patient is doing fine from respiratory standpoint. We will put him on a spontaneous breathing trial after a long sedation holiday. If he meets criteria, extubation will be considered. Pulmonary Critical Care will continue to follow along. We will continue supportive care, antibiotics nebulized medications, and steroids. CRITICAL CARE TIME: 30 minutes. Job ID: [id number]
[2019-01-02 10:17] LABS: HCV log10 6.378 (.); Hep C PCR-Quant 2390000 IU/mL (.)
--- NOTE | 2019-01-02 10:32 | PRG ---
DATE OF SERVICE: 01/02/2019 SUBJECTIVE: A 43-year-old male with nonischemic cardiomyopathy status post AICD placement, who was admitted due to acute encephalopathy, respiratory failure. Nephrology is seeing patient for acute renal failure requiring hemodialysis. The patient has had daily hemodialysis since December 30 up to yesterday January 01. He continues to make some urine. He is still intubated and mechanically ventilated. Extubation is contemplated today. OBJECTIVE: VITAL SIGNS: Temperature 98.8, heart rate 101, blood pressure 129/84, SpO2 of 93. GENERAL: Morbidly obese male in mild respiratory distress. The patient is currently on spontaneous breathing trial and he is sweating. HEENT: Normocephalic and atraumatic. Pupils are reacting to light. OG and ET tubes are in place. CARDIOVASCULAR: Regular rhythm, but tachycardic. Normal heart sounds one and two. RESPIRATORY: Ventilator transmitted sound is heard in all lung zones. The patient is tachypneic. GI: Morbidly obese, soft, nontender with normal bowel sounds. EXTREMITIES: Trace feet edema noted. Otherwise, extremities are grossly normal looking, atraumatic with no erythema or cyanosis. UROGENITAL: Prince catheter is in place draining some clear urine. NEUROLOGIC: The patient is awake, but nonverbal as he is still intubated. Obeys commands. DIAGNOSTIC DATA: CBC showed WBC count of 14, hemoglobin of 14.3, MCV of 79.7, platelets of 224. Renal function panel showed sodium 137, potassium 4.8, chloride 97, CO2 of 26, anion gap 19, BUN 76, creatinine 6.46, glucose 134, calcium 9.8, phosphorus 8.3, albumin 3.2. Chest x-ray showed persistent interstitial and alveolar parenchymal changes, though significantly improved. ASSESSMENT: 1. Acute renal failure: Most likely due to acute tubular necrosis with possible contribution from vancomycin induced nephrotoxicity. Last hemodialysis was on January 01. Volume status, electrolytes and acid-base balance are acceptable at this time. There is no need for hemodialysis today. We will monitor renal function as well as intake and output and assess renal recovery. If there is no significant improvement in renal function in the next several days, we will consider renal biopsy to ascertain the etiology of acute renal failure. 2. Volume overload: Improved with hemodialysis with UF as tolerated. Chest x-ray however still showed persistent of pulmonary congestion. We will start the patient on Lasix. 3. Hyperkalemia: Resolved with hemodialysis. 4. Hypotension, resolved: The patient is off pressors and blood pressure is holding okay currently. 5. Hyperphosphatemia: We will continue Renvela. 6. Acute respiratory failure with hypoxia. Treatment as per Pulmonary and Critical Care. Extubation is contemplated today. Job ID: [id number]
[2019-01-02] MEDS: Furosemide 100 MG/10 ML VIAL SLOW IVP SCH ×2 (12:58→21:28)
--- NOTE | 2019-01-02 15:39 | PDOC.PN ---
- Subjective Encounter Start Date: 01/02/19 Encounter Start Time: 10:15 Subjective: pt intubated - Objective Vital Signs & Weight: Vital Signs (12 hours) Temp Pulse Resp BP Pulse Ox 01/02/19 14:53 99 128/82 01/02/19 14:52 102 H 21 H 99 01/02/19 14:41 99.0 F 01/02/19 10:33 106 H 139/102 H 01/02/19 10:32 107 H 33 H 96 01/02/19 10:00 98.8 F 01/02/19 09:02 30 H 01/02/19 09:00 98.8 F 01/02/19 08:00 98.8 F 01/02/19 07:06 26 H 95 01/02/19 07:04 99 125/75 01/02/19 07:03 102 H 18 96 01/02/19 06:00 33 H 01/02/19 04:00 99.1 F 25 H Weight Admit Weight 326 lb 15.128 oz Weight 299 lb 2.676 oz Most Recent Monitor Data Heart Rate from ECG 96 NIBP 137/85 NIBP BP-Mean 102 Respiration from ECG 30 SpO2 96 I&O: 01/01/19 01/02/19 01/03/19 06:59 06:59 06:59 Intake Total 2042 1639 2345 Output Total 565 492 700 Balance 1477 1147 1645 Result Diagrams: 01/02/19 05:05 01/02/19 05:05 Additional Labs: Accuchecks 01/01/19 21:12 POC Glucose 104 Phys Exam - Physical Examination Neck: no nodes, no JVD, supple, full ROM Respiratory: no wheezing, no rales, no rhonchi, wheezing present, clear to auscultation bilateral Cardiovascular: RRR, no significant murmur, no rub, gallop, irregular Gastrointestinal: soft, non-tender, no distention, positive bowel sounds Dx/Plan (1) Acute respiratory failure with hypoxia and hypercapnia Code(s): J96.01 - ACUTE RESPIRATORY FAILURE WITH HYPOXIA; J96.02 - ACUTE RESPIRATORY FAILURE WITH HYPERCAPNIA Status: Acute Comment: intubated (2) Community acquired pneumonia, bilateral Code(s): J18.9 - PNEUMONIA, UNSPECIFIED ORGANISM Status: Acute Comment: on Zosyn and Vancomycin since 12/26/18 (3) Influenza B Code(s): J10.1 - FLU DUE TO OTH IDENT INFLUENZA VIRUS W OTH RESP MANIFEST Status: Acute Comment: on Tamiflu (4) Sepsis Code(s): A41.9 - SEPSIS, UNSPECIFIED ORGANISM Status: Acute Comment: on high dose levophed now (5) Dyslipidemia Code(s): E78.5 - HYPERLIPIDEMIA, UNSPECIFIED Status: Chronic (6) Prerenal acute renal failure Code(s): N17.9 - ACUTE KIDNEY FAILURE, UNSPECIFIED Status: Acute - Plan plans to exubate this am -: pt awake and following commands * . Review of Systems - Review of Systems Other: on steroids - Medications/Allergies Allergies/Adverse Reactions: Allergies Allergy/AdvReac Type Severity Reaction Status Date / Time No Known Drug Allergies Allergy Verified 12/26/18 05:16 Medications: Current Medications Acetaminophen (Tylenol) 650 mg PO Q4H PRN PRN Reason: Headache/Fever/Mild Pain (1-3) Last Admin: 12/28/18 08:41 Dose: 650 mg Acetaminophen (Tylenol) 650 mg [place] Q4H PRN PRN Reason: Headache/Fever/Mild Pain (1-3) Albuterol/Ipratropium (Duoneb) 3 ml NEB [id number] Last Admin: 01/02/19 14:52 Dose: 3 ml Lipase/Protease/Amylase ([place] [id number]) 1 cap PER TUBE ASDIR PRN PRN Reason: TUBE OCCLUSION TX Carvedilol (Coreg) 1.5625 mg PER TUBE BID-WM [facility] Last Admin: 01/02/19 15:12 Dose: 1.5625 mg Dextrose/Water (Dextrose 50%) 25 gm IVP PRN PRN PRN Reason: HYPOGLYCEMIA PROTOCOL Last Admin: 12/27/18 06:05 Dose: 25 gm Famotidine (Pepcid) 20 mg SLOW IVP DAILY [facility] Last Admin: 01/02/19 07:49 Dose: 20 mg Furosemide (Lasix) 80 mg SLOW IVP BID [facility] Last Admin: 01/02/19 12:58 Dose: Not Given Glucagon (Glucagon) 1 mg IM PRN PRN PRN Reason: HYPOGLYCEMIA PROTOCOL Heparin Sodium (Porcine) (Heparin) 5,000 units SC BID [facility] Last Admin: 01/02/19 07:51 Dose: 5,000 units Dextrose/Water (D5w) 1,000 mls @ 0 mls/hr IV INF PRN PRN Reason: HYPOGLYCEMIA PROTOCOL Insulin Human Regular (Humulin R) 0 units SC .MILD SLIDING SCALE PRN PRN Reason: Mild Correctional Scale Last Admin: 01/01/19 04:46 Dose: 2 unit Methylprednisolone Sodium Succinate (Solu-Medrol) 40 mg IVP 0900,2100 [facility] Last Admin: 01/02/19 07:51 Dose: 40 mg Discontinue Previous Narcotic Pain Medications And Benzodiazepines 1 each FS .ONE [facility] Stop: 01/25/19 06:25 Polyethylene Glycol (Miralax) 17 gm PO DAILY [facility] Last Admin: 01/02/19 07:51 Dose: Not Given Propofol (Diprivan) 1,000 mg IV INF PRN; Protocol PRN Reason: TO ACHIEVE GOAL RASS Stop: 01/25/19 06:25 Last Admin: 01/02/19 05:53 Dose: 1,000 mg Propofol (Diprivan Bolus) 20 mg IV Q5MIN PRN PRN Reason: BREAKTHROUGH AGITATION Stop: 01/25/19 06:25 Senna/Docusate Sodium (Senokot S) 1 tab PO BID [facility] Last Admin: 01/02/19 07:50 Dose: 1 tab Sevelamer Carbonate (Renvela) 800 mg PO TID [facility] Last Admin: 01/02/19 15:12 Dose: 800 mg Sodium Bicarbonate (Bicarbonate, Sodium) 650 mg PER TUBE ASDIR PRN PRN Reason: TUBE OCCLUSION TX Sodium Chloride (Flush - Normal Saline) 10 ml IVF Q12HR [facility] Last Admin: 01/02/19 07:51 Dose: 10 ml Sodium Chloride (Flush - Normal Saline) 10 ml IVF PRN PRN PRN Reason: Saline Flush Sterile Water (Bacteriostatic Water) 1 ml FS PRN PRN PRN Reason: RECONSTITUTION Last Admin: 12/27/18 18:00 Dose: 1 ml
[2019-01-02] MEDS: Bacteriostatic Water 30 ML VIAL FS PRN (21:27)
[2019-01-03] MEDS: Propofol 1,000 MG/100 ML VIAL IV PRN ×3 (00:10→06:32)
[2019-01-03 04:12] LABS: #Eosinphils 0.1 thou/uL (0.0-0.7); #Monocytes 1.2 thou/uL (0.11-0.59); #Neutrophils 12.3 thou/uL (1.40-6.50); %Basophils 0.3 % (0.0-1.0); %Eosinophils 0.6 % (0.0-10.0); %Lymphocytes 6.9 % (21.0-51.0); %Monocytes 8.4 % (0.0-10.0); %Neutrophils 83.8 % (42.0-75.0); Hemoglobin 14.5 g/dL (14.0-18.0); Mean Corpuscular HGB CONC 33.4 g/dL (32.0-36.0); Mean Corpuscular Hemoglobin 26.5 pg (27.0-31.0); Mean Corpuscular Volume 79.4 fL (78.0-98.0); Mean Platelet Volume 9.4 fL (7.4-10.4); Platelet Count 246 thou/uL (130-400); RBC Distribution Width 15.4 % (11.5-14.5); Red Blood Cell (RBC) Count 5.48 mill/uL (4.70-6.10); White Blood Cell (WBC) Count 14.6 thou/uL (4.8-10.8)
[2019-01-03 04:38] LABS: Albumin 3.1 g/dL (3.5-5.0); Anion Gap 20 mmol/L (10-20); BUN (Urea Nitrogen) 110 mg/dL (8.9-20.6); BUN/Creatinine Ratio 13.41; Calc. Creatinine Clearance 23 mL/min (70-130); Calcium 9.8 mg/dL (7.8-10.44); Carbon Dioxide 25 mmol/L (22-29); Chloride 95 mmol/L (98-107); Estimated GFR-MDRD 9; Glucose 152 mg/dL (70-105); Potassium 5.2 mmol/L (3.5-5.1); Sodium 135 mmol/L (136-145)
[2019-01-03] MEDS: Carvedilol 3.125 MG TAB PER TUBE SCH ×2 (07:59→16:45)
[2019-01-03] MEDS: Senokot S 8.6-50 MG TAB PO SCH ×2 (07:59→20:21)
[2019-01-03] MEDS: methylPREDNISolone Sod Succ 40 MG VIAL IVP SCH ×2 (08:00→20:20)
[2019-01-03] MEDS: Heparin 5,000 UNITS/ML VIAL SC SCH ×2 (08:00→20:20)
[2019-01-03] MEDS: Polyethylene Glycol 3350 17 GM Packet PO SCH (08:00)
[2019-01-03] MEDS: Famotidine/PF 20 mg/2ml Vial SLOW IVP SCH (08:00)
--- NOTE | 2019-01-03 08:09 | PRG ---
DATE OF SERVICE: 01/03/2019 SUBJECTIVE: A 43-year-old male being seen for acute renal failure, requiring hemodialysis. The patient was admitted due to acute respiratory failure and acute encephalopathy, requiring intubation. He is still intubated. The patient failed spontaneous breathing trial yesterday. Tolerating tube feeding. OBJECTIVE: VITAL SIGNS: Temperature 98.7, pulse 103, blood pressure 123/71, SpO2 100% on mechanical ventilator, respiratory rate is 29. GENERAL: Sedated, obese male, in no distress. Afebrile, anicteric, acyanotic. HEENT: ET tube and OG tubes are in place. CARDIOVASCULAR: Regular rhythm, but tachycardic. Normal heart sounds one and two. RESPIRATORY: Fair air entry bilateral with some transmitted sounds. The patient is mechanically ventilated. GASTROINTESTINAL: Obese, soft, nondistended with normal bowel sounds. EXTREMITIES: Trace feet edema noted. Otherwise, grossly normal-looking atraumatic with no erythema or cyanosis. Distal pulses are palpable. NEUROLOGIC: The patient is sedated. DIAGNOSTIC DATA: CBC showed WBC count of 14.6, hemoglobin of 14.5, MCV of 79.4, platelet of 246. Renal function panel showed sodium 135, potassium 5.2, chloride 95, CO2 25, BUN 110, creatinine 8.0, glucose 152, calcium 9.8, phosphorus 10.0, albumin 3.1. ASSESSMENT AND PLAN: 1. Acute renal failure. The patient is not on hemodialysis. Creatinine is still trending up post dialysis consistent with no significant renal recovery as yet. The patient made good amount of urine with diuretics. We will dialyze the patient today with 3K baths for 4 hours with UF as tolerated. 2. Volume overload: Improved. The patient is close to euvolemia. 3. Hyperkalemia: Mild: Due to acute renal failure. We will treat with hemodialysis. 4. Acid-base balance: Acceptable. 5. Acute respiratory failure due to influenza pneumonitis and congestive heart failure exacerbation. Pulmonary congestion has improved. We defer extubation to Pulmonary and Critical Care. 6. Influenza pneumonitis. Treatment as per primary attending. 7. Hypertension: Resolved. The patient is off pressors. 8. Nutrition: The patient is on Nepro. 9. Hyperphosphatemia: We will continue Renvela. We will, however, increase dose to 800 q.i.d. since the patient is on tube feeding. 10. We will continue to monitor renal function in and out, as well as electrolytes and address as appropriate. Job ID: [id number]
--- NOTE | 2019-01-03 10:08 | PRG ---
DATE OF SERVICE: 01/03/2019 SERVICE: Pulmonary Medicine. INTERVAL HISTORY: The patient is doing poorly from respiratory standpoint. He remains on mechanical ventilation. His oxygen saturations remain low. That being said, he continues to have fairly significant obstructive airflow limitation preventing successful liberation from mechanical ventilation. He cannot provide any additional elements of the history and is currently under the influence of fairly heavy sedation. PHYSICAL EXAMINATION: VITAL SIGNS: Afebrile, pulse 104, blood pressure 96/63, respirations 17, and saturation 92% on 33% FiO2 and a PEEP of 5. GENERAL: The patient is intubated and sedated. HEENT: Normocephalic and atraumatic. Sclerae white. Conjunctivae pink. Oral mucosa is moist without lesions. LUNGS: Decent air entry. Rhonchi are present. There is also prolonged expiratory phase with polyphonic wheezing. I really do not appreciate any crackles. HEART: Normal rate and regular. ABDOMEN: Soft, nontender, nondistended. Bowel sounds are positive. MUSCULOSKELETAL: No cyanosis or clubbing. There is no pitting throughout. GENITOURINARY: Prince catheter in place. NEUROLOGIC: Grossly nonfocal. LABORATORY DATA: WBC 14.6, hemoglobin 4.5, platelets 246,000, neutrophil count is 84% of total. Creatinine 8.2, BUN 110, potassium 5.2. Basic metabolic profile is otherwise unremarkable. Phosphorus continues to trend upward to 10.0. Albumin 3.1. Influenza B is positive. ASSESSMENT: 1. Acute hypoxic and hypercapnic respiratory failure. 2. Asthma with acute exacerbation. 3. Community-acquired pneumonia secondary to influenza B. 4. Acute on chronic systolic heart failure. 5. Acute kidney injury. DISCUSSION AND PLAN: I will continue our supportive care. The patient has been on mechanical ventilation for the better part of 8 days. At this point, if he fails spontaneous breathing trials over the next 2 or 3 days, we may be forced to consider tracheostomy, but for the time being, I am hopeful to be able to avoid that. I will repeat a chest x-ray tomorrow morning. CRITICAL CARE TIME: 30 minutes. Job ID: [id number]
[2019-01-03] MEDS: Sevelamer Carbonate 800 MG TAB PO SCH ×2 (12:35→16:45)
[2019-01-03] MEDS ORDERED: Mannitol 12.5 GM/50 ML IV SCH (13:45)
--- NOTE | 2019-01-03 14:44 | PQF ---
DATE: 01-03-19 ATTN: DR. DA HODGE Please exercise your independent, professional judgment in responding to the clarification form. Clinical indicators are provided on the bottom of this form for your review Please check appropriate box(s): [ x ] Encephalopathy: Type: [ x] Acute [ ] Subacute [ ] Chronic Etiology: [ x ] Metabolic [ ] Toxic [ ] Hypoxic [ ] Septic [ ] Other (please specify) [ ] Transient Alteration of Awareness [ ] Other diagnosis [ ] Unable to determine In addition, please specify: Present on Admission (POA): [ x] Yes [ ] No [ ] Unable to determine For continuity of documentation, please document condition throughout progress notes and discharge summary. Thank You. CLINICAL INDICATORS - SIGNS / SYMPTOMS / LABS: ER: PATIENT BELLIGERENTLY AND REFUSING TO KEEP MONITORING EQUIPMENT, AMS, HISTORIAN REPORTS CONFUSION ER DX: AMS, CARDIOGENIC SHOCK, DECOMPENSATED CHF, HYPERNATREMIA, HYPOXIA, INFLUENZA PNEUMONIA, PULMONARY EDEMA PN DR. HUIZAR 01-01-19: WHO WAS ADMITTED DUE TO ACUTE ENCEPHALOPATHY AND HYPOTENSION PN DR. HODGE 01-02-19: SEPSIS, ACUTE RESP FAILURE, INTUBATED, BILATERAL COMMUNITY ACQUIRED PNEUMONIA RISK FACTORS: ER: HX OF CARDIAC SURGERY, DM 2, HYPERLIPIDEMIA, HEART FAILURE, ASTHMA , CHF, OBESITY, CARDIOMYOPATHY, COPD, PACER, SMOKER PN DR. HODGE 01-02-19: SEPSIS, ACUTE RESP FAILURE, INTUBATED, BILATERAL COMMUNITY ACQUIRED PNEUMONIA TREATMENTS: ER: IVF NS, VANCOMYCIN IV, ZOSYN IV, IVF NS (This form is maintained as a part of the permanent medical record) 2014 [employer] All Rights Reserved [email or web address] [email or web address] Office: [phone] SHAMIR
[2019-01-03] MEDS ORDERED: Heparin 10,000 UNITS/ 10 ML VIAL ONE (15:00)
[2019-01-03] MEDS: Bacteriostatic Water 30 ML VIAL FS PRN (20:21)
--- NOTE | 2019-01-03 21:50 | PDOC.PN ---
- Subjective Encounter Start Date: 01/03/19 Encounter Start Time: 09:45 Subjective: pt intubated - Objective Vital Signs & Weight: Vital Signs (12 hours) Pulse Resp BP Pulse Ox 01/03/19 18:22 83 114/78 01/03/19 14:26 95 01/03/19 14:25 89 26 H 96 01/03/19 13:07 34 H 01/03/19 11:06 91 32 H 01/03/19 11:03 92 134/81 Weight Admit Weight 326 lb 15.128 oz Weight 322 lb 5.053 oz Most Recent Monitor Data Heart Rate from ECG 84 NIBP 105/68 NIBP BP-Mean 80 Respiration from ECG 26 SpO2 100 I&O: 01/02/19 01/03/19 01/04/19 06:59 06:59 06:59 Intake Total 1639 3619 1714 Output Total 492 1725 560 Balance 1147 1894 1154 Result Diagrams: 01/03/19 04:00 01/03/19 04:00 Additional Labs: Accuchecks 01/03/19 04:03 POC Glucose 143 H Phys Exam - Physical Examination Neck: no nodes, no JVD, supple, full ROM Respiratory: no wheezing, no rales, no rhonchi Cardiovascular: RRR, no significant murmur, no rub, gallop Gastrointestinal: soft, non-tender, no distention, positive bowel sounds Dx/Plan (1) Acute respiratory failure with hypoxia and hypercapnia Code(s): J96.01 - ACUTE RESPIRATORY FAILURE WITH HYPOXIA; J96.02 - ACUTE RESPIRATORY FAILURE WITH HYPERCAPNIA Status: Acute Comment: intubated (2) Community acquired pneumonia, bilateral Code(s): J18.9 - PNEUMONIA, UNSPECIFIED ORGANISM Status: Acute Comment: on Zosyn and Vancomycin since 12/26/18 (3) Influenza B Code(s): J10.1 - FLU DUE TO OTH IDENT INFLUENZA VIRUS W OTH RESP MANIFEST Status: Acute Comment: on Tamiflu (4) Sepsis Code(s): A41.9 - SEPSIS, UNSPECIFIED ORGANISM Status: Acute Comment: on high dose levophed now (5) Dyslipidemia Code(s): E78.5 - HYPERLIPIDEMIA, UNSPECIFIED Status: Chronic (6) Prerenal acute renal failure Code(s): N17.9 - ACUTE KIDNEY FAILURE, UNSPECIFIED Status: Acute - Plan unable to extubate pt yestarday -: will try to extubate today -: continue duonebs and steroids * . Review of Systems - Review of Systems Other: intubated - Medications/Allergies Allergies/Adverse Reactions: Allergies Allergy/AdvReac Type Severity Reaction Status Date / Time No Known Drug Allergies Allergy Verified 12/26/18 05:16 Medications: Current Medications Acetaminophen (Tylenol) 650 mg PO Q4H PRN PRN Reason: Headache/Fever/Mild Pain (1-3) Last Admin: 12/28/18 08:41 Dose: 650 mg Acetaminophen (Tylenol) 650 mg MT Q4H PRN PRN Reason: Headache/Fever/Mild Pain (1-3) Albuterol/Ipratropium (Duoneb) 3 ml NEB [id number] TRENA Last Admin: 01/03/19 18:22 Dose: 3 ml Lipase/Protease/Amylase ([place] [id number]) 1 cap PER TUBE ASDIR PRN PRN Reason: TUBE OCCLUSION [place] Carvedilol (Coreg) 3.125 mg PER TUBE BID-WM TRENA Last Admin: 01/03/19 16:45 Dose: 3.125 mg Dextrose/Water (Dextrose 50%) 25 gm IVP PRN PRN PRN Reason: HYPOGLYCEMIA PROTOCOL Last Admin: 12/27/18 06:05 Dose: 25 gm Famotidine (Pepcid) 20 mg SLOW IVP DAILY COUNTS INCLUDE 234 BEDS AT THE [facility] Last Admin: 01/03/19 08:00 Dose: 20 mg Glucagon (Glucagon) 1 mg IM PRN PRN PRN Reason: HYPOGLYCEMIA PROTOCOL Heparin Sodium (Porcine) (Heparin) 5,000 units SC BID TRENA Last Admin: 01/03/19 20:20 Dose: 5,000 units Dextrose/Water (D5w) 1,000 mls @ 0 mls/hr IV INF PRN PRN Reason: HYPOGLYCEMIA PROTOCOL Dexmedetomidine HCl 400 mcg/ (Sodium Chloride) 100 mls @ 0 mls/hr IVPB INF TRENA ; Protocol Last Admin: 01/03/19 19:10 Dose: 100 mls Insulin Human Regular (Humulin R) 0 units SC .MILD SLIDING SCALE PRN PRN Reason: Mild Correctional Scale Last Admin: 01/01/19 04:46 Dose: 2 unit Mannitol (Mannitol) 12.5 gm IV ASDIR TRENA Stop: 05/15/19 23:59 Methylprednisolone Sodium Succinate (Solu-Medrol) 40 mg IVP 0900,2100 COUNTS INCLUDE 234 BEDS AT THE [facility] Last Admin: 01/03/19 20:20 Dose: 40 mg Discontinue Previous Narcotic Pain Medications And Benzodiazepines 1 each FS .ONE COUNTS INCLUDE 234 BEDS AT THE [facility] Stop: 01/25/19 06:25 Polyethylene Glycol (Miralax) 17 gm PO DAILY COUNTS INCLUDE 234 BEDS AT THE [facility] Last Admin: 01/03/19 08:00 Dose: 17 gm Senna/Docusate Sodium (Senokot S) 1 tab PO BID COUNTS INCLUDE 234 BEDS AT THE [facility] Last Admin: 01/03/19 20:21 Dose: 1 tab Sevelamer Carbonate (Renvela) 800 mg PO Q6H COUNTS INCLUDE 234 BEDS AT THE [facility] Last Admin: 01/03/19 16:45 Dose: 800 mg Sodium Bicarbonate (Bicarbonate, Sodium) 650 mg PER TUBE ASDIR PRN PRN Reason: TUBE OCCLUSION TX Sodium Chloride (Flush - Normal Saline) 10 ml IVF Q12HR COUNTS INCLUDE 234 BEDS AT THE [facility] Last Admin: 01/03/19 20:21 Dose: 10 ml Sodium Chloride (Flush - Normal Saline) 10 ml IVF PRN PRN PRN Reason: Saline Flush Sterile Water (Bacteriostatic Water) 1 ml FS PRN PRN PRN Reason: RECONSTITUTION Last Admin: 01/03/19 20:21 Dose: 1 ml
[2019-01-04] MEDS: Sevelamer Carbonate 800 MG TAB PO SCH ×4 (01:25→17:32)
[2019-01-04] MEDS: Acetaminophen 325 MG TAB PO PRN (01:25)
[2019-01-04 04:56] LABS: #Eosinphils 0.2 thou/uL (0.0-0.7); #Lymphocytes 1.2 thou/uL (1.20-3.40); #Monocytes 1.3 thou/uL (0.11-0.59); #Neutrophils 10.9 thou/uL (1.40-6.50); %Basophils 0.3 % (0.0-1.0); %Eosinophils 1.1 % (0.0-10.0); %Monocytes 9.2 % (0.0-10.0); %Neutrophils 80.3 % (42.0-75.0); Hemoglobin 14.2 g/dL (14.0-18.0); Mean Corpuscular HGB CONC 32.6 g/dL (32.0-36.0); Mean Corpuscular Hemoglobin 25.7 pg (27.0-31.0); Mean Corpuscular Volume 78.6 fL (78.0-98.0); Mean Platelet Volume 9.7 fL (7.4-10.4); Platelet Count 209 thou/uL (130-400); RBC Distribution Width 15.5 % (11.5-14.5); Red Blood Cell (RBC) Count 5.52 mill/uL (4.70-6.10); White Blood Cell (WBC) Count 13.5 thou/uL (4.8-10.8)
[2019-01-04 05:15] LABS: Albumin 3.2 g/dL (3.5-5.0); Anion Gap 21 mmol/L (10-20); BUN (Urea Nitrogen) 96 mg/dL (8.9-20.6); BUN/Creatinine Ratio 13.21; Calc. Creatinine Clearance 27 mL/min (70-130); Calcium 9.7 mg/dL (7.8-10.44); Carbon Dioxide 26 mmol/L (22-29); Chloride 97 mmol/L (98-107); Estimated GFR-MDRD 10; Glucose 123 mg/dL (70-105); Potassium 5.6 mmol/L (3.5-5.1); Sodium 138 mmol/L (136-145)
[2019-01-04 05:18] LABS: Phosphorus 9.6 mg/dL (2.3-4.7)
--- NOTE | 2019-01-04 07:43 | RAD ---
EXAM: Single view of the chest HISTORY: Ventilated patient with respiratory failure COMPARISON: 01/02/2019 FINDINGS: Single view of the chest shows an enlarged but stable cardiomediastinal silhouette. The li chelle and tubes are unchanged in position. The pacemaker is unchanged in position. There is no evidence of consolidation, mass, or pleural effusion. The bones are unremarkable. IMPRESSION: Cardiomegaly without evidence of acute cardiopulmonary disease
[2019-01-04] MEDS: Heparin 5,000 UNITS/ML VIAL SC SCH ×2 (08:38→20:33)
[2019-01-04] MEDS: Polyethylene Glycol 3350 17 GM Packet PO SCH (08:38)
[2019-01-04] MEDS: Carvedilol 3.125 MG TAB PER TUBE SCH ×2 (08:38→16:37)
[2019-01-04] MEDS: Famotidine/PF 20 mg/2ml Vial SLOW IVP SCH (08:38)
[2019-01-04] MEDS: Senokot S 8.6-50 MG TAB PO SCH ×2 (08:39→20:33)
[2019-01-04] MEDS: methylPREDNISolone Sod Succ 40 MG VIAL IVP SCH (08:39)
--- NOTE | 2019-01-04 10:24 | PRG ---
DATE OF SERVICE: 01/04/2019 SERVICE: Pulmonary Medicine. INTERVAL HISTORY: The patient is doing okay from respiratory standpoint. He is breathing comfortably. He is on mechanical ventilation. He demonstrates extraordinary weakness of the bilateral upper and lower extremities. Otherwise, there has been no interval change to his condition. PHYSICAL EXAMINATION: VITAL SIGNS: Afebrile with a T-max of 100.8, pulse 86, blood pressure 113/66, respirations 27, and saturation 98% on 27% FiO2 and a PEEP of 5. GENERAL: The patient is intubated under the influence of some sedation. HEENT: Normocephalic and atraumatic. Sclerae white. Conjunctivae pink. Oral mucosa is moist without lesions. LUNGS: Excellent air entry. There is a slightly prolonged expiratory phase. Rhonchi are present. No wheezing or crackles are appreciated. HEART: Normal rate and regular. MUSCULOSKELETAL: No cyanosis or clubbing. I do not appreciate any pitting in the bilateral lower extremities. NEUROLOGIC: Grossly nonfocal. He has diffuse weakness. LABORATORY DATA: WBC 13.5, hemoglobin 14.2, and platelets 209,000. Creatinine 7.27, and downtrending with dialysis. BUN is downtrending to 96. Anion gap 21, bicarb 26, potassium 5.6. Albumin 3.2. Troponin is downtrending to 0.1. Blood cultures are growing coag-negative Staph in 1 out of 2, but likely contaminant is our two separate species. Urine culture, influenza A and B are negative. IMAGING STUDIES: Chest x-ray shows cardiomegaly without evidence of acute cardiopulmonary abnormality. Endotracheal tube is in place. Enteric catheter courses below the level of the diaphragm. A right IJ central venous catheter which terminates in wonderful position. Soft tissue attenuation accentuates dependent interstitial markings. ASSESSMENT: 1. Acute hypoxic and hypercapnic respiratory failure, improving. 2. Asthma with acute exacerbation. 3. Community-acquired pneumonia secondary to influenza B, improving. 4. Acute on chronic systolic heart failure. 5. Metabolic encephalopathy. 6. Acute kidney injury. 7. Critical Care weakness/myopathy. DISCUSSION AND PLAN: The patient is doing okay from respiratory standpoint. That being said, he has been on mechanical ventilation, steroids, and required previous paralytics. At this point, he has developed weakness of the ICU. We will involve Physical Therapy, Occupational Therapy, and get him out of bed and into a chair 3 times daily. As we mobilize him, we will see if we can wean away pressure support off the mechanical ventilator. If he does not make progress over the next 4 days, we will likely be looking at tracheostomy. All sedating medications will be held except for Precedex if possible. Critical care time: 30 minutes. Job ID: [id number] MTDD
[2019-01-04] MEDS ORDERED: Heparin 10,000 UNITS/ 10 ML VIAL ONE (12:00)
--- NOTE | 2019-01-04 12:03 | PDOC.PN ---
- Subjective Encounter Start Date: 01/04/19 Encounter Start Time: 10:30 -: old records requested/rev Patient seen and examined. pt is awake on vent, No overnight events - Objective MAR Reviewed: Yes Vital Signs & Weight: Vital Signs (12 hours) Temp Pulse Resp BP Pulse Ox 01/04/19 10:46 92 125/99 H 01/04/19 10:42 91 19 96 01/04/19 10:00 20 01/04/19 08:00 18 01/04/19 07:42 86 113/79 01/04/19 07:40 84 30 H 96 01/04/19 07:14 97 01/04/19 07:00 99.2 F 01/04/19 06:00 16 01/04/19 05:00 99.8 F H 01/04/19 04:00 16 01/04/19 02:27 86 110/77 01/04/19 02:00 23 H 01/04/19 01:00 100.8 F H Weight Admit Weight 326 lb 15.128 oz Weight 311 lb 11.738 oz Most Recent Monitor Data Heart Rate from ECG 92 NIBP 136/99 NIBP BP-Mean 111 Respiration from ECG 15 SpO2 95 I&O: 01/03/19 01/04/19 01/05/19 06:59 06:59 06:59 Intake Total 3619 2470 120 Output Total 1725 905 100 Balance 1894 1565 20 Result Diagrams: 01/04/19 04:40 01/04/19 04:40 Additional Labs: Accuchecks 01/04/19 01/03/19 01/03/19 09:48 21:04 09:30 POC Glucose 128 H 128 H 110 01/02/19 05:14 POC Glucose 128 H Radiology Reviewed by me: Yes EKG Reviewed by me: Yes Phys Exam - Physical Examination Constitutional: NAD on vent HEENT: PERRLA, sclera anicteric ET , OG tube in place Neck: no JVD, supple left IJ central line Respiratory: no wheezing, no rales, no rhonchi anteriorly Cardiovascular: RRR, no significant murmur, no rub Gastrointestinal: soft, non-tender, no distention, positive bowel sounds Prince+ Musculoskeletal: no edema, pulses present right groin HD catheter+ Lymphatic: no nodes Skin: no rash, normal turgor Dx/Plan (1) Septic shock Code(s): A41.9 - SEPSIS, UNSPECIFIED ORGANISM; R65.21 - SEVERE SEPSIS WITH SEPTIC SHOCK Status: Resolved (2) Acute renal failure (ARF) Status: Acute Qualifiers: Acute renal failure type: unspecified Qualified Code(s): N17.9 - Acute kidney failure, unspecified Comment: likely due to ATN from sepsis, requiring HD (3) Acute 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 heart failure Code(s): I50.43 - ACUTE ON CHRONIC COMBINED SYSTOLIC AND DIASTOLIC HRT FAIL Status: Acute Comment: EF 15-20% (4) Acute respiratory failure with hypoxia and hypercapnia Code(s): J96.01 - ACUTE RESPIRATORY FAILURE WITH HYPOXIA; J96.02 - ACUTE RESPIRATORY FAILURE WITH HYPERCAPNIA Status: Acute Comment: intubated (5) Chronic obstructive asthma with exacerbation Code(s): J44.1 - CHRONIC OBSTRUCTIVE PULMONARY DISEASE W (ACUTE) EXACERBATION; J45.901 - UNSPECIFIED ASTHMA WITH (ACUTE) EXACERBATION Status: Acute (6) Community acquired pneumonia, bilateral Code(s): J18.9 - PNEUMONIA, UNSPECIFIED ORGANISM Status: Acute Comment: pt has finished antibiotics (7) Hyperkalemia Code(s): E87.5 - HYPERKALEMIA Status: Acute (8) Hyperphosphatemia Code(s): E83.39 - OTHER DISORDERS OF PHOSPHORUS METABOLISM Status: Acute (9) Influenza B Code(s): J10.1 - FLU DUE TO OTH IDENT INFLUENZA VIRUS W OTH RESP MANIFEST Status: Acute Comment: finished treatment course (10) Type [address] elevation Code(s): I21.A1 - MYOCARDIAL INFARCTION TYPE 2 Status: Acute (11) AICD (automatic cardioverter/defibrillator) present Code(s): Z95.810 - PRESENCE OF AUTOMATIC (IMPLANTABLE) CARDIAC DEFIBRILLATOR Status: Chronic (12) Cannabis abuse Code(s): F12.10 - CANNABIS ABUSE, UNCOMPLICATED Status: Chronic (13) Dyslipidemia Code(s): E78.5 - HYPERLIPIDEMIA, UNSPECIFIED Status: Chronic (14) Hepatitis C Code(s): B19.20 - UNSPECIFIED VIRAL HEPATITIS C WITHOUT HEPATIC COMA Status: Chronic Qualifiers: Viral hepatitis chronicity: chronic (15) Hypertension Code(s): I10 - ESSENTIAL (PRIMARY) HYPERTENSION Status: Chronic Qualifiers: Hypertension type: essential hypertension Qualified Code(s): I10 - Essential (primary) hypertension (16) Hyperuricemia Code(s): E79.0 - HYPERURICEMIA W/O SIGNS OF INFLAM ARTHRIT AND TOPHACEOUS DIS Status: Chronic (17) Moderate aortic regurgitation Code(s): I35.1 - NONRHEUMATIC AORTIC (VALVE) INSUFFICIENCY Status: Chronic (18) Moderate mitral regurgitation by prior echocardiogram Code(s): I34.0 - NONRHEUMATIC MITRAL (VALVE) INSUFFICIENCY Status: Chronic (19) Moderate tricuspid regurgitation by prior echocardiogram Code(s): I07.1 - RHEUMATIC TRICUSPID INSUFFICIENCY Status: Chronic (20) Morbid obesity with BMI of 40.0-44.9, adult Code(s): E66.01 - MORBID (SEVERE) OBESITY DUE TO EXCESS CALORIES; Z68.41 - BODY MASS INDEX (BMI) 40.0-44.9, ADULT Status: Chronic (21) Nonischemic cardiomyopathy Code(s): I42.9 - CARDIOMYOPATHY, UNSPECIFIED Status: Chronic Comment: (22) Tobacco abuse Code(s): Z72.0 - TOBACCO USE Status: Chronic (23) Lactic acidosis Code(s): E87.2 - ACIDOSIS Status: Resolved - Plan cont current plan of care, continue antibiotics, respiratory therapy * continue ventilator as per pulmonary * HD as per nephrology * slow weaning process going on * medication reviewed as below * symptomatic treatment. Review of Systems - Review of Systems Other: unable to review due to intubated status - Medications/Allergies Allergies/Adverse Reactions: Allergies Allergy/AdvReac Type Severity Reaction Status Date / Time No Known Drug Allergies Allergy Verified 12/26/18 05:16 Medications: Current Medications Acetaminophen (Tylenol) 650 mg PO Q4H PRN PRN Reason: Headache/Fever/Mild Pain (1-3) Last Admin: 01/04/19 01:25 Dose: 650 mg Acetaminophen (Tylenol) 650 mg CO Q4H PRN PRN Reason: Headache/Fever/Mild Pain (1-3) Albuterol/Ipratropium (Duoneb) 3 ml NEB [id number] TRENA Last Admin: 01/04/19 10:42 Dose: 3 ml Lipase/Protease/Amylase ([place] [id number]) 1 cap PER TUBE ASDIR PRN PRN Reason: TUBE OCCLUSION [place] Carvedilol (Coreg) 3.125 mg PER TUBE BID-[facility] Last Admin: 01/04/19 08:38 Dose: 3.125 mg Dextrose/Water (Dextrose 50%) 25 gm IVP PRN PRN PRN Reason: HYPOGLYCEMIA PROTOCOL Last Admin: 12/27/18 06:05 Dose: 25 gm Famotidine (Pepcid) 20 mg SLOW IVP DAILY [facility] Last Admin: 01/04/19 08:38 Dose: 20 mg Glucagon (Glucagon) 1 mg IM PRN PRN PRN Reason: HYPOGLYCEMIA PROTOCOL Heparin Sodium (Porcine) (Heparin) 5,000 units SC BID [facility] Last Admin: 01/04/19 08:38 Dose: 5,000 units Dextrose/Water (D5w) 1,000 mls @ 0 mls/hr IV INF PRN PRN Reason: HYPOGLYCEMIA PROTOCOL Dexmedetomidine HCl 400 mcg/ (Sodium Chloride) 100 mls @ 0 mls/hr IVPB INF [facility] ; Protocol Last Admin: 01/04/19 09:29 Dose: 100 mls Insulin Human Regular (Humulin R) 0 units SC .MILD SLIDING SCALE PRN PRN Reason: Mild Correctional Scale Last Admin: 01/01/19 04:46 Dose: 2 unit Discontinue Previous Narcotic Pain Medications And Benzodiazepines 1 each FS .ONE [facility] Stop: 01/25/19 06:25 Polyethylene Glycol (Miralax) 17 gm PO DAILY [facility] Last Admin: 01/04/19 08:38 Dose: 17 gm Prednisone (Prednisone) 20 mg PO QAM-[facility] Senna/Docusate Sodium (Senokot S) 1 tab PO BID [facility] Last Admin: 01/04/19 08:39 Dose: 1 tab Sevelamer Carbonate (Renvela) 800 mg PO Q6H [facility] Last Admin: 01/04/19 11:30 Dose: 800 mg Sodium Bicarbonate (Bicarbonate, Sodium) 650 mg PER TUBE ASDIR PRN PRN Reason: TUBE OCCLUSION TX Sodium Chloride (Flush - Normal Saline) 10 ml IVF Q12HR [facility] Last Admin: 01/04/19 08:39 Dose: 10 ml Sodium Chloride (Flush - Normal Saline) 10 ml IVF PRN PRN PRN Reason: Saline Flush Sterile Water (Bacteriostatic Water) 1 ml FS PRN PRN PRN Reason: RECONSTITUTION Last Admin: 01/03/19 20:21 Dose: 1 ml
--- NOTE | 2019-01-04 14:49 | PRG ---
DATE OF SERVICE: 01/04/2019 SUBJECTIVE: This is a 43-year-old male with nonischemic cardiomyopathy with ejection fraction of 15 to 20, admitted due to worsening shortness of breath and acute encephalopathy. The patient also was found to have acute renal failure, requiring hemodialysis. Last hemodialysis was yesterday, but this was limited due to frequent clotting of filter. The patient is still intubated and mechanically ventilated. OBJECTIVE: VITAL SIGNS: Temperature 100.2 with T-max of 100.8 in the last 24 hours. Heart rate 87, respiratory rate 30, SpO2 97 on ventilator, and blood pressure 124/86. GENERAL: Sedated, obese male, in no obvious distress. Afebrile. Anicteric. HEENT: ET and OG tubes are in place. RESPIRATORY: Ventilator transmitted breath sounds heard in all lung zones. No respiratory distress. CARDIOVASCULAR: Regular rhythm and rate with normal heart sounds 1 and 2. GI: Obese, soft, and nondistended with normal bowel sounds. UROGENITAL: Prince catheter is in place draining some clear urine. EXTREMITIES: Grossly normal looking, atraumatic with trace feet edema. Distal pulses are palpable. NEUROLOGIC: The patient is sedated. LABORATORY DATA: CBC showed WBC count of 13.5, hemoglobin of 14.2, MCV of 78.6, and platelet of 209. Renal function panel showed sodium 138, potassium 5.6, chloride 97, CO2 of 26, anion gap 21, BUN 96, creatinine 7.27, glucose 123, calcium 9.7, phosphorus 9.6, and albumin 3.2. DIAGNOSTIC DATA: Chest x-ray showed cardiomegaly without evidence of acute cardiopulmonary disease. ASSESSMENT AND PLAN: 1. Acute renal failure: The patient is not on hemodialysis. Etiology most likely is related to acute tubular necrosis with possible contribution from vancomycin-induced nephrotoxicity. Hemodialysis yesterday was inadequate due to frequent clotting of filter. We will dialyze the patient today for 3 hours with heparin anticoagulation. We will also consult General Surgery for placement of tunneled catheter as it is impossible for the patient's renal function to recover in the next few days to be weaned off hemodialysis. 2. Hyperkalemia: It is due to acute renal failure. We will treat with hemodialysis. 3. Volume overload. The patient is euvolemic or close to it. We will do UF as tolerated to a maximum of 500. The patient is still making urine. We will monitor I and O as well as daily weights. 4. Acid-base balance: Acceptable. 5. Acute respiratory failure: It is due to acute on chronic congestive heart failure as well as influenza pneumonitis. We defer to Pulmonary and Critical Care for management and extubation. 6. Influenza pneumonitis. Treatment as per primary attending. 7. Hypotension: Resolved. The patient is off pressors. Job ID: [id number]
[2019-01-05] MEDS: Sevelamer Carbonate 800 MG TAB PO SCH ×5 (00:43→23:47)
[2019-01-05 04:59] LABS: #Basophils 0.1 thou/uL (0.0-0.2); #Eosinphils 0.1 thou/uL (0.0-0.7); #Lymphocytes 1.5 thou/uL (1.20-3.40); #Monocytes 1.5 thou/uL (0.11-0.59); #Neutrophils 10.8 thou/uL (1.40-6.50); %Basophils 0.4 % (0.0-1.0); %Eosinophils 0.9 % (0.0-10.0); %Lymphocytes 10.9 % (21.0-51.0); %Monocytes 10.7 % (0.0-10.0); %Neutrophils 77.1 % (42.0-75.0); Hemoglobin 13.7 g/dL (14.0-18.0); Mean Corpuscular HGB CONC 33.1 g/dL (32.0-36.0); Mean Corpuscular Hemoglobin 26.1 pg (27.0-31.0); Mean Corpuscular Volume 78.8 fL (78.0-98.0); Mean Platelet Volume 9.8 fL (7.4-10.4); Platelet Count 178 thou/uL (130-400); RBC Distribution Width 15.6 % (11.5-14.5); Red Blood Cell (RBC) Count 5.26 mill/uL (4.70-6.10)
[2019-01-05 05:24] LABS: Albumin 3.1 g/dL (3.5-5.0); Anion Gap 18 mmol/L (10-20); BUN (Urea Nitrogen) 88 mg/dL (8.9-20.6); Calc. Creatinine Clearance 29 mL/min (70-130); Calcium 9.5 mg/dL (7.8-10.44); Carbon Dioxide 27 mmol/L (22-29); Chloride 98 mmol/L (98-107); Estimated GFR-MDRD 11; Glucose 146 mg/dL (70-105); Phosphorus 7.5 mg/dL (2.3-4.7); Sodium 138 mmol/L (136-145)
[2019-01-05 05:39] LABS: Bilirubin Negative (Negative); Blood, Urine Small (Negative); Clarity CLEAR (Clear); Glucose, Urine (Dipstick) Negative (Negative); Leukocyte Negative (Negative); Nitrite Negative (Negative); Protein, Urine (Dipstick) 30 mg/dL (Neg-Trace); Specific Gravity, Urine 1.014 (1.002-1.036); Urobilinogen 0.2 mg/dL (0.2-1.0); pH, Urine 6.5 (5.0-9.0)
[2019-01-05 05:42] LABS: Hyaline Casts/LPF 0-3 HYALINE CAST LPF (0-3 Hyaline); Pathc Cast-AUWi Flag 0.68 (0-2.49); Squamous Epithelial 0-3 HPF (0-3)
[2019-01-05 06:41] LABS: Bacteria/HPF Rare-Few HPF (None Seen); Yeast-All Forms None Seen HPF (None Seen)
[2019-01-05 06:44] LABS: Crystals/HPF 1+ AMORPH URATES HPF (Negative)
[2019-01-05 06:45] LABS: Urine Culture Reflex Yes Yes
[2019-01-05] MEDS: Acetaminophen 325 MG TAB PO PRN (07:12)
[2019-01-05] MEDS: predniSONE 20 MG TAB PO SCH (07:13)
[2019-01-05] MEDS: Carvedilol 3.125 MG TAB PER TUBE SCH ×2 (07:13→16:41)
[2019-01-05] MEDS: Heparin 5,000 UNITS/ML VIAL SC SCH ×2 (08:40→21:58)
[2019-01-05] MEDS: Famotidine/PF 20 mg/2ml Vial SLOW IVP SCH (08:40)
[2019-01-05] MEDS: Senokot S 8.6-50 MG TAB PO SCH ×2 (08:40→21:59)
[2019-01-05] MEDS: Polyethylene Glycol 3350 17 GM Packet PO SCH (08:41)
[2019-01-05] MEDS ORDERED: Vancomycin HCl 1.5 GM in Sodium Chloride 0.9% 250 ML 300 ML IVPB SCH (09:45)
[2019-01-05] MEDS ORDERED: Micafungin 100 MG in Sodium Chloride 0.9% 100 ML IVPB SCH (10:00)
--- NOTE | 2019-01-05 10:08 | PRG ---
DATE OF SERVICE: 01/05/2019 SERVICE: Pulmonary Medicine. INTERVAL HISTORY: The patient is actually doing quite remarkable. He had a little bit of a fever last night prompting a panculture. He is currently on mechanical ventilation. He is demonstrating much improvement with his respirations, sitting in a chair. He is significantly stronger today than he was yesterday, but he is still going to have a problem with extubation I believe. Otherwise, there has been no interval change to his condition. PHYSICAL EXAMINATION: VITAL SIGNS: Temperature 102.4, pulse 96, blood pressure 104/64, respirations 19, and saturation 96% on 27% FiO2 and a PEEP of 5. HEENT: Normocephalic and atraumatic. Sclerae white. Conjunctivae pink. Oral mucosa is moist without lesions. LUNGS: Decent air entry. There is not a prolonged expiratory phase anymore. Rhonchi are extensive. Minimal wheezing. No crackles are appreciated. HEART: Normal rate. Regular. ABDOMEN: Soft, nontender, and nondistended. Bowel sounds are positive. MUSCULOSKELETAL: No cyanosis or clubbing. There is no pitting in the bilateral lower extremities. NEUROLOGIC: Grossly nonfocal. LABORATORY DATA: WBC 14.0, hemoglobin 13.7, and platelets 178,000. Creatinine 6.52 and downtrending and BUN 88. Basic metabolic profile is otherwise unremarkable. Phosphorus is improved to 7.5. Respiratory culture from yesterday demonstrates many white blood cells and rare gram-positive cocci, gram-negative rods, and budding yeast. ASSESSMENT: 1. Acute hypoxic and hypercapnic respiratory failure, resolving. 2. Asthma with acute exacerbation. 3. Community-acquired pneumonia secondary to influenza B, status post full course of antibiotic. 4. Acute on chronic systolic heart failure. 5. Metabolic encephalopathy, improving. 6. Acute kidney injury, resolving. 7. Critical care weakness/myopathy. 8. Sepsis, new onset. DISCUSSION AND PLAN: I am going to empirically initiate the patient on broad-spectrum antibiotics including coverage for a gram-positive organisms, and fungal coverage. Panculture was sent overnight. We will tailor a therapy to anything that we identify. Pulmonary/Critical Care will continue to follow along. He is improving day by day, but at this point, given his new onset and sepsis, and myopathy/weakness, I am inclined to leave him on mechanical ventilation for an additional 24 hour period. I will repeat chest x-ray, and ABG in the morning. CRITICAL CARE TIME: 30 minutes. Job ID: [id number]
[2019-01-05] MEDS: Cefepime 1 GM in Sodium Chloride 0.9% 100 ML IVPB SCH ×2 (10:21→21:59)
[2019-01-05] MEDS ORDERED: Rocuronium Bromide 10 MG/ML (10ML VIAL) ONE (10:26)
--- NOTE | 2019-01-05 10:36 | PRG ---
DATE OF SERVICE: 01/05/2019 SUBJECTIVE: A 43-year-old male with known history of nonischemic cardiomyopathy, admitted with acute respiratory failure, acute encephalopathy and was also found to have acute renal failure. The patient is now hemodialysis dependent. He is still intubated. Last hemodialysis was yesterday, January 04, 2019. The patient is currently on spontaneous breathing trial with possible extubation contemplated today. The patient has been having intermittent fever since last 48 hours. OBJECTIVE: VITAL SIGNS: Temperature 102.0 with T-max of 102.4. Heart rate 96, respiratory rate 19, SpO2 of 96% on ventilator, and blood pressure is 104/64. GENERAL: Obese male, in no obvious distress. Afebrile. Anicteric and acyanotic. HEENT: Normocephalic and atraumatic. Pupils are reacting to light. OG and ET tubes are in place. RESPIRATORY: Ventilator transmitted sound is heard in all lung zones. Work of breathing is not increased. CARDIOVASCULAR: Regular rhythm and rate with normal heart sounds 1 and 2. GI: Abdomen is obese, soft, nontender, and nondistended with normal bowel sounds. UROGENITAL: Prince catheter is in place with some urine in urine bag. EXTREMITIES: Grossly normal looking, atraumatic with no obvious edema or erythema. NEUROLOGIC: The patient is awake, but nonverbal as ET tube is in place. He obeys commands. DIAGNOSTIC DATA: CBC showed WBC count of 14.0, hemoglobin of 13.7, MCV of 78.8, platelets of 178. Renal function panel showed sodium 138, potassium 5.0, chloride 98, CO2 of 27, anion gap 18, BUN 88, creatinine 6.52, glucose 146, calcium 9.5, phosphorus 7.5, and albumin 3.1. Blood culture is pending. Also pending is respiratory culture. Urinalysis performed today showed positive protein and small blood, but glucose, ketones, nitrite, bilirubin, and leukocyte esterase are negative. Microscopy showed 4 to 6 red blood cells and 4 to 6 white blood cells count. ASSESSMENT AND PLAN: 1. Acute renal failure. The patient is not hemodialysis dependent. Etiology is most likely acute tubular necrosis with possible contribution from vancomycin induced nephrotoxicity. The patient is still making good urine, met about 800 mL of urine in the last 24 hours. We will continue to monitor renal function, intake and output as well as electrolytes and we will provide dialytic support as needed. There is no need for dialytic treatment today. 2. Hyperkalemia: Treated with hemodialysis. 3. Volume status: The patient seems euvolemic. He is still making urine. There is no need for diuretic therapy or dialytic treatment today. 4. Acute encephalopathy: Multifactorial from sepsis and electrolytes as well as acid-base and acute kidney injury. 5. Acute on chronic congestive heart failure: Deferred to aircraft mechanic armament. 6. Acute respiratory failure: Extubation is contemplated. Defer to Pulmonary and Critical Care. 7. Acute pulmonary infiltrates: Multifactorial from pulmonary congestion as well as influenza pneumonitis. 8. New onset fever: Etiology is unclear. Catheter associated bloodstream infection as well as healthcare associated pneumonia possibilities. Blood cultures, urine cultures, and respiratory culture are pending at this time. We defer antimicrobial therapy to the primary attending and Pulmonary and Critical Care. 9. Dialysis access: The patient has right groin femoral catheter. General Surgery consult has been requested for placement of right IJ tunneled dialysis catheter and removal of right groin dialysis catheter. That should be also sent for culture to figure out the source of fever. Job ID: [id number]
--- NOTE | 2019-01-05 11:08 | HP ---
HISTORY OF PRESENT ILLNESS: Mendoza Schmidt is a 43-year-old male, morbidly obese, who presents with pneumonia, sepsis syndrome, acute renal failure with severe cardiomyopathy with a left subclavian defibrillator and cardiac ejection fraction of 15% to 20% with cardiac catheterization in 2013, normal coronaries. He is seen by steel post installer, Dr. Chacko and right femoral vein Trialysis catheter and a right IJ central line placed by Dr. Cadena. Now, I have been asked to see him regarding placement of a cuffed-tunneled dialysis catheter as his renal function is not recovering quick enough. Plan is to place an IJ right hemodialysis catheter and a new central line, removed the groin catheter and give him some time to see if his renal function improves. In the future, he may need dialysis access and I have ordered ultrasound vein mapping anticipating this, but we will see how his renal function does over the next few days. The patient is still on the ventilator. ALLERGIES: NONE. PAST SURGICAL HISTORY: AICD, left subclavian vein, cardiac catheterization in 2013, normal coronaries, left hip replacement. PAST MEDICAL HISTORY: Cardiomyopathy, 15% to 20% ejection fraction nonischemic, asthma, obesity, dyslipidemia, hypertension, COPD, anxiety, metabolic syndrome, history of tobacco and marijuana use. No history of alcohol use. REVIEW OF SYSTEMS: Cannot be obtained as he is on the ventilator. PHYSICAL EXAMINATION: VITAL SIGNS: 6 feet, 301 pounds, 40 BMI. Blood pressure 108/77, pulse 87. HEAD, EARS, EYES, NOSE, AND THROAT: Unremarkable. LUNGS: Clear to auscultation. Rhonchi at the bases. CARDIAC: Regular rate and rhythm. ABDOMEN: Soft, obese, nontender. Right IJ, central line, right femoral vein Trialysis catheter. EXTREMITIES: Obese. LABORATORY DATA: White count 14 and hemoglobin 13. Sodium 138, potassium 5, BUN 88, creatinine 6.5, GFR 11. ASSESSMENT AND PLAN: 1. Acute renal failure. In recent months past, his renal function was essentially normal. Plan is to place hemodialysis catheter, avoid IV access, blood draws of his arms, preserve his veins. He is at risk of needing long-term dialysis access. We will see how his kidneys do with time. 2. Obesity. 3. Metabolic syndrome. 4. Hyperlipidemia. 5. Hypertension. 6. Severe cardiomyopathy, nonischemic. Job ID: [id number]
[2019-01-05 11:19] VITALS: BMI 40.8
--- NOTE | 2019-01-05 11:35 | PDOC.PN ---
- Subjective Encounter Start Date: 01/05/19 Encounter Start Time: 10:15 for last 2 days pt is spiking fever again, today childress culture done, pt is intubated, today made him seated in chair, - Objective Resuscitation Status - Order Detail: 01/04/19 12:06 Resuscitation Status Routine Resuscitation Status: FULL: Full Resuscitation MAR Reviewed: Yes Vital Signs & Weight: Vital Signs (12 hours) Temp Pulse Resp BP Pulse Ox 01/05/19 10:00 27 H 01/05/19 08:00 01/05/19 07:41 90 95/57 L 01/05/19 07:15 93 L 01/05/19 07:00 102 F H 01/05/19 06:00 20 01/05/19 04:00 102.4 F H 18 01/05/19 02:28 88 21 H 92 L 01/05/19 02:00 17 01/05/19 00:00 100.8 F H 27 H Weight Admit Weight 326 lb 15.128 oz Weight 301 lb 9.478 oz Most Recent Monitor Data Heart Rate from ECG 93 NIBP 109/87 NIBP BP-Mean 94 Respiration from ECG 24 SpO2 96 I&O: 01/04/19 01/05/19 01/06/19 06:59 06:59 06:59 Intake Total 2470 1982 30 Output Total 905 840 150 Balance 1565 1142 -120 Result Diagrams: 01/05/19 04:45 01/05/19 04:45 Additional Labs: Accuchecks 01/05/19 01/05/19 01/04/19 09:51 04:46 21:08 POC Glucose 123 H 135 H 131 H 01/04/19 15:44 POC Glucose 115 H EKG Reviewed by me: Yes (NSR) Phys Exam - Physical Examination Constitutional: NAD intubated HEENT: PERRLA OG, ET in place Neck: no JVD, supple right IJ central line Respiratory: no wheezing, no rales, no rhonchi Cardiovascular: RRR, no significant murmur, no rub Gastrointestinal: soft, no distention, positive bowel sounds Prince+ right groin HD catheter+, Musculoskeletal: no edema, pulses present Lymphatic: no nodes Skin: no rash, normal turgor Dx/Plan (1) Septic shock Code(s): A41.9 - SEPSIS, UNSPECIFIED ORGANISM; R65.21 - SEVERE SEPSIS WITH SEPTIC SHOCK Status: Resolved (2) Acute renal failure (ARF) Status: Acute Qualifiers: Acute renal failure type: unspecified Qualified Code(s): N17.9 - Acute kidney failure, unspecified Comment: likely due to ATN from sepsis, requiring HD (3) Acute 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 heart failure Code(s): I50.43 - ACUTE ON CHRONIC COMBINED SYSTOLIC AND DIASTOLIC HRT FAIL Status: Acute Comment: EF 15-20% (4) Acute respiratory failure with hypoxia and hypercapnia Code(s): J96.01 - ACUTE RESPIRATORY FAILURE WITH HYPOXIA; J96.02 - ACUTE RESPIRATORY FAILURE WITH HYPERCAPNIA Status: Acute Comment: intubated (5) Chronic obstructive asthma with exacerbation Code(s): J44.1 - CHRONIC OBSTRUCTIVE PULMONARY DISEASE W (ACUTE) EXACERBATION; J45.901 - UNSPECIFIED ASTHMA WITH (ACUTE) EXACERBATION Status: Acute (6) Community acquired pneumonia, bilateral Code(s): J18.9 - PNEUMONIA, UNSPECIFIED ORGANISM Status: Acute Comment: pt has finished antibiotics (7) Hyperkalemia Code(s): E87.5 - HYPERKALEMIA Status: Acute (8) Hyperphosphatemia Code(s): E83.39 - OTHER DISORDERS OF PHOSPHORUS METABOLISM Status: Acute (9) Influenza B Code(s): J10.1 - FLU DUE TO OTH IDENT INFLUENZA VIRUS W OTH RESP MANIFEST Status: Acute Comment: finished treatment course (10) Type [address] elevation Code(s): I21.A1 - MYOCARDIAL INFARCTION TYPE 2 Status: Acute (11) AICD (automatic cardioverter/defibrillator) present Code(s): Z95.810 - PRESENCE OF AUTOMATIC (IMPLANTABLE) CARDIAC DEFIBRILLATOR Status: Chronic (12) Cannabis abuse Code(s): F12.10 - CANNABIS ABUSE, UNCOMPLICATED Status: Chronic (13) Dyslipidemia Code(s): E78.5 - HYPERLIPIDEMIA, UNSPECIFIED Status: Chronic (14) Hepatitis C Code(s): B19.20 - UNSPECIFIED VIRAL HEPATITIS C WITHOUT HEPATIC COMA Status: Chronic Qualifiers: Viral hepatitis chronicity: chronic (15) Hypertension Code(s): I10 - ESSENTIAL (PRIMARY) HYPERTENSION Status: Chronic Qualifiers: Hypertension type: essential hypertension Qualified Code(s): I10 - Essential (primary) hypertension (16) Hyperuricemia Code(s): E79.0 - HYPERURICEMIA W/O SIGNS OF INFLAM ARTHRIT AND TOPHACEOUS DIS Status: Chronic (17) Moderate aortic regurgitation Code(s): I35.1 - NONRHEUMATIC AORTIC (VALVE) INSUFFICIENCY Status: Chronic (18) Moderate mitral regurgitation by prior echocardiogram Code(s): I34.0 - NONRHEUMATIC MITRAL (VALVE) INSUFFICIENCY Status: Chronic (19) Moderate tricuspid regurgitation by prior echocardiogram Code(s): I07.1 - RHEUMATIC TRICUSPID INSUFFICIENCY Status: Chronic (20) Morbid obesity with BMI of 40.0-44.9, adult Code(s): E66.01 - MORBID (SEVERE) OBESITY DUE TO EXCESS CALORIES; Z68.41 - BODY MASS INDEX (BMI) 40.0-44.9, ADULT Status: Chronic (21) Nonischemic cardiomyopathy Code(s): I42.9 - CARDIOMYOPATHY, UNSPECIFIED Status: Chronic Comment: (22) Tobacco abuse Code(s): Z72.0 - TOBACCO USE Status: Chronic (23) Lactic acidosis Code(s): E87.2 - ACIDOSIS Status: Resolved - Plan cont current plan of care, continue antibiotics, respiratory therapy * suspecting line related infection vs hospital acquired infection. today pulmonary started cefepime, vancomycin and micafungin * medication reviewed as below * symptomatic treatment * HD as per nephrology * vent as per pulmonary * supportive care Review of Systems - Review of Systems Other: unable to review due to intubated status - Medications/Allergies Allergies/Adverse Reactions: Allergies Allergy/AdvReac Type Severity Reaction Status Date / Time No Known Drug Allergies Allergy Verified 12/26/18 05:16 Medications: Current Medications Acetaminophen (Tylenol) 650 mg PO Q4H PRN PRN Reason: Headache/Fever/Mild Pain (1-3) Last Admin: 01/05/19 07:12 Dose: 650 mg Acetaminophen (Tylenol) 650 mg MT Q4H PRN PRN Reason: Headache/Fever/Mild Pain (1-3) Albuterol/Ipratropium (Duoneb) 3 ml NEB [id number] TRENA Last Admin: 01/05/19 07:40 Dose: 3 ml Lipase/Protease/Amylase ([place] [id number]) 1 cap PER TUBE ASDIR PRN PRN Reason: TUBE OCCLUSION [place] Carvedilol (Coreg) 3.125 mg PER TUBE BID-[facility] Last Admin: 01/05/19 07:13 Dose: Not Given Dextrose/Water (Dextrose 50%) 25 gm IVP PRN PRN PRN Reason: HYPOGLYCEMIA PROTOCOL Last Admin: 12/27/18 06:05 Dose: 25 gm Famotidine (Pepcid) 20 mg SLOW IVP DAILY [facility] Last Admin: 01/05/19 08:40 Dose: 20 mg Glucagon (Glucagon) 1 mg IM PRN PRN PRN Reason: HYPOGLYCEMIA PROTOCOL Heparin Sodium (Porcine) (Heparin) 5,000 units SC BID [facility] Last Admin: 01/05/19 08:40 Dose: 5,000 units Dextrose/Water (D5w) 1,000 mls @ 0 mls/hr IV INF PRN PRN Reason: HYPOGLYCEMIA PROTOCOL Dexmedetomidine HCl 400 mcg/ (Sodium Chloride) 100 mls @ 0 mls/hr IVPB INF [facility] ; Protocol Last Admin: 01/05/19 09:20 Dose: 100 mls Cefepime HCl 1 gm/ Sodium (Chloride) 100 mls @ 200 mls/hr IVPB 1000,2200 [facility] Last Admin: 01/05/19 10:21 Dose: 100 mls Micafungin Sodium 100 mg/ (Sodium Chloride) 100 mls @ 100 mls/hr IVPB 0900 [facility] Vancomycin HCl 2 gm/ Sodium (Chloride) 500 mls @ 250 mls/hr IVPB 1100 [facility] Stop: 01/05/19 13:00 Last Admin: 01/05/19 10:59 Dose: 500 mls Micafungin Sodium 100 mg/ (Sodium Chloride) 100 mls @ 100 mls/hr IVPB 1000 [facility] Last Admin: 01/05/19 10:29 Dose: 100 mls Insulin Human Regular (Humulin R) 0 units SC .MILD SLIDING SCALE PRN PRN Reason: Mild Correctional Scale Last Admin: 01/01/19 04:46 Dose: 2 unit Miscellaneous Medication (Pharmacy To Dose) 1 each IVPB .VANCOMYCIN PRN PRN Reason: Pharmacy to dose Discontinue Previous Narcotic Pain Medications And Benzodiazepines 1 each FS .ONE [facility] Stop: 01/25/19 06:25 Polyethylene Glycol (Miralax) 17 gm PO DAILY [facility] Last Admin: 01/05/19 08:41 Dose: 17 gm Prednisone (Prednisone) 20 mg PO QAM-[facility] Last Admin: 01/05/19 07:13 Dose: 20 mg Senna/Docusate Sodium (Senokot S) 1 tab PO BID [facility] Last Admin: 01/05/19 08:40 Dose: 1 tab Sevelamer Carbonate (Renvela) 800 mg PO Q6H [facility] Last Admin: 01/05/19 11:35 Dose: 800 mg Sodium Bicarbonate (Bicarbonate, Sodium) 650 mg PER TUBE ASDIR PRN PRN Reason: TUBE OCCLUSION TX Sodium Chloride (Flush - Normal Saline) 10 ml IVF Q12HR [facility] Last Admin: 01/05/19 08:41 Dose: 10 ml Sodium Chloride (Flush - Normal Saline) 10 ml IVF PRN PRN PRN Reason: Saline Flush Sterile Water (Bacteriostatic Water) 1 ml FS PRN PRN PRN Reason: RECONSTITUTION Last Admin: 01/03/19 20:21 Dose: 1 ml
[2019-01-05] MEDS ORDERED: Sodium Chloride 0.9% 10 ML ONE (13:29)
[2019-01-05] MEDS ORDERED: Bupivacaine HCl 0.5%/Epinephrine 1:200,000/PF 30 ml Vial ONE (13:29)
[2019-01-05] MEDS ORDERED: Heparin 10,000 UNITS/1 ML VIAL ONE ×2 (13:29→14:37)
[2019-01-05] MEDS ORDERED: Lidocaine 2% PF 5 ML VIAL ONE (13:29)
[2019-01-05] MEDS ORDERED: Fentanyl 100 MCG/2 ML VIAL ONE (13:33)
[2019-01-05] MEDS ORDERED: Midazolam HCl 2 mg/2 ml Vial ONE (13:33)
[2019-01-05] MEDS ORDERED: Midazolam HCl 5 mg/5 ml Vial ONE (13:36)
[2019-01-05] MEDS: Insulin Regular 300 UNITS/3 ML VIAL SC PRN (15:53)
--- NOTE | 2019-01-05 15:59 | RAD ---
CHEST 1 VIEW PORTABLE: HISTORY: Respiratory insufficiency, intubation. COMPARISON: 01/04/2019. FINDINGS: Cardiomegaly with NG tube and endotracheal tube, left ICD and right dual-lumen venous access catheter . No evidence for pneumothorax or significant pleural effusion. There is some bilateral vascular co ngestion and some patchy parenchymal changes in the left perihilar regions and both lower lobes, actu ally slightly improved from the prior study. IMPRESSION: Right dual-lumen venous access catheter without pneumothorax. Cardiomegaly with bilateral vascular c ongestion and bilateral perihilar and lower lung zone parenchymal changes worse on the left side show ing minimal improvement from prior study. No evidence for other significant new process. Continued short-term followup for clearing or stability. POS: C
--- NOTE | 2019-01-05 18:15 | ULT ---
BILATERAL UPPER EXTREMITY VENOUS DUPLEX STUDY: 01/05/19 Veins of the both upper extremities evaluated with color Doppler, spectral analysis and compression. Diameter measurements recorded. INDICATIONS: Assess for dialysis access. End-stage renal disease. The exam is limited due to patient being restrained and intubated and unconscious according to the chnologist. RIGHT UPPER EXTREMITY: Right internal jugular vein was unable to be visualized. Right subclavian vein was unable to be visualized due to bandage material and patient being intubated . Right basilic vein: Axilla: 2.9 mm Proximal humerus: 3.5 mm Mid humerus: 2.9 mm Distal humerus: 2.5 mm Elbow: 2.3 mm Mid forearm: 2.1 mm Right cephalic vein: Axilla: 1.6 mm Proximal humerus: 1.6 mm Mid humerus: 1.9 mm Right cephalic vein thrombosed from mid humerus to elbow. Right brachial artery: 5.8 mm Right radial artery: 3.2 mm Right ulnar artery: 3.4 mm LEFT UPPER EXTREMITY: Left basilic vein: Axilla: 4.3 mm Proximal humerus: 4.5 mm Mid humerus: 3.6 mm Distal humerus: 3.0 mm Elbow: 2.4 mm Mid forearm: 3.2 mm Left cephalic vein: The left cephalic vein is thrombosed. Left brachial artery: 5.4 mm Left radial artery: 3.0 mm Left ulnar artery: 3.7 mm The left internal jugular vein shows normal flow and the left subclavian vein demonstrates flow with Doppler. POS: AGW
--- NOTE | 2019-01-05 21:23 | OP ---
DATE OF PROCEDURE: 01/05/2019 PREOPERATIVE DIAGNOSES: 1. Acute renal failure. 2. Poor IV access. 3. Respiratory failure. 4. Morbid obesity. 5. Pneumonia. POSTOPERATIVE DIAGNOSES: 1. Acute renal failure. 2. Poor IV access. 3. Respiratory failure. 4. Morbid obesity. 5. Pneumonia. PROCEDURE PERFORMED: Left IJ central line, right IJ cuffed tunneled hemodialysis catheter. ANESTHESIA: General. Fluoroscopy used. DESCRIPTION OF PROCEDURE: The patient was taken to the operating room, where under general anesthesia, neck and chest were prepared with ChloraPrep and draped in routine fashion. Using ultrasound guidance, right and left internal jugular veins were cannulated with trocar catheter, J-wire threaded with some difficulty requiring fluoroscopy to be placed into the superior vena cava. Once this was accomplished, a central line on the left was placed using Seldinger technique, secured with 3-0 nylon suture, removing the J-wire, aspirated blood, flushed with saline solution. Fluoroscopic images revealed good line placement. On the right side, stab incision was made over the right chest at the J-wire entry site. Using the tunneling device, the longer hemodialysis cuff tunneled [employer] pre-curved catheter was placed, placed in the fabric cuff beneath the skin exit site, and tunneled it to the neck incision, and the small and medium size dilators were placed with J-wire, internal jugular vein removed. Dilator and Peel-Away sheath were placed over the J-wire into the superior vena cava. Dilator and J-wire were removed. Catheter placed through the Peel-Away sheath. Peel-Away sheath removed. Fluoroscopically, catheter noted to be in good position. Platysma was approximated with 4-0 Monocryl, skin with subdermal 4-0 Monocryl, and Raiford glue and sterile dressings were applied. Each port aspirated blood, flushed with saline solution and heparinized saline solution of 1000 units heparin per mL indicating the volume of the port. The patient tolerated the procedure well and transferred to the ICU. Job ID: [id number]
[2019-01-06 04:45] LABS: #Basophils 0.1 thou/uL (0.0-0.2); #Eosinphils 0.1 thou/uL (0.0-0.7); #Lymphocytes 1.8 thou/uL (1.20-3.40); #Neutrophils 14.9 thou/uL (1.40-6.50); %Basophils 0.6 % (0.0-1.0); %Eosinophils 0.5 % (0.0-10.0); %Lymphocytes 9.3 % (21.0-51.0); %Monocytes 10.8 % (0.0-10.0); %Neutrophils 78.8 % (42.0-75.0); Hemoglobin 12.6 g/dL (14.0-18.0); Mean Corpuscular HGB CONC 32.3 g/dL (32.0-36.0); Mean Corpuscular Hemoglobin 25.8 pg (27.0-31.0); Mean Platelet Volume 9.6 fL (7.4-10.4); Platelet Count 182 thou/uL (130-400); RBC Distribution Width 15.5 % (11.5-14.5); Red Blood Cell (RBC) Count 4.86 mill/uL (4.70-6.10); White Blood Cell (WBC) Count 18.9 thou/uL (4.8-10.8)
[2019-01-06] MEDS: Acetaminophen 325 MG TAB PO PRN (04:46)
[2019-01-06] MEDS: Sevelamer Carbonate 800 MG TAB PO SCH ×3 (05:01→17:35)
[2019-01-06 05:04] LABS: Iron 55 ug/dL (65-175); Iron Binding Capacity, Total 298 mcg/dL (261-462)
[2019-01-06 05:09] LABS: Albumin 2.9 g/dL (3.5-5.0); Anion Gap 20 mmol/L (10-20); BUN (Urea Nitrogen) 123 mg/dL (8.9-20.6); BUN/Creatinine Ratio 15.17; Calc. Creatinine Clearance 23 mL/min (70-130); Calcium 9.2 mg/dL (7.8-10.44); Carbon Dioxide 23 mmol/L (22-29); Chloride 102 mmol/L (98-107); Estimated GFR-MDRD 9; Glucose 125 mg/dL (70-105); Iron Binding Capacity, Total 300 mcg/dL (261-462); Phosphorus 9.9 mg/dL (2.3-4.7); Potassium 5.6 mmol/L (3.5-5.1); Sodium 139 mmol/L (136-145)
[2019-01-06] MEDS: Carvedilol 3.125 MG TAB PER TUBE SCH ×2 (07:59→16:35)
[2019-01-06] MEDS: predniSONE 20 MG TAB PO SCH (07:59)
--- NOTE | 2019-01-06 08:23 | RAD ---
PORTABLE CHEST: HISTORY: CCU followup. Sepsis/fever. COMPARISON: 01/05/2019. FINDINGS: ET tube and NG tube are noted. Central line is unchanged. AICD leads again noted. There is mild ca rdiomegaly. Linear atelectasis or infiltrate in the left mid lung is again noted. Vascularity is up per normal and stable. CP angles are relatively sharp. IMPRESSION: No acute change from yesterday. POS: OFF
[2019-01-06] MEDS: Heparin 5,000 UNITS/ML VIAL SC SCH ×2 (08:34→21:38)
[2019-01-06] MEDS: Famotidine/PF 20 mg/2ml Vial SLOW IVP SCH (08:34)
[2019-01-06] MEDS: Polyethylene Glycol 3350 17 GM Packet PO SCH (08:35)
[2019-01-06] MEDS: Senokot S 8.6-50 MG TAB PO SCH ×2 (08:35→21:38)
[2019-01-06] MEDS ORDERED: Mannitol 12.5 GM/50 ML IV SCH (08:45)
[2019-01-06] MEDS ORDERED: Micafungin 100 MG in Sodium Chloride 0.9% 100 ML IVPB SCH (09:00)
--- NOTE | 2019-01-06 09:18 | PRG ---
DATE OF SERVICE: 01/06/2019 TIME SPENT: 35 minutes of critical care time. SUBJECTIVE: The patient remains intubated on mechanical ventilation. He is scheduled for dialysis later today. OBJECTIVE: VITAL SIGNS: On exam, temperature is 98.5 with a T-max of 101.6, pulse 92, and blood pressure 93/60. Intake for last 24 hours was 2279 mL, output of 1125 mL. GENERAL: He will awaken. He will follow some commands for me. HEENT: He is orally intubated. NECK: No JVD. LUNGS: Coarse breath sounds. CARDIAC: S1 and S2, regular. ABDOMEN: Obese, soft, and nontender. EXTREMITIES: No clubbing or cyanosis. He is grossly edematous throughout. LABORATORY DATA: White blood cell count 18.9, hematocrit 38.9, and platelet count 182. Sodium 139, potassium 5.6, chloride 102, CO2 of 23, BUN 123, creatinine 8.1, glucose 125, and phosphorus 9.9. ASSESSMENT: 1. Chronic respiratory failure, requiring mechanical ventilation. 2. Sepsis syndrome. 3. Community-acquired pneumonia secondary to influenza B. 4. Acute on chronic systolic heart failure. 5. Encephalopathy. 6. Chronic kidney disease, seems willfully under dialyze at this point. 7. Critical illness myopathy. PLAN: 1. This patient is not a good candidate for extubation at this time. He needs more aggressive dialysis and fluid removal and maybe we can consider extubating when he is euvolemic. 2. Continue antibiotics. Job ID: [id number]
[2019-01-06] MEDS: Cefepime 1 GM in Sodium Chloride 0.9% 100 ML IVPB SCH ×2 (09:57→21:39)
[2019-01-06] MEDS ORDERED: Vancomycin HCl 1 GM in Premix Bag 1 BAG IVPB SCH (10:30)
[2019-01-06] MEDS ORDERED: HOLD VANCOMYCIN FOR LEVEL >20 FS SCH (10:30)
[2019-01-06] MEDS ORDERED: Vancomycin HCl 750 MG in Sodium Chloride 0.9% 250 ML 250 ML IVPB SCH (10:30)
[2019-01-06] MEDS ORDERED: Vancomycin HCl 1.5 GM in Sodium Chloride 0.9% 250 ML 300 ML IVPB SCH (10:30)
[2019-01-06] MEDS ORDERED: Vancomycin HCl 1.25 GM in Sodium Chloride 0.9% 250 ML 250 ML IVPB SCH (10:30)
--- NOTE | 2019-01-06 11:08 | PDOC.PN ---
- Subjective Encounter Start Date: 01/06/19 Encounter Start Time: 09:45 pt is intubated, he is getting HD, he had new IJ central line and tunneled HD catheter placed yesterday - Objective Resuscitation Status - Order Detail: 01/04/19 12:06 Resuscitation Status Routine Resuscitation Status: FULL: Full Resuscitation MAR Reviewed: Yes Vital Signs & Weight: Vital Signs (12 hours) Temp Pulse Resp BP Pulse Ox 01/06/19 10:00 23 H 01/06/19 08:00 25 H 01/06/19 07:28 89 89/57 L 01/06/19 07:12 96 01/06/19 07:00 98.5 F 01/06/19 06:00 34 H 01/06/19 04:04 91 01/06/19 04:00 101.6 F H 31 H 01/06/19 02:00 25 H 01/06/19 00:00 101.3 F H 37 H Weight Admit Weight 326 lb 15.128 oz Weight 230 lb 6.129 oz Most Recent Monitor Data Heart Rate from ECG 81 NIBP 105/71 NIBP BP-Mean 82 Respiration from ECG 24 SpO2 97 I&O: 01/05/19 01/06/19 01/07/19 06:59 06:59 06:59 Intake Total 1982 2279 160 Output Total 840 1125 190 Balance 1142 1154 -30 Result Diagrams: 01/06/19 04:30 01/06/19 04:30 Additional Labs: Accuchecks 01/06/19 01/06/19 01/05/19 09:11 04:35 21:59 POC Glucose 110 112 H 111 H 01/05/19 01/04/19 15:42 09:58 POC Glucose 165 H 123 H Radiology Reviewed by me: Yes (chest xray reviewed) EKG Reviewed by me: Yes (pacing) Phys Exam - Physical Examination Constitutional: NAD on vent HEENT: PERRLA, sclera anicteric Neck: no JVD, supple IJ central line noted Respiratory: no wheezing, no rales, no rhonchi anteriorly Cardiovascular: RRR, no significant murmur Gastrointestinal: soft, no distention, positive bowel sounds Musculoskeletal: no edema, pulses present jenkins+ unable to examine Lymphatic: no nodes Skin: no rash, normal turgor Dx/Plan (1) Septic shock Code(s): A41.9 - SEPSIS, UNSPECIFIED ORGANISM; R65.21 - SEVERE SEPSIS WITH SEPTIC SHOCK Status: Resolved (2) Acute renal failure (ARF) Status: Acute Qualifiers: Acute renal failure type: unspecified Qualified Code(s): N17.9 - Acute kidney failure, unspecified Comment: likely due to ATN from sepsis, requiring HD (3) Acute 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 heart failure Code(s): I50.43 - ACUTE ON CHRONIC COMBINED SYSTOLIC AND DIASTOLIC HRT FAIL Status: Acute Comment: EF 15-20% (4) Acute respiratory failure with hypoxia and hypercapnia Code(s): J96.01 - ACUTE RESPIRATORY FAILURE WITH HYPOXIA; J96.02 - ACUTE RESPIRATORY FAILURE WITH HYPERCAPNIA Status: Acute Comment: intubated (5) Chronic obstructive asthma with exacerbation Code(s): J44.1 - CHRONIC OBSTRUCTIVE PULMONARY DISEASE W (ACUTE) EXACERBATION; J45.901 - UNSPECIFIED ASTHMA WITH (ACUTE) EXACERBATION Status: Acute (6) Community acquired pneumonia, bilateral Code(s): J18.9 - PNEUMONIA, UNSPECIFIED ORGANISM Status: Acute Comment: pt has finished antibiotics (7) Hyperkalemia Code(s): E87.5 - HYPERKALEMIA Status: Acute (8) Hyperphosphatemia Code(s): E83.39 - OTHER DISORDERS OF PHOSPHORUS METABOLISM Status: Acute (9) Influenza B Code(s): J10.1 - FLU DUE TO OTH IDENT INFLUENZA VIRUS W OTH RESP MANIFEST Status: Acute Comment: finished treatment course (10) Type [address] elevation Code(s): I21.A1 - MYOCARDIAL INFARCTION TYPE 2 Status: Acute (11) AICD (automatic cardioverter/defibrillator) present Code(s): Z95.810 - PRESENCE OF AUTOMATIC (IMPLANTABLE) CARDIAC DEFIBRILLATOR Status: Chronic (12) Cannabis abuse Code(s): F12.10 - CANNABIS ABUSE, UNCOMPLICATED Status: Chronic (13) Dyslipidemia Code(s): E78.5 - HYPERLIPIDEMIA, UNSPECIFIED Status: Chronic (14) Hepatitis C Code(s): B19.20 - UNSPECIFIED VIRAL HEPATITIS C WITHOUT HEPATIC COMA Status: Chronic Qualifiers: Viral hepatitis chronicity: chronic (15) Hypertension Code(s): I10 - ESSENTIAL (PRIMARY) HYPERTENSION Status: Chronic Qualifiers: Hypertension type: essential hypertension Qualified Code(s): I10 - Essential (primary) hypertension (16) Hyperuricemia Code(s): E79.0 - HYPERURICEMIA W/O SIGNS OF INFLAM ARTHRIT AND TOPHACEOUS DIS Status: Chronic (17) Moderate aortic regurgitation Code(s): I35.1 - NONRHEUMATIC AORTIC (VALVE) INSUFFICIENCY Status: Chronic (18) Moderate mitral regurgitation by prior echocardiogram Code(s): I34.0 - NONRHEUMATIC MITRAL (VALVE) INSUFFICIENCY Status: Chronic (19) Moderate tricuspid regurgitation by prior echocardiogram Code(s): I07.1 - RHEUMATIC TRICUSPID INSUFFICIENCY Status: Chronic (20) Morbid obesity with BMI of 40.0-44.9, adult Code(s): E66.01 - MORBID (SEVERE) OBESITY DUE TO EXCESS CALORIES; Z68.41 - BODY MASS INDEX (BMI) 40.0-44.9, ADULT Status: Chronic (21) Nonischemic cardiomyopathy Code(s): I42.9 - CARDIOMYOPATHY, UNSPECIFIED Status: Chronic Comment: (22) Tobacco abuse Code(s): Z72.0 - TOBACCO USE Status: Chronic (23) Lactic acidosis Code(s): E87.2 - ACIDOSIS Status: Resolved - Plan cont current plan of care, continue antibiotics, respiratory therapy * HD as per nephrology, I am suspecting that pt is now on dialysis dependent * vent as per pulmonary * not weanable * currently on cefepime, micafungine and vancomycin * ? may need trach and peg * medication reviewed as below * symptomatic treatment. Review of Systems - Review of Systems Other: unable to review due to intubated status - Medications/Allergies Allergies/Adverse Reactions: Allergies Allergy/AdvReac Type Severity Reaction Status Date / Time No Known Drug Allergies Allergy Verified 12/26/18 05:16 Medications: Current Medications Acetaminophen (Tylenol) 650 mg PO Q4H PRN PRN Reason: Headache/Fever/Mild Pain (1-3) Last Admin: 01/06/19 04:46 Dose: 650 mg Acetaminophen (Tylenol) 650 mg WI Q4H PRN PRN Reason: Headache/Fever/Mild Pain (1-3) Albuterol/Ipratropium (Duoneb) 3 ml NEB [id number] TRENA Last Admin: 01/06/19 07:27 Dose: 3 ml Lipase/Protease/Amylase (Subha Leahy [id number]) 1 cap PER TUBE ASDIR PRN PRN Reason: TUBE OCCLUSION TX Carvedilol (Coreg) 3.125 mg PER TUBE BID-WM [facility] Last Admin: 01/06/19 07:59 Dose: Not Given Dextrose/Water (Dextrose 50%) 25 gm IVP PRN PRN PRN Reason: HYPOGLYCEMIA PROTOCOL Last Admin: 12/27/18 06:05 Dose: 25 gm Famotidine (Pepcid) 20 mg SLOW IVP DAILY [facility] Last Admin: 01/06/19 08:34 Dose: 20 mg Glucagon (Glucagon) 1 mg IM PRN PRN PRN Reason: HYPOGLYCEMIA PROTOCOL Heparin Sodium (Porcine) (Heparin) 5,000 units SC BID [facility] Last Admin: 01/06/19 08:34 Dose: 5,000 units Dextrose/Water (D5w) 1,000 mls @ 0 mls/hr IV INF PRN PRN Reason: HYPOGLYCEMIA PROTOCOL Dexmedetomidine HCl 400 mcg/ (Sodium Chloride) 100 mls @ 0 mls/hr IVPB INF [facility] ; Protocol Last Admin: 01/06/19 04:39 Dose: 100 mls Cefepime HCl 1 gm/ Sodium (Chloride) 100 mls @ 200 mls/hr IVPB 1000,2200 [facility] Last Admin: 01/06/19 09:57 Dose: 100 mls Micafungin Sodium 100 mg/ (Sodium Chloride) 100 mls @ 100 mls/hr IVPB 0900 [facility] Last Admin: 01/06/19 09:53 Dose: 100 mls Vancomycin HCl 1.5 gm/ Sodium (Chloride) 300 mls @ 200 mls/hr IVPB WILLCALL [facility] Vancomycin HCl 1.25 gm/ Sodium (Chloride) 250 mls @ 166.667 mls/hr IVPB [facility] Vancomycin HCl 1 gm/ Device 200 mls @ 200 mls/hr IVPB [facility] Vancomycin HCl 750 mg/ Sodium (Chloride) 250 mls @ 250 mls/hr IVPB [facility] Insulin Human Regular (Humulin R) 0 units SC .MILD SLIDING SCALE PRN PRN Reason: Mild Correctional Scale Last Admin: 01/05/19 15:53 Dose: 2 unit Mannitol (Mannitol) 25 gm IV [facility]CALL [facility] Stop: 01/06/19 21:00 Last Admin: 01/06/19 09:28 Dose: 25 gm Miscellaneous Medication (Pharmacy To Dose) 1 each IVPB .VANCOMYCIN PRN PRN Reason: Pharmacy to dose Discontinue Previous Narcotic Pain Medications And Benzodiazepines 1 each FS .ONE [facility] Stop: 01/25/19 06:25 Hold Vancomycin For (Level >20) 0 each FS .AT DIALYSIS [facility] Polyethylene Glycol (Miralax) 17 gm PO DAILY [facility] Last Admin: 01/06/19 08:35 Dose: 17 gm Prednisone (Prednisone) 20 mg PO QAM-WM [facility] Last Admin: 01/06/19 07:59 Dose: 20 mg Senna/Docusate Sodium (Senokot S) 1 tab PO BID [facility] Last Admin: 01/06/19 08:35 Dose: 1 tab Sevelamer Carbonate (Renvela) 800 mg PO Q6H [facility] Last Admin: 01/06/19 05:01 Dose: 800 mg Sodium Bicarbonate (Bicarbonate, Sodium) 650 mg PER TUBE ASDIR PRN PRN Reason: TUBE OCCLUSION TX Sodium Chloride (Flush - Normal Saline) 10 ml IVF Q12HR [facility] Last Admin: 01/06/19 08:35 Dose: 10 ml Sodium Chloride (Flush - Normal Saline) 10 ml IVF PRN PRN PRN Reason: Saline Flush Sterile Water (Bacteriostatic Water) 1 ml FS PRN PRN PRN Reason: RECONSTITUTION Last Admin: 01/03/19 20:21 Dose: 1 ml
[2019-01-06] MEDS ORDERED: Heparin 1,000 UNITS/ML VIAL ONE (11:11)
--- NOTE | 2019-01-06 12:25 | PDOC.CTH ---
Cardiology Progress Note - Subjective Remains intubated, sedated. - Objective Vital Signs Temp Pulse Resp BP Pulse Ox 01/06/19 12:00 100.0 F H 25 H 01/06/19 11:20 78 109/67 01/06/19 10:00 23 H 01/06/19 08:00 25 H 01/06/19 07:28 89 89/57 L 01/06/19 07:12 96 01/06/19 07:00 98.5 F 01/06/19 06:00 34 H 01/06/19 04:04 91 01/06/19 04:00 101.6 F H 31 H 01/06/19 02:00 25 H Admit Weight 326 lb 15.128 oz Weight 230 lb 6.129 oz 01/05/19 01/06/19 01/07/19 06:59 06:59 06:59 Intake Total 1982 2279 250 Output Total 840 1125 230 Balance 1142 1154 20 - Physical Examination General/Neuro: other: (S/I) Neck: no JVD present Lungs: CTA, unlabored respirations Heart: RRR Abdomen: NT/ND Extremities: other: (2+) - Telemetry Telemetry Rhythm: NSR - Labs Result Diagrams: 01/06/19 04:30 01/06/19 04:30 Troponin/CKMB CK-MB (CK-2) 2.2 ng/mL (0-6.6) 12/26/18 01:49 Troponin I 0.100 ng/mL (< 0.028) H 01/03/19 09:54 - Assessment/Plan 1. Acute on chronic respiratory insufficiency. 2. Sepsis 3. Influeza B pneumonia 4. Severe dilated CM EF at 15-20% 5. ESRD on HD. PLAN: - Dialysis for fluid control. - Supportive care. - Continue BB - Will follow.
--- NOTE | 2019-01-06 13:33 | EKG ---
Test Reason : Blood Pressure : / mmHG Vent. Rate : 161 BPM Atrial Rate : 161 BPM P-R Int : 122 ms QRS Dur : 108 ms QT Int : 256 ms P-R-T Axes : 060 -37 105 degrees QTc Int : 418 ms Sinus tachycardia Left axis deviation Incomplete left bundle branch block Abnormal ECG Confirmed by ARAMIS TELLO ([id number]), make up editor JASON MARSHALL ([id number]) on 01/06/2019 1:33:11 PM Referred By: Confirmed By:ARAMIS TELLO
--- NOTE | 2019-01-06 19:01 | PRG ---
DATE OF SERVICE: 01/06/2019 SUBJECTIVE: A 43-year-old male patient with known history of nonischemic cardiomyopathy, status post AICD placement, admitted due to acute encephalopathy, acute respiratory failure as well as acute renal failure. The patient is now dialysis dependent. He is also still intubated and mechanically ventilated. The patient continues to have intermittent fever with T-max of 102.5 in the last 24 hours. OBJECTIVE: VITAL SIGNS: Temperature 100 with T-max of 102.5 in the last 24 hours. Respiratory rate 34, heart rate 96, SpO2 of 95% on ventilator, and blood pressure 105/69. GENERAL: Obese male, on mechanical ventilator. HEENT: Normocephalic and atraumatic. OG tube and ET tube are in place. NECK: Right IJ triple-lumen catheter as well as dialysis catheter noted. CARDIOVASCULAR: Regular rhythm and rate with normal heart sounds 1 and 2. RESPIRATORY: Ventilator transmitted breath sounds heard in all lung zones. GI: Abdomen is obese, soft, nondistended with normal bowel sounds. UROGENITAL: Prince catheter is in place, draining some urine. EXTREMITIES: Grossly normal looking atraumatic with no obvious edema. NEUROLOGIC: The patient is sedated. DIAGNOSTIC DATA: CBC showed WBC count of 18.9, hemoglobin of 12.6, MCV of 80, platelet of 182. Renal function panel showed sodium 139, potassium 5.6, chloride 102, CO2 of 23, anion gap 20, BUN 123, creatinine 8.11, glucose 125, calcium 9.2, phosphorus 9.9, albumin 2.9. Iron chemistry showed serum iron of 55, TIBC of 300 with saturation of 18%, ferritin of 514. Blood cultures collected from both right internal jugular vein as well as urine culture from Prince catheter, so far no growth. Chest x-ray showed no acute change from yesterday. ET tube and NG tubes are noted as well as central line and AICD leads. Mild cardiomegaly as well as linear atelectasis or infiltrate in the left mid lung again is noted. Costophrenic angles are relatively clear and sharp. ASSESSMENT: 1. Acute renal failure: Now hemodialysis dependent. Most likely due to acute tubular necrosis from septic shock with possible contribution from vancomycin-induced nephrotoxicity. Last hemodialysis was on January 04. The patient continued to make some urine with urine output of about 1100 in the last 24 hours. However, renal clearance remained poor with BUN and creatinine trending up promptly post dialysis, suggestive of no significant renal recovery as yet. We will dialyze the patient for 4 hours today with mannitol at 1 hour and 3 hours to prevent disequilibrium syndrome. UF will be 0 to 500 as tolerated given history of hypotension. 2. Volume overload: Improved. The patient currently seems euvolemic. 3. Metabolic acidosis: Due to acute kidney injury, septic shock with lactic acidosis. Improved with dialysis. 4. Hyperkalemia. Due to acute renal failure. We will treat with hemodialysis. 5. Septic shock. The patient is currently off pressors, but blood pressure in the last few days has been soft. We will monitor the patient with dialysis. 6. Septic shock. The patient is still having fevers. Blood cultures so far are nondiagnostic. We will defer to primary attending, Pulmonary, and Critical Care. 7. Pulmonary congestion/infiltrates: Due to influenza pneumonitis as well as acute on chronic systolic heart failure. Improved. Job ID: [id number]
[2019-01-06 22:50] VITALS: BP 114/76
[2019-01-07] MEDS: Sevelamer Carbonate 800 MG TAB PO SCH ×2 (00:43→05:30)
[2019-01-07 04:45] LABS: #Basophils 0.1 thou/uL (0.0-0.2); #Eosinphils 0.1 thou/uL (0.0-0.7); #Lymphocytes 1.2 thou/uL (1.20-3.40); #Monocytes 1.8 thou/uL (0.11-0.59); #Neutrophils 15.7 thou/uL (1.40-6.50); %Basophils 0.5 % (0.0-1.0); %Eosinophils 0.6 % (0.0-10.0); %Lymphocytes 6.6 % (21.0-51.0); %Monocytes 9.6 % (0.0-10.0); %Neutrophils 82.8 % (42.0-75.0); Hemoglobin 11.7 g/dL (14.0-18.0); Mean Corpuscular HGB CONC 32.6 g/dL (32.0-36.0); Mean Corpuscular Volume 79.8 fL (78.0-98.0); Mean Platelet Volume 10.1 fL (7.4-10.4); Platelet Count 122 thou/uL (130-400); RBC Distribution Width 15.1 % (11.5-14.5); Red Blood Cell (RBC) Count 4.49 mill/uL (4.70-6.10); White Blood Cell (WBC) Count 18.9 thou/uL (4.8-10.8)
[2019-01-07 05:06] LABS: Albumin 2.8 g/dL (3.5-5.0); Anion Gap 17 mmol/L (10-20); BUN (Urea Nitrogen) 73 mg/dL (8.9-20.6); BUN/Creatinine Ratio 13.93; Calc. Creatinine Clearance 27 mL/min (70-130); Calcium 8.9 mg/dL (7.8-10.44); Carbon Dioxide 27 mmol/L (22-29); Chloride 99 mmol/L (98-107); Estimated GFR-MDRD 15; Glucose 125 mg/dL (70-105); Phosphorus 7.5 mg/dL (2.3-4.7); Potassium 4.1 mmol/L (3.5-5.1); Sodium 139 mmol/L (136-145)
[2019-01-07 06:32] VITALS: TEMP 99.8
--- NOTE | 2019-01-07 09:01 | PRG ---
DATE OF SERVICE: 01/07/2019 This is a Code Blue documentation. A Code Blue was called on the patient about 7:55 a.m. this morning. He suddenly became unresponsive with fixed pupils after being turned in bed. A Code Blue was called. The patient was initially in pulseless electrical activity, but that was probably made possible by the pacemaker in place. No pulse was palpable. CPR was started with chest compressions and ET tube bag ventilation. The patient was given sequential epinephrine approximately every 2 minutes. He was also given 2 amps of bicarbonate during the code. End-tidal CO2 was placed on the patient. End-tidal CO2 read 0 on two separate occasions with two different cables on two different monitors. We were never able to regain a pulse. Resuscitative measures were stopped after approximately 25 minutes of CPR time. Family was not available. Cause of is thought to be pulmonary embolism versus myocardial infarction. Job ID: [id number]
--- NOTE | 2019-01-07 15:45 | DIS ---
DATE OF ADMISSION: 12/26/2018 DATE OF DISCHARGE: 01/07/2019 DATE OF : January 07, 2019. TIME OF : 8:20 a.m. PRIMARY CAUSE OF : 1. Septic shock. 2. Acute tubular necrosis. 3. Bilateral community-acquired pneumonia. 4. Acute respiratory and kidney failure. CONTRIBUTING DIAGNOSES: 1. Nonischemic cardiomyopathy. 2. Kyn-DH-uepgythds myocardial infarction. 3. Chronic combined systolic and diastolic heart failure. 4. Chronic obstructive pulmonary disease. 5. Chronic hepatitis C. 6. Moderate aortic, mitral and tricuspid regurgitation. PRIMARY PROCEDURE/OPERATION: Endotracheal intubation, central line placement, hemodialysis catheter placement. RADIOLOGICAL INVESTIGATION: CT brain, CT dissection, chest x-ray, echocardiography, renal ultrasound. HOSPITAL SUMMARY: A 43-year-old male who had above-mentioned medical problem, who was admitted by Dr. Alvarez on December 26, 2018. Please see his H and P for further details. This patient was found with influenza B and he was having bilateral pneumonia. He also had associated septic shock on admission with elevated BNP, lactic acidosis, and significantly elevated D-dimer. He also had elevated creatinine as well as abnormal LFTs. Initial picture was consistent with septic shock secondary to influenza B infection and multifocal pneumonia. He was also having acute on chronic systolic and diastolic heart failure exacerbation, as well as respiratory failure and acute kidney failure. He required intubation and he was treated for influenza B while in hospital and he was also given antibiotic therapy with vancomycin and Zosyn. Because the patient was gradually getting elevated creatinine and that is why vancomycin was discontinued, but the patient finished antibiotic course of Zosyn for pneumonia. The patient's renal function did not improve and that is why he required dialysis. He developed acute tubular necrosis and he was dependent on dialysis. Subsequently, while in hospital, he started having recurrent fever and leukocytosis and he became again septic and that is why cefepime, micafungin, and vancomycin were restarted. The patient was getting hemodialysis through dialysis access. Dialysis access was placed by Dr. Ocampo. He also had elevated troponin as well as nonischemic cardiomyopathy and that is why Cardiology group was also following while in hospital. Pulmonary group was managing ventilator. This patient's condition was not improving and he became more deteriorated. Today at 7:58, romeo sullivan was called. Dr. Beasley and romeo sullivan and Jose Elias was also attended the patient at bedside. We did total 20 minutes CPR and based on ACLS protocol, despite that the patient did not make any pulse and was pronounced at 8:20. I spent bedside almost 30 minutes with the patient with code blue today. was pronounced and body was released for . Job ID: [id number]
== END 2019-01-07 08:20 | disposition expired | DRG 870 ==
LOC: ERS 01:02 → CCU 04:42
PROVIDERS: ADMIT Internal Medicine; ATTEND Internal Medicine
PROC: 5A1955Z Respiratory Ventilation, Greater than 96 Consecutive Hours (ICD-10-PCS; principal; 2018-12-26)
PROC: 0BH17EZ Insertion of Endotracheal Airway into Trachea, Via Natural or Artificial Opening (ICD-10-PCS; 2018-12-26)
PROC: 3E033XZ Introduction of Vasopressor into Peripheral Vein, Percutaneous Approach (ICD-10-PCS; 2018-12-26)
PROC: 06HM33Z Insertion of Infusion Device into Right Femoral Vein, Percutaneous Approach (ICD-10-PCS; 2018-12-30)
PROC: 5A1D70Z Performance of Urinary Filtration, Intermittent, Less than 6 Hours Per Day (ICD-10-PCS; 2018-12-31)
PROC: 5A1D70Z Performance of Urinary Filtration, Intermittent, Less than 6 Hours Per Day (ICD-10-PCS; 2019-01-01)
PROC: 5A1D70Z Performance of Urinary Filtration, Intermittent, Less than 6 Hours Per Day (ICD-10-PCS; 2019-01-03)
PROC: 5A1D70Z Performance of Urinary Filtration, Intermittent, Less than 6 Hours Per Day (ICD-10-PCS; 2019-01-04)
PROC: 0JH63XZ Insertion of Tunneled Vascular Access Device into Chest Subcutaneous Tissue and Fascia, Percutaneous Approach (ICD-10-PCS; 2019-01-05)
PROC: 02HV33Z Insertion of Infusion Device into Superior Vena Cava, Percutaneous Approach (ICD-10-PCS; 2019-01-05)
PROC: 02HV33Z Insertion of Infusion Device into Superior Vena Cava, Percutaneous Approach (ICD-10-PCS; 2019-01-05)
PROC: 5A1D70Z Performance of Urinary Filtration, Intermittent, Less than 6 Hours Per Day (ICD-10-PCS; 2019-01-06)
PROC: 5A12012 Performance of Cardiac Output, Single, Manual (ICD-10-PCS; 2019-01-07)
DX: A41.9 Sepsis, unspecified organism (principal); R65.21 Severe sepsis with septic shock; N17.0 Acute kidney failure with tubular necrosis; J10.00 Influenza due to other identified influenza virus with unspecified type of pneumonia; I50.23 Acute on chronic systolic (congestive) heart failure; G93.41 Metabolic encephalopathy; J96.02 Acute respiratory failure with hypercapnia; J96.01 Acute respiratory failure with hypoxia; I21.4 Non-ST elevation (NSTEMI) myocardial infarction; Z68.41 Body mass index [BMI] 40.0-44.9, adult; I42.9 Cardiomyopathy, unspecified; E87.2 Acidosis; G72.81 Critical illness myopathy; J44.0 Chronic obstructive pulmonary disease with (acute) lower respiratory infection; J45.901 Unspecified asthma with (acute) exacerbation; J44.1 Chronic obstructive pulmonary disease with (acute) exacerbation; E78.5 Hyperlipidemia, unspecified; E66.01 Morbid (severe) obesity due to excess calories; F41.9 Anxiety disorder, unspecified; E88.81 Metabolic syndrome and other insulin resistance; E87.5 Hyperkalemia; I95.9 Hypotension, unspecified; E83.39 Other disorders of phosphorus metabolism; I08.3 Combined rheumatic disorders of mitral, aortic and tricuspid valves; B18.2 Chronic viral hepatitis C; F12.10 Cannabis abuse, uncomplicated; Z79.82 Long term (current) use of aspirin; Z79.899 Other long term (current) drug therapy; Z95.810 Presence of automatic (implantable) cardiac defibrillator; Z96.642 Presence of left artificial hip joint
CPT/HCPCS: 31500; 36415; 36416; 36556; 51702; 70450; 71045; 71275; 76770; 80048; 80053; 80069; 80202; 80306; 80307; 81001; 81003; 81015; 82550; 82553; 82570; 82728; 82805; 83540; 83550; 83605; 83735; 83880; 84100; 84156; 84300; 84439; 84443; 84484; 84540; 85025; 85379; 86704; 86706; 86803; 87040; 87070; 87086; 87149; 87205; 87340; 87522; 87804; 89190; 90935; 93005; 93306; 93970; 94002; 94003; 94640; 94760; 96365; 96366; 96368; 96375; 99292; A4216; C1752; C1769; G0257; G0365; J0171; J0670; J0692; J1642; J1644; J1650; J1815; J1940; J2001; J2060; J2150; J2248; J2250; J2543; J2704; J2920; J3010; J3370; J3490; J7050; J7070; J7512; J7620; Q9966; S0028